=== PATIENT | female | born 1960 | race Caucasian/White ===

== ENCOUNTER 2020-04-22 11:35 | Emergency (ER) | payer MEDICARE, SELFPAY ==
--- NOTE | ~2020-04-22 | XR_ITS ---
EXAMINATION: XR hip LT 2V w AP pelvis DATE: 04/22/2020 13:26 INDICATION: Left hip pain. TECHNIQUE: An anteroposterior view of the pelvis and 2 views of left hip were obtained. COMPARISON: CT abdomen and pelvis 03/20/2019, 07/27/2017 FINDINGS: Bone alignment is normal. No fracture. Left ilium demonstrates chronic trabecular and corti jeannie thickening, consistent with Paget disease. There is mild osteoarthritis of the hips. There is mil d lumbar spondylosis. IMPRESSION: 1. Mild osteoarthritis of the hips. Reviewed, dictated and finalized at location A.
[2020-04-22 11:43] VITALS: BP 164/70; PULSE 72; RESP 14; TEMP 35.9; O2SAT 99
--- NOTE | 2020-04-22 13:43 | ED.EXTPRO ---
HPI - Extremity Problem General Chief complaint: Extremity Problem,Nontraumatic Stated complaint: groin pain-left Time Seen by Provider: 04/22/20 11:48 Source: patient Mode of arrival: ambulatory Limitations: no limitations History of Present Illness HPI Narrative: Patient presents with chief complaint of left hip pain that has been present intermittently since 2011. 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 Patient states that she was told that she will have to have hip replacement in 2017 with a did not occur. Patient states that she has intermittent sharp pains in the left hip that worsens when she stands and attempts to ambulate. She reports the discomfort is to the groin region. Patient states she saw her primary care provider but they cannot see her today and told her to come to the ER for imaging and they can refer her to the appropriate place. Patient states that she takes Tylenol for the discomfort but it does not alleviate her symptoms. Patient denies any recent falls or trauma. Related Data Home Medications Medication Instructions Recorded Confirmed aspirin 325 mg PO DAILY 05/12/19 05/19/19 atorvastatin 10 mg PO DAILY 05/12/19 05/19/19 escitalopram oxalate 20 mg PO DAILY 05/12/19 05/19/19 metoprolol succinate 25 mg PO BID 05/12/19 05/19/19 Allergies Allergy/AdvReac Type Severity Reaction Status Date / Time Sulfa (Sulfonamide Allergy Unknown Verified 08/31/19 12:42 Antibiotics) Review of Systems Review of Systems: Narrative: CONSTITUTIONAL: Denies fever, chills, or sweats. EYES: Denies visual changes, redness, or discharge. ENT: Denies rhinorrhea, congestion, sore throat, or otalgia. CARDIOVASCULAR: Denies chest pain, palpitations, or edema. RESPIRATORY: Denies cough or dyspnea. GASTROINTESTINAL: Denies abdominal pain, nausea, vomiting, or diarrhea. GENITOURINARY: Denies dysuria or hematuria. SKIN: Denies rash or itching. MUSCULOSKELETAL: Reports left groin pain denies back pain, myalgia, or joint pain NEUROLOGIC: Denies headache, numbness, dizziness, or weakness. PSYCHIATRIC: Denies anxiety or depression. [facility] Past Medical History Medical History (Updated 04/22/20 @ 13:48 by Diara J. Carr, PA-C) Anxiety Arthritis CAD (coronary artery disease) Cancer Depression Seizure Surgical History Surgical History (System 08/31/19 @ 12:42 by Celina Urena) History of coronary artery stent placement Family History Family History (System 08/31/19 @ 12:42 by Celina Urena) Mother Cerebrovascular accident Father Family history of heart disease in male family member before age 55 Other Asthma Depression Diabetes mellitus Family history of alcoholism Family history of arthritis Family history of thyroid disease Hypertension Social History Social History (System 08/31/19 @ 12:42 by Celina Urena) Smoking status: Never smoker Alcohol intake: never Gender identity (if verbalized by the patient): Male Exam Narrative: Exam Narrative: GENERAL: Well-appearing, well-nourished. HEAD: Normocephalic, atraumatic. EYES: PERRLA and EOMI. ENT: Nares clear, no rhinorrhea or epistaxis. Mucous membranes moist. NECK: Supple. No adenopathy or masses. No vertebral tenderness or loss of ROM. CHEST: Clear to auscultation. No respiratory distress. No wheezes rales or rhonchi HEART: Regular rate and rhythm. Normal peripheral pulses. EXTREMITIES: Patient ambulates with a limp reporting sharp pain to the left groin. Extremities appear normal without any signs of trauma or injury. They look equal and appropriate bilaterally. Patient limps with ambulation and weightbearing. No edema. SKIN: Warm, dry, no rash. NEURO: No focal deficits. Alert and oriented x3. PSYCH: Normal mood and affect. Course Vital Signs Vital signs: Vital Signs Temperature 96.6 F L 04/22/20 11:43 Pulse
[2020-04-22] MEDS: KETOROLAC (*BKC) 60 MG/2 ML VIAL 30 MG IM (13:52)
[2020-04-22 14:47] VITALS: BP 122/78; PULSE 16; RESP 18; O2SAT 99
== END 2020-04-22 14:49 | disposition home or self-care (01) ==
PROVIDERS: Emergency Provider Emergency Medicine; PCP Family Medicine
DX: M25.552 Pain in left hip (principal); F41.9 Anxiety disorder, unspecified; M19.90 Unspecified osteoarthritis, unspecified site; I25.10 Atherosclerotic heart disease of native coronary artery without angina pectoris; F32.9 Major depressive disorder, single episode, unspecified; Z95.5 Presence of coronary angioplasty implant and graft; Z79.82 Long term (current) use of aspirin
CPT/HCPCS: 73502; 96372; 99284; J1885

== ENCOUNTER 2020-05-22 06:37 | Outpatient (CLI) | payer MEDICARE, SELFPAY ==
--- NOTE | ~2020-05-22 | MR_ITS ---
EXAMINATION: MR pelvis wo/w con DATE: 05/22/2020 07:52 INDICATION: Pelvic and perineal pain. TECHNIQUE: Magnetic resonance imaging (MRI) of the pelvis was performed without and with 20 mL MultiH ance intravenous contrast. Sequences included axial, coronal, and sagittal T2-weighted FS FSE, T1-britney ghted FSE, and postcontrast T1-weighted FS FSE. COMPARISON: Pelvis and left hip radiographs 04/22/2020, CT abdomen and pelvis 04/19/2019 FINDINGS: Bone alignment is normal. There is heterogeneous signal intensity of left ilium with trabecular thick ening, consistent with Paget disease. There is an insufficiency fracture of left sacral ala. There is a subcapital fracture of left femoral neck. There is mild osteoarthritis of the hips. There is mild tendinopathy of the hamstring origins. The gluteal tendons and iliopsoas tendons are normal bilateral ly. There is mild edema in left gluteus afshin muscle, consistent with strain. IMPRESSION: 1. Nondisplaced subcapital fracture of left femoral neck. 2. Insufficiency fracture of left sacral ala. 3. Mild osteoarthritis of the hips. Reviewed, dictated and finalized at location A. 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
== END 2020-05-22 06:38 | disposition home or self-care (01) ==
PROVIDERS: PCP Family Medicine; Visit Provider Orthopaedic Surgery
DX: R10.2 Pelvic and perineal pain (principal); Z85.79 Personal history of other malignant neoplasms of lymphoid, hematopoietic and related tissues; S72.012A Unspecified intracapsular fracture of left femur, initial encounter for closed fracture; S32.19XA Other fracture of sacrum, initial encounter for closed fracture; M16.0 Bilateral primary osteoarthritis of hip
CPT/HCPCS: 72197; A9577

== ENCOUNTER 2020-11-04 15:34 | Outpatient (CLI) | payer MEDICARE, SELFPAY ==
--- NOTE | ~2020-11-04 | CT_ITS ---
EXAMINATION: CT pelvis wo con DATE: 11/04/2020 15:51 INDICATION: Left hip pain. TECHNIQUE: Computed tomography (CT) of the pelvis was performed without intravenous contrast. Automat ed exposure control and iterative reconstruction technique were employed. The dose-length product was 632.32 mGy-cm. COMPARISON: Left hip radiographs 09/04/2020, MRI 05/22/2020, abdomen radiographs 08/28/2018 FINDINGS: There are no pathologically enlarged lymph nodes. There is no free intraperitoneal fluid. T here is a diffuse mixed lytic and sclerotic pattern in left ilium. There is sclerosis in left sacral ala, consistent with healing/healed fracture. There is a subcapital fracture of left femoral neck. Th e distal fracture fragment demonstrates 20 degrees varus angulation, medial impaction, and 4 mm later al displacement. There is mild osteoarthritis of hips. There is mild lumbar spondylosis. IMPRESSION: 1. Subcapital fracture of left femoral neck. 2. Mild osteoarthritis of the hips. 3. Healing/healed left sacral insufficiency fracture. 4. Diffuse mixed lytic and sclerotic pattern in left ilium, stable from 08/28/2018, consistent with torey ated lymphoma. Reviewed, dictated and finalized at location B. IMPRESSION: 1. Subcapital fracture of left femoral neck. 2. Mild osteoarthritis of the hips. 3. Healing/healed left sacral insufficiency fracture. 4. Diffuse mixed lytic and sclerotic pattern in left ilium, stable from 9, consistent with treated lymphoma.
== END 2020-11-04 15:35 | disposition home or self-care (01) ==
PROVIDERS: PCP Family Medicine; Visit Provider Orthopaedic Surgery
DX: M25.552 Pain in left hip (principal); S72.012A Unspecified intracapsular fracture of left femur, initial encounter for closed fracture; S32.19XD Other fracture of sacrum, subsequent encounter for fracture with routine healing; M16.0 Bilateral primary osteoarthritis of hip
CPT/HCPCS: 72192

== ENCOUNTER 2020-11-09 09:45 | Outpatient (CLI) | payer MEDICARE, SELFPAY ==
--- NOTE | ~2020-11-09 | MR_ITS ---
EXAMINATION: MR pelvis wo/w con DATE: 11/09/2020 11:30 INDICATION: Non-Hodgkin's lymphoma. Left groin pain and hip pain. TECHNIQUE: Magnetic resonance imaging (MRI) of the pelvis was performed without and with 15 mL MultiH ance intravenous contrast. Sequences included axial, coronal, and sagittal T1-weighted FSE and T2-britney ghted FS FSE, axial T1-weighted FS FSE, and postcontrast axial and coronal T1-weighted FS FSE. COMPARISON: Pelvis MRI 05/22/2020, CT pelvis 11/04/2020, 08/28/18 FINDINGS: Again seen is a subcapital fracture of left femoral neck. The distal fracture fragment demonstrates 2 0 degrees varus angulation, 5 mm lateral displacement, and medial impaction. There is bone marrow teresa ma-like signal intensity in the sacral ala, consistent with healing fracture. There is chronic deform ity of left ilium with heterogeneous signal intensity. There is mild osteoarthritis of the hips. Ther e is a small left hip joint effusion. There is subcutaneous fat stranding anterolateral to left ilium , consistent with inflammation. The iliopsoas tendons are normal. The gluteus minimus and gluteus med ius tendons are normal. There is mild bilateral trochanteric bursitis. IMPRESSION: 1. Unchanged subcapital fracture of left femoral neck. Small left hip joint effusion. 2. Mild osteoarthrosis of the hips. 3. Healing left sacral insufficiency fracture. 4. Heterogeneous signal intensity in left ilium correlating with CT findings that are stable from 08/28, consistent with treated lymphoma. Reviewed, dictated and finalized at location A. IMPRESSION: 1. Unchanged subcapital fracture of left femoral neck. Small left hip joint eff usion. 2. Mild osteoarthrosis of the hips. 3. Healing left sacral insufficiency fracture. 4. Heterogeneous signal intensity in left ilium correlating with CT findings th at are stable from 08/28/18, consistent with treated lymphoma.
[2020-11-09 10:51] LABS: Estimated Glomerular Filt Rate > 60
== END 2020-11-09 09:46 | disposition home or self-care (01) ==
PROVIDERS: PCP Family Medicine; Visit Provider Orthopaedic Surgery
DX: M25.552 Pain in left hip (principal); S72.012A Unspecified intracapsular fracture of left femur, initial encounter for closed fracture; M25.452 Effusion, left hip; M16.0 Bilateral primary osteoarthritis of hip; M84.48XD Pathological fracture, other site, subsequent encounter for fracture with routine healing
CPT/HCPCS: 72197; A9577

== ENCOUNTER 2020-12-05 06:35 | Outpatient (CLI) | payer MEDICARE, SELFPAY ==
--- NOTE | ~2020-12-05 | NM_ITS ---
EXAMINATION: NM damion stress w perfusion DATE: 12/05/2020 15:00 INDICATION: Atherosclerotic coronary artery disease. TECHNIQUE: Rest images were obtained following intravenous administration of 10.5 mCi Tc99m tetrofosm in (Myoview). The patient was infused intravenously with Lexiscan (Regadenoson). Then, 31.5 mCi Tc99m tetrofosmin (Myoview) was administered intravenously, and stress images were obtained. Data was ramonita nstructed into short axis and horizontal and vertical long axis SPECT images. Gated SPECT images were also obtained. COMPARISON: None. FINDINGS: There is no definite reversible or fixed perfusion abnormality to suggest ischemia or infar ction. There is normal left ventricular chamber size, wall motion and ejection fraction. Left ventr icular ejection fraction measures 68%. IMPRESSION: 1. Normal myocardial perfusion at rest and during stress. 2. Left ventricular ejection fraction measuring 68%. Reviewed, dictated and finalized at location A.
--- NOTE | 2020-12-05 06:59 | ECHO_ITS ---
Patient Info Name: Teresa Rodriguez Age: 60 years : 1960 Gender: Female Ht: 62 in Wt: 198 lbs BSA: 2.03 m2 HR: 56 bpm BP: 123 / 86 mmHg Technical Quality: Fair Exam Date: 12/05/2020 7:06 AM Exam Location: [facility] Patient Status: Outpatient Admit Date: 12/05/2020 Staff Ordering Physician: Primitivo Skelton DO Lcsw: Bessie Avalos RDCS Attending Provider: Primitivo Skelton DO Referring Physician: Costa SPANN; Exam Type: CA echo doppler color flow Study Info Indications D15.1 - Benign neoplasm of heart Complete two-dimensional, color flow and Doppler transthoracic echocardiogram is performed. Summary 1. Complete two-dimensional, color flow and Doppler transthoracic echocardiogram is performed. 2. Left ventricular chamber dimension is normal. 3. Left ventricular systolic function is normal, estimated at 60-65%. 4. The left ventricular diastolic function is abnormal. 5. E/e' 12 is mildly elevated. 6. Global longitudinal strain is normal at -19.8%. 7. Circumscribed mass attached to superior lateral wall of right atrium measuring 0.9 cm x 0.9 cm2 suggestive of atrial myxoma. It is nonobstructive. 8. No pulmonary hypertension, estimated pulmonary arterial systolic pressure is 24 mmHg. Left Ventricle E/e' 12 is mildly elevated. Global longitudinal strain is normal at -19.8%. Left ventricular chamber dimension is normal. Left ventricular systolic function is normal, estimated at 60-65%. The left ventricular diastolic function is abnormal. Right Ventricle Right ventricular chamber dimension is normal. Right ventricular systolic function is normal. Left Atria Left atrial chamber dimension is normal. Right Atria Circumscribed mass attached to superior lateral wall of right atrium measuring 0.9 cm x 0.9 cm2 suggestive of atrial myxoma. It is nonobstructive. Right atrial chamber dimension is normal. Aortic Valve The aortic valve is trileaflet. There is no aortic valve stenosis. There is no aortic valve regurgitation. Pulmonic Valve There is no pulmonic regurgitation. Mitral Valve There is no mitral valve stenosis. There is no mitral valve regurgitation. Tricuspid Valve There is no tricuspid valve regurgitation. No pulmonary hypertension, estimated pulmonary arterial systolic pressure is 24 mmHg. Pericardium/Pleural There is no pericardial effusion. Inferior Vena Cava Normal inferior vena cava with >50% collapse upon inspiration consistent with normal right atrial pressure, 5 mmHg. Aorta The aortic root size at the sinus of Valsalva is normal. Left Ventricular Outflow Tract Name Value Normal LVOT 2D LVOT Diameter 2.0 cm LVOT Doppler LVOT Peak Gradient 5 mmHg LVOT Mean Gradient 3 mmHg LVOT VTI 26 cm LVOT VTI/AV VTI Ratio 0.9 LVOT Stroke Volume 79 ml LVOT CO 4.4 l/min LVOT CI 2.2 l/min/m2 Pulmonic Valve
--- NOTE | 2020-12-05 06:59 | EST_ITS ---
Patient Info Name: Teresa Rodriguez Age: 60 years : 1960 Gender: Female Ht: 62 in Wt: 198 lbs BSA: 2.03 m2 Exam Date: 12/05/2020 8:43 AM Exam Location: [facility] Stress Patient Status: Outpatient Admit Date: 12/05/2020 Staff Ordering Physician: Primitivo Skelton DO Attending Provider: Primitivo Skelton DO Exercise Technologist: Bessie Avalos RDCS Exercise Physician: Primitivo Skelton DO Exam Type: CA stress damion w NM Study Info Indications I25.10 - Atherosclerotic heart disease of [place] coronary artery without angina pectoris A regadenoson stress test was performed. Summary 1. 1. Negative lexiscan stress test for ischemic ST changes by ECG criteria. 2. 2. Stable hemodynamics throughout the test. 3. 3. Nuclear scan to follow and will be reported separately. Please correlate with it. 4. 4. Patient informed of the above results. Protocol: Lexiscan Stress ECG Details Stage: REST Duration (min): 1 min : 19 sec HR (bpm): 63 SBP (mmHg): 126 DBP (mmHg): 65 Stage: REST Duration (min): 9 min : 49 sec HR (bpm): 68 SBP (mmHg): 126 DBP (mmHg): 65 Stage: STAGE 1 Duration (min): 0 min : 59 sec HR (bpm): 81 SBP (mmHg): 151 DBP (mmHg): 105 Stage: RECOVERY Duration (min): 1 min : 0 sec HR (bpm): 95 SBP (mmHg): 119 DBP (mmHg): 90 Stage: RECOVERY Duration (min): 2 min : 0 sec HR (bpm): 96 SBP (mmHg): 119 DBP (mmHg): 90 Stage: RECOVERY Duration (min): 3 min : 0 sec HR (bpm): 99 SBP (mmHg): 133 DBP (mmHg): 85 Stage: RECOVERY Duration (min): 3 min : 7 sec HR (bpm): 98 SBP (mmHg): 133 DBP (mmHg): 85 Rest HR: 68 bpm Peak HR: 99 bpm Rest Sys BP: 126 mmHg Peak Sys BP: 151 mmHg Max Pred HR: 160 bpm % Max Pred HR: 62 % Target HR: 136 bpm Max RPP: 14,949 bpm*mmHg Termination Reason: Completed protocol Cardiac Symptoms: Shortness of breath Total Time: 1 min : 0 sec Rest Corrales BP: 65 mmHg Peak [place]rales BP: 105 mmHg Total Dose: 0.4 mg Resting ECG Sinus rhythm. Stress ECG No ST changes. Arrhythmias None. Report Signatures
== END 2020-12-05 06:36 | disposition home or self-care (01) ==
PROVIDERS: PCP Family Medicine; Visit Provider Internal Medicine Cardiovascular Disease
DX: D15.1 Benign neoplasm of heart (principal); I25.10 Atherosclerotic heart disease of native coronary artery without angina pectoris
CPT/HCPCS: 78452; 93017; 93306; A9502; J2785

== ENCOUNTER 2021-05-29 14:20 | Outpatient (CLI) | payer MEDICARE, SELFPAY ==
--- NOTE | ~2021-05-29 | XR_ITS ---
XR abdomen/kub 1V 05/29/2021 14:54 Indication: Left-sided flank pain Procedure: KUB Comparison: Comparison to multiple prior studies sequentially, with oldest reviewed study dated 05/28. Findings: There are bilateral renal stones. There are cholecystectomy clips. There are pelvic vascula r calcifications. There is Paget's disease of the left ilium. There is a left hip arthroplasty. Bowel gas pattern nonobstructive. Impression: 1: Bilateral nephrolithiasis. Reviewed, dictated and finalized at location B. 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
== END 2021-05-29 14:21 | disposition home or self-care (01) ==
PROVIDERS: PCP Family Medicine; Visit Provider Nurse Practitioner Adult Health
DX: R10.9 Unspecified abdominal pain (principal); N20.0 Calculus of kidney
CPT/HCPCS: 74018

== ENCOUNTER 2021-05-31 13:16 | Emergency (ER) | payer MEDICARE, SELFPAY ==
[2021-05-31] VITALS (16 sets, daily range): BP systolic 102–167; BP diastolic 55–93; PULSE 76–91; RESP 12–26; TEMP 36.6; O2SAT 100
[2021-05-31 15:52] LABS: Basophils Percent Auto 0.3 % (0.2-1.2); Eosinophils Percent Auto 0.3 % (0-4.4); Hematocrit 40.2 % (37.0-47.0); Hemoglobin 13.4 g/dL (12.0-15.0); Immature Granulocyte Absolute 0.06 K/mm3 (0.00-0.031); Immature Granulocyte Percent A 0.6 % (0-0.5); Lymphocytes Absolute Auto 0.84 K/mm3 (0.9-3.2); Mean Corpuscular HGB Conc 33.3 g/dl (32-36); Mean Corpuscular Hemoglobin 31.2 pg (26-34); Mean Corpuscular Volume 93.5 fl (80-100); Mean Platelet Volume 10.6 fl (7.4-10.4); Monocytes Absolute Auto 0.7 K/mm3 (0.1-0.6); Monocytes Percent Auto 6.5 % (2.6-8.5); Neutrophils Absolute Auto 8.9 K/mm3 (1.3-6.7); Neutrophils Percent Auto 84.3 % (45.5-73.1); Platelet Count Result 192 k/mm3 (150-375); Red Cell Distribution Width 13.8 % (11.5-14.5); White Blood Count 10.5 K/mm3 (4.5-10.0)
[2021-05-31 16:04] LABS: Alanine Aminotransferase 13 U/L (4-35); Albumin Level 4.5 g/dL (3.5-5.1); Alkaline Phosphatase 92 U/L (38-126); Anion Gap 12 mmol/L (8-16); Aspartate Amino Transferase 21 U/L (14-36); Bilirubin,Total 0.6 mg/dL (0.2-1.3); Blood Urea Nitrogen 15 mg/dL (7-17); Calcium 9.5 mg/dL (8.4-10.2); Carbon Dioxide 25 mmol/L (22-30); Chloride 97 mmol/L (98-107); Estimated CRCL calculation 60 ml/min; Estimated Glomerular Filt Rate > 60; Glucose 111 mg/dL (65-110); Potassium 3.2 mmol/L (3.4-5.0); Sodium 134 mmol/L (137-145)
[2021-05-31 16:13] LABS: Add Urine Microscopic? YES; Appearance Urine Cloudy (Clear); Bacteria Urine Trace /hpf; Bilirubin Urine Negative (Negative); Blood Urine 2+ (Negative); Color Urine Yellow (Yellow); Glucose Urine UA Negative (Negative); Ketones Urine 1+ mg/dL (Negative); Leukocyte Esterase Ur 3+ LEU/UL (Negative); Mucus Urine Rare /lpf; Nitrate Urine Negative (Negative); Protein Urine 2+ mg/dL (Negative); Specific Grav Ur 1.014 (1.001-1.035); Squamous Epithelial Cell Urine Few /hpf (Few); Urobilinogen Urine Negative mg/dL (<2.0); WBC Urine 51-75 /hpf
[2021-05-31] MEDS: LACTATED RINGERS 1,000 ML 150 ML IV CONT (16:14)
--- NOTE | 2021-05-31 17:06 | ED.FEMALEGU ---
HPI - Female Genitourinary General Chief complaint: Urogenital-Female Stated complaint: flank pain Time Seen by Provider: 05/31/21 15:37 Source: patient Mode of arrival: ambulatory Limitations: no limitations History of Present Illness HPI Narrative: 61-year-old female Complains of a 3 or 4-day history of left-sided flank pain She was seen in the urology office 2 days ago and diagnosed with a UTI and started Macrodantin that afternoon She sees because she had a previous history of lithotripsy for kidney stones and sounds like she had pyelonephritis related to that She says that the day after starting that antibiotic she started having loose stools she thought were kind of mucousy and nausea and a poor appetite and a WING No blood in the stool No fever Related Data Home Medications Medication Instructions Recorded Confirmed acetaminophen 650 mg 650 mg PO Q12H 11/22/20 05/29/21 tablet,extended release amlodipine 05/31/21 atorvastatin 05/31/21 citalopram mg 05/31/21 metoprolol tartrate 05/31/21 terbinafine HCl mg 05/31/21 Allergies Allergy/AdvReac Type Severity Reaction Status Date / Time Sulfa (Sulfonamide Allergy Unknown Unknown Verified 05/31/21 17:23 Antibiotics) Review of Systems Review of Systems: All systems reviewed & are unremarkable except as noted in HPI and below Constitutional: Constitutional: Reports no additional constitutional complaints, Denies chills, Reports fatigue, Denies fever(s) and Denies headache(s) Eyes: Eyes: Reports no additional eye complaints and Denies change in vision ENT: Denies headache(s) and Denies sore throat Cardiovascular: Cardiovascular: Denies chest pain and Denies dyspnea Respiratory: Respiratory: Denies cough and Denies dyspnea Gastrointestinal: Gastrointestinal: Denies abdominal pain, Reports diarrhea, Reports nausea and Denies vomiting Genitourinary: Genitourinary: Denies urinary frequency, Reports nocturia and Reports dysuria Musculoskeletal: Musculoskeletal: Denies deformity, Denies arthralgias, Denies joint swelling and Denies numbness Integumentary/Breasts: Skin/Breast: Denies rash and Denies wounds Neurologic: Reports headache(s), Denies focal weakness and Denies numbness Psychiatric: Psychiatric: Reports no additional psychiatric complaints Endocrine: Endocrine: Reports no additional endocrine complaints Hematologic/Lymphatic: Hematologic/Lymphatic: Reports no additional hematologic/lymphatic complaints Allergic/Immunologic: Allergic/Immunologic: Reports no additional allergic/immunologic complaints [facility] Past Medical History Medical History Anxiety Arthritis BMI 35.0-35.9,adult CAD (coronary artery disease) Cancer Depression Heart disease History of non-Hodgkin's lymphoma Hypertension Seizure Stress fracture of neck of left femur Surgical History Surgical History History of coronary artery stent placement Family History Family History Mother Cerebrovascular accident Father Family history of heart disease in male family member before age 55 Other Asthma Depression Diabetes mellitus Family history of alcoholism Family history of arthritis Family history of thyroid disease Hypertension Social History Social History Smoking status: Never smoker Alcohol intake: never Gender identity (if verbalized by the patient): Male Exam Const: General: cooperative, no acute distress and alert Orientation/consciousness: patient oriented x3 (alert) HENMT: Head: normal to inspection, normocephalic and atraumatic Ears: external ears normal General nose exam: no epistaxis Eyes: Conjunctivae: conjunctivae normal EOM: EOMs intact bilaterally Neck: Neck: normal visual inspection, supple and no J
[2021-05-31 17:41] LABS: Lactic Acid Reflex 1.3 mmol/L (0.7-2.1)
[2021-05-31] MEDS: POTASSIUM CHLORIDE 20 MEQ PACKET (FOR LIQUID) 40 MEQ PO (17:58)
== END 2021-05-31 20:11 | disposition home or self-care (01) ==
PROVIDERS: Emergency Provider Emergency Medicine; PCP Family Medicine
DX: N39.0 Urinary tract infection, site not specified (principal); I25.10 Atherosclerotic heart disease of native coronary artery without angina pectoris; I11.9 Hypertensive heart disease without heart failure; M19.90 Unspecified osteoarthritis, unspecified site; F32.A Depression, unspecified; F41.9 Anxiety disorder, unspecified; Z87.442 Personal history of urinary calculi; Z85.72 Personal history of non-Hodgkin lymphomas
CPT/HCPCS: 36415; 80053; 81001; 83605; 85025; 87086; 87088; 96361; 96365; 96366; 99284; A9270; J1956; J7120

== ENCOUNTER 2021-06-20 12:39 | Outpatient (CLI) | payer MEDICARE, SELFPAY ==
--- NOTE | ~2021-06-20 | CT_ITS ---
EXAMINATION: CT abdomen pelvis wo con DATE: 06/20/2021 13:04 INDICATION: Bilateral kidney stones. TECHNIQUE: Computed tomography (CT) of the abdomen and pelvis was performed without intravenous contr ast. Automated exposure control and iterative reconstruction technique were employed. The dose-length product was 440.46 mGy-cm. COMPARISON: CT abdomen and pelvis 03/20/2019, pelvis CT 11/04/20 FINDINGS: The visualized portions of the lung bases demonstrate mild atelectasis. No pleural effusion . The heart size is normal. There are coronary artery calcifications. No pericardial effusion. The li nena and spleen are normal. There are changes of cholecystectomy. The pancreas and adrenal glands are normal. There is cortical thinning of the kidneys. There are arterial calcifications at the glenys of t he kidneys. There is a 2 mm stone in right kidney upper pole. There is a 7 mm stone in right kidney l ower pole. There are approximately 6 stones in left kidney lower pole measuring up to 9 mm. There is mild left hydronephrosis and hydroureter. There are 5 mm and 3 mm stones in distal left ureter. There are no dilated loops of bowel. The appendix is normal. There are no pathologically enlarged lymph no alexa. There is no free intraperitoneal fluid. There is a left hip arthroplasty. Left ilium demonstrate s a mixed lytic and sclerotic pattern. There is moderate lumbar spondylosis. IMPRESSION: 1. 5 mm and 3 mm stones in distal left ureter with mild left hydronephrosis and hydroureter. 2. Bilateral nonobstructing kidney stones. 3. Stable mixed lytic and sclerotic pattern in left ilium, consistent with treated lymphoma. Reviewed, dictated and finalized at location A. 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 5 mm and 3 mm stones in distal left ureter with mild left hydronephrosis and hydroureter. 2. Bilateral nonobstructing kidney stones. 3. Stable mixed lytic and sclerotic pattern in left ilium, consistent with heather hernan lymphoma.
== END 2021-06-20 12:40 | disposition home or self-care (01) ==
LOC: ANHIMG 12:41
PROVIDERS: PCP Family Medicine; Visit Provider Nurse Practitioner Adult Health
DX: N20.2 Calculus of kidney with calculus of ureter (principal)
CPT/HCPCS: 74176

== ENCOUNTER 2021-06-25 00:43 | Day surgery (SDC) | payer MEDICARE, SELFPAY ==
[2021-06-24 13:00] VITALS: BMI 35.5
--- NOTE | 2021-06-24 13:18 | PC.NURSE ---
Report to the Outpatient Waiting Room, entrance under the green pavilion located off [facility], at time ___1115____ on date __06/25/21___. OR Time: __1345 . - You and your visitor will be asked a series of questions to screen for COVID 19 for your protection. - A mask is required within the hospital. - NO visitors is allowed at this time. Patient visitors will be guided where to wait when not with patient. Preoperative COVID Testing Requirements: No COVID Test needed if: (proof is required; if not received patient will have Rapid Test prior to entry) - Patient has received COVID Vaccine at least 14 days prior to procedure date or - Patient has positive COVID test result within last 90 days of surgery date. COVID Test needed if above criteria is not met If not COVID vaccinated a COVID test must be conducted within 72 hours of surgery and patient is asked to isolate self from time of testing until procedure. You will go to the [facility] for your COVID testing. The [facility] site is located at the corner of [address] [facility]. You will only be called if COVID results are positive and your surgeon may reschedule your elective surgery date. Patients may have clear liquids (water, carbonated beverages, clear teas, apple juice) until 3 hours prior to surgery with a maximum of 20 ounces. (0945 AM) - No food from midnight until time of surgery - Infants may have breast milk until 4 hours before surgery, infant formula 6 hours prior to surgery. - Children will be allowed to drink immediately following surgery. If applicable, please bring a bottle or sippy cup to assist with drinking. Juice, water, soda, and popsicles are readily available. For infants on formula, please bring formula the day of surgery. Pacifiers are allowed. Take the following medications with a SIP of water the morning of surgery: __METOPROLOL___ Medications to discontinue per physician __ASPIRIN PER DR. FERNANDEZ, Please no make-up, nail armenian, hairspray, perfume, deodorant, or body powder the day of surgery. No jewelry (including any body piercings) or valuables the day of surgery, leave them at home. Please take a shower or bath the night before, or the morning of, surgery with an antibacterial soap. Wear comfortable, loose fitting clothing. Children are encouraged to wear pajamas. - Jewelry must be removed prior to entering the operating room. Rings and piercings that are not removed may be cut off. - The hospital will not accept responsibility for valuables. - Please leave all valuables, including medications, at home the day of surgery. If you are going home after surgery, a licensed milk driver must drive you home. - NO public transportation without another adult. - We recommend that an adult stay with you for 24 hours following discharge. - We also recommend that you do not drive, make important decision, drink alcoholic beverages, or take any drugs that were not prescribed by your health care provider for at least 24 hours after your discharge time. For Pediatric surgeries, we recommend two adults accompany the child home (only one inside the building at this time). Follow any additional instructions given to you from your surgeon. Telephone instructions given to PT and asked if any additional questions and then verbalized understanding. Patient advised to call surgeon office or pre surgery nurse liaison [phone] if any additional questions.
[2021-06-25] VITALS (7 sets, daily range): BP systolic 118–152; BP diastolic 70–89; PULSE 59–69; RESP 14–18; TEMP 36.2–36.8; O2SAT 100
--- NOTE | ~2021-06-25 | XR_ITS ---
EXAMINATION: XR fluoroscopy no charge DATE: 06/25/2021 14:42 INDICATION: Left ureteroscopy and stone extraction TECHNIQUE: 3 fluoroscopic images of the abdomen and pelvis were obtained during procedure performed hortencia Keene. Radiologist was not present for the imaging or procedure. The amount of fluoroscopy maksim e used during this procedure was 0.3 minutes. COMPARISON: CT dated 06/16/2021 FINDINGS: Plaster Helper images demonstrate stones projecting over the lower poles of both kidneys. There also atheroscl erotic calcification along the bilateral renal arteries and bilateral iliac arteries in the pelvis. N o definitive stones seen along the course of ureters. Cholecystectomy clips in right upper quadrant. Bipolar type left hip hemiarthroplasty. IMPRESSION: 1. Bilateral renal stones. No definitive stones seen along the course of the ureters. Correlate with procedure note. Reviewed, dictated and finalized at location A. ARCHITECT IMPRESSION: 1. Bilateral renal stones. No definitive stones seen along the course of the ur eters. Correlate with procedure note.
--- NOTE | 2021-06-25 10:48 | WPDANESEPPF ---
Anes - Initial Pre Proc Eval Procedure: Operation Date: 06/25/21 13:45 Proposed Procedures p Cystoscopy, Left Ureteroscopy with Left Stone Extraction, Left Stent Placement, Left Retrograde Pyelogram - Anderson Keene MD s Holmium Laser Procedure - Anderson Keene MD <Octaviano Mckay MD - Last Filed: 06/29/21 15:36> Date/Time: 06/25/21 10:48 <Octaviano Mckay MD - Last Filed: 06/29/21 15:36> Surgeon: Anderson Keene MD <Octaviano Mckay MD - Last Filed: 06/29/21 15:36> Pre Op Diagnosis: Lt Ureteral Stone <Octaviano Mckay MD - Last Filed: 06/29/21 15:36> Patient Data Age: 61 Gender: F Height: 1.57 m Weight: 88.18 kg <Octaviano Mckay MD - Last Filed: 06/29/21 15:36> Allergies Allergy/AdvReac Type Severity Reaction Status Date / Time Sulfa (Sulfonamide Allergy Unknown Anaphylaxis Verified 06/25/21 12:53 Antibiotics) <Octaviano Mckay MD - Last Filed: 06/29/21 15:36> Home Medications Medication Instructions Recorded Confirmed Type acetaminophen 650 mg 650 mg PO Q12H 11/22/20 06/24/21 History tablet,extended release atorvastatin 10 mg HS 05/31/21 06/24/21 History citalopram 20 mg HS 05/31/21 06/24/21 History metoprolol tartrate 25 mg BID 05/31/21 06/25/21 History terbinafine HCl 250 mg QAM 05/31/21 06/24/21 History aspirin 81 mg PO QAM 06/24/21 06/25/21 History calcium carbonate-vitamin D2 2 tablet PO QAM 06/24/21 06/24/21 History cephalexin 500 mg PO Q8H #9 cap 06/25/21 Rx hydrocodone-acetaminophen 1 - 2 tablet PO Q6H PRN #20 tablet 06/25/21 Rx <Octaviano Mckay MD - Last Filed: 06/29/21 15:36> Other studies: Musical Instrument Supervisor:: Cath (Dr. Christnie: patent mid LAD stent, LCx 40-50% OM1; RCA 40-50% mid stenosis. LV angiogram shows EF normalized >70%.) - 01/25/2018 PCI ([facility]: PCI of LAD with BMS; LAD 8% stenosis; LCx 30% prox; RCA 40% mid stenosis.) - 05/24/2012 Echo/MUGA:: 12/05/20 Echo: EF 60-65%, diastolic dysfunction (E/e' 12), circumferential mass 0.9 cmx 0.9cm s/o myxoma in right atrium, nonobstructive. 12/13/18 Echo: EF 55-60%, anteroseptal hypokinesis, mod LAE, RA mass superior aspect measuring 1.0 cm x 0.75 cm. FÉLIX (EF 60-65%, a circumferential mass attached to superior lateral wall of right atrium 0.3 cm2 or 0.6 x0.9 cm s/o atrial myxoma. It is nonobstructive.) - 10/18/2018 Echo (EF 55-60%, a small circumferential mass 0.8 x 0.7 cm attached to superior right atrial wall.) - 10/13/2018 Echo (EF 35-40%, grade I diastolic dysfunction, mild LVH, severe hypokinesis of anteroseptum and anterior lopez, hypokinesis of lateral lopez, trace AI/TR.) - 01/22/2018 Electrophysiology:: EKG (Sinus rhythm at 50 bpm.) - 02/15/2018 EKG (Sinus rhythm, consider anterolat/inf ischemia.) - 01/22/2018 EKG (Sinus rhythm, RSR' in V1 or v2, consider rvh or right vcd, peaked T waves suggests hyperkalemia or ischemia.) - 09/27/2015 Stress Tests:: 12/05/20 Lexiscan myoview: Normal. <Octaviano Mckay MD - Last Filed: 06/29/21 15:36> Patient hx anesthesia problems: none <Octaviano Mckay MD - Last Filed: 06/29/21 15:36> Family hx anesthesia problems: none <Octaviano Mckay MD - Last Filed: 06/29/21 15:36> Results Review: All pre-operative results and documents have been reviewed as part of the pre-operative evaluation. <Octaviano Mckay MD - Last Filed: 06/29/21 15:36> [facility] Past Medical History Medical History: Medical History (Updated 06/25/21 @ 14:45 by Anderson Keene MD) Anxiety Arthritis Atrial myxoma BMI 35.0-35.9,adult CAD (coronary artery disease) Cancer Depression Dyslipidemia Heart disease History of non-Hodgkin's lymphoma Hypertension Obesity Seizure Stress fracture of neck of left femur <Octaviano Mckay MD - Last Filed: 06/29/21 15:36> Surgical History Surgical History: Surgical History History of coronary artery stent placement <Octaviano Mckay MD - Las
--- NOTE | 2021-06-25 12:24 | WPDHPUPDATE1 ---
History and Physical Update Update Date/Time: 06/25/21 12:24 History and Physical has been reviewed, including an updated exam of the patient. There are NO changes in the patient's condition. Risks, benefits, and alternatives have been discussed and questions answered. Patient agrees to proceed with procedure.
[2021-06-25] MEDS: LACTATED RINGERS 1,000 ML 30 ML IV CONT ×2 (13:00→14:46)
[2021-06-25] MEDS: ceFAZolin 2 GM/D5W 50 ML 2 GM/50 ML BAG IVPB (14:12)
[2021-06-25] MEDS: LIDOCAINE HCL 2% GEL UROJET 10 ML PKG MUCOUS MEM (14:38)
[2021-06-25] MEDS: KETOROLAC 15 MG/ML VIAL (*BKC) IV PUSH (14:40)
--- NOTE | 2021-06-25 14:41 | P.OP_ITS ---
Procedure Note - Detailed Date of Procedure 06/25/21 Pre-op Diagnosis Lt Ureteral Stone Post-op Diagnosis same Procedure Performed Cystoscopy, left ureteroscopy with stone extraction Surgeon Anderson Keene MD Anesthesia general Description of Procedure The patient was brought to the operative suite where she is prepped and draped in a routine sterile fashion while in the dorsal lithotomy position after the uneventful induction of a general LMA anesthetic. A 19F rigid cystoscope was placed in the bladder. The patient had no evidence of urethral stricture or bladder neck contracture. The bladder mucosa was endoscopically normal without hyperemia or neoplasm. There was a single, orthotopic ureteral orifice bilaterally. A 0.035 glidewire was advanced into the left renal pelvis under fluoroscopy. The distal ureter was dilated with an 8F/10F ureteral dilator. Ureteroscopy was undertaken with a short, tapered, semi-rigid ureteroscope and 3 small stone (2mm-4mm) were extracted with ease using a 1.9F Escape disposable stone basket. Due to the ease of this manipulation I opted not to place a ure teral stent. The patient's bladder was emptied and was taken to the recovery room having tolerated this procedure well. Estimated Blood Loss 0 Drains No Packing No Pathology yes Complications No immediate complications Condition stable
== END 2021-06-25 15:59 | disposition home or self-care (01) ==
PROVIDERS: PCP Family Medicine; Visit Provider Urology
PROC: (CPT 52352; principal; 2021-06-25 13:45)
DX: N20.1 Calculus of ureter (principal); I11.9 Hypertensive heart disease without heart failure; E78.5 Hyperlipidemia, unspecified; F41.8 Other specified anxiety disorders; I25.10 Atherosclerotic heart disease of native coronary artery without angina pectoris; E66.9 Obesity, unspecified; Z68.35 Body mass index [BMI] 35.0-35.9, adult; Z87.891 Personal history of nicotine dependence; F12.90 Cannabis use, unspecified, uncomplicated
CPT/HCPCS: 52352; 82365; 87426; 88300; A9270; C1769; C9803; J0690; J1100; J1885; J2405; J2704; J3010; J7120

== ENCOUNTER 2021-06-25 11:10 | Outpatient (CLI) | payer MEDICARE, SELFPAY ==
[2021-06-25 11:38] LABS: EDCOVIDSCREEN Negative (Negative)
== END 2021-06-25 11:11 | disposition home or self-care (01) ==
PROVIDERS: PCP Family Medicine; Visit Provider Urology
DX: Z01.812 Encounter for preprocedural laboratory examination (principal); Z20.822 Contact with and (suspected) exposure to COVID-19
CPT/HCPCS: 87426; C9803

== ENCOUNTER 2021-10-10 19:13 | Emergency (ER) | payer MEDICARE, SELFPAY ==
--- NOTE | 2021-10-10 19:19 | ED.URI ---
HPI - URI/Sore Throat General Chief Complaint: Upper Respiratory Infection Stated Complaint: SORE THROAT/CONGESTION Time Seen by Provider: 10/10/21 19:20 Source: patient Mode of arrival: ambulatory Limitations: no limitations History of Present Illness HPI Narrative: 61-year-old female presents with complaint of cough, chest congestion, sore throat, headaches for over a week. Coughing up green sputum. Denies fever chills. Has been taking Tylenol for headache but no other medications. States chest congestion is getting worse and she feels like she is losing her voice from coughing. Denies shortness of breath or chest pain. Reports a 40-year history of smoking. Reports she had normal chest x-ray November 2020. All systems reviewed and negative except as noted above. Related Data Home Medications Medication Instructions Recorded Confirmed acetaminophen 650 mg 650 mg PO Q12H 11/22/20 06/24/21 tablet,extended release atorvastatin 10 mg HS 05/31/21 06/24/21 citalopram 20 mg HS 05/31/21 06/24/21 metoprolol tartrate 25 mg BID 05/31/21 06/25/21 terbinafine HCl 250 mg QAM 05/31/21 06/24/21 aspirin 81 mg PO QAM 06/24/21 06/25/21 calcium carbonate-vitamin D2 2 tablet PO QAM 06/24/21 06/24/21 Allergies Allergy/AdvReac Type Severity Reaction Status Date / Time Sulfa (Sulfonamide Allergy Unknown Anaphylaxis Verified 06/25/21 12:53 Antibiotics) Review of Systems Review of Systems: CONSTITUTIONAL: Denies fever, chills, or sweats. EYES: Denies visual changes, redness, or discharge. ENT: Denies rhinorrhea, congestion, sore throat, or otalgia. CARDIOVASCULAR: Denies chest pain, palpitations, or edema. RESPIRATORY: Reports cough, chest congestion. Denies dyspnea. GASTROINTESTINAL: Denies abdominal pain, nausea, vomiting, or diarrhea. GENITOURINARY: Denies dysuria or hematuria. SKIN: Denies rash or itching. MUSCULOSKELETAL: Denies back pain, joint pain, or myalgia. NEUROLOGIC: Denies headache, numbness, or weakness. PSYCHIATRIC: Denies anxiety or depression. All other systems reviewed are negative, except as documented in HPI. [facility] Past Medical History Medical History (Updated 10/10/21 @ 19:30 by Ana Laguerre NP) Anxiety Arthritis Atrial myxoma BMI 35.0-35.9,adult CAD (coronary artery disease) Cancer Depression Dyslipidemia Heart disease History of non-Hodgkin's lymphoma Hypertension Obesity Seizure Stress fracture of neck of left femur Surgical History Surgical History History of coronary artery stent placement Family History Family History Mother Cerebrovascular accident Father Family history of heart disease in male family member before age 55 Other Asthma Depression Diabetes mellitus Family history of alcoholism Family history of arthritis Family history of thyroid disease Hypertension Social History Social History (Updated 06/24/21 @ 12:54 by Lindsay Arrieta RN) Smoking status: Former smoker Tobacco type: cigarettes Second hand tobacco smoke exposure: No Additional smoking assessment comments: STATES SMOKING <PK/DAY/40YRS-QUIT 2015 Alcohol intake: never Substance use: current Substance use type: marijuana Other substance usage details: STATES COUPLE HITS DAILY Additional living arrangements comments: LIVES AND TAKES CARE OF HER MOM - [place] Gender identity (if verbalized by the patient): Male Spiritual care concerns: No Comments At time of signature, agree with nursing past medical, surgical, social and family history. There is no relevant family history pertinent to the presenting complaint. Exam Narrative: GENERAL: This is a well-nourished, well-developed patient, in no apparent distress. HEAD: normocephalic, atraumatic. EYES: PERRL. Sclera clear/white. Vision is grossly intact. EARS: External ears normal, auditory canals clear and without d
[2021-10-10 19:30] VITALS: BP 138/79; PULSE 79; RESP 16; O2SAT 100
== END 2021-10-10 19:31 | disposition home or self-care (01) ==
PROVIDERS: Emergency Provider Nurse Practitioner Family; PCP Family Medicine
DX: J06.9 Acute upper respiratory infection, unspecified (principal); Z87.891 Personal history of nicotine dependence; F12.90 Cannabis use, unspecified, uncomplicated; M19.90 Unspecified osteoarthritis, unspecified site; I25.10 Atherosclerotic heart disease of native coronary artery without angina pectoris; E78.5 Hyperlipidemia, unspecified; I10 Essential (primary) hypertension; E66.9 Obesity, unspecified; Z68.36 Body mass index [BMI] 36.0-36.9, adult; Z95.5 Presence of coronary angioplasty implant and graft; F41.9 Anxiety disorder, unspecified; Z85.72 Personal history of non-Hodgkin lymphomas; Z86.018 Personal history of other benign neoplasm; Z79.82 Long term (current) use of aspirin
CPT/HCPCS: 99213; G0463

== ENCOUNTER 2022-02-28 10:00 | Emergency (ER) | payer MEDICARE, SELFPAY ==
[2022-02-28 10:43] VITALS: BP 170/94; PULSE 52; RESP 16; TEMP 36.4; O2SAT 100
--- NOTE | 2022-02-28 11:09 | ED.GENADULT ---
HPI - General Adult General Chief complaint: Urogenital-Female Stated complaint: Painful urination Source: patient Mode of arrival: ambulatory Limitations: no limitations History of Present Illness HPI narrative: Patient presents for evaluation of urinary symptoms. She indicates 9 days ago she was experiencing significant dysuria. She saw her primary provider received a prescription for Macrobid, which she recently completed. She states that her urinary symptoms are improved but not resolved. She currently reports urinary frequency, urgency, dysuria. She denies any fever, chills, nausea, vomiting, pelvic pain, low back pain, hematuria, hesitancy. She has a history of kidney stones but this does not feel similar. No additional complaints or concerns. Related Data Home Medications Medication Instructions Recorded Confirmed atorvastatin 10 mg tablet 10 mg HS 05/31/21 11/05/21 aspirin 81 mg tablet,delayed 81 mg PO QAM 06/24/21 11/05/21 release nitrofurantoin 02/28/22 monohydrate/macrocrystals 100 mg capsule Allergies Allergy/AdvReac Type Severity Reaction Status Date / Time Sulfa (Sulfonamide Allergy Unknown Anaphylaxis Verified 11/05/21 08:47 Antibiotics) Review of Systems Review of Systems: CONSTITUTIONAL: Denies fever, chills, or sweats. EYES: Denies visual changes, redness, or discharge. ENT: Denies rhinorrhea, congestion, sore throat, or otalgia. CARDIOVASCULAR: Denies chest pain, palpitations, or edema. RESPIRATORY: Denies cough or dyspnea. GASTROINTESTINAL: Denies abdominal pain, nausea, vomiting, or diarrhea. GENITOURINARY: Reports dysuria, urgency and frequency. Denies hematuria and hesitancy. SKIN: Denies rash or itching. MUSCULOSKELETAL: Denies back pain, joint pain, or myalgia. NEUROLOGIC: Denies headache, numbness, dizziness, or weakness. PSYCHIATRIC: Denies anxiety or depression. [facility] Past Medical History Medical History Anxiety Arthritis Atrial myxoma BMI 35.0-35.9,adult CAD (coronary artery disease) Cancer Depression Dyslipidemia Heart disease History of non-Hodgkin's lymphoma Hypertension Obesity Seizure Stress fracture of neck of left femur Surgical History Surgical History History of coronary artery stent placement Family History Family History Mother Cerebrovascular accident Father Family history of heart disease in male family member before age 55 Other Asthma Depression Diabetes mellitus Family history of alcoholism Family history of arthritis Family history of thyroid disease Hypertension Social History Social History Smoking status: Never smoker Tobacco type: cigarettes Second hand tobacco smoke exposure: No Additional smoking assessment comments: STATES SMOKING <PK/DAY/40YRS-QUIT 2014 Alcohol intake: never Substance use: current Substance use type: marijuana Other substance usage details: STATES COUPLE HITS DAILY Additional living arrangements comments: LIVES AND TAKES CARE OF HER MOM - [place] Gender identity (if verbalized by the patient): Male Spiritual care concerns: No Exam Narrative: GENERAL: Well-appearing, well-nourished, and in no acute distress. HEAD: Normocephalic, atraumatic. EYES: PERRLA and EOMI. ENT: Nares clear, no rhinorrhea or epistaxis. Mucous membranes moist. Oropharynx without tonsillar hypertrophy exudate or other lesions. Bilateral TMs pearly tello nonbulging NECK: Supple. No adenopathy or masses. No carotid bruits or JVD CHEST: Clear to auscultation. No respiratory distress. No wheezes rales or rhonchi HEART: Regular rate and rhythm. No murmur heard. Normal peripheral pulses. ABDOMEN: Soft, nontender, nondistended, normal active bowel sounds. EXTREM
== END 2022-02-28 11:00 | disposition home or self-care (01) ==
PROVIDERS: Emergency Provider Nurse Practitioner; PCP Family Medicine
DX: N39.0 Urinary tract infection, site not specified (principal); Z87.891 Personal history of nicotine dependence; M19.90 Unspecified osteoarthritis, unspecified site; I25.10 Atherosclerotic heart disease of native coronary artery without angina pectoris; E78.5 Hyperlipidemia, unspecified; I10 Essential (primary) hypertension; E66.9 Obesity, unspecified; Z68.45 Body mass index [BMI] 70 or greater, adult; Z95.5 Presence of coronary angioplasty implant and graft; Z79.82 Long term (current) use of aspirin; Z85.72 Personal history of non-Hodgkin lymphomas
CPT/HCPCS: 81003; 87077; 87086; 87186; 99213; G0463

== ENCOUNTER 2022-05-02 06:58 | Outpatient (CLI) | payer MEDICARE, SELFPAY ==
[2022-05-02 07:33] LABS: Alanine Aminotransferase 14 U/L (6-35); Albumin Level 4.3 g/dL (3.5-5.1); Alkaline Phosphatase 71 U/L (38-126); Anion Gap 14 mmol/L (8-16); Aspartate Amino Transferase 20 U/L (14-36); Bilirubin,Total 0.6 mg/dL (0.2-1.3); Blood Urea Nitrogen 19 mg/dL (7-17); Calcium 8.9 mg/dL (8.4-10.2); Carbon Dioxide 25 mmol/L (22-30); Chloride 104 mmol/L (98-107); Cholesterol 145 mg/dL (0-200); Estimated Glomerular Filt Rate > 60; Glucose 87 mg/dL (65-110); HDL Direct 55 mg/dL; Sodium 143 mmol/L (137-145); Triglycerides 73 mg/dL (<150)
[2022-05-02 07:44] LABS: LDL Cholesterol Direct 54 mg/dL
== END 2022-05-02 06:59 | disposition home or self-care (01) ==
PROVIDERS: PCP Family Medicine; Visit Provider Internal Medicine Cardiovascular Disease
DX: E78.5 Hyperlipidemia, unspecified (principal)
CPT/HCPCS: 36415; 80053; 80061

== ENCOUNTER 2022-06-22 08:53 | Emergency (ER) | payer MEDICARE, SELFPAY ==
[2022-06-22] VITALS (12 sets, daily range): BP systolic 124–143; BP diastolic 66–113; PULSE 81–93; RESP 15–24; TEMP 37; O2SAT 96–100
--- NOTE | ~2022-06-22 | CT_ITS ---
EXAMINATION: CTA chest PE protocol DATE: 06/22/2022 10:19 INDICATION: Left chest pain. Upper respiratory infection. TECHNIQUE: Computed tomography (CT) pulmonary angiogram of the chest was performed with 100 mL Omnipa que-350 intravenous contrast. Additional 3D reconstructions utilizing coronal maximum intensity proje ction (MIP) were performed. Automated exposure control and iterative reconstruction technique were em ployed. The dose-length product was 264.86 mGy-cm. COMPARISON: None FINDINGS: Good contrast opacification of the pulmonary arteries. There is mild streak artifact from dense contr ast in the superior vena cava and right atrium. Mild respiratory motion at the lung bases which does not significantly limit evaluation. No pulmonary embolism. There is 6.8 x 3.0 x 4.5 cm region of cons olidation at the lateral basilar segment of the left lower lobe through which course contrast opacifi ed pulmonary arteries without evident architectural distortion which suggests consolidation in the se tting of pneumonia rather than pulmonary infarct or malignancy. There is small left pleural effusion. Right lung is clear. No pulmonary edema, pneumothorax or right-sided pleural effusion. Heart size is normal. Atherosclerotic coronary artery calcifications. Very small pericardial effusion. Thoracic ao rta is normal in caliber with no dissection. No pathologically enlarged thoracic lymphadenopathy. Cho lecystectomy clips the gallbladder fossa. Mild thoracic spondylosis. IMPRESSION: 1. No pulmonary embolism. 2. 6.8 x 3.0 x 4.5 cm region of consolidation at the lateral basilar segment of the left lower lobe m ost suspicious for pneumonia. Recommend radiographic follow-up to resolution. 3. Very small left pleural effusion and very small pericardial effusion. Reviewed, dictated and finalized at location A. IT ADMINISTRATION OFFICER IMPRESSION: 1. No pulmonary embolism. 2. 6.8 x 3.0 x 4.5 cm region of consolidation at the lateral basilar segment of the left lower lobe most suspicious for pneumonia. Recommend radiographic foll ow-up to resolution. 3. Very small left pleural effusion and very small pericardial effusion.
--- NOTE | ~2022-06-22 | XR_ITS ---
EXAMINATION: XR chest 2V DATE: 06/22/2022 11:18 INDICATION: Recent upper respiratory tract infection presenting with cough and chest pain TECHNIQUE: PA and lateral views of the chest were obtained. COMPARISON: Chest radiograph dated 12/11/[address] dated 06/22/2022 FINDINGS: Portable airspace opacity lateral left lower lobe with appearance on prior CT favoring pneumonia. Rig ht lung is clear. No pulmonary edema, pleural effusion or pneumothorax. The cardiomediastinal silhoue tte is normal. Cholecystectomy clips in right upper quadrant. Excreted contrast in the bilateral chrissie l collecting systems related to prior contrast enhanced CT. IMPRESSION: 1. Left lower lobe pneumonia. Recommend radiographic follow-up to resolution. Reviewed, dictated and finalized at location A. GRAPHIC ANALYST
--- NOTE | 2022-06-22 09:15 | ECG_ITS ---
Measurements Intervals [place] Rate: 85 P: 54 CO: 144 QRS: 48 QRSD: 84 T: 60 QT: 349 QTc: 416 Interpretive Statements SINUS RHYTHM BASELINE ARTIFACT NONSPECIFIC ST ABNORMALITY BORDERLINE ECG COMPARED TO ECG 12/12/2018 04:56:46 HEART RATE HAS DECREASED Electronically Signed On 06-22-2022 16:56:47 STRETCH BOX TENDER by Palomo Bates M.D.
--- NOTE | 2022-06-22 09:37 | ED.CHESTPAIN ---
HPI - Chest Pain General Chief Complaint: Upper Respiratory Infection Stated Complaint: left chest pain, back pain with inspiration Time Seen by Provider: 06/22/22 08:58 History of Present Illness HPI narrative: Pt presents with left lateral chest pain with deep breath only. Pt denies SOB. Pt denies CP except with deep breath. Pt has nad these symptoms for two days. Pt denies recent viral infection or long trips, recent surgeries or FH. Pt had bone cancer in past. Pt has no history of DVT or PE and denies leg pain. Related Data Home Medications Medication Instructions Recorded Confirmed atorvastatin 10 mg tablet 10 mg HS 05/31/21 11/05/21 aspirin 81 mg tablet,delayed 81 mg PO QAM 06/24/21 11/05/21 release Allergies Allergy/AdvReac Type Severity Reaction Status Date / Time Sulfa (Sulfonamide Allergy Unknown Anaphylaxis Verified 06/22/22 09:07 Antibiotics) Review of Systems Review of Systems: All systems reviewed & are unremarkable except as noted in HPI and below PMFSH Past Medical History Medical History Anxiety Arthritis Atrial myxoma BMI 35.0-35.9,adult CAD (coronary artery disease) Cancer Depression Dyslipidemia Heart disease History of non-Hodgkin's lymphoma Hypertension Obesity Seizure Stress fracture of neck of left femur Surgical History Surgical History History of coronary artery stent placement Family History Family History Mother Cerebrovascular accident Father Family history of heart disease in male family member before age 55 Other Asthma Depression Diabetes mellitus Family history of alcoholism Family history of arthritis Family history of thyroid disease Hypertension Social History Social History (Updated 05/14/22 @ 13:50 by Sneha Siddiqui) Smoking packs per day: 0.5 Smoking cigarettes per day: 10.0 Years smoked: 40 Smoking pack-years: 20.00 Smoking status: Former smoker Tobacco type: cigarettes Second hand tobacco smoke exposure: No Additional smoking assessment comments: STATES SMOKING <PK/DAY/40YRS-QUIT 2014 Alcohol intake: never Substance use: current Substance use type: marijuana Other substance usage details: STATES COUPLE HITS DAILY Lack of Transportation: No Lack of Food: Never True Current Housing: I Have Housing Concerned About Future Housing: No Difficulty Paying Gas/Electric Bills: No Difficulty Paying for Meds: No Currently Unemployed: No Education: High School Diploma/GED Difficulty w/ Childcare or Family Care: No Additional living arrangements comments: LIVES AND TAKES CARE OF HER MOM - [place] Gender identity (if verbalized by the patient): Male Spiritual care concerns: No Exam Const: General: healthy appearing Nutritional Appearance: well nourished Orientation/consciousness: patient oriented x3 Limitations: no limitations Eyes: Conjunctivae: conjunctivae normal EOM: EOMs intact bilaterally Neck: Neck: normal visual inspection Chest: Chest palpation & inspection: normal inspection of the chest and tenderness Other: left lateral chest mild tender to palpation Resp: Effort & Inspection: normal respiratory effort Auscultation: clear to auscultation bilaterally Cardio: Rate: regular rate Rhythm: regular rhythm GI: GI Palp: Yes Soft to palpation and No Tenderness to palpation present (GI) Auscultation: normal bowel sounds Skin: General skin exam: normal color Rashes: no rashes Neuro: General: patient oriented x3, moves all extremities, no meningeal signs and no focal motor deficits Speech: normal speech Extrem: General: normal to inspection and no clubbing, cyanosis or edema Other: no calf tenderness Psych: Mental Status: mental status grossly normal Affect: normal affect Attitude: cooperative Course Vital
[2022-06-22] MEDS: KETOROLAC 15 MG/ML VIAL (*BKC) IV PUSH (09:41)
[2022-06-22 09:50] LABS: Basophils Percent Auto 0.3 % (0.2-1.2); Eosinophils Percent Auto 0.2 % (0-4.4); Hematocrit 39.3 % (37.0-47.0); Immature Granulocyte Absolute 0.09 K/mm3 (0.00-0.031); Immature Granulocyte Percent A 0.7 % (0-0.5); Lymphocytes Absolute Auto 0.98 K/mm3 (0.9-3.2); Lymphocytes Percent Auto 7.4 % (18.3-44.2); Mean Corpuscular HGB Conc 33.1 g/dl (32-36); Mean Corpuscular Hemoglobin 31.3 pg (26-34); Mean Corpuscular Volume 94.5 fl (80-100); Mean Platelet Volume 11.5 fl (7.4-10.4); Monocytes Absolute Auto 0.7 K/mm3 (0.1-0.6); Monocytes Percent Auto 5.3 % (2.6-8.5); Neutrophils Absolute Auto 11.3 K/mm3 (1.3-6.7); Neutrophils Percent Auto 86.1 % (45.5-73.1); Platelet Count Result 196 k/mm3 (150-375); Red Blood Count 4.16 M/mm3 (4.2-5.4); Red Cell Distribution Width 14.1 % (11.5-14.5); White Blood Count 13.2 K/mm3 (4.5-10.0)
[2022-06-22 09:54] LABS: Alanine Aminotransferase 18 U/L (6-35); Albumin Level 4.5 g/dL (3.5-5.1); Alkaline Phosphatase 78 U/L (38-126); Anion Gap 7 mmol/L (8-16); Aspartate Amino Transferase 23 U/L (14-36); Bilirubin,Total 1.2 mg/dL (0.2-1.3); Blood Urea Nitrogen 14 mg/dL (7-17); Carbon Dioxide 27 mmol/L (22-30); Chloride 103 mmol/L (98-107); Estimated CRCL calculation 70 ml/min; Estimated Glomerular Filt Rate > 60; Glucose 111 mg/dL (65-110); Potassium 3.5 mmol/L (3.4-5.0); Sodium 137 mmol/L (137-145)
[2022-06-22 09:55] LABS: INR 1.1; Prothrombin Time 14.2 Seconds (11.1-14.7)
[2022-06-22 09:56] LABS: Partial Thromboplastin Time 35.1 SECONDS (22.3-36.8)
[2022-06-22 10:06] LABS: NT Pro B Type Natriuretic Pept 457 pg/mL (5-100); Troponin I < 0.012 ng/mL (0.000-0.034)
[2022-06-22 10:17] LABS: D Dimer 1.08 ug/mL (<0.48)
[2022-06-22 10:53] LABS: Influenza A QL RT-PCR Negative (Negative); Influenza B QL RT-PCR Negative (Negative); SARS-CoV-2 RNA PCR Negative
[2022-06-22] MEDS: cefTRIAXone 2 GM in SODIUM CHLORIDE 0.9% IV 100 ML 200 ML IVPB (11:52)
== END 2022-06-22 13:25 | disposition home or self-care (01) ==
PROVIDERS: Emergency Provider Emergency Medicine; PCP Family Medicine
DX: J18.9 Pneumonia, unspecified organism (principal); Z20.822 Contact with and (suspected) exposure to COVID-19; I25.10 Atherosclerotic heart disease of native coronary artery without angina pectoris; E78.5 Hyperlipidemia, unspecified; I11.9 Hypertensive heart disease without heart failure; D15.1 Benign neoplasm of heart; E66.9 Obesity, unspecified; Z68.31 Body mass index [BMI] 31.0-31.9, adult; Z85.72 Personal history of non-Hodgkin lymphomas; Z85.830 Personal history of malignant neoplasm of bone; Z87.891 Personal history of nicotine dependence; Z79.82 Long term (current) use of aspirin; R94.31 Abnormal electrocardiogram [ECG] [EKG]
CPT/HCPCS: 36415; 71046; 71275; 80053; 83880; 84484; 85025; 85380; 85610; 85730; 87636; 93005; 96365; 96367; 96375; 99284; J0696; J1885; J1956; Q9967

== ENCOUNTER 2022-07-09 13:18 | Emergency (ER) | payer MEDICARE, SELFPAY ==
[2022-07-09] VITALS (16 sets, daily range): BP systolic 131–164; BP diastolic 72–99; PULSE 73–92; RESP 12–24; TEMP 36.5; O2SAT 97–100
--- NOTE | ~2022-07-09 | CT_ITS ---
EXAMINATION: CTA chest PE protocol DATE: 07/09/2022 15:12 INDICATION: Recent pneumonia presenting with left-sided chest pain TECHNIQUE: Computed tomography (CT) pulmonary angiogram of the chest was performed with 100 mL Omnipa que-350 intravenous contrast. Additional 3D reconstructions utilizing coronal maximum intensity proje ction (MIP) were performed. Automated exposure control and iterative reconstruction technique were em ployed. The dose-length product was 350.94 mGy-cm. COMPARISON: None FINDINGS: Excellent contrast opacification of the pulmonary arteries. There is mild streak artifact from dense contrast in the superior vena cava and right atrium. No significant motion artifact yielding diagnost ic quality study demonstrating no pulmonary embolism. Decrease in size of a previously 4.6 x 7.2 x 3. 4 cm region of consolidation at the lateral basilar left lower lobe currently measuring 2.8 x 3.2 x 2 .8 cm consistent with resolving pneumonia. There is associated linear discoid atelectasis with some v olume loss and architectural distortion. No new lung disease, pulmonary edema or pleural effusion. He art size is normal. Atherosclerotic coronary artery calcification. No pericardial effusion. Thoracic aorta is normal in caliber with no dissection. Cholecystectomy clips at the gallbladder fossa. Mild t horacic spondylosis. IMPRESSION: 1. No pulmonary embolism. 2. Significant decrease in size of a region of consolidation at the lateral basilar segment of the le ft lower lobe consistent with resolving pneumonia with some associated atelectasis/scarring. Reviewed, dictated and finalized at location A. KEEPER IMPRESSION: 1. No pulmonary embolism. 2. Significant decrease in size of a region of consolidation at the lateral bas ilar segment of the left lower lobe consistent with resolving pneumonia with so me associated atelectasis/scarring.
--- NOTE | 2022-07-09 13:25 | ECG_ITS ---
Measurements Intervals [place] Rate: 85 P: 61 NH: 146 QRS: 45 QRSD: 85 T: 50 QT: 381 QTc: 454 Interpretive Statements SINUS RHYTHM BASELINE WANDER- AVF NORMAL ECG COMPARED TO ECG 06/22/2022 09:30:31 NO SIGNIFICANT CHANGES Electronically Signed On 07-09-2022 13:35:28 PLASTICS NURSE by Primitivo Skelton D.O.
--- NOTE | 2022-07-09 13:58 | ED.GENADULT ---
HPI - General Adult General Chief complaint: Chest Pain Stated complaint: left chest pain Time Seen by Provider: 07/09/22 13:24 History of Present Illness HPI narrative: 62 female presenting the emergency department for evaluation of left-sided chest pain with radiation to her left shoulder back and neck since Wednesday. Patient states the pain has been constant and has since worsened since yesterday. Patient denies any associated shortness of breath. Patient states that she has also had recent pneumonia. Patient does have a past medical history of anxiety, coronary disease, obesity and pneumonia Related Data Home Medications Medication Instructions Recorded Confirmed atorvastatin 10 mg tablet 10 mg HS 05/31/21 11/05/21 aspirin 81 mg tablet,delayed 81 mg PO QAM 06/24/21 11/05/21 release Allergies Allergy/AdvReac Type Severity Reaction Status Date / Time Sulfa (Sulfonamide Allergy Unknown Anaphylaxis Verified 06/22/22 09:07 Antibiotics) Review of Systems Review of Systems: CONSTITUTIONAL: Denies fever, chills, or sweats. EYES: Denies visual changes, redness, or discharge. ENT: Denies rhinorrhea, congestion, sore throat, or otalgia. CARDIOVASCULAR: See HPI RESPIRATORY: Denies cough or dyspnea. GASTROINTESTINAL: Denies abdominal pain, nausea, vomiting, or diarrhea. GENITOURINARY: Denies dysuria or hematuria. SKIN: Denies rash or itching. MUSCULOSKELETAL: See HPI NEUROLOGIC: Denies headache, numbness, or weakness. PSYCHIATRIC: Denies anxiety or depression. [facility] Past Medical History Medical History Anxiety Arthritis Atrial myxoma BMI 35.0-35.9,adult CAD (coronary artery disease) Cancer Depression Dyslipidemia Heart disease History of non-Hodgkin's lymphoma Hypertension Obesity Seizure Stress fracture of neck of left femur Surgical History Surgical History History of coronary artery stent placement Family History Family History Mother Cerebrovascular accident Father Family history of heart disease in male family member before age 55 Other Asthma Depression Diabetes mellitus Family history of alcoholism Family history of arthritis Family history of thyroid disease Hypertension Social History Social History (Updated 05/14/22 @ 13:50 by Sneha M. Artur) Smoking packs per day: 0.5 Smoking cigarettes per day: 10.0 Years smoked: 40 Smoking pack-years: 20.00 Smoking status: Former smoker Tobacco type: cigarettes Second hand tobacco smoke exposure: No Additional smoking assessment comments: STATES SMOKING <PK/DAY/40YRS-QUIT 2014 Alcohol intake: never Substance use: current Substance use type: marijuana Other substance usage details: STATES COUPLE HITS DAILY Lack of Transportation: No Lack of Food: Never True Current Housing: I Have Housing Concerned About Future Housing: No Difficulty Paying Gas/Electric Bills: No Difficulty Paying for Meds: No Currently Unemployed: No Education: High School Diploma/GED Difficulty w/ Childcare or Family Care: No Living arrangements: with family Additional living arrangements comments: LIVES AND TAKES CARE OF HER MOM - YOLETTE Gender identity (if verbalized by the patient): Male Spiritual care concerns: No Exam Narrative: APPEARANCE: Well appearing, no pain, no distress, well-nourished. HEAD: normocephalic, atraumatic. EYES: PERRLA/EOMI, conjunctivae clear. NOSE: Normal no drainage NECK: Supple. No adenopathy, no masses. RESPIRATORY: Airway patent, respirations nonlabored. Clear to auscultation bilaterally, no rales, rhonchi, wheezing. CARDIOVASCULAR: Regular rate and rhythm without murmurs rubs or gallops. Reproducible left-sided chest wall tenderness to palpation ABDOMINAL: Soft, nontender, nondistended, normal bowel sounds MUSCULOSKELETAL: T
[2022-07-09 14:58] LABS: Basophils Absolute Auto 0.1 K/mm3 (0.0-0.1); Basophils Percent Auto 0.7 % (0.2-1.2); Eosinophils Absolute Auto 0.1 K/mm3 (0-0.3); Eosinophils Percent Auto 1.9 % (0-4.4); Hematocrit 36.2 % (37.0-47.0); Hemoglobin 11.6 g/dL (12.0-15.0); Immature Granulocyte Absolute 0.01 K/mm3 (0.00-0.031); Immature Granulocyte Percent A 0.1 % (0-0.5); Lymphocytes Absolute Auto 1.87 K/mm3 (0.9-3.2); Lymphocytes Percent Auto 27.5 % (18.3-44.2); Mean Corpuscular Hemoglobin 30.4 pg (26-34); Mean Corpuscular Volume 94.8 fl (80-100); Mean Platelet Volume 10.1 fl (7.4-10.4); Monocytes Absolute Auto 0.4 K/mm3 (0.1-0.6); Monocytes Percent Auto 5.6 % (2.6-8.5); Neutrophils Absolute Auto 4.4 K/mm3 (1.3-6.7); Neutrophils Percent Auto 64.2 % (45.5-73.1); Platelet Count Result 277 k/mm3 (150-375); Red Blood Count 3.82 M/mm3 (4.2-5.4); Red Cell Distribution Width 14.3 % (11.5-14.5); White Blood Count 6.8 K/mm3 (4.5-10.0)
[2022-07-09 15:08] LABS: INR 1.1; Prothrombin Time 13.6 Seconds (11.1-14.7)
[2022-07-09 15:09] LABS: Partial Thromboplastin Time 31.5 SECONDS (22.3-36.8)
[2022-07-09 15:09] LABS: Estimated CRCL calculation 55 ml/min; Estimated Glomerular Filt Rate > 60
[2022-07-09 15:11] LABS: Alanine Aminotransferase 14 U/L (6-35); Albumin Level 4.4 g/dL (3.5-5.1); Alkaline Phosphatase 82 U/L (38-126); Anion Gap 7 mmol/L (8-16); Aspartate Amino Transferase 24 U/L (14-36); Bilirubin,Total 0.8 mg/dL (0.2-1.3); Blood Urea Nitrogen 14 mg/dL (7-17); Calcium 9.2 mg/dL (8.4-10.2); Carbon Dioxide 28 mmol/L (22-30); Chloride 102 mmol/L (98-107); Estimated CRCL calculation 61 ml/min; Estimated Glomerular Filt Rate > 60; Glucose 82 mg/dL (65-110); Potassium 3.5 mmol/L (3.4-5.0); Sodium 137 mmol/L (137-145)
[2022-07-09 15:21] LABS: Troponin I < 0.012 ng/mL (0.000-0.034)
[2022-07-09 15:48] LABS: Appearance Urine Clear (Clear); Bilirubin Urine Negative (Negative); Blood Urine Trace-intact (Negative); Color Urine Yellow (Yellow); Glucose Urine UA Negative (Negative); Ketones Urine Negative (Negative); Leukocyte Esterase Ur Negative LEU/UL (Negative); Nitrate Urine Negative (Negative); Protein Urine Negative (Negative); Urobilinogen Urine 0.2 mg/dL (<2.0)
[2022-07-09 15:58] LABS: Add Urine Microscopic? YES; Mucus Urine Rare /lpf; RBC Urine 0-2 /hpf (0-2); Squamous Epithelial Cell Urine Few /hpf (Few); WBC Urine 0-3 /hpf
[2022-07-09 18:36] LABS: Troponin I < 0.012 ng/mL (0.000-0.034)
[2022-07-09] MEDS: DOXYCYCLINE HYCLATE 100 MG TABLET PO (19:10)
[2022-07-09] MEDS: KETOROLAC 15 MG/ML VIAL (*BKC) IV PUSH (19:11)
== END 2022-07-09 19:26 | disposition home or self-care (01) ==
PROVIDERS: Emergency Provider Emergency Medicine; PCP Family Medicine
DX: J18.9 Pneumonia, unspecified organism (principal); R09.1 Pleurisy; S46.912A Strain of unspecified muscle, fascia and tendon at shoulder and upper arm level, left arm, initial encounter; R07.89 Other chest pain; I25.10 Atherosclerotic heart disease of native coronary artery without angina pectoris; E78.5 Hyperlipidemia, unspecified; I11.9 Hypertensive heart disease without heart failure; D15.1 Benign neoplasm of heart; M19.90 Unspecified osteoarthritis, unspecified site; E66.9 Obesity, unspecified; Z68.31 Body mass index [BMI] 31.0-31.9, adult; Z95.5 Presence of coronary angioplasty implant and graft; Z85.72 Personal history of non-Hodgkin lymphomas; Z87.891 Personal history of nicotine dependence; Z79.82 Long term (current) use of aspirin; X58.XXXA Exposure to other specified factors, initial encounter
CPT/HCPCS: 36415; 71275; 80053; 81001; 84484; 85025; 85610; 85730; 93005; 96374; 99284; A9270; J1885; Q9967

== ENCOUNTER 2022-07-13 13:13 | Outpatient (CLI) | payer MEDICARE, SELFPAY ==
--- NOTE | ~2022-07-13 | XR_ITS ---
XR chest 2V DATE: 07/13/2022 13:52 INDICATION: Nonproductive cough, left pleurisy TECHNIQUE: PA and lateral views COMPARISON: 07/09/2022 CTA chest 06/22/2022 2 view chest FINDINGS: There is residual but diminished consolidation in the lateral left lung base since 06/22/20 22. The lungs otherwise are clear. Moderately hyperinflated. No pleural effusion or pulmonary vascular congestion or pneumothorax. Normal heart size. Mild aortic arch calcification. No hilar or mediastinal enlargement. Osteopenia. Status post cholecystectomy. IMPRESSION: Residual but diminished consolidation in the lateral left lung base since 06/22/2022 Reviewed, dictated and finalized at location B. AND VAULT INSTALLER
== END 2022-07-13 13:14 | disposition home or self-care (01) ==
PROVIDERS: PCP Family Medicine; Visit Provider Nurse Practitioner Adult Health
DX: J18.1 Lobar pneumonia, unspecified organism (principal)
CPT/HCPCS: 71046

== ENCOUNTER 2022-08-02 11:46 | Emergency (ER) | payer MEDICARE, SELFPAY ==
--- NOTE | ~2022-08-02 | XR_ITS ---
EXAMINATION: XR chest 2V DATE: 08/02/2022 12:53 INDICATION: Shortness of breath TECHNIQUE: PA and lateral views of the chest are obtained. COMPARISON: 07/13/2022 FINDINGS: There is persistent but decreased opacification of the left lower lobe. No pleural effusion or pneumothorax. The cardiomediastinal silhouette is normal. There is moderate thoracic spondylosis. Surgical clips in the right upper quadrant are likely from prior cholecystectomy. IMPRESSION: 1. Continued improvement in left lower lobe pneumonia. Reviewed, dictated and finalized at location A. GN ENGINEERING MANAGER
[2022-08-02 11:49] VITALS: BP 184/92; PULSE 87; RESP 18; TEMP 36.5; O2SAT 100
[2022-08-02 12:01] VITALS: PULSE 80
[2022-08-02 12:03] VITALS: BP 150/87; PULSE 80; RESP 18; O2SAT 100
--- NOTE | 2022-08-02 12:08 | ED.SOB ---
HPI - SOB/Dyspnea General Chief Complaint: Shortness of Breath/Dyspnea Stated Complaint: RIGHT SIDED CHEST PAIN, PNEUMONIA? Time Seen by Provider: 08/02/22 12:08 Source: patient and RN notes reviewed Mode of arrival: ambulatory Limitations: no limitations History of Present Illness HPI Narrative: Patient is 62 years old white female drove herself to the hospital complaining of right upper back sharp pain woke up with it yesterday morning. Worse with certain position, certain movement, abduction right upper extremity, or laying down on the right side of her body. Better remaining still in certain position. She denies any chest pain, radiation of pain, fever, chills, nausea, vomiting. Patient lives alone. History of hypertension hyperlipidemia coronary stent on aspirin, non-Hodgkin lymphoma status postchemotherapy 2015 and radiation therapy 2016. Related Data Home Medications Medication Instructions Recorded Confirmed atorvastatin 10 mg tablet 10 mg HS 05/31/21 11/05/21 aspirin 81 mg tablet,delayed 81 mg PO QAM 06/24/21 11/05/21 release Allergies Allergy/AdvReac Type Severity Reaction Status Date / Time Sulfa (Sulfonamide Allergy Unknown Anaphylaxis Verified 08/02/22 12:03 Antibiotics) Review of Systems Review of Systems: All systems reviewed & are unremarkable except as noted in HPI and below PMFSH Past Medical History Medical History Anxiety Arthritis Atrial myxoma BMI 35.0-35.9,adult CAD (coronary artery disease) Cancer Depression Dyslipidemia Heart disease History of non-Hodgkin's lymphoma Hypertension Obesity Seizure Stress fracture of neck of left femur Surgical History Surgical History History of coronary artery stent placement Family History Family History Mother Cerebrovascular accident Father Family history of heart disease in male family member before age 55 Other Asthma Depression Diabetes mellitus Family history of alcoholism Family history of arthritis Family history of thyroid disease Hypertension Social History Social History Smoking packs per day: 0.5 Smoking cigarettes per day: 10.0 Years smoked: 40 Smoking pack-years: 20.00 Smoking status: Former smoker Tobacco type: cigarettes Second hand tobacco smoke exposure: No Additional smoking assessment comments: STATES SMOKING <PK/DAY/40YRS-QUIT 2014 Alcohol intake: never Substance use: current Substance use type: marijuana Other substance usage details: STATES COUPLE HITS DAILY Lack of Transportation: No Lack of Food: Never True Current Housing: I Have Housing Concerned About Future Housing: No Difficulty Paying Gas/Electric Bills: No Difficulty Paying for Meds: No Currently Unemployed: No Education: High School Diploma/GED Difficulty w/ Childcare or Family Care: No Living arrangements: with family Additional living arrangements comments: LIVES AND TAKES CARE OF HER MOM - YOLETTE Gender identity (if verbalized by the patient): Male Spiritual care concerns: No Exam Narrative: General appearance: Well-developed, well-nourished Skin: Normal color, no rash Head: Normocephalic, nontraumatic Eyes: Clear conjunctiva ENT: Oropharynx normal, ears normal, nose normal Neck: Supple, nontender Chest and respiratory: Airway patent, no respiratory distress, no accessory muscle use Heart: Regular rate/rhythm Abdomen: Soft, nontender, no organomegaly, quiet bowel sounds Vascular: Normal peripheral pulses, normal capillary refill. Musculoskeletal: Mild diffuse tenderness right upper back and right mid axillary area, no bruises, no swelling, no rash pain is worse with right upper extremity movement or taking deep breath. Neurologic: Alert and oriented ?3, FIREWORKS DISPLAY SPECIALIST is normal a
--- NOTE | 2022-08-02 12:10 | ECG_ITS ---
Measurements Intervals [place] Rate: 76 P: 66 MO: 148 QRS: 42 QRSD: 85 T: 54 QT: 387 QTc: 436 Interpretive Statements SINUS RHYTHM NORMAL ELECTROCARDIOGRAM COMPARED TO ECG 07/09/2022 13:27:36 NO SIGNIFICANT CHANGES Electronically Signed On 08-03-2022 11:50:50 LABORER WHARF by Benjamin Romero M.D.
[2022-08-02 12:59] LABS: Basophils Absolute Auto 0.1 K/mm3 (0.0-0.1); Eosinophils Absolute Auto 0.1 K/mm3 (0-0.3); Eosinophils Percent Auto 1.8 % (0-4.4); Hematocrit 37.9 % (37.0-47.0); Hemoglobin 12.6 g/dL (12.0-15.0); Immature Granulocyte Absolute 0.02 K/mm3 (0.00-0.031); Immature Granulocyte Percent A 0.3 % (0-0.5); Lymphocytes Absolute Auto 1.51 K/mm3 (0.9-3.2); Lymphocytes Percent Auto 20.8 % (18.3-44.2); Mean Corpuscular HGB Conc 33.2 g/dl (32-36); Mean Corpuscular Hemoglobin 30.5 pg (26-34); Mean Corpuscular Volume 91.8 fl (80-100); Monocytes Absolute Auto 0.4 K/mm3 (0.1-0.6); Monocytes Percent Auto 5.6 % (2.6-8.5); Neutrophils Absolute Auto 5.1 K/mm3 (1.3-6.7); Neutrophils Percent Auto 70.5 % (45.5-73.1); Platelet Count Result 237 k/mm3 (150-375); Red Blood Count 4.13 M/mm3 (4.2-5.4); Red Cell Distribution Width 13.9 % (11.5-14.5); White Blood Count 7.3 K/mm3 (4.5-10.0)
[2022-08-02 13:08] LABS: Chloride 102 mmol/L (98-107)
[2022-08-02 13:09] LABS: Prothrombin Time 13.2 Seconds (11.1-14.7)
[2022-08-02 13:11] LABS: Alanine Aminotransferase 15 U/L (6-35); Albumin Level 4.5 g/dL (3.5-5.1); Alkaline Phosphatase 93 U/L (38-126); Anion Gap 5 mmol/L (8-16); Aspartate Amino Transferase 22 U/L (14-36); Bilirubin,Total 0.8 mg/dL (0.2-1.3); Blood Urea Nitrogen 10 mg/dL (7-17); Calcium 9.2 mg/dL (8.4-10.2); Carbon Dioxide 29 mmol/L (22-30); Estimated Glomerular Filt Rate > 60; Glucose 84 mg/dL (65-110); Potassium 3.5 mmol/L (3.4-5.0); Sodium 136 mmol/L (137-145)
[2022-08-02 13:12] LABS: D Dimer 0.59 ug/mL (<0.48)
[2022-08-02 13:20] LABS: NT Pro B Type Natriuretic Pept 218 pg/mL (19.9-100); Troponin I < 0.012 ng/mL (0.000-0.034)
[2022-08-02] MEDS: KETOROLAC 30 MG/ML VIAL (*BKC) IV PUSH (13:38)
[2022-08-02] MEDS: ACETAMINOPHEN 325 MG TABLET 650 MG PO (13:39)
[2022-08-02 13:49] VITALS: BP 160/90; PULSE 83; RESP 18; O2SAT 99
== END 2022-08-02 13:51 | disposition home or self-care (01) ==
PROVIDERS: Emergency Provider Emergency Medicine; PCP Family Medicine
DX: M54.6 Pain in thoracic spine (principal); I25.10 Atherosclerotic heart disease of native coronary artery without angina pectoris; I10 Essential (primary) hypertension; E78.5 Hyperlipidemia, unspecified; D15.1 Benign neoplasm of heart; M19.90 Unspecified osteoarthritis, unspecified site; E66.9 Obesity, unspecified; Z85.72 Personal history of non-Hodgkin lymphomas; Z95.5 Presence of coronary angioplasty implant and graft; Z87.891 Personal history of nicotine dependence; Z92.3 Personal history of irradiation; Z79.82 Long term (current) use of aspirin
CPT/HCPCS: 36415; 71046; 80053; 83605; 83880; 84484; 85025; 85380; 85610; 87040; 93005; 96374; 99284; A9270; J1885

== ENCOUNTER 2023-01-16 07:11 | Outpatient (CLI) | payer MEDICARE, SELFPAY ==
[2023-01-16 07:59] LABS: Alanine Aminotransferase 17 U/L (6-35); Alkaline Phosphatase 65 U/L (38-126); Anion Gap 7 mmol/L (8-16); Aspartate Amino Transferase 36 U/L (14-36); Bilirubin,Total 0.7 mg/dL (0.2-1.3); Blood Urea Nitrogen 15 mg/dL (7-17); Calcium 9.1 mg/dL (8.4-10.2); Carbon Dioxide 30 mmol/L (22-30); Chloride 104 mmol/L (98-107); Cholesterol 137 mg/dL (0-200); Estimated Glomerular Filt Rate > 60; Glucose 87 mg/dL (65-110); HDL Direct 59 mg/dL; Sodium 141 mmol/L (137-145); Triglycerides 63 mg/dL (<150)
[2023-01-16 08:03] LABS: Basophils Absolute Auto 0.1 K/mm3 (0.0-0.1); Basophils Percent Auto 1.3 % (0.2-1.2); Eosinophils Absolute Auto 0.2 K/mm3 (0-0.3); Eosinophils Percent Auto 3.8 % (0-4.4); Hemoglobin 11.9 g/dL (12.0-15.0); Immature Granulocyte Absolute 0.01 K/mm3 (0.00-0.031); Immature Granulocyte Percent A 0.3 % (0-0.5); Lymphocytes Absolute Auto 1.17 K/mm3 (0.9-3.2); Lymphocytes Percent Auto 29.4 % (18.3-44.2); Mean Corpuscular HGB Conc 32.2 g/dl (32-36); Mean Corpuscular Hemoglobin 31.3 pg (26-34); Mean Corpuscular Volume 97.4 fl (80-100); Monocytes Absolute Auto 0.3 K/mm3 (0.1-0.6); Neutrophils Absolute Auto 2.3 K/mm3 (1.3-6.7); Neutrophils Percent Auto 58.2 % (45.5-73.1); Platelet Count Result 183 k/mm3 (150-375); Red Cell Distribution Width 13.7 % (11.5-14.5)
[2023-01-16 08:10] LABS: LDL Cholesterol Direct 48 mg/dL
[2023-01-16 09:34] LABS: Creatinine Urine 86.8 mg/dL; MALB Creatinine Ratio 33.4 mg/g (0-30)
== END 2023-01-16 07:12 | disposition home or self-care (01) ==
PROVIDERS: PCP Family Medicine; Visit Provider Nurse Practitioner Adult Health
DX: F41.1 Generalized anxiety disorder (principal); I10 Essential (primary) hypertension; E66.9 Obesity, unspecified; R53.1 Weakness; R53.83 Other fatigue; E78.5 Hyperlipidemia, unspecified
CPT/HCPCS: 36415; 80053; 80061; 82043; 84439; 84443; 84480; 85025

== ENCOUNTER 2023-02-11 14:23 | Outpatient (CLI) | payer MEDICARE, SELFPAY ==
--- NOTE | ~2023-02-11 | US_ITS ---
EXAMINATION: US soft tissue abdomen DATE: 02/11/2023 15:17 INDICATION: Left lower quadrant abdominal mass. TECHNIQUE: Multiple grayscale and Doppler ultrasound images of the abdomen were obtained. COMPARISON: CT abdomen and pelvis 06/20/2021, chest CT 07/09/2022 FINDINGS: There is no abnormal mass in the patient's area of concern in left lower quadrant abdominal body wall. IMPRESSION: 1. No abnormal mass in the patient's area of concern in left lower quadrant abdominal body wall. Reviewed, dictated and finalized at location A. IMPRESSION: 1. No abnormal mass in the patient's area of concern in left lower quadrant abd ominal body wall.
== END 2023-02-11 14:24 | disposition home or self-care (01) ==
PROVIDERS: PCP Family Medicine; Visit Provider Nurse Practitioner Adult Health
DX: R10.814 Left lower quadrant abdominal tenderness (principal); R19.04 Left lower quadrant abdominal swelling, mass and lump
CPT/HCPCS: 76705

== ENCOUNTER 2023-03-15 14:17 | Emergency (ER) | payer MEDICARE, SELFPAY ==
--- NOTE | ~2023-03-15 | XR_ITS ---
EXAMINATION: XR foot RT min 3V DATE: 03/15/2023 14:57 INDICATION: Lateral sided right foot pain and swelling TECHNIQUE: Dorsoplantar, two oblique and lateral views of the right foot were obtained. COMPARISON: None. FINDINGS: Bone alignment is normal. No fracture. Old polyarticular osteoarthritis at the first metatarsophalang eal and multiple tarsometatarsal and interphalangeal joints. Small plantar calcaneal spur. No cortica l erosions, periosteal reaction or other suspicious lytic or blastic bone lesions. Soft tissue swelli ng lateral to the head of the fifth metatarsal. IMPRESSION: 1. Mild polyarticular osteoarthritis in the mid and forefoot. No acute osseous abnormality or suspici ous lytic or blastic bone lesions. Reviewed, dictated and finalized at location A. IMPRESSION: 1. Mild polyarticular osteoarthritis in the mid and forefoot. No acute osseous abnormality or suspicious lytic or blastic bone lesions.
--- NOTE | 2023-03-15 14:32 | ED.LOWEXIN ---
HPI - Extremity Injury (Lower) General Chief Complaint: Extremity Injury, Lower Stated Complaint: right foot pain Time Seen by Provider: 03/15/23 15:00 Source: patient Mode of arrival: ambulatory Limitations: no limitations History of Present Illness HPI Narrative: Adriana is a 63-year-old female patient presenting to the clinic today with complaints of right lateral foot pain x3 days. She reports she noticed that she developed right lateral foot pain and swelling on Wednesday. In no known injury to her foot. History of bone cancer. Denies any history of gout or osteoarthritis in her foot. History of stress fracture Related Data Home Medications Medication Instructions Recorded Confirmed atorvastatin 10 mg tablet 10 mg HS 05/31/21 11/12/22 aspirin 81 mg tablet,delayed 81 mg PO QAM 06/24/21 11/12/22 release alprazolam 0.25 mg tablet 0.25 mg PO DAILY 11/12/22 11/12/22 Allergies Allergy/AdvReac Type Severity Reaction Status Date / Time Sulfa (Sulfonamide Allergy Unknown Anaphylaxis Verified 03/15/23 14:48 Antibiotics) Review of Systems Review of Systems: Pertinent positives per HPI. Patient denies any fever, chills, rash, headache, visual changes, dizziness, cough, runny nose, sore throat, shortness of breath, chest pain, palpitations, nausea, vomiting, diarrhea, constipation, abdominal pain, or any urinary issues. [facility] Past Medical History Medical History Anxiety Arthritis Atrial myxoma BMI 35.0-35.9,adult CAD (coronary artery disease) Cancer Depression Dyslipidemia Heart disease History of non-Hodgkin's lymphoma Hypertension Obesity Seizure Stress fracture of neck of left femur Surgical History Surgical History History of coronary artery stent placement Family History Family History Mother Cerebrovascular accident Father Family history of heart disease in male family member before age 55 Other Asthma Depression Diabetes mellitus Family history of alcoholism Family history of arthritis Family history of thyroid disease Hypertension Social History Social History Smoking packs per day: 0.5 Smoking cigarettes per day: 10.0 Years smoked: 40 Smoking pack-years: 20.00 Smoking status: Former smoker Tobacco type: cigarettes Second hand tobacco smoke exposure: No Additional smoking assessment comments: STATES SMOKING <PK/DAY/40YRS-QUIT 2014 Alcohol intake: never Substance use: current Substance use type: marijuana Other substance usage details: STATES COUPLE HITS DAILY Lack of Transportation: No Lack of Food: Never True Current Housing: I Have Housing Concerned About Future Housing: No Difficulty Paying Gas/Electric Bills: No Difficulty Paying for Meds: No Currently Unemployed: No Education: High School Diploma/GED Difficulty w/ Childcare or Family Care: No Living arrangements: with family Additional living arrangements comments: LIVES AND TAKES CARE OF HER MOM - YOLETTE Gender identity (if verbalized by the patient): Male Spiritual care concerns: No Comments At the time of my signature, I reviewed and agree with the nursing past medical, surgical, social, and family history. There is no relevant family history pertinent to the patient complaint. Exam Narrative: General: Well-developed, well nourished, in no apparent distress Head: Normocephalic, atraumatic. Cardio: Regular rate and rhythm, s1 and s2 normal, no murmur appreciated. Resp: Clear to auscultation bilaterally, no rhonchi, rales, wheezing or rubs. Musculoskeletal: No deformity, tender to palpation over the right lateral dorsal foot, pain radiates into ankle and to the pinky toe when she is walking, grossly normal range of motion,
[2023-03-15 14:37] VITALS: BP 144/86; PULSE 82; RESP 16; TEMP 37.2; O2SAT 100
== END 2023-03-15 15:31 | disposition home or self-care (01) ==
PROVIDERS: Emergency Provider Nurse Practitioner Family; PCP Family Medicine
DX: M19.071 Primary osteoarthritis, right ankle and foot (principal); Z87.891 Personal history of nicotine dependence; M19.90 Unspecified osteoarthritis, unspecified site; I25.10 Atherosclerotic heart disease of native coronary artery without angina pectoris; E78.5 Hyperlipidemia, unspecified; I10 Essential (primary) hypertension; F41.9 Anxiety disorder, unspecified; Z79.82 Long term (current) use of aspirin; Z85.72 Personal history of non-Hodgkin lymphomas; Z95.5 Presence of coronary angioplasty implant and graft; E66.9 Obesity, unspecified; Z68.26 Body mass index [BMI] 26.0-26.9, adult
CPT/HCPCS: 73630; 99213; G0463

== ENCOUNTER 2023-06-17 13:01 | Emergency (ER) | payer MEDICARE, SELFPAY ==
--- NOTE | 2023-06-17 13:11 | ED.URI ---
HPI - URI/Sore Throat General Chief Complaint: Upper Respiratory Infection Stated Complaint: ears hurt,congestion,cough Time Seen by Provider: 06/17/23 13:18 Source: patient, RN notes reviewed and old records reviewed Mode of arrival: ambulatory Limitations: no limitations History of Present Illness HPI Narrative: 63-year-old female presents to the [facility] with 4 day history of cough, sinus congestion, headache, bilateral ear pain. Has taken a dose of Tylenol sinus and states that her sinuses just started draining and stop taking it. Patient denies any fevers. Patient states that she was concern for pneumonia but is declining a chest x-ray at this time Patient reports having her flu vaccine this year, RSV vaccine and pneumonia vaccine Related Data Home Medications Medication Instructions Recorded Confirmed atorvastatin 10 mg tablet 10 mg HS 05/31/21 06/17/23 aspirin 81 mg tablet,delayed 81 mg PO QAM 06/24/21 06/17/23 release alprazolam 0.25 mg tablet 0.25 mg PO DAILY 11/12/22 06/17/23 Allergies Allergy/AdvReac Type Severity Reaction Status Date / Time Sulfa (Sulfonamide Allergy Unknown Anaphylaxis Verified 06/17/23 13:30 Antibiotics) Review of Systems Review of Systems: All systems reviewed & are unremarkable except as noted in HPI and below Constitutional: Constitutional: Reports no additional constitutional complaints Eyes: Eyes: Reports no additional eye complaints ENT: Reports as per HPI Cardiovascular: Cardiovascular: Reports no additional cardiovascular complaints, Denies chest pain and Denies dyspnea Respiratory: Respiratory: Reports as per HPI, Denies chest congestion, Reports cough and Denies dyspnea Gastrointestinal: Gastrointestinal: Reports no additional gastrointestinal complaints, Denies abdominal pain, Denies nausea and Denies vomiting Musculoskeletal: Musculoskeletal: Reports no additional musculoskeletal complaints Integumentary/Breasts: Skin/Breast: Reports system reviewed and no additional complaints, except as docu Neurologic: Reports system reviewed and no additional complaints, except as documented Psychiatric: Psychiatric: Reports no additional psychiatric complaints Allergic/Immunologic: Allergic/Immunologic: Reports no additional allergic/immunologic complaints PMFSH Past Medical History Medical History Anxiety Arthritis Atrial myxoma BMI 35.0-35.9,adult CAD (coronary artery disease) Cancer Depression Dyslipidemia Heart disease History of non-Hodgkin's lymphoma Hypertension Obesity Seizure Stress fracture of neck of left femur Surgical History Surgical History History of coronary artery stent placement Family History Family History Mother Cerebrovascular accident Father Family history of heart disease in male family member before age 55 Other Asthma Depression Diabetes mellitus Family history of alcoholism Family history of arthritis Family history of thyroid disease Hypertension Social History Social History Smoking packs per day: 0.5 Smoking cigarettes per day: 10.0 Years smoked: 40 Smoking pack-years: 20.00 Smoking status: Former smoker Tobacco type: cigarettes Second hand tobacco smoke exposure: No Additional smoking assessment comments: STATES SMOKING <PK/DAY/40YRS-QUIT 2014 Alcohol intake: never Substance use: current Substance use type: marijuana Other substance usage details: STATES COUPLE HITS DAILY Lack of Transportation: No Lack of Food: Never True Current Housing: I Have Housing Concerned About Future Housing: No Difficulty Paying Gas/Electric Bills: No Difficulty Paying for Meds: No Currently Unemployed: No Education: High School Diploma/GED Difficulty w/ Childcare
[2023-06-17 13:14] VITALS: BP 135/88; PULSE 73; RESP 18; TEMP 36.7; O2SAT 99
== END 2023-06-17 13:38 | disposition home or self-care (01) ==
PROVIDERS: Emergency Provider Nurse Practitioner; PCP Family Medicine
DX: J06.9 Acute upper respiratory infection, unspecified (principal); R09.82 Postnasal drip; E78.5 Hyperlipidemia, unspecified; I10 Essential (primary) hypertension; I25.10 Atherosclerotic heart disease of native coronary artery without angina pectoris; Z79.82 Long term (current) use of aspirin; Z79.899 Other long term (current) drug therapy; Z87.891 Personal history of nicotine dependence
CPT/HCPCS: 99213; G0463

== ENCOUNTER 2023-07-14 07:14 | Outpatient (CLI) | payer MEDICARE, SELFPAY ==
[2023-07-14 08:10] LABS: Eosinophils Absolute Auto 0.3 K/mm3 (0-0.3); Eosinophils Percent Auto 6.7 % (0-4.4); Hemoglobin 12.9 g/dL (12.0-15.0); Immature Granulocyte Absolute 0.01 K/mm3 (0.00-0.031); Immature Granulocyte Percent A 0.3 % (0-0.5); Lymphocytes Absolute Auto 1.42 K/mm3 (0.9-3.2); Lymphocytes Percent Auto 36.6 % (18.3-44.2); Mean Corpuscular HGB Conc 31.5 g/dl (32-36); Mean Corpuscular Hemoglobin 31.3 pg (26-34); Mean Corpuscular Volume 99.5 fl (80-100); Mean Platelet Volume 10.9 fl (7.4-10.4); Monocytes Absolute Auto 0.2 K/mm3 (0.1-0.6); Monocytes Percent Auto 6.2 % (2.6-8.5); Neutrophils Absolute Auto 1.9 K/mm3 (1.3-6.7); Neutrophils Percent Auto 49.2 % (45.5-73.1); Platelet Count Result 189 k/mm3 (150-375); Red Blood Count 4.12 M/mm3 (4.2-5.4); Red Cell Distribution Width 13.7 % (11.5-14.5); White Blood Count 3.9 K/mm3 (4.5-10.0)
[2023-07-14 08:26] LABS: Alanine Aminotransferase 14 U/L (6-35); Alkaline Phosphatase 58 U/L (38-126); Anion Gap 6 mmol/L (8-16); Aspartate Amino Transferase 28 U/L (14-36); Bilirubin,Total 0.7 mg/dL (0.2-1.3); Blood Urea Nitrogen 15 mg/dL (7-17); Calcium 9.3 mg/dL (8.4-10.2); Carbon Dioxide 28 mmol/L (22-30); Chloride 107 mmol/L (98-107); Cholesterol 143 mg/dL (0-200); Estimated Glomerular Filt Rate > 60; Glucose 84 mg/dL (65-110); HDL Direct 64 mg/dL; Potassium 4.5 mmol/L (3.4-5.0); Sodium 141 mmol/L (137-145); Triglycerides 69 mg/dL (<150)
[2023-07-14 08:36] LABS: LDL Cholesterol Direct 56 mg/dL
[2023-07-14 08:56] LABS: Total Triiodothyronine (T3) 1.03 NG/ML (0.97-1.69)
[2023-07-14 09:29] LABS: Free T4 Free Thyroxine 0.99 ng/mL (0.78-2.19)
[2023-07-14 09:31] LABS: Folic Acid 11.4 ng/mL (2.76->20)
[2023-07-16 21:56] LABS: Alpha-Tocopherol 7.6 mg/L (5.7-19.9); Beta-Gamma Tocopherol 1.6 mg/L (<=4.3)
[2023-07-17 13:25] LABS: Vitamin B6 4.6 ng/mL (2.1-21.7)
[2023-07-18 12:49] LABS: Vitamin B1 13 nmol/L (8-30)
== END 2023-07-14 07:15 | disposition home or self-care (01) ==
PROVIDERS: PCP Family Medicine; Visit Provider Nurse Practitioner Adult Health
DX: E78.5 Hyperlipidemia, unspecified (principal); I10 Essential (primary) hypertension; F33.1 Major depressive disorder, recurrent, moderate; F41.1 Generalized anxiety disorder; R53.1 Weakness; E66.9 Obesity, unspecified; Z68.35 Body mass index [BMI] 35.0-35.9, adult
CPT/HCPCS: 36415; 80053; 80061; 82607; 82746; 84207; 84252; 84425; 84439; 84443; 84446; 84480; 85025

== ENCOUNTER 2023-08-20 11:30 | Outpatient (CLI) | payer MEDICARE, SELFPAY ==
--- NOTE | ~2023-08-20 | XR_ITS ---
AP and lateral views of the right hip Clinical history: Pain Findings: No acute fracture or dislocation is seen. Osseous alignment is anatomic. The right hip join t is preserved. Soft tissues are unremarkable. Impression: No significant abnormality is seen. Reviewed, dictated and finalized at location M. IDENT [place] Impression: No significant abnormality is seen.
== END 2023-08-20 11:31 | disposition home or self-care (01) ==
PROVIDERS: PCP Family Medicine
DX: M25.551 Pain in right hip (principal)
CPT/HCPCS: 73502

== ENCOUNTER 2023-08-23 13:41 | Outpatient (CLI) | payer MEDICARE, SELFPAY ==
--- NOTE | ~2023-08-23 | MM_ITS ---
EXAMINATION: MM screening [facility] BI w freida HISTORY: Screening TECHNIQUE: Craniocaudal and mediolateral oblique 3-D tomosynthesis images were obtained and synthetic 2-D images were generated. CAD analysis was submitted and interpreted. COMPARISON: No prior studies for comparison. BREAST PARENCHYMAL COMPOSITION: Not dense: There are scattered areas of fibroglandular density. FINDINGS: There is no mammographic evidence for malignancy in the right breast. There is a focal irre gular asymmetry in the lower outer quadrant of the left breast posteriorly. IMPRESSION: 1. Focal left breast asymmetry, lower outer quadrant posteriorly. 2. Additional mammographic views and possible breast ultrasound are recommended. BI-RADS Category 0: Incomplete: Needs additional imaging evaluation. Reviewed, dictated and finalized at location A. ER APPRENTICE IMPRESSION: 1. Focal left breast asymmetry, lower outer quadrant posteriorly. 2. Additional mammographic views and possible breast ultrasound are recommended . BI-RADS Category 0: Incomplete: Needs additional imaging evaluation.
== END 2023-08-23 13:42 | disposition home or self-care (01) ==
LOC: ANHIMG 13:45
PROVIDERS: PCP Family Medicine; Visit Provider Family Medicine
DX: Z12.31 Encounter for screening mammogram for malignant neoplasm of breast (principal); R92.8 Other abnormal and inconclusive findings on diagnostic imaging of breast
CPT/HCPCS: 77063; 77067

== ENCOUNTER 2023-09-10 13:01 | Outpatient (CLI) | payer MEDICARE, SELFPAY ==
--- NOTE | ~2023-09-10 | MMUS_ITS ---
EXAMINATION: MM diagnostic brandy LT w freida, US breast LT limited HISTORY: Focal asymmetry reported in the lower outer quadrant of the left breast posteriorly on 2023 screening mammogram TECHNIQUE: Additional 3-D tomosynthesis images of the left breast were performed and synthetic 2-D im ages were generated. CAD analysis was submitted and interpreted. High resolution upper outer and lowe r-outer quadrants left breast ultrasound was performed. COMPARISON: August 23, 2023 bilateral screening mammogram FINDINGS: MAMMOGRAPHIC FINDINGS: A spiculated mass is present in the mid to lower outer posterior left breast, measuring up to approxi mately 9 mm. This very suspicious for breast malignancy. Approximately 4 mm circumscribed low-density opacity is noted at mid depth in the left breast at 6:00 position. This has benign appearance. ULTRASOUND: 3:00 3 cm from nipple: There is a poorly circumscribed irregular hypoechoic mass measuring as much as 5.4 x 7.7 x 9.3 mm, with prominent vascularity and prominent posterior shadowing, highly suggestive of malignancy. 4.5 x 3.4 x 5.1 mm simple cyst is noted at 4:00 near nipple. IMPRESSION: 1. Approximately 9 mm spiculated shadowing vascular mass in the posterior left breast at 3:00, highly suggestive of malignancy. 2. Ultrasound-guided biopsy is recommended BI-RADS category 5, highly suggestive of malignancy. Dr. Mathews telephoned the report and ultrasound-guided biopsy recommendation on 09/10/2023 at 1510 hours to general office mailbox at [phone]. Reviewed, dictated and finalized at location A. IMPRESSION: 1. Approximately 9 mm spiculated shadowing vascular mass in the posterior left breast at 3:00, highly suggestive of malignancy. 2. Ultrasound-guided biopsy is recommended BI-RADS category 5, highly suggestive of malignancy. Dr. Mathews telephoned the report and ultrasound-guided biopsy recommendation on at 1510 hours to general office mailbox at [phone]. IMPRESSION: 1. Approximately 9 mm spiculated shadowing vascular mass in the posterior left breast at 3:00, highly suggestive of malignancy. 2. Ultrasound-guided biopsy is recommended BI-RADS category 5, highly suggestive of malignancy. Dr. Mathews telephoned the report and ultrasound-guided biopsy recommendation on at 1510 hours to general office mailbox at [phone].
== END 2023-09-10 13:02 | disposition home or self-care (01) ==
LOC: ANHIMG 13:03
PROVIDERS: PCP Family Medicine; Visit Provider Registered Nurse
DX: R92.8 Other abnormal and inconclusive findings on diagnostic imaging of breast (principal)
CPT/HCPCS: 76642; 77061; 77065; G0279

== ENCOUNTER 2023-10-11 08:28 | Outpatient (CLI) | payer MEDICARE, SELFPAY ==
--- NOTE | ~2023-10-11 | MMUS_ITS ---
MM post biopsy invasive LT, US breast biopsy LT w image 10/11/2023 09:53 (accession [id number]), 10/11/2023 09:45 (accession [id number]) Indication: EXAMINATION: US GUIDED NEEDLE BIOPSY WITH VACUUM ASSISTANCE DATE: 10/11/2023 10:01 CDT INDICATION: Left breast mass seen on prior examination. Ultrasound-guided core biopsy is requested t o evaluate for malignancy. TECHNIQUE AND FINDINGS: The risks and potential benefits of the procedure were discussed with the patient, and written inform ed consent was obtained. After sterile preparation of the left breast, 1% lidocaine was utilized for local anesthesia. 1% lidocaine with epinephrine was used for deep anesthesia. A 10G vacuum-assisted biopsy gun needle was advanced through to the outer edge of the region of interest from a lateral approach utilizing sonographic guidance. A total of 4 tissue core samples were obtained through the lesion. An Inrad tissue marker clip was t hen placed at the biopsy site. Hemostasis was achieved. The patient tolerated procedure well and there was no evidence of immediate complication. The patien t was given verbal instructions partly is from the department. Left breast mammograms to document ti ssue marker clip placement. The tissue samples were submitted to surgical pathology for histologic an alysis. IMPRESSION: 1. Successful ultrasound-guided vacuum-assisted biopsy of left breast mass with tissue marker placem ent. Please refer to pathology report for histologic analysis. Reviewed, dictated and finalized at location A. IMPRESSION: 1. Successful ultrasound-guided vacuum-assisted biopsy of left breast mass wit h tissue marker placement. Please refer to pathology report for histologic anal ysis.
== END 2023-10-11 08:29 | disposition home or self-care (01) ==
PROVIDERS: PCP Family Medicine; Visit Provider Registered Nurse
DX: N63.20 Unspecified lump in the left breast, unspecified quadrant (principal); R92.8 Other abnormal and inconclusive findings on diagnostic imaging of breast
CPT/HCPCS: 19083; 88305; 88342; 88360

== ENCOUNTER 2023-10-25 10:30 | Outpatient (CLI) | payer MEDICARE, SELFPAY ==
--- NOTE | ~2023-10-25 | MR_ITS ---
MR breast BI wo/w con 10/26/2023 11:07 CDT INDICATION: Malignant neoplasm of the left breast TECHNIQUE: MRI of the breasts perform using standard protocol pre-and post IV contrast with the follo wing sequences: Axial T2 STIR, axial T1, axial vibrant T1 with fat suppression precontrast and multip hasic postcontrast. 13 cc MultiHance administered intravenously. COMPARISON: Mammogram and ultrasound dated 09/10/2023 FINDINGS: There are no abnormalities on the precontrast sequences. There is minimal background parenc hymal enhancement. No enhancing lesions following contrast administration. No areas of enhancement meeting threshold criteria on CAD analysis. No evidence of signal abnormalities in the axillary or i nternal mammary node distributions. LEFT BREAST: No signal abnormalities on precontrast sequences. There is minimal background parenchym al enhancement. In the lower inner quadrant of the left breast at approximately 6:00, posteriorly the re is an 11 x 10 x 6 mm irregular shaped mass with rapid plateau enhancement, corresponding to known malignancy. There is a small 3 mm satellite focus of enhancement posterior to the mass in the lower i nner quadrant at 7:00 posteriorly, 9.4 cm from the nipple with rapid persistent enhancement. No evide nce of signal abnormalities in the axillary or internal mammary node distributions.] IMPRESSION: 1: Right breast: Negative. No evidence of malignancy. BI-RADS category 1. Recommend annual mammo graphy follow-up. 2: Left breast: Abnormally enhancing 11 mm mass of the left breast at 6:00 posteriorly corresponding to known malignancy. There is a nearby satellite focus of enhancement, nonspecific. Metastatic disea se not excluded. BI-RADS category 6- Known biopsy proven malignancy: Appropriate action should be sherley en. Reviewed, dictated and finalized at location B. IMPRESSION: 1: Right breast: Negative. No evidence of malignancy. BI-RADS category 1. Recommend annual mammography follow-up. 2: Left breast: Abnormally enhancing 11 mm mass of the left breast at 6:00 pos teriorly corresponding to known malignancy. There is a nearby satellite focus o f enhancement, nonspecific. Metastatic disease not excluded. BI-RADS category 6 - Known biopsy proven malignancy: Appropriate action should be taken.
== END 2023-10-25 10:31 | disposition home or self-care (01) ==
PROVIDERS: PCP Family Medicine; Visit Provider Surgery
DX: C50.312 Malignant neoplasm of lower-inner quadrant of left female breast (principal)
CPT/HCPCS: 77049; A9577; C8908

== ENCOUNTER 2023-11-23 12:14 | Outpatient (CLI) | payer MEDICARE, SELFPAY ==
[2023-11-23 12:45] LABS: Hematocrit 42.2 % (37.0-47.0); Hemoglobin 13.7 g/dL (12.0-15.0)
--- NOTE | 2023-11-23 12:45 | ECG_ITS ---
SEE SCANNED COPY FOR CONFIRMED REPORT MTDD
== END 2023-11-23 12:15 | disposition home or self-care (01) ==
PROVIDERS: PCP Family Medicine; Referring Provider Surgery; Visit Provider Anesthesiology
DX: Z01.818 Encounter for other preprocedural examination (principal); I10 Essential (primary) hypertension; C50.912 Malignant neoplasm of unspecified site of left female breast
CPT/HCPCS: 36415; 85014; 85018; 86850; 86900; 86901; 93005

== ENCOUNTER 2023-11-30 00:29 | Day surgery (SDC) | payer MEDICARE, SELFPAY ==
[2023-11-19 15:32] VITALS: BMI 27.7
--- NOTE | 2023-11-19 15:44 | PC.NURSE ---
Addendum entered by Wang Mann RN 11/19/23 16:06: Patient says was told to stop Aspirin 7 or 10 days before surgery. Original Note: Report to the Outpatient Waiting Room, entrance under the green pavilion located off [facility], at time _0700_ on date _[id number]_. Planned Procedure Time: _0900_. Appointment with Nuclear medicine at 0815. Time changes happen often and if your time is changed the preop area will call you the afternoon before. - You and your visitor will be asked to self-screen and do not enter if you have any COVID symptoms. - A mask is optional within the hospital at this time. Patients may have clear liquids (water, carbonated beverages, clear teas, apple juice) until 3 hours prior to surgery with a maximum of 20 ounces. - No food from midnight until time of surgery Take the following medications with a SIP of water the morning of surgery: ___Carvedilol DO NOT STOP ANY OF YOUR OTHER PRESCRIPTION MEDICATIONS PRIOR TO SURGERY ?EXCEPT THE FOLLOWING Medications to discontinue per physician ____Magnesium Date to take last kqpk___[id number] Please no make-up, nail icelandic, hairspray, perfume, deodorant, or body powder the day of surgery. No jewelry (including any body piercings) or valuables the day of surgery, leave them at home. Please take a shower or bath the night before, or the morning of, surgery with an antibacterial soap. Wear comfortable, loose fitting clothing. - Jewelry must be removed prior to entering the operating room. Rings and piercings that are not removed may be cut off. - The hospital will not accept responsibility for valuables. - Please leave all valuables, including medications, at home the day of surgery. If you are going home after surgery, a licensed stock driver must drive you home. - NO public transportation without another adult if you receive anesthesia. - We recommend that an adult stay with you for 24 hours following discharge. - We also recommend that you do not drive, make important decision, drink alcoholic beverages, or take any drugs that were not prescribed by your health care provider for at least 24 hours after your discharge time. Follow any additional instructions given to you from your surgeon. If you or anyone in your household have experienced Covid symptoms in the past week, please notify your surgeon or the nurse liaison at the phone number below for possible testing. Telephone instructions given to _Adriana__and asked if any additional questions and then verbalized understanding. Patient advised to call surgeon office or pre surgery nurse liaison [phone] if any additional questions.
[2023-11-30] VITALS (11 sets, daily range): BP systolic 128–172; BP diastolic 68–90; PULSE 65–98; RESP 14–20; TEMP 36.1–36.5; O2SAT 93–100
--- NOTE | ~2023-11-30 | NM_ITS ---
EXAMINATION: NM sentinel node inject only DATE: 11/30/2023 08:49 INDICATION: Left breast cancer TECHNIQUE: 1.026 mCi Tc-99m filtered sulfur colloid was injected in 4 aliquots in the anterior breast near the areola. No images were obtained. IMPRESSION: 1. Left breast sentinel lymph node radiopharmaceutical injection. Reviewed, dictated and finalized at location A.
[2023-11-30] MEDS: ACETAMINOPHEN 500 MG TABLET 1000 MG PO (08:00)
[2023-11-30] MEDS: LACTATED RINGERS 1,000 ML 30 ML IV CONT ×2 (08:00→13:23)
--- NOTE | 2023-11-30 08:08 | WPDHPUPDATE1 ---
History and Physical Update Update Date/Time: 11/30/23 08:08 History and Physical has been reviewed, including an updated exam of the patient. There are NO changes in the patient's condition. Risks, benefits, and alternatives have been discussed and questions answered. Patient agrees to proceed with procedure.
[2023-11-30] MEDS: LIDOCAINE/PRILOCAINE CREAM 2.5-2.5% TUBE 1 EACH TOPICAL (08:15)
--- NOTE | 2023-11-30 08:38 | WPDANESEPPF ---
Anes - Initial Pre Proc Eval Procedure: Operation Date: 11/30/23 09:00 Proposed Procedures p Left Total Mastectomy with Adjacent Tissue Transfer, Right Total Prophylactic Mastectomy with Adjacent Tissue Transfer, Left Hamilton Lymph Node Biopsy with Lymphoseek and Methylene Blue Injection - Elzbieta Holm MD Date/Time: 11/30/23 08:38 Surgeon: Elzbieta Holm MD Pre Op Diagnosis: left breast CA Patient Data Age: 63 Gender: F Height: 1.57 m Weight: 68.7 kg Allergies Allergy/AdvReac Type Severity Reaction Status Date / Time Sulfa (Sulfonamide Allergy Severe Anaphylaxis Verified 11/23/23 13:35 Antibiotics) Home Medications Medication Instructions Recorded Confirmed Type atorvastatin 10 mg tablet 10 mg PO HS 05/31/21 11/19/23 History aspirin 81 mg tablet,delayed 81 mg PO QAM 06/24/21 11/19/23 History release alprazolam 0.25 mg tablet 0.25 mg PO DAILY 11/12/22 11/19/23 History diphenhydramine HCl 25 mg capsule 25 mg PO TID PRN Itching 11/19/23 11/19/23 History (Benadryl) magnesium oxide 500 mg PO DAILY 11/19/23 11/19/23 History carvedilol 6.25 mg tablet See Rx Instructions .Route 11/25/23 Rx .COMPLEX #60 tabs Patient hx anesthesia problems: none Family hx anesthesia problems: none Results Review: All pre-operative results and documents have been reviewed as part of the pre-operative evaluation. [facility] Past Medical History Medical History Anxiety Arthritis Atrial myxoma BMI 35.0-35.9,adult CAD (coronary artery disease) Cancer Depression Dyslipidemia Heart disease History of non-Hodgkin's lymphoma Hypertension Obesity Seizure Stress fracture of neck of left femur Surgical History Surgical History History of coronary artery stent placement Family History Family History Mother Cerebrovascular accident Father Family history of heart disease in male family member before age 55 Other Asthma Depression Diabetes mellitus Family history of alcoholism Family history of arthritis Family history of thyroid disease Hypertension Social History Social History Smoking packs per day: 0.5 Smoking cigarettes per day: 10.0 Years smoked: 43 Smoking pack-years: 21.50 Smoking status: Former smoker Tobacco type: cigarettes Second hand tobacco smoke exposure: No Smoking end date: 11/18/14 Additional smoking assessment comments: STATES SMOKING <PK/DAY/40YRS-QUIT 2015 Alcohol intake: never Substance use: current Substance use type: marijuana Other substance usage details: Medical marijuana a couple hits a day for anxiety and pain. Do You Feel Safe in your Home?: Yes Lack of Transportation: No Lack of Food: Never True Current Housing: I Have Housing Concerned About Future Housing: No Difficulty Paying Gas/Electric Bills: No Difficulty Paying for Meds: No Currently Unemployed: No Education: High School Diploma/GED Difficulty w/ Childcare or Family Care: No Living arrangements: with family Additional living arrangements comments: LIVES AND TAKES CARE OF HER MOM - YOLETTE Gender identity (if verbalized by the patient): Male Spiritual care concerns: No Anes - Eval Final PreProcedure Day of Procedure 11/30/23 08:38 Patient weight: overweight Heart: regular rate and rhythm Lungs: clear to auscultation Airway: Mallampati scale class II Neurological: alert and oriented Last oral intake: >/= 8 hours ASA classification: III Emergent: no Anesthetic plan: proceed Anesthesia type and monitoring: general ETT and standard monitoring Results Review: All pre-operative results and documents have been reviewed as part of the pre-operative evaluation. Informed Consent: The patient's anesthetic plan and its att
[2023-11-30] MEDS: ceFAZolin 2 GM/D5W 50 ML 2 GM/50 ML BAG IVPB (09:42)
[2023-11-30] MEDS: BUPIVACAINE/EPINEPHRINE 0.5% 50 ML VIAL 20 ML INFILTRATE (10:47)
--- NOTE | 2023-11-30 11:17 | SUR.OPER ---
RIGHT BREAST START TIME PER DR MAGALLON 11:17.
--- NOTE | 2023-11-30 13:09 | SUR.OPER ---
BLOOD LOSS 40ML
--- NOTE | 2023-11-30 13:10 | W.PM.PROC2 ---
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 Left total mastectomy 2. Left sentinel lymph node biopsy with lymphoseek 3. Left adjacent tissue transfer 16cm x 7cm 4. Right prophylactic total mastectomy 5. Right adjacent tissue transfer 16cm x 7cm Surgeon Elzbieta Holm MD [employer] Bronwyn Roy PA-C Anesthesia General Description of Procedure Patient was identified in the preoperative holding area brought to the operating room suite.? She was placed supine operating table sequential compression devices were applied. General anesthesia was induced without difficulty.? Bilateral chest and right axillary areas were prepped draped in sterile fashion.? Decision was made to start with the left side. The sentimag probe was used to find the area of highest radio activity in the left axilla, and an incision was made overlying this area that was incorporated into the mastectomy incision.? Dissection was carried down through the subcutaneous tissue and the clavipectoral fascia was incised.? I was able to identify a node that was hot.? This was gently grasped and excised using the LigaSure device.? The gamma probe was used to obtain account which was approximately 127.? This was sent to pathology as a permanent specimen.? The gamma probe was again used to scan the axilla trying to identify another node that was at least 10% of the original sentinel lymph node count. No other node was found and the axilla was irrigated and hemostasis was assured.? The clavipectoral fascia was approximated with a running 3-0 Vicryl.? An elliptical incision encompassing the nipple areolar complex was made and dissection was carried down through the subcutaneous tissue and continued through the thin areolar tissue plane between the subcutaneous tissue with the breast tissue superiorly to the inferior border of the clavicle.? We then continued our dissection medially to the lateral aspect of the sternum, inferiorly to the inframammary fold and laterally to latissimus.? Once this was performed the breast tissue along with the pectoralis fascia was dissected off the pectoralis muscle posteriorly.? The mastectomy specimen was then marked short stitch superior long stitch lateral stitch lateral for orientation.? The specimen was then sent to pathology as a fresh specimen.? Hemostasis was assured. An elliptical incision was again made around the right nipple areola area, and dissection was carried down to the subcutaneous tissue until the thin areolar tissue plane was encountered.? This was then dissected superiorly to the inferior aspect of the clavicle, medially to the lateral aspect of the sternum, laterally to the latissimus dorsi, and inferiorly to the inframammary fold.? The breast along with the pectoralis fascia was then dissected off the pectoralis muscle and the specimen was oriented with a short stitch superiorly and long stitch laterally, and sent to pathology as the fresh specimen.? Hemostasis was assured.? Two 10Fr flat drains were placed above the pectoralis muscle and secured to the skin with silk suture. ?Given the redundant skin flap inferiorly, decision was made to use the inferior skin flaps to create a soto inferior mound and give a better contour to the chest.? The defect for the right side was 16cm x 7cm and the left side was 16cm x 7cm.? The inferior skin flap was de-epithelialized bilaterally and carefully tacked to the pectoralis muscle with interrupted 2-0 Vicryl.? The superior mastectomy flap was then secured to the inferior flap using 3-0 Vicryl interrupted for the deep dermal layer followed by a 4-0 Monocryl in a subcuticular running fashion.? Dermabond was applied followed by sterile compression dressing. All needles counts were correct as reported by the operating room staff. Patient tolerated the procedure well with no immediate complications. Yañez
--- NOTE | 2023-11-30 13:35 | SUR.OPER ---
PATIENTS OWN BRA SENT BACK WITH PATIENT ID LABEL ON/IN PACU.
[2023-11-30] MEDS: fentaNYL CITRATE INJ (*CRX) 100 MCG/2 ML VIAL 25 MCG IV PUSH ×8 (13:36→14:45)
[2023-11-30] MEDS: ACETAMINOPHEN 325 MG TABLET 650 MG PO ×2 (15:46→21:05)
[2023-11-30] MEDS: LACTATED RINGERS 1,000 ML 100 ML IV CONT (15:47)
[2023-11-30] MEDS: carvediloL 6.25 MG TABLET PO (17:27)
[2023-11-30] MEDS: DOCUSATE SODIUM 100 MG CAPSULE PO (17:27)
--- NOTE | 2023-11-30 18:32 | OBPPTRN ---
1503 Patient transferred to post room #284 via bed. Support person present. Oriented to unit, room, information board, admission packet and security measures. Patient verbalizes understanding.
[2023-11-30] MEDS: ALPRAZolam (*CRX) 0.25 MG TABLET PO (21:05)
[2023-12-01] MEDS: ACETAMINOPHEN 325 MG TABLET 650 MG PO ×2 (02:59→08:42)
[2023-12-01 03:02] VITALS: BP 119/60; PULSE 88; RESP 18; TEMP 36.4; O2SAT 97
[2023-12-01 07:55] VITALS: BP 115/80; PULSE 83; RESP 18; TEMP 36.6; O2SAT 98
[2023-12-01 08:44] VITALS: PULSE 70
[2023-12-01] MEDS: carvediloL 6.25 MG TABLET PO (08:44)
[2023-12-01] MEDS: ATORVASTATIN 10 MG TABLET PO (08:45)
[2023-12-01] MEDS: DOCUSATE SODIUM 100 MG CAPSULE PO (08:45)
[2023-12-01] MEDS: MAGNESIUM OXIDE 400 MG TABLET PO (08:45)
--- NOTE | 2023-12-01 18:43 | PC.NURSE ---
1030 Instructed on how to empty CATHI Drains. She V/U'd.
== END 2023-12-01 11:00 | disposition home or self-care (01) ==
LOC: ANHSURGERY 13:41 → ANHOB2 15:03
PROVIDERS: PCP Family Medicine; Visit Provider Surgery
PROC: (CPT 38525; principal; 2023-11-30 09:00)
DX: C50.912 Malignant neoplasm of unspecified site of left female breast (principal); Z17.0 Estrogen receptor positive status [ER+]; I25.10 Atherosclerotic heart disease of native coronary artery without angina pectoris; E78.5 Hyperlipidemia, unspecified; F41.9 Anxiety disorder, unspecified; F32.A Depression, unspecified; I11.9 Hypertensive heart disease without heart failure; Z87.891 Personal history of nicotine dependence; F12.90 Cannabis use, unspecified, uncomplicated; Z79.82 Long term (current) use of aspirin; Z95.5 Presence of coronary angioplasty implant and graft; Z85.72 Personal history of non-Hodgkin lymphomas
CPT/HCPCS: 38525; 19303; 14301; 14302 ×6; 36415; 38792; 85014; 85018; 86850; 86900; 86901; 88305; 88307; 88342; 93005; 99199; A9270; A9520; J0360; J0690; J1100; J1170; J1200; J2250; J2371; J2405; J2704; J3010; J7120; Q9968

== ENCOUNTER 2024-01-31 17:21 | Emergency (ER) | payer MEDICARE, SELFPAY ==
--- NOTE | ~2024-01-31 | XR_ITS ---
EXAM: XR wrist LT min 3V DATE: 01/31/2024 18:07 HISTORY: tripped and fell today, hyperextended left wrist, pain . COMPARISON: None available. FINDINGS: Decreased mineralization. No fracture or dislocation. No lytic or blastic lesion. Mild sca ttered degenerative change. No erosion or periosteal change. Soft tissues within normal limits. IMPRESSION: No acute osseous finding the left wrist. Reviewed, dictated and finalized at location K.
[2024-01-31 17:46] VITALS: BP 148/76; PULSE 78; RESP 16; TEMP 36.7; O2SAT 100
--- NOTE | 2024-01-31 18:28 | ED.UPPEXIN ---
HPI - Extremity Injury (Upper) General Chief Complaint: Extremity Injury, Upper Stated Complaint: left wrist injury Time Seen by Provider: 01/31/24 17:57 Source: patient and RN notes reviewed Mode of arrival: ambulatory Limitations: no limitations History of Present Illness HPI narrative: Patient presents today complaining of a left wrist injury. Just prior to arrival, patient fell onto outstretched hand in a parking lot injuring her wrist. Denies numbness or tingling. Currently rates her pain 5/10, which increases with movement. She has tried no [id number] treatment prior to arrival. Related Data Home Medications Medication Instructions Recorded Confirmed atorvastatin 10 mg tablet 10 mg PO HS 05/31/21 01/31/24 aspirin 81 mg tablet,delayed 81 mg PO QAM 06/24/21 01/31/24 release alprazolam 0.25 mg tablet 0.25 mg PO DAILY 11/12/22 01/31/24 diphenhydramine HCl 25 mg capsule 25 mg PO TID PRN Itching 11/19/23 01/31/24 (Benadryl) magnesium oxide 500 mg PO DAILY 11/19/23 01/31/24 carvedilol 6.25 mg tablet 6.25 mg PO BID 11/30/23 01/31/24 anastrozole 1 mg tablet 1 mg PO DAILY 12/29/23 01/31/24 Allergies Allergy/AdvReac Type Severity Reaction Status Date / Time Sulfa (Sulfonamide Allergy Severe Anaphylaxis Verified 12/14/23 09:28 Antibiotics) Review of Systems Review of Systems: CONSTITUTIONAL: Denies body aches, fever, chills, or sweats. EYES: Denies visual changes, redness, or discharge. ENT: Denies rhinorrhea, congestion, sore throat, or otalgia. CARDIOVASCULAR: Denies chest pain, palpitations, or edema. RESPIRATORY: Denies cough or dyspnea. GASTROINTESTINAL: Denies abdominal pain, nausea, vomiting, or diarrhea. GENITOURINARY: Denies dysuria or hematuria. SKIN: Denies rash, itching, or wounds. MUSCULOSKELETAL: Denies back pain, myalgia.+ left wrist injury NEUROLOGIC: Denies headache, numbness, tingling, or weakness. PSYCH: Denies depression or anxiety. [facility] Past Medical History Medical History Anxiety Arthritis Atrial myxoma BMI 35.0-35.9,adult CAD (coronary artery disease) Cancer Depression Dyslipidemia Heart disease History of non-Hodgkin's lymphoma Hypertension Obesity Seizure Stress fracture of neck of left femur Surgical History Surgical History History of coronary artery stent placement Family History Family History Mother Cerebrovascular accident Father Family history of heart disease in male family member before age 55 Other Asthma Depression Diabetes mellitus Family history of alcoholism Family history of arthritis Family history of thyroid disease Hypertension Social History Social History Smoking packs per day: 0.5 Smoking cigarettes per day: 10.0 Years smoked: 43 Smoking pack-years: 21.50 Smoking status: Former smoker Tobacco type: cigarettes Second hand tobacco smoke exposure: No Smoking end date: 11/18/14 Additional smoking assessment comments: STATES SMOKING <PK/DAY/40YRS-QUIT 2014 Alcohol intake: never Substance use: current Substance use type: marijuana Other substance usage details: Medical marijuana a couple hits a day for anxiety and pain. Do You Feel Safe in your Home?: Yes Lack of Transportation: No Lack of Food: Never True Current Housing: I Have Housing Concerned About Future Housing: No Difficulty Paying Gas/Electric Bills: No Difficulty Paying for Meds: No Currently Unemployed: No Education: High School Diploma/GED Difficulty w/ Childcare or Family Care: No Living arrangements: with family Additional living arrangements comments: LIVES AND TAKES CARE OF HER MOM - YOLETTE Gender identity (if verbalized by the patient): Male Spiritual care concern
== END 2024-01-31 18:49 | disposition home or self-care (01) ==
PROVIDERS: Emergency Provider Nurse Practitioner; PCP Family Medicine
DX: S63.502A Unspecified sprain of left wrist, initial encounter (principal); W19.XXXA Unspecified fall, initial encounter; M19.90 Unspecified osteoarthritis, unspecified site; E78.5 Hyperlipidemia, unspecified; I10 Essential (primary) hypertension; I25.10 Atherosclerotic heart disease of native coronary artery without angina pectoris; Z95.5 Presence of coronary angioplasty implant and graft; Z85.72 Personal history of non-Hodgkin lymphomas; F41.9 Anxiety disorder, unspecified; E66.9 Obesity, unspecified; Z68.27 Body mass index [BMI] 27.0-27.9, adult; Z79.82 Long term (current) use of aspirin
CPT/HCPCS: 73110; 99213; G0463

== ENCOUNTER 2024-02-05 07:34 | Outpatient (CLI) | payer MEDICARE, SELFPAY ==
[2024-02-05 08:29] LABS: Basophils Absolute Auto 0.1 K/mm3 (0.0-0.1); Basophils Percent Auto 1.3 % (0.2-1.2); Eosinophils Absolute Auto 0.2 K/mm3 (0-0.3); Eosinophils Percent Auto 4.5 % (0-4.4); Hemoglobin 13.6 g/dL (12.0-15.0); Immature Granulocyte Absolute 0.02 K/mm3 (0.00-0.031); Immature Granulocyte Percent A 0.4 % (0-0.5); Lymphocytes Absolute Auto 1.66 K/mm3 (0.9-3.2); Lymphocytes Percent Auto 35.3 % (18.3-44.2); Mean Corpuscular HGB Conc 32.4 g/dl (32-36); Mean Corpuscular Hemoglobin 31.6 pg (26-34); Mean Corpuscular Volume 97.7 fl (80-100); Mean Platelet Volume 11.5 fl (7.4-10.4); Monocytes Absolute Auto 0.3 K/mm3 (0.1-0.6); Neutrophils Absolute Auto 2.5 K/mm3 (1.3-6.7); Neutrophils Percent Auto 52.5 % (45.5-73.1); Platelet Count Result 167 k/mm3 (150-375); Red Cell Distribution Width 13.1 % (11.5-14.5); White Blood Count 4.7 K/mm3 (4.5-10.0)
[2024-02-05 08:32] LABS: Alanine Aminotransferase 12 U/L (6-35); Albumin Level 4.4 g/dL (3.5-5.1); Alkaline Phosphatase 66 U/L (38-126); Anion Gap 11 mmol/L (4-12); Aspartate Amino Transferase 21 U/L (14-36); Bilirubin,Total 0.6 mg/dL (0.2-1.3); Blood Urea Nitrogen 23 mg/dL (7-17); Calcium 9.6 mg/dL (8.4-10.2); Carbon Dioxide 27 mmol/L (22-30); Chloride 102 mmol/L (98-107); Cholesterol 146 mg/dL (0-200); Estimated Glomerular Filt Rate > 60; Glucose 83 mg/dL (65-110); HDL Direct 82 mg/dL; Potassium 4.1 mmol/L (3.4-5.0); Sodium 140 mmol/L (137-145); Triglycerides 61 mg/dL (<150)
[2024-02-05 08:42] LABS: LDL Cholesterol Direct 48 mg/dL
== END 2024-02-05 07:35 | disposition home or self-care (01) ==
LOC: ANHLAB 07:38
PROVIDERS: PCP Family Medicine; Visit Provider Registered Nurse
DX: E66.9 Obesity, unspecified (principal); E78.5 Hyperlipidemia, unspecified; I10 Essential (primary) hypertension
CPT/HCPCS: 36415; 80053; 80061; 85025

== ENCOUNTER 2024-03-20 10:26 | Outpatient (CLI) | payer MEDICARE, MEDICAID, SELFPAY ==
[2024-03-20 10:57] LABS: Basophils Absolute Auto 0.1 K/mm3 (0.0-0.1); Basophils Percent Auto 0.8 % (0.2-1.2); Eosinophils Absolute Auto 0.2 K/mm3 (0-0.3); Eosinophils Percent Auto 2.4 % (0-4.4); Hemoglobin 13.7 g/dL (12.0-15.0); Immature Granulocyte Absolute 0.02 K/mm3 (0.00-0.031); Immature Granulocyte Percent A 0.3 % (0-0.5); Lymphocytes Absolute Auto 1.38 K/mm3 (0.9-3.2); Lymphocytes Percent Auto 22.3 % (18.3-44.2); Mean Corpuscular HGB Conc 33.4 g/dl (32-36); Mean Corpuscular Hemoglobin 31.4 pg (26-34); Mean Corpuscular Volume 93.8 fl (80-100); Mean Platelet Volume 10.5 fl (7.4-10.4); Monocytes Absolute Auto 0.4 K/mm3 (0.1-0.6); Monocytes Percent Auto 5.8 % (2.6-8.5); Neutrophils Absolute Auto 4.2 K/mm3 (1.3-6.7); Neutrophils Percent Auto 68.4 % (45.5-73.1); Platelet Count Result 217 k/mm3 (150-375); Red Blood Count 4.37 M/mm3 (4.2-5.4); Red Cell Distribution Width 12.8 % (11.5-14.5); White Blood Count 6.2 K/mm3 (4.5-10.0)
[2024-03-20 13:41] LABS: Alanine Aminotransferase 14 U/L (6-35); Albumin Level 4.6 g/dL (3.5-5.1); Alkaline Phosphatase 74 U/L (38-126); Anion Gap 9 mmol/L (4-12); Aspartate Amino Transferase 22 U/L (14-36); Bilirubin,Total 0.7 mg/dL (0.2-1.3); Blood Urea Nitrogen 21 mg/dL (7-17); Calcium 9.9 mg/dL (8.4-10.2); Carbon Dioxide 28 mmol/L (22-30); Chloride 99 mmol/L (98-107); Estimated Glomerular Filt Rate > 60; Glucose 89 mg/dL (65-110); Potassium 4.7 mmol/L (3.4-5.0); Sodium 136 mmol/L (137-145)
[2024-03-22 03:24] LABS: CA 15-3 24 U/mL (<32)
== END 2024-03-20 10:27 | disposition home or self-care (01) ==
LOC: ANHLAB 10:32
PROVIDERS: PCP Family Medicine; Visit Provider Internal Medicine Hematology & Oncology
DX: C50.412 Malignant neoplasm of upper-outer quadrant of left female breast (principal); Z17.0 Estrogen receptor positive status [ER+]
CPT/HCPCS: 36415; 80053; 85025; 86300

== ENCOUNTER 2024-06-03 07:29 | Outpatient (CLI) | payer MEDICARE, SELFPAY ==
[2024-06-03 09:26] LABS: Basophils Percent Auto 1.1 % (0.2-1.2); Eosinophils Absolute Auto 0.1 K/mm3 (0-0.3); Eosinophils Percent Auto 3.3 % (0-4.4); Hematocrit 39.7 % (37.0-47.0); Hemoglobin 12.8 g/dL (12.0-15.0); Immature Granulocyte Absolute 0.01 K/mm3 (0.00-0.031); Immature Granulocyte Percent A 0.4 % (0-0.5); Lymphocytes Absolute Auto 1.16 K/mm3 (0.9-3.2); Lymphocytes Percent Auto 43.1 % (18.3-44.2); Mean Corpuscular HGB Conc 32.2 g/dl (32-36); Mean Corpuscular Hemoglobin 31.1 pg (26-34); Mean Corpuscular Volume 96.4 fl (80-100); Mean Platelet Volume 11.2 fl (7.4-10.4); Monocytes Absolute Auto 0.3 K/mm3 (0.1-0.6); Monocytes Percent Auto 9.7 % (2.6-8.5); Neutrophils Absolute Auto 1.1 K/mm3 (1.3-6.7); Neutrophils Percent Auto 42.4 % (45.5-73.1); Platelet Count Result 178 k/mm3 (150-375); Red Blood Count 4.12 M/mm3 (4.2-5.4); Red Cell Distribution Width 13.6 % (11.5-14.5); White Blood Count 2.7 K/mm3 (4.5-10.0)
[2024-06-03 09:38] LABS: Alanine Aminotransferase 14 U/L (6-35); Albumin Level 4.1 g/dL (3.5-5.1); Alkaline Phosphatase 60 U/L (38-126); Anion Gap 2 mmol/L (4-12); Aspartate Amino Transferase 29 U/L (14-36); Bilirubin,Total 0.6 mg/dL (0.2-1.3); Blood Urea Nitrogen 16 mg/dL (7-17); Calcium 8.8 mg/dL (8.4-10.2); Carbon Dioxide 30 mmol/L (22-30); Chloride 109 mmol/L (98-107); Cholesterol 117 mg/dL (0-200); Estimated Glomerular Filt Rate > 60; Glucose 81 mg/dL (65-110); HDL Direct 58 mg/dL; Potassium 3.8 mmol/L (3.4-5.0); Sodium 141 mmol/L (137-145); Triglycerides 72 mg/dL (<150)
[2024-06-03 09:51] LABS: LDL Cholesterol Direct 31 mg/dL
== END 2024-06-03 07:30 | disposition home or self-care (01) ==
PROVIDERS: PCP Family Medicine
DX: E66.9 Obesity, unspecified (principal); E78.5 Hyperlipidemia, unspecified; I10 Essential (primary) hypertension
CPT/HCPCS: 36415; 80053; 80061; 85025

== ENCOUNTER 2024-06-13 01:16 | Day surgery (SDC) | payer MEDICARE, SELFPAY ==
[2024-06-01 13:55] VITALS: BMI 29.0
[2024-06-13 07:44] VITALS: BP 154/73; PULSE 71; RESP 16; TEMP 36.3; O2SAT 100
--- NOTE | 2024-06-13 07:44 | WPDANESEPPF ---
Anes - Initial Pre Proc Eval Procedure: Operation Date: 06/13/24 09:00 Proposed Procedures p Screening Colonoscopy - Wagner Spain MD Date/Time: 06/13/24 07:44 Surgeon: aWgner Spain MD Pre Op Diagnosis: Neoplasm screening Patient Data Age: 64 Gender: F Height: 1.57 m Weight: 72 kg Allergies Allergy/AdvReac Type Severity Reaction Status Date / Time Sulfa (Sulfonamide Allergy Severe Anaphylaxis Verified 06/13/24 07:42 Antibiotics) Home Medications ?Medication ?Instructions ?Recorded ?Confirmed ?Type atorvastatin 10 mg tablet 10 mg PO HS 05/31/21 06/13/24 History aspirin 81 mg tablet,delayed 81 mg PO QAM 06/24/21 06/13/24 History release alprazolam 0.25 mg tablet 0.25 mg PO DAILY 11/12/22 06/13/24 History diphenhydramine HCl 25 mg capsule 25 mg PO TID PRN Itching 11/19/23 06/08/24 History (Benadryl) magnesium oxide 500 mg PO DAILY 11/19/23 06/13/24 History anastrozole 1 mg tablet 1 mg PO DAILY 12/29/23 06/13/24 History carvedilol 6.25 mg tablet 6.25 mg PO BID 06/01/24 06/13/24 History Patient hx anesthesia problems: none Family hx anesthesia problems: none Results Review: All pre-operative results and documents have been reviewed as part of the pre-operative evaluation. [facility] Past Medical History Medical History Atrial myxoma Obesity Dyslipidemia Stress fracture of neck of left femur History of non-Hodgkin's lymphoma Hypertension Heart disease BMI 35.0-35.9,adult Seizure Cancer Depression Anxiety Arthritis CAD (coronary artery disease) Surgical History Surgical History History of coronary artery stent placement Family History Family History Mother Cerebrovascular accident Father Family history of heart disease in male family member before age 55 Other Asthma Depression Diabetes mellitus Family history of alcoholism Family history of arthritis Family history of thyroid disease Hypertension Social History Social History Smoking packs per day: 0.5 Smoking cigarettes per day: 10.0 Years smoked: 43 Smoking pack-years: 21.50 Smoking status: Former smoker Tobacco type: cigarettes Second hand tobacco smoke exposure: No Smoking end date: 11/18/14 Additional smoking assessment comments: STATES SMOKING <PK/DAY/40YRS-QUIT 2014 Alcohol intake: never Substance use: current Substance use type: marijuana Other substance usage details: Medical marijuana a couple hits a day for anxiety and pain. Do You Feel Safe in your Home?: Yes Lack of Transportation: No Lack of Food: Never True Current Housing: I Have Housing Concerned About Future Housing: No Difficulty Paying Gas/Electric Bills: No Difficulty Paying for Meds: No Currently Unemployed: No Education: High School Diploma/GED Difficulty w/ Childcare or Family Care: No Living arrangements: with family Additional living arrangements comments: LIVES AND TAKES CARE OF HER MOM - YOLETTE Gender identity (if verbalized by the patient): Male Spiritual care concerns: No Anes - Eval Final PreProcedure Day of Procedure 06/13/24 07:44 Patient weight: overweight Heart: regular rate and rhythm Lungs: clear to auscultation Airway: Mallampati scale class II Neurological: alert and oriented Last oral intake: >/= 8 hours ASA classification: III Emergent: no Anesthetic plan: proceed Anesthesia type and monitoring: general GIVS and standard monitoring Results Review: All pre-operative results and documents have been reviewed as part of the pre-operative evaluation. Informed Consent: The patient's anesthetic plan and its attendant risks and benefits were discussed with the patient/family/POA. Questions were solicited and answers provided to the satisfaction of the patient/family/POA.
[2024-06-13] MEDS: LACTATED RINGERS 1,000 ML 150 ML IV CONT (07:52)
--- NOTE | 2024-06-13 08:27 | PM.HPGS ---
History of Present Illness History of Present Illness Consent: Risks, benefits, and alternatives have been discussed and questions answered. Patient agrees to proceed with procedure. Chief complaint: Neoplasm screening Narrative: Teresa Rodriguez is a 64 year old female here for screening colonoscopy, last one 2011 Review of Systems Review of Systems: All systems reviewed & are unremarkable except as noted in HPI and below PMFSH Past Medical History Medical History (Updated 06/13/24 @ 08:29 by Wagner Spain MD) Colon cancer screening Atrial myxoma Obesity Dyslipidemia Stress fracture of neck of left femur History of non-Hodgkin's lymphoma Hypertension Heart disease BMI 35.0-35.9,adult Seizure Cancer Depression Anxiety Arthritis CAD (coronary artery disease) Surgical History Surgical History History of coronary artery stent placement Family History Family History Mother Cerebrovascular accident Father Family history of heart disease in male family member before age 55 Other Asthma Depression Diabetes mellitus Family history of alcoholism Family history of arthritis Family history of thyroid disease Hypertension Social History Social History Smoking packs per day: 0.5 Smoking cigarettes per day: 10.0 Years smoked: 43 Smoking pack-years: 21.50 Smoking status: Former smoker Tobacco type: cigarettes Second hand tobacco smoke exposure: No Smoking end date: 11/18/14 Additional smoking assessment comments: STATES SMOKING <PK/DAY/40YRS-QUIT 2014 Alcohol intake: never Substance use: current Substance use type: marijuana Other substance usage details: Medical marijuana a couple hits a day for anxiety and pain. Do You Feel Safe in your Home?: Yes Lack of Transportation: No Lack of Food: Never True Current Housing: I Have Housing Concerned About Future Housing: No Difficulty Paying Gas/Electric Bills: No Difficulty Paying for Meds: No Currently Unemployed: No Education: High School Diploma/GED Difficulty w/ Childcare or Family Care: No Living arrangements: with family Additional living arrangements comments: LIVES AND TAKES CARE OF HER MOM - YOLETTE Gender identity (if verbalized by the patient): Male Spiritual care concerns: No Meds Home Medications and Allergies Home Medications ?Medication ?Instructions ?Recorded ?Confirmed ?Type atorvastatin 10 mg tablet 10 mg PO HS 05/31/21 06/13/24 History aspirin 81 mg tablet,delayed 81 mg PO QAM 06/24/21 06/13/24 History release alprazolam 0.25 mg tablet 0.25 mg PO DAILY 11/12/22 06/13/24 History diphenhydramine HCl 25 mg capsule 25 mg PO TID PRN Itching 11/19/23 06/08/24 History (Benadryl) magnesium oxide 500 mg PO DAILY 11/19/23 06/13/24 History anastrozole 1 mg tablet 1 mg PO DAILY 12/29/23 06/13/24 History carvedilol 6.25 mg tablet 6.25 mg PO BID 06/01/24 06/13/24 History Allergies Allergy/AdvReac Type Severity Reaction Status Date / Time Sulfa (Sulfonamide Allergy Severe Anaphylaxis Verified 06/13/24 07:42 Antibiotics) Vital Signs Vital Signs - 24 hr 06/13/24 07:44 Temperature 97.3 F L Pulse Rate 71 Respiratory Rate 16 Blood Pressure 154/73 H Pulse Oximetry 100 Oxygen Delivery Room Air Exam Const: General: comfortable and no acute distress HENMT: Face/Nose/Sinus: Normal nares present Eyes: General: appearance normal, both eyes and all related structures Neck: Neck: no JVD Resp: Auscultation: clear to auscultation bilaterally Cardio: Rate: regular rate Rhythm: regular rhythm GI: Inspection: non-distended GI Palp: Yes Soft to palpation Skin: General skin exam: normal color Neuro: General: gait normal Speech: normal speech Extrem: General: normal to inspection Psych: Mental Status: mental status grossly normal Assessment and Plan Assessment and plan (1) Colon cancer screening: Code(s): Z12.11 - Encounter for screening for malignant neoplasm of colon Status: Acute Assessment and Plan: colonoscopy
[2024-06-13 08:40] VITALS: BP 118/60; PULSE 65; RESP 16; O2SAT 100
[2024-06-13 08:50] VITALS: BP 116/60; PULSE 71; RESP 20; O2SAT 100
[2024-06-13 09:00] VITALS: BP 134/66; PULSE 70; RESP 17; O2SAT 100
== END 2024-06-13 09:14 | disposition home or self-care (01) ==
PROVIDERS: PCP Family Medicine; Referring Provider Registered Nurse; Visit Provider Internal Medicine Gastroenterology
PROC: 0DJD8ZZ Inspection of Lower Intestinal Tract, Via Natural or Artificial Opening Endoscopic (ICD-10-PCS; CPT 45378; principal; 2024-06-13 09:00)
DX: Z12.11 Encounter for screening for malignant neoplasm of colon (principal); K64.8 Other hemorrhoids; E78.5 Hyperlipidemia, unspecified; I11.9 Hypertensive heart disease without heart failure; I25.10 Atherosclerotic heart disease of native coronary artery without angina pectoris; D15.1 Benign neoplasm of heart; F32.A Depression, unspecified; F41.9 Anxiety disorder, unspecified; F12.90 Cannabis use, unspecified, uncomplicated; Z79.82 Long term (current) use of aspirin; Z98.890 Other specified postprocedural states; Z95.5 Presence of coronary angioplasty implant and graft; Z87.891 Personal history of nicotine dependence; Z85.72 Personal history of non-Hodgkin lymphomas; Z82.49 Family history of ischemic heart disease and other diseases of the circulatory system
CPT/HCPCS: G0105; J2704; J7120

== ENCOUNTER 2024-07-17 14:12 | Outpatient (CLI) | payer MEDICARE, SELFPAY ==
[2024-07-17 14:22] LABS: Basophils Absolute Auto 0.1 K/mm3 (0.0-0.1); Eosinophils Absolute Auto 0.2 K/mm3 (0-0.3); Eosinophils Percent Auto 3.5 % (0-4.4); Hematocrit 37.5 % (37.0-47.0); Hemoglobin 12.2 g/dL (12.0-15.0); Immature Granulocyte Absolute 0.01 K/mm3 (0.00-0.031); Immature Granulocyte Percent A 0.2 % (0-0.5); Lymphocytes Percent Auto 31.1 % (18.3-44.2); Mean Corpuscular HGB Conc 32.5 g/dl (32-36); Mean Corpuscular Hemoglobin 31.4 pg (26-34); Mean Corpuscular Volume 96.6 fl (80-100); Mean Platelet Volume 10.7 fl (7.4-10.4); Monocytes Absolute Auto 0.3 K/mm3 (0.1-0.6); Monocytes Percent Auto 5.5 % (2.6-8.5); Neutrophils Absolute Auto 3.4 K/mm3 (1.3-6.7); Neutrophils Percent Auto 58.7 % (45.5-73.1); Platelet Count Result 212 k/mm3 (150-375); Red Blood Count 3.88 M/mm3 (4.2-5.4); Red Cell Distribution Width 13.5 % (11.5-14.5); White Blood Count 5.8 K/mm3 (4.5-10.0)
[2024-07-17 16:50] LABS: Alanine Aminotransferase 12 U/L (6-35); Albumin Level 4.3 g/dL (3.5-5.1); Alkaline Phosphatase 73 U/L (38-126); Anion Gap 11 mmol/L (4-12); Aspartate Amino Transferase 21 U/L (14-36); Bilirubin,Total 0.7 mg/dL (0.2-1.3); Blood Urea Nitrogen 19 mg/dL (7-17); Calcium 9.5 mg/dL (8.4-10.2); Carbon Dioxide 26 mmol/L (22-30); Chloride 102 mmol/L (98-107); Estimated Glomerular Filt Rate 40; Glucose 138 mg/dL (65-110); Potassium 3.9 mmol/L (3.4-5.0); Sodium 139 mmol/L (137-145)
[2024-07-18 09:04] LABS: CA 15-3 19 U/mL (<32)
== END 2024-07-17 14:13 | disposition home or self-care (01) ==
LOC: ANHLAB 14:13
PROVIDERS: PCP Family Medicine; Visit Provider Internal Medicine Hematology & Oncology
DX: C50.412 Malignant neoplasm of upper-outer quadrant of left female breast (principal); Z17.0 Estrogen receptor positive status [ER+]
CPT/HCPCS: 36415; 80053; 85025; 86300

== ENCOUNTER 2024-11-27 09:03 | Emergency (ER) | payer MEDICARE, SELFPAY ==
--- NOTE | 2024-11-27 09:04 | ED_ITS ---
HPI - URI/Sore Throat General Chief Complaint: Upper Respiratory Infection Stated Complaint: Diarrhea/Sore Throat Time Seen by Provider: 11/27/24 09:04 Source: patient Mode of arrival: ambulatory Limitations: no limitations History of Present Illness HPI Narrative: Adriana is a 64-year-old female patient presenting to the clinic today with complaints of sore throat, nasal congestion, headache, and diarrhea. Symptoms started on . Has had 2 diarrhea stools this morning and has had approximately 4 diarrhea stools on Wednesday and Wednesday. Feels as though she may be dehydrated it is reporting some cramping in her legs at times. Had some nausea last night but that resolved. No vomiting. Denies any in fevers but has had some chills and sweats. MD elicited complaint: sore throat and nasal congestion Related Data Home Medications ?Medication ?Instructions ?Recorded ?Confirmed ?Last Taken ?Type atorvastatin 10 mg tablet 10 mg PO HS 05/31/21 06/13/24 06/12/24 History aspirin 81 mg tablet,delayed 81 mg PO QAM 06/24/21 06/13/24 06/12/24 History release alprazolam 0.25 mg tablet 0.25 mg PO DAILY 11/12/22 06/13/24 06/12/24 History magnesium oxide 500 mg PO DAILY 11/19/23 06/13/24 06/12/24 History anastrozole 1 mg tablet 1 mg PO DAILY 12/29/23 06/13/24 06/12/24 History Allergies Allergy/AdvReac Type Severity Reaction Status Date / Time Sulfa (Sulfonamide Allergy Severe Anaphylaxis Verified 11/27/24 09:20 Antibiotics) Review of Systems Review of Systems: Pertinent positives per HPI. Patient denies any fever, chills, rash, headache, visual changes, dizziness, cough, shortness of breath, chest pain, palpitations, nausea, vomiting, diarrhea, constipation, abdominal pain, or any urinary issues. [facility] Past Medical History Medical History Colon cancer screening Atrial myxoma Obesity Dyslipidemia Stress fracture of neck of left femur History of non-Hodgkin's lymphoma Hypertension Heart disease BMI 35.0-35.9,adult Seizure Cancer Depression Anxiety Arthritis CAD (coronary artery disease) Surgical History Surgical History History of coronary artery stent placement Family History Family History Mother Cerebrovascular accident Father Family history of heart disease in male family member before age 55 Other Asthma Depression Diabetes mellitus Family history of alcoholism Family history of arthritis Family history of thyroid disease Hypertension Social History Social History Smoking packs per day: 0.5 Smoking cigarettes per day: 10.0 Years smoked: 43 Smoking pack-years: 21.50 Smoking status: Former smoker Tobacco type: cigarettes Second hand tobacco smoke exposure: No Smoking end date: 11/18/14 Additional smoking assessment comments: STATES SMOKING <PK/DAY/40YRS-QUIT 2014 Alcohol intake: never Substance use: current Substance use type: marijuana Other substance usage details: Medical marijuana a couple hits a day for anxiety and pain. Do You Feel Safe in your Home?: Yes Lack of Transportation: No Lack of Food: Never True Current Housing: I Have Housing Concerned About Future Housing: No Difficulty Paying Gas/Electric Bills: No Difficulty Paying for Meds: No Currently Unemployed: No Education: High School Diploma/GED Difficulty w/ Childcare or Family Care: No Living arrangements: with family Additional living arrangements comments: LIVES AND TAKES CARE OF HER MOM - YOLETTE Gender identity (if verbalized by the patient): Male Spiritual care concerns: No Comments At the time of my signature, I reviewed and agree with the nursing past medical, surgical, social, and family history. There is no relevant family history pertinent to the patient complaint. Exam Narrative: General: Well-developed, well nourished, in no apparent distress Head: Normocephalic, atraumatic Eyes: Pupils equally round and reactive to light bilaterally, EOM intact, sclera and conjunctive clear, no discharge, lids normal Ears: TMs intact and clear, ear canals clear, no drainage, grossly hearing normal. Nose: Nares patent, clear nasal discharge, no inflammation, no sinus tenderness. Mouth: Oral pharynx red without lesions or masses, good dentition, MMM. P ostnasal drip Neck: Supple, trachea midline, no enlargement of anterior or posterior cervical nodes, no thyroid masses or goiter palpable. Cardio: Regular rate and rhythm, s1 and s2 normal, no murmur appreciated. Resp: Clear to auscultation bilaterally, no rhonchi, rales, wheezing or rubs Abdomen: Soft, pliable, bowel sounds present in all quadrants, non-tender to palpation, no organomegly, no CVAT tenderness. Course Course Emergency Course: Portions of this record may have been created with voice recognition software. Level of Care: Express Care Visit Vital Signs Vital signs: Vital Signs Temperature 36.6 C 11/27/24 09:18 Pulse Rate 77 11/27/24 09:18 Respiratory Rate 16 11/27/24 09:18 Blood Pressure 140/76 11/27/24 09:18 Pulse Oximetry 100 11/27/24 09:18 Oxygen Delivery Room Air 11/27/24 09:18 Temperature 36.6 C 11/27/24 09:18 Pulse Rate 77 11/27/24 09:18 Respiratory Rate 16 11/27/24 09:18 Blood Pressure 140/76 11/27/24 09:18 Pulse Oximetry 100 11/27/24 09:18 Oxygen Delivery Room Air 11/27/24 09:18 Vital signs reviewed MDM - URI/Sore Throat MDM Narrative Medical decision making narrative: At the time of visit patient is resting comfortably on the exam table. Patient appears to be nontoxic. Labs: COVID, influenza, and strep test were performed. All testing was negative. We will send strep for culture. Plan: I suspect patient has URI, gastroenteritis, viral syndrome. Will send prescription for Zofran to the pharmacy. Supportive measures were discussed with the patient and they voiced understanding discharge instructions and agrees to treatment plan. Return precautions reviewed Differential Diagnosis Differential diagnosis: Likely upper respiratory infection, otitis media, sinusitis, viral infection, bronchitis, influenza, pharyngitis and other (COVID) Lab Data Labs: Lab Results 11/27/24 11/27/24 Range/Units 09:18 09:18 POC Influenza A Ag Negative (Negative) POC Influenza B Ag Negative (Negative) POC SARS CoV-2 Ag Negative (Negative) POC Grp A Strep Screen Negative Negative (Negative) Discharge Plan Discharge Clinical Impression: PND (post-nasal drip), Gastroenteritis, Acute viral syndrome URI (upper respiratory infection) Qualifiers: URI type: unspecified URI Qualified Code(s): J06.9 - Acute upper respiratory infection, unspecified Patient Disposition: Home Condition: Stable Instructions: Antibiotic Form, Gastroenteritis (ED), Viral Syndrome (ED), Cold Symptoms (ED), Postnasal Drip (DC) Additional Instructions: COVID, influenza, and strep test were all negative in the clinic today. We will send strep for culture. If strep comes back positive we will contact him place you on antibiotics at that time. No sign of bacterial infection in the clinic today. Vital signs are stable in the clinic today. May take Imodium as needed for diarrhea as long as there is no blood in your stool Take prescription medications only as prescribed-ondansetron for nausea Increase fluids and stay well hydrated Tylenol/motrin for pain/fever Flonase and OTC antihistamines as directed Vicks vapor rub to open sinuses Sinus rinses for congestion Cepacol spray, cough drops, throat lozenges, warm tea with honey/lemon, gargle salt water to soothe throat BRAT diet for diarrhea Clear liquids x 24 hours then advance as tolerated for nausea/vomiting Go to the ED if you develop a worsening in your condition- high fever not controlled by Tylenol or Motrin, dehydration, weakness, lethargy, shortness of breath, or chest pain. Follow up with your PCP in 3-5 days if symptoms persist. Patient Language: Icelandic Prescriptions: New ondansetron 4 mg tablet,disintegrating 4 mg PO Q6H PRN (Reason: nausea and vomiting) 3 Days Qty: 12 0RF No Action alprazolam 0.25 mg tablet 0.25 mg PO DAILY Rx Instructions: Takes at hs. anastrozole 1 mg tablet 1 mg PO DAILY aspirin 81 mg Tablet,Delayed Release (Dr/Ec) 81 mg PO QAM magnesium oxide 500 mg magnesium Tablet 500 mg PO DAILY atorvastatin 10 mg tablet 10 mg PO HS Rx Instructions: Takes in am. carvedilol 6.25 mg tablet See Rx Instructions .ROUTE .COMPLEX Qty: 60 5RF Dose Instruction: TAKE 1 TABLET BY MOUTH EVERY 12 HOURS WITH FOOD Rx Instructions: TAKE 1 TABLET BY MOUTH EVERY 12 HOURS WITH FOOD Follow-up/Referrals: Adarsh Rachel MD [Primary Care Provider] - Time of Disposition: 09:31 Quality NIHSS Nursing Documentation ED NIHSS nursing documentation: reviewed/agree
[2024-11-27 09:18] VITALS: BP 140/76; PULSE 77; RESP 16; TEMP 36.6; O2SAT 100
[2024-11-27 09:24] LABS: EDSTREPNEGPOS1 Negative (Negative)
[2024-11-27 09:36] LABS: EDCOVIDSCREEN Negative (Negative); EDINFLUASCREEN Negative (Negative); EDINFLUBSCREEN Negative (Negative); EDSTREPNEGPOS1 Negative (Negative)
== END 2024-11-27 09:34 | disposition home or self-care (01) ==
PROVIDERS: Emergency Provider Nurse Practitioner Family; PCP Family Medicine
DX: R09.82 Postnasal drip (principal); K52.9 Noninfective gastroenteritis and colitis, unspecified; B34.9 Viral infection, unspecified; J06.9 Acute upper respiratory infection, unspecified; Z20.822 Contact with and (suspected) exposure to COVID-19; Z87.891 Personal history of nicotine dependence; F12.90 Cannabis use, unspecified, uncomplicated; I10 Essential (primary) hypertension; E78.5 Hyperlipidemia, unspecified; I25.10 Atherosclerotic heart disease of native coronary artery without angina pectoris; M19.90 Unspecified osteoarthritis, unspecified site; F41.9 Anxiety disorder, unspecified; Z79.82 Long term (current) use of aspirin; E66.9 Obesity, unspecified; Z68.25 Body mass index [BMI] 25.0-25.9, adult; Z85.72 Personal history of non-Hodgkin lymphomas
CPT/HCPCS: 87081; 87426; 87804; 87880; 99213; G0463

== ENCOUNTER 2025-01-16 12:20 | Outpatient (CLI) | payer MEDICARE, SELFPAY ==
--- NOTE | ~2025-01-16 | DEXA_ITS ---
Bone Density Report Name: NINFA CANTU Age: 64 Sex: Female Ethnicity: White Date of : 1960 Indication: postmenopausal; screening for osteoporosis; prior fracture; cancer; seizure disorder; hysterectomy; Referring Provider: Spencer Lynch Study: Bone densitometry was performed. Exam Date: January 16, 2025 Accession number: [id number] Bone Density: Region BMD T-score Z-score Classification AP Spine(L1-L4) 0.977 -0.6 1.1 Normal Femoral Neck (Right) 0.676 -1.6 -0.1 Osteopenia Total Hip (Right) 0.842 -0.8 0.4 Normal World Health Organization criteria for BMD impression classify patients as: Normal (T-score at or above -1.0), Osteopenia (T-score between -1.0 and -2.5), or Osteoporosis (T-score at or below -2.5). 10-year Fracture Risk: FRAX not reported because: Prior hip or vertebral fracture Clinical Information Provided by Patient: Have had a previous hip or vertebral fracture Has had a low trauma fracture Has used the following medications: Vitamin D, Calcium Has the following medical conditions: Any Seizure Disorders, Cancer, Hysterectomy Patient maximum height was 62 Menopause Age: 52 Drinks caffeinated beverages Onset of menses at age 12 Number of children 2 Impression: The patient has low bone mass, based on the Right Femoral Neck T-score. The patient has risk factors, including: previous fracture. Discussion: INCREASED RISK OF FRACTURE DUE TO HISTORY OF FRACTURE. The patient's previous fracture puts the patient at high risk of a future fracture. In untreated patients, the risk of osteoporotic fracture increases approximately two-fold for each 1.0 SD decrease in T-score. Low bone density is not the only risk factor for fracture; also consider factors such as patient's age, frailty or poor health, risk of falling, risk of injury, previous osteoporotic fracture, family history of osteoporosis, cigarette smoking, low body weight, etc. Not everyone with a low trauma fracture has osteoporosis; osteomalacia and other metabolic bone disorders should also be considered. Patients who have osteoporosis should be evaluated for specific diseases and conditions (secondary causes) that may cause or contribute to bone loss and fracture risk. National Osteoporosis Foundation (NOF) recommends pharmacologic intervention for patients with a prior hip or vertebral fracture regardless of BMD T-score. The patient should follow a healthful lifestyle (good nutrition with adequate calcium and vitamin D, and appropriate weight-bearing exercise). Follow-Up: Consider a repeat BMD and Vertebral Fracture Assessment (VFA) exam in 2 years or sooner if medically necessary, to reassess this patient's status. Reported by: ARJUN on 01/16/2025 12:38:00 PM. Reviewed, dictated and finalized at location A.
== END 2025-01-16 12:21 | disposition home or self-care (01) ==
LOC: MICIMG 12:21
PROVIDERS: PCP Family Medicine; Visit Provider Internal Medicine Hematology & Oncology
DX: M85.851 Other specified disorders of bone density and structure, right thigh (principal)
CPT/HCPCS: 77080

== ENCOUNTER 2025-01-16 12:49 | Outpatient (CLI) | payer MEDICARE, SELFPAY ==
--- OUTSIDE RECORDS SUMMARY | 2025-01-16 12:52 | XMS_ITS | Referral Summary ---
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 Gender Identity Not on file Sexual Orientation Not on file Last Filed Vital Signs Vital Sign Reading Time Taken Comments Blood Pressure 152/80 11/17/2023 11:07 AM CDT Pulse 70 11/17/2023 11:07 AM CDT Temperature - - Respiratory Rate - - Oxygen Saturation 100% 11/17/2023 11:07 AM CDT Inhaled Oxygen Concentration - - Weight 73.9 kg (163 lb 0.1 oz) 03/08/2014 12:41 PM CDT Height 160 cm (5' 3) 02/09/2014 2:48 PM CDT Body Mass Index 28.88 02/09/2014 2:48 PM CDT Plan of Treatment Not on file Insurance [place]IC[place] [address] [address] [place] [address] MEDICARE HMO [employer] MEDICARE HMO Care Teams Compliance Project Manager Relationship Specialty Start Date End Date Adarsh Rachel MD [address] [place] [address] PCP - General Family Medicine 11/09/23
--- OUTSIDE RECORDS SUMMARY | 2025-01-16 12:52 | XMS_ITS | Encounter Summary ---
Author Organization [facility] Address [address] [place] [address] Care Team Providers Care Lock Plater Name Role Phone Nomi Maldonado MD Primary Care Provider [phone] Adarsh Rachel MD Primary Care Provider [phone] Nomi Maldonado MD Primary Care Provider [phone] Adarsh Rachel MD Primary Care Provider Nomi Maldonado MD Primary Care Provider [phone] Adarsh Rachel MD Primary Care Provider Nomi Maldonado MD Primary Care Provider [phone] Adarsh Rachel MD Primary Care Provider [phone] Encounter Details Date Type Department Care Team (Late st Contact Info) Description 01/29/2016 Lab Requisition [facility] - Lab Cytogenetics [address] [place] [address] Charles Ruiz MD [address] [place] [id number] Multiple myeloma not having achieved remission Social History Tobacco Use Types Packs/Day Years Used Date Smoking Tobacco: Never Assessed Comments Unknown Sex and Gender Information Value Date Recorded Sex Assigned at Not on file Legal Sex Female 12:41 PM CDT Gender Identity Not on file Sexual Orientation Not on file documented as of this encounter Plan of Treatment Upcoming Encounters Date Type Department Care Team (Late st Contact Info) Description 06/06/2025 9:00 AM 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 Office Visit [facility] - Orthopedic Surgery [address] [place] [id number] Se Zaldivar MD [address] [place] [address] documented as of this encounter Procedures Procedure Name Priority Date/Time Associated Diagnosis Comments CYTOGENETICS CANCER PANEL Routine 01/29/2016 12:00 PM CDT Multiple myeloma not having achieved remission documented in this encounter Results * CYTOGENETICS CANCER PANEL (01/29/2016 12:00 PM CDT) Indication for Study Large Cell Lymphoma LYMPHOMA FISH panel requested by physician 6 8:08 AM T [facility] Results Cytogenetics Analysis and count of 11 cells (7 cells karyotyped, GTL-banding) from 24-hour unstimulated bone marrow cultures showed the following chromosome pattern: 46,XX[11] Analysis of 200 interphase cells hybridized to dual breakapart BCL6, MYC and dual labeled dual fusion CMYC/IGH and BCL2/IGH specific fluorescent labeled probes* directed onto 3q27,8q24, 8q24/14q32 and 18q21/14q32 showed the following results: nuc kavya (BCL6x2)[200],(C-MYC x2)[200],(C-MYC,IGH) x2[200],(IGH,BCL2)x2 [200] Normal 6 8:08 AM CDT [facility] Interpretation 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 This study is suboptimal because the number of dividing cells is less than 20. This was caused by a low count of WBC. FISH of DH lymphoma panel was negative. 6 8:08 AM T [facility] at 0808 CDT Disclaimer *This test was developed, and its performance characteristics determined by [facility] as required by CLIA '88 Regulations. It has not been cleared or approved for specific uses by the U.S. Food and Drug Administration. The FDA has determined that such clearance or approval is not necessary. This test is used for clinical purposes. It should not be reported as investigational or for research. --------- Notes for FISH probes: 1- At the pretreatment level, the cutoff values for trisomy is 1%, dual breakapart is 3 to 5%, double fusion is 1%, and monosomy/deletion is 5 to 8% for no FFPE specimen and 20% for FFPE specimen. Efficiency of the probe intensity was acceptable overall. 2- At the post-treatment level, any identified percentage found below the pretreatment cutoff values could not be interpreted unequivocally and needs to be correlated with clinicopathological and clinical findings. At the post treatment level, a low percentage could either represent an actual minimal residual disease or an actual nature of normal cell division. 3- Cutoff values are combined for all different probes forming a range of percentages which covers low/high ends of each probe that fluctuate due to environmental conditions. Percentages that are close to the cutoff values have to be interpreted in correlation with clinicopathological and clinical findings. 4- An additional validation is performed by correlating pathology with cytogenetic findings. 6 8:08 AM CDT [facility] Client Information [facility] - [id number] [facility] Lab Numbers: [id number] 6 8:08 AM CDT [facility] Other BONE MARROW SPECIMEN / Unknown 01/29/2016 12:00 PM CDT 01/29/2016 12:52 PM CDT Charles Ruiz MD LAB - PATHOLOGY/CYTOLOGY ORDERA BLES Final Result [facility] [address] [place] [address] documented in this encounter Visit Diagnoses Diagnosis Multiple myeloma not having achieved remission (HCC) Multiple myeloma, without mention of having achieved remission documented in this encounter Additional Health Concerns Infection Onset Date Last Indicated Resolved Time COVID-19 Under Investigation 12/08/2020 12/08/2020 12/08/2020 8:45 PM CDT documented as of this encounter Care Teams Lock Plater Relationship Specialty Start Date End Date Nomi Maldonado MD [address] [place] [address] PCP - General 09/16/15 11/20/20 Adarsh Rachel MD [address] [facility] [address] [place] [address] PCP - General Family Medicine 11/21/20 11/21/20 Nomi Maldonado MD [address] [facility] [address] [place] [address] PCP - General 11/22/20 12/12/20 Adarsh Rachel MD [address] [facility] [address] [place] [address] PCP - General 12/13/20 12/26/20 Nomi Maldonado MD [address] [facility] [address] [place] [address] PCP - General 12/27/20 01/28/21 Adarhs Rachel MD [address] [facility] [address] [place] [address] PCP - General Family Medicine 01/29/21 07/20/22 Nomi Maldonado MD [address] [place] [address] PCP - General 07/21/22 12/12/24 Adarsh Rachel MD [address] [place] [address] PCP - General Family Medicine 12/13/24 documented as of this encounter
--- OUTSIDE RECORDS SUMMARY | 2025-01-16 12:52 | XMS_ITS | Clinical Summary ---
Author Organization [facility] Address [address] [place] [address] Care Team Providers Care Senior Microstrategy Developer Name Role Phone Adarsh Rachel MD Primary Care Provider Source Comments [facility],non-owned Affiliates and Associated Physician Practices is amultiple site organization consisting of ambulatory clinics and hospital sitesin [place], [place], [place] and [place]. This disclosure is being madepursuant to the Care Everywhere program and may not contain all information available regarding this patient. Last updated 18.[facility] Allergies Active Allergy Reactions Criticality Noted Date Comments Sulfa Drugs Swelling High 01/10/2015 Sulfadiazine Anaphylaxis High 03/10/2012 Medications * Be aware that medications may not be up to date on this document. Alwaysverify current medications with the patient. atorvastatin (LIPITOR) 10 MG tablet Take 10 mg by mouth at bedtime Active acetaminophen CR (TYLENOL 8 HOUR) 650 MG tablet every 8 hours Active Carvedilol (COREG PO) Active anastrozole (Arimidex) 1 MG tablet Take 1 (one) tablet by mouth once daily Active aspirin (Aspirin) 81 MG chew tablet Take 1 (one) tablet by mouth once daily (chew and swallow) Active ALPRAZolam (Xanax) 0.5 MG tablet Take 1 (one) tablet by mouth at bedtime Active Active Problems Problem Noted Date Diagnosed Date Left leg swelling 12/14/2020 History of left hip hemiarthroplasty 12/14/2020 Pathologic fracture of femor al neck, left, initial encounter 12/06/2020 Nephrolithiasis 10/18/2017 Zoster without complications 03/11/2016 Diffuse large B-cell lymphoma 02/19/2016 Atherosclerotic heart diseas e of [place] coronary artery without angina pectoris 01/27/2016 Low back pain with left-sided sciatica 6 Spinal stenosis of lumbar re gion with neurogenic claudication 01/27/2016 Thyrotoxicosis without thyroid storm 01/27/2016 Disorder of bone 01/27/2016 Calyceal diverticulum Encounters Date Type Department Care Team Description 12/13/2024 9:00 AM CDT Office Visit [facility] - Orthopedic Surgery [address] [place] [address] Se Zaldivar MD Pathologic fracture of femoral neck, left, with routine healing, subsequent encounter (Primary Dx) 12/13/2024 8:05 AM CDT - 12/13/2024 11:59 PM CDT Hospital Encounter [facility] [address] [place] [address] Se Zaldivar MD Discharge Disposition: Home or Self Care 12/13/2024 Travel 11/29/2024 Travel from Last 3 Months Immunizations Immunization Administration Dates Next Due INFLUENZA VACCINE, QUADR. (F LUZONE; FLULAVAL; FLUARIX; AFLURIA QUADRIVALENT; 6MO+), 0.5 ML (IIV4) 03/15/2019,10/19/2017 Family History Medical History Relation Name Comments None Known Brother Status: Alive Diabetes Father Status: d Heart Disease Father None Known Maternal Grandfather Status: None Known Maternal Grandmother Status: CVA Mother Status: Alive None Known Paternal Grandfather Status: None Known Paternal Grandmother Status: CAD (Coronary Artery Disease) Sister Status: Alive Hypertension Son Status: Alive Relation Name Status Comments Brother Father Maternal Grandfather Maternal Grandmother Mother Paternal Grandfather Paternal Grandmother Sister Son Social History Tobacco Use Types Packs/Day Years Used Date Smoking Tobacco: Former Cigarettes Q uit: 04/11/2015 Smokeless Tobacco: Never Tobacco Cessation:Counseling Given: Not Answered Alcohol Use Standard Drinks/Week Comments No 0 (1 standard drink = 0.6 oz pur e alcohol) PHQ-2 Answer Date Recorded Patient Health Questionnaire-2 Score 0 12/07/2024 Comments No Sex and Gender Information Value Date Recorded Sex Assigned at Not on file Legal Sex Female 12:41 PM CDT Gender Identity Not on file Sexual Orientation Not on file Last Filed Vital Signs Vital Sign Reading Time Taken Comments Blood Pressure 159/94 12/13/2024 8:44 AM CDT Pulse 73 12/13/2024 8:44 AM CDT Temperature 37.2 C (98.9 F) 06/02/2023 2:07 PM OVEN TENDER Respiratory Rate 18 12/13/2024 8:44 AM CDT Oxygen Saturation 99% 06/02/2023 2:07 PM OVEN TENDER Inhaled Oxygen Concentration 100% 10/19/2017 1 2:55 PM CDT Weight 64 kg (141 lb) 06/02/2023 2:07 PM OVEN TENDER Height 157.5 cm (5' 2) 06/02/2023 2:07 PM OVEN TENDER Body Mass Index 25.79 06/02/2023 2:07 PM OVEN TENDER Plan of Treatment Upcoming Encounters Date Type Department Care Team (Late st Contact Info) Description 06/06/2025 9:00 AM OVEN TENDER Office Visit [facility] - [facility] Surgery [address] [place] [id number] Se Zaldivar MD [address] [place] [address] Health Maintenance Due Date Last Done Comments COLOGUARD (AGES 45-75) - COL ON CA SCREENING 1960 COLON MONITORING 1960 COLONOSCOPY - COLON CA SCREENING 1960 CT COLONOGRAPHY - COLON CA SCREENING 1960 Colorectal Cancer Screening 1960 FIT - COLON CA SCREENING 1960 FLEX SIG - COLON CA SCREENING 1960 MAMMOGRAM 1960 DTAP/TDAP/TD VACCINES (1 - Tdap) 1979 PAP SMEAR 1981 PNEUMOCOCCAL VACCINE 50+ (1 of 1 - PCV) 2010 ZOSTER VACCINE (1 of 2) 2010 COVID-19 VACCINE ( - 2023-2 5 season) 2024 MEDICARE AWV CALENDAR YEAR 2024 INFLUENZA VACCINE (#1) 2025 , 10/19/2017 Respiratory Syncytial Virus (RSV) Vaccine Pt: or over 60 yrs (1 - 1-dose 75+ series) 2035 HEPATITIS C SCREENING Completed 01/22/2016 HIV SCREENING Completed 01/22/2016 DEPRESSION SCREENING Completed 12/13/2024, 06/02/2023 HEPATITIS B VACCINE Aged Out No longe r eligible based on patient's age to complete this topic HIB VACCINE Aged Out No longer eligi ble based on patient's age to complete this topic HPV VACCINE Aged Out No longer eligi ble based on patient's age to complete this topic MENINGOCOCCAL (Group B) VACCINE SHARED DECISION-MAKING Aged Out No longer eligible based on patient's age to complete this topic MENINGOCOCCAL GROUPS A/C/Y/W VACCINE Aged Out No longer eligible b ased on patient's age to complete this topic Medical Devices Implanted Type Area Group Fitness Department Head Device Identifier Shelf Expiration Date Model / Serial / Lot Stent Uret 6fr 24cm Pgtl Crv Tpr Tip Implanted:Qty: 1 on 10/18/2017 by Romelia Manzano DO at [facility] Left: Ureter [facility] [employer] 07/05/2020 [id number] / / [id number] Percuflex Ureteral Stent Implanted:Qty: 1 on 10/19/2017 by Romelia Manzano DO at [facility] [id number] / / Head Fem +0mm Ofst Ctpr 28mm Hip Cocr Implanted:Qty: 1 on 12/10/2020 by Se Zaldivar MD at [facility] Left: Hip [employer] 08/23/2025 [id number] / / [id number] Description:apart of total Cmnt Bone Smpx Ptbr Fd Radopq Preblend Implanted:Qty: 2 on 12/10/2020 by Se Zaldivar MD at [facility] Left: Hip [employer] [id number] DISCONTINUED / / [id number] [employer] Ronald Plus 127 Degree Cemented Hip Stem Implanted:Qty: 1 on 12/10/2020 by Se Zaldivar MD at [facility] Left: Hip [employer] 09/04/2025 [id number] / / [id number] Head Biplr 44mm 28mm Uhr Unv Hip Cocr Implanted:Qty: 1 on 12/10/2020 by Se Zaldivar MD at [facility] Left: Hip [employer] 05/14/2025 [id number] / / [id number] Description:apart of total Rstrc Bone Cmnt 24mm Med Unv Hip Strl Implanted:Qty: 1 on 12/10/2020 by Se Zaldivar MD at [facility] Left: Hip [employer] 07/26/2025 [id number] / / [id number] Procedures Procedure Name Priority Date/Time Associated Diagnosis Comments XR HIP LEFT 2VW OR MORE Routine 12/13/2024 8:14 AM CDT Pathologic fracture of femoral neck, left, with routine healing, subsequent encounter XR PELVIS AP W INLET OUTLET Routine 12/13/2024 8:14 AM CDT Pathologic fracture of femoral neck, left, with routine healing, subsequent encounter HEPATITIS C RNA QUANTITATIVE STAT 01/22/2016 12:01 PM CDT HIV-1 HIV-2 ANTIGEN/ANTIBODY Routine 01/22/2016 12:01 PM CDT from Last 3 Months or Most Recently Relevant to Health Maintenance Results * XR Pelvis AP W Inlet Outlet (12/13/2024 8:14 AM CDT) Anatomical Region Laterality Modality Pelvis Digital Radiogra phy 12/13/2024 8:28 AM CDT Impressions 12/13/2024 9:05 AM CDT IMPRESSION: Unchanged appearance of a lytic/sclerotic lesion in the left iliac wing corresponding to lymphoma based on previous biopsy. Report dictated by Raúl Oreilly MD (radiology scheduler). I, Gustabo Lizarraga MD have personally reviewed and interpreted this examination/study. > Interpreting Provider: Gustabo Lizarraga MD on 12/13/2024 9:05 AM Narrative 12/13/2024 9:05 AM CDT PROCEDURE: XR PELVIS AP W INLET OUTLET, DATE/TIME OF EXAM: 12/13/2024 8:15 AM, LOCATION [facility] INDICATION: M84.452D: Pathologic fracture of femoral neck, left, with routine healing, subsequent encounter ADDITIONAL CLINICAL INFORMATION: Ordering Provider Reason For Exam: evaluate hardware placement and disease status COMPARISON: Pelvic radiographs dated 06/02/2023 FINDINGS: There is no pelvic fracture. There is no pubic symphysis or sacroiliac joint diastasis. The right hip joint space is normal. Unchanged mixed lytic and sclerotic appearance of the left iliac wing corresponding to lymphoma based on previous biopsy. Redemonstrated postsurgical changes of left hip hemiarthroplasty with incompletely visualized femoral stem. The visualized prosthesis is intact. Vascular calcifications are again noted. Procedure Note Gustabo Lizarraga MD - 12/13/2024 PROCEDURE: XR PELVIS AP W INLET OUTLET, DATE/TIME OF EXAM: 58:15 AM, LOCATION [facility] INDICATION: M84.452D: Pathologic fracture of femoral neck, left, with routinehealing, subsequent encounter ADDITIONAL CLINICAL INFORMATION: Ordering Provider Reason For Exam: evaluate hardware placement anddisease status COMPARISON: Pelvic radiographs dated 06/02/2023 FINDINGS: There is no pelvic fracture. There is no pubic symphysis or sacroiliac joint diastasis. The right hip joint space is normal. Unchanged mixedlytic and sclerotic appearance of the left iliac wing corresponding tolymphoma based on previous biopsy. Redemonstrated postsurgical changes of lefthip hemiarthroplasty with incompletely visualized femoral stem. Thevisualized prosthesis is intact. Vascular calcifications are again noted. IMPRESSION: Unchanged appearance of a lytic/sclerotic lesion in the left iliac wing corresponding to lymphoma based on previous biopsy. Report dictated by Raúl Oreilly MD (radiology scheduler). I, Gustabo Lizarraga MD have personally reviewed and interpreted this examination/study. > Interpreting Provider: Gustabo Lizarraga MD on 12/13/2024 9:05 AM Se Zaldivar MD DIAGNOSTIC IMAGING ORDERABL ES Final Result * XR Hip Left 2Vw or More (12/13/2024 8:14 AM CDT) Anatomical Region Laterality Modality Pelvis, Lower Extremity Digital Radiography 12/13/2024 8:34 AM CDT Impressions 12/13/2024 9:09 AM CDT IMPRESSION: 1.Status post left hip hemiarthroplasty. Mildly increased lucency at the medial aspect of the prosthetic femoral stem, which may indicate loosening. 2.Lytic and sclerotic changes in the left iliac wing, unchanged, corresponding to previous biopsy result of lymphoma. Report dictated by Raúl Oreilly MD (radiology scheduler). I, Gustabo Lizarraga MD have personally reviewed and interpreted this examination/study. > Interpreting Provider: Gustabo Lizarraga MD on 12/13/2024 9:09 AM Narrative 12/13/2024 9:09 AM CDT PROCEDURE: XR HIP LEFT 2VW OR MORE, DATE/TIME OF EXAM: 12/13/2024 8:15 AM, LOCATION [facility] INDICATION: M84.452D: Pathologic fracture of femoral neck, left, with routine healing, subsequent encounter ADDITIONAL CLINICAL INFORMATION: Ordering Provider Reason For Exam: evaluate hardware placement and disease status COMPARISON: Left femur radiographs dated 06/02/2023 FINDINGS: Redemonstrated postsurgical changes of left hip hemiarthroplasty with a cemented femoral stem. The prosthesis is intact. There is lucency measuring up to 3 mm adjacent to the distal, medial aspect of the prosthetic stem (Gruen zone 5), previously 2.2 mm, which may indicate loosening. There is no acute fracture or dislocation. There are lytic and sclerotic are changes in the left iliac wing, unchanged. There are vascular calcifications about the imaged proximal thigh. Procedure Note Gustabo Lizarraga MD - 12/13/2024 PROCEDURE: XR HIP LEFT 2VW OR MORE, DATE/TIME OF EXAM: 12/13/2024 8:15AM, LOCATION [facility] INDICATION: M84.452D: Pathologic fracture of femoral neck, left, with routinehealing, subsequent encounter ADDITIONAL CLINICAL INFORMATION: Ordering Provider Reason For Exam: evaluate hardware placement anddisease status COMPARISON: Left femur radiographs dated 06/02/2023 FINDINGS: Redemonstrated postsurgical changes of left hip hemiarthroplasty with a cemented femoral stem. The prosthesis is intact. There is lucencymeasuring up to 3 mm adjacent to the distal, medial aspect of the prosthetic stem (Gruen zone 5), previously 2.2 mm, which may indicate loosening. Thereis no acute fracture or dislocation. There are lytic and sclerotic arechanges in the left iliac wing, unchanged. There are vascular calcificationsabout the imaged proximal thigh. IMPRESSION: 1.Status post left hip hemiarthroplasty. Mildly increased lucency at the medial aspect of the prosthetic femoral stem, which may indicateloosening. 2.Lytic and sclerotic changes in the left iliac wing, unchanged, corresponding to previous biopsy result of lymphoma. Report dictated by Raúl Oreilly MD (radiology scheduler). I, Gustabo Lizarraga MD have personally reviewed and interpreted this examination/study. > Interpreting Provider: Gustabo Lizarraga MD on 12/13/2024 9:09 AM Se Zaldivar MD DIAGNOSTIC IMAGING ORDERABL ES Final Result * HIV-1 HIV-2 ANTIGEN/ANTIBODY (01/22/2016 12:01 PM CDT) HIV Antigen/Antibod y 1 & 2 Non-reacti ve Non-react myrna [facility] Comment: Neither HIV-1 p24 Antigen nor HIV-1/HIV-2 Antibodies are detected. Blood specimen (specimen) BLOOD SPECIMEN / Unknown 01/22/2016 12:01 PM CDT 01/22/2016 12:23 PM CDT us Charles Ruiz MD LAB - HEMATOLOGY ORDERABLES Fin al Result [facility] [address] [place] [address] * HEPATITIS C RNA QUANTITATIVE PCR (01/22/2016 12:01 PM CDT) Hepatitis C Virus RNA PCR Accession No: [id number] Specimen: Serum Reference: [id number] Test: Hepatitis C RT-PCR (Quantitative) RESULT Not Detected Reference Range Not Detected INTERPRETATION The quantitative Hepatitis C viral RNA RT-PCR determination was performed on a serum sample and is reported in IU/ml. Hepatitis C viral RNA was not detected. COMMENT The Hepatitis C viral (HCV) RNA analysis utilized a serum sample, real-time reverse handbag framer PCR, and is reported as Not Detected, Detected (<12 IU/ml), Quantity (IU/ml) or >100,000,000 IU/ml. The limit of quantiation of the assay is 12 IU/ml (100% of samples with this HCV RNA level were detected). The linear range is from 12 IU/ml to 100,000,000 IU/ml. Values less than 12 IU/ml are reported as Detected (<12 IU/ml). Values greater than 100,000,000 IU/ml are reported as >100,000,000 IU/ml. The detection/quantit ation of HCV RNA in serum is based on the isolation of HCV RNA with reverse handbag framer of genomic HCV RNA followed by real-time PCR in the presence of an unrelated RNA internal control. The internal control ensures that RNA is isolated, and that no general significant inhibitors of the RT-PCR process are present. This analysis was performed using an [place] FDA approved test methodology (Twelve RealTime HCV). Test performed at [facility], [address] [place] [address] This case has been personally reviewed and interpreted by the attending (teaching) pathologist. Final Diagnosis performed by Oneal Tolbert PHD. Electronically signed 01/24/2016 [facility] ([facility]) Blood specimen (specimen) BLOOD SPECIMEN / Unknown 01/22/2016 12:01 PM CDT 01/22/2016 12:23 PM CDT us Charles Ruiz MD LAB - CHEMISTRY ORDERABLES Christel arnett Result [facility] ([facility]) from Last 3 Months or Most Recently Relevant to Health Maintenance Insurance [employer] MEDICARE ADV HMO & PPO * Guarantor: NINFA RODRIGUEZ Account Type Relation to Patient Date of Phone Billing Address Personal/Family [id number] * Guarantor: NINFA RODRIGUEZ Account Type Relation to Patient Date of Phone Billing Address Personal/Family [id number] * Guarantor: NINFA RODRIGUEZ Account Type Relation to Patient Date of Phone Billing Address Personal/Family [id number] Advance Directives * Full Code (Latest Code Status on File) Date Activated Date Inactivated Comments 12/14/2020 10:42 PM 12/16/2020 11:11 AM * Full Code Date Activated Date Inactivated Comments 12/10/2020 1:52 PM 12/11/2020 6:10 PM * Full Code Date Activated Date Inactivated Comments 10/18/2017 3:57 PM 10/20/2017 11:10 AM * Full Code Date Activated Date Inactivated Comments 10/18/2017 6:02 AM 10/18/2017 12:59 PM Care Teams Senior Microstrategy Developer Relationship Specialty Start Date End Date Adarsh Rachel MD [address] [address] PCP - General Family Medicine 12/13/24
--- OUTSIDE RECORDS SUMMARY | 2025-01-16 12:52 | XMS_ITS | Continuity of Care Document ---
Author Organization [facility] Address [address] [place] [address] Phone Care Team Providers Care Skelp Processor Name Role Phone Nomi Maldonado MD Unavailable Unavailable Allergies, Adverse Reactions, Alerts Substance Reaction Status Criticality Sulfa (Sulfonamide Antibiotics) Active No Information Medications Medication Instructions Dosage Effective Dates (start - stop) Status Comments Lipitor 10 mg tablet take 1 tablet by or al route every day 10 MG - Active metoprolol tartrate 25 mg tablet take 1 tablet by oral route 2 times every day 25 MG - Active Celexa 20 mg tablet take 1 tablet by ora l route every day 20 MG - Active Procedures Procedure Date PREV [...] Diagnoses Date Provider Providers Copied on Encounter [facility], [address], [place], [place], [id number], tel:[phone] [facility] No Information 8 Joel Mosher. [address], [place], [place], [address] , [place]. tel:[phone] PREV VISIT, EST, AGE 40-64 [facility], [address], [place], [place], [address], [place] tel:[phone] [facility] Phsical (chief complaint) Encounter for general adult medical exam w abnormal findingsHyperl ipidemiaAcute pyelonephritis Essential (primary) hypertension 8 Joel Mosher. [address], [place], [place], [address] , [place]. tel:[phone] Referring Provider: Nomi Maldonado [address], [place], [place], [address]. tel:[phone] OFFICE/OUTPA TIENT VISIT, EST [facility], [address] [place] [address], [place] tel:[phone] [facility] Hematuria1 (chief complaint)chorn ic pain1 (chief complaint)HLP (chief complaint) HematuriaHyper lipidemiaLymph jorge 7 Joel Mosher. [address], [place], [place], [address] , [place]. tel:[phone] Referring Provider: Nomi Maldonado [address], [place], [place], [address]. tel:[phone] OFFICE/OUTPA TIENT VISIT, EST [facility], [address], [place], [place], [address], [place] tel:[phone] [facility] low D (chief complaint)leuko penia (chief complaint)UTI1 (chief complaint)HLP (chief complaint) LeukopeniaHema turiaHyperlipi demiaLymphoma [address], [place], [place], [address] , [place]. [phone] Referring Provider: Donna [address], [place], [place], [address]. tel:[phone] PREV VISIT, EST, AGE 40-64 [facility], [address], [place], [place], [address], [place] tel:[phone] [facility] Physical (chief complaint) Encounter for general adult medical exam w abnormal findingsHyperl ipidemiaHematu riaGeneralized anxiety disorder [address], [place], [place], [address] , [place]. [phone] OFFICE/OUTPA TIENT VISIT, EST [facility], [address], [place], [place], [address], [place] tel:[phone] [facility] HTN (chief complaint)lymph oma1 (chief complaint)GERD1 (chief complaint)HLP (chief complaint)osteo penia1 (chief complaint) Essential (primary) hypertensionUr inary tract infectionLymph omaHyperlipide peg [address], [place], [place], [address] , [place]. [phone] Referring Provider: Donna [address], [place], [place], [address]. tel:[phone] OFFICE/OUTPA TIENT VISIT, EST [facility], [address], [place], [place], [address], [place] tel:[phone] [facility] UTI (chief complaint)anxie ty1 (chief complaint)HTN (chief complaint)chron ic pain (chief complaint) Urinary tract infectionGener alized anxiety disorderChroni c pain syndromeEssent ial (primary) hypertension 6 Joel Jean [address], [place], [place], [address] , [place]. [phone] Referring Provider: Donna [address], [place], [place], [address]. tel:[phone] OFFICE/OUTPA TIENT VISIT, [facility], [address], [place], [place], [address], [place] tel:[phone] [facility] GERD1 (chief complaint)chron ic pian (chief complaint)anxie ty1 (chief complaint)lymph oma1 (chief complaint) LymphomaGERD w/o esophagitisChr onic pain syndromeGenera lized anxiety disorder Feb-0 6 Joel Mosher. [address], [place], [place], [address] , [place]. [phone] Referring Provider: [address], [place], [place], [address]. tel:[phone] OFFICE/OUTPA TIENT VISIT, [facility], [address], [place], [place], [address], [place] tel:[phone] [facility] chronic pain (chief complaint)lymph jorge (chief complaint)gERD1 (chief complaint)anxie ty1 (chief complaint) Chronic pain syndromeLympho maGeneralized anxiety disorderGERD w/o esophagitis Jan- 6 Joel Jean [address], [place], [place], [address] , [place]. [phone] Referring Provider: Donna [address], [place], [place], [address]. tel:[phone] OFFICE/OUTPA TIENT VISIT, [facility], [address], [place], [place], [address], [place] tel:[phone] [facility] HTN (chief complaint)back pain1 (chief complaint)renal stone (chief complaint)autoi mmune thyroid (chief complaint) Chronic pain syndromeEssent ial (primary) hypertensionDi sorder of thyroid, unspecifiedRen al stone 6 Joel Mosher. [address], [place], [place], [address] , [place]. tel:[phone] Referring Provider: Donna [address], [place], [place], [address]. tel:[phone] OFFICE/OUTPA TIENT VISIT, [facility], [address], [place], [address], [place] tel:[phone] [facility] chronic pain1 (chief complaint)thyro id1 (chief complaint)osteo penia1 (chief complaint)HTN (chief complaint) Essential (primary) hypertensionAu toimmune thyroiditisChr onic pain syndromeDisord er of bone, unspecified 6 Joel Mosher. [address], [place], [place], [address] , [place]. [phone] Referring Provider: Donna [address], [place], [place], [address]. tel:[phone] OFFICE/OUTPA TIENT VISIT, [facility], [address], [place], [place], [address], [place] tel:[phone] [facility] chronic pain (chief complaint)grave disease1 (chief complaint)HLP (chief complaint) Chronic pain syndromeEssent ial (primary) hypertensionMi xed hyperlipidemia Autoimmune thyroiditis 6 Joel Mosher. [address], [place], [place], [address] , [place]. tel:[phone] Referring Provider: Donna [address], [place], [place], [address]. tel:[phone] OFFICE/OUTPA TIENT VISIT, [facility], [address], [place], [place], [address], [place] tel:[phone] [facility] hyperthyroidism (chief complaint) Disorder of thyroid, unspecified 6 Joel Mosher. [address], [place], [place], [address] , [place]. tel:[phone] Referring Provider: Donna [address], [place], [place], [address]. tel:[phone] OFFICE/OUTPA TIENT VISIT, [facility], [address] [place], [address], [place] tel:[phone] [facility] chronic pain (chief complaint)chest pain1 (chief complaint)bone density (chief complaint)hyper thyroidism (chief complaint) Disorder of thyroid, unspecifiedLum bagoChest painEncounter for screening for osteoporosis 6 Joel Mosher. [address], [place], [address] , [place]. [phone] Referring Provider: Donna Muro [facility] [address], [place], [place], [address]. tel:[phone] OFFICE/OUTPA TIENT VISIT, [facility], [address] [place], [address], [place] tel:[phone] [facility] chest pain1 (chief complaint)chest pain (chief complaint)chest pain1 (chief complaint) Chest painEssential (primary) hypertensionCo ronary artery disease of lime coronary artery w/ angina pectoris 6 Joel Mosher. [address], [place], [place], [address] , [place]. [phone] Referring Provider: Donna Muro [facility] [address], [place], [place], [address]. tel:[phone] OFFICE/OUTPA TIENT VISIT, [facility], [address] [place], [address], [place] tel:[phone] [facility] HLP (chief complaint)HTN (chief complaint)gluco se (chief complaint)gluco se (chief complaint) LumbagoMixed hyperlipidemia Essential (primary) hypertensionHy perglycemia 6 Joel Mosher. [address], [place], [address] , [place]. [phone] Referring Provider: Donna [address], [place], [place], [address]. tel:[phone] OFFICE/OUTPA TIENT VISIT, EST [facility], [address], [place], [place], [address], [place] tel:[phone] [facility] HTN1 (chief complaint)HLP (chief complaint)back pain1 (chief complaint) Essential (primary) hypertensionMi xed hyperlipidemia Lumbago with sciatica, left side 6 Joel Mosher. [address], [place], [place], [address] , [place]. tel:[phone] Referring Provider: Donna Muro [facility] [address], [place], [place], [address]. tel:[phone] PREV VISIT, NEW, AGE 40-64 [facility], [address], [place], [place], [address], [place] tel:[phone] [facility] PHysical (chief complaint) Encntr for general adult medical exam w/o abnormal findings 6 Joel Mosher. [address], [place], [place], [address] , [place]. tel:[phone] Referring Provider: Donna Muro [facility] [address], [place], [place], [address]. tel:[phone] Family History Family Member Type Diagnosis Age At Onset Brother Problem (finding) Alive and well Father Problem (finding) Unknown Mother Problem (finding) Alive and well Father Problem (finding) Brother Problem (finding) back pain Payers Payer name Insurance type Covered democrat ID Authoriza tion(s) No Information Social History Type Description Quantity Date Captured Comments Sex Female Smoking Status No Information Chief Complaint And Reason For Visit No Information Plan Of Treatment Date Type Action Status Referral Ordered: CT THORAX W/O DYE ordered Referral Ordered: Raghavendra Sanchez (related to Autoimmune thyroiditis) ordered Referral Referred To: Raghavendra Sanchez [address]
[facility] [address] [place], [phone] Ordered: Referrals: Raghavendra Sanchez. Evaluate and treat [...] and back pain [facility]. Pt is done with [...] any suicidal thought. Pt feels slightly depressed. back pain1 Pt has chronic l ow [...] pt denies any chest pain or headache HTN Pt is only takin g metorprolol without lisinopri. Her BP is better. Pt denies any chest apin chronic pain1 Pt has chronic n maru [...] pain or headache. Pt is on metorpolol. grave disease1 Pt has ? grave d isease. Pt denies any chest pain, headache, palpitation. Pt takes metorprolol and lisinopril and her BP is stable. HLP Pt takse lipitor . Pt denies any myalgia chronic pain Pt has chronic n maru and low back pain. Pt just seen neurosurgery at [facility] and she will have C spine MRI and she has follow up soon. Pt takes norco for pain Pt denies any worsening pain hyperthyroidism Pt has low TSH b ut [...] bladder cotnrol. Pt just seen neurosurgery at [facility] and she will have MRI of [...] of glucose Pt denies any polyuria, polydipsia back pain1 Pt has chronic l ow back pain with left sciatica and left leg numnbess. Pt has radiculopathy. Pt states that norco only helps slightlyk. Pt has pain daily HLP Pt has HLP. Pt t akes lipiotor Pt denies any myalgia. Pt is on low fat and low carb diet HTN1 Pt has HTN. Pt t akes lisinopril. Pt denies any chest pain or headache PHysical Pt needs annual physical. P has [...]
--- OUTSIDE RECORDS SUMMARY | 2025-01-16 12:52 | XMS_ITS | Encounter Summary ---
Author Organization [facility] Address [address] [place] [address] Care Team Providers Care Nozzle Worker Name Role Phone Nomi Maldonado MD Primary Care Provider Adarsh Rachel MD Primary Care Provider [phone] Nomi Maldonado MD Primary Care Provider [phone] Adarsh Rachel MD Primary Care Provider Nomi Maldonado MD Primary Care Provider [phone] Adarsh Rachel MD Primary Care Provider Nomi Maldonado MD Primary Care Provider [phone] Adarsh Rachel MD Primary Care Provider [phone] Encounter Details Date Type Department Care Team (Late st Contact Info) Description 02/13/2016 Lab Requisition [facility] - Lab Cytogenetics [address] [place] [address] Charles Ruiz MD [address] [place] [id number] Diffuse large b-cell lymphoma Social History Tobacco Use Types Packs/Day Years [...] st Contact Info) Description 06/06/2025 9:00 AM DATA MANAGEMENT Office Visit [facility] - Orthopedic Surgery [address] [place] [id number] Se Zaldivar MD [address] [place] [address] documented as of this encounter Procedures Procedure Name Priority Date/Time Associated Diagnosis Comments CYTOGENETICS CANCER PANEL Routine 02/13/2016 1:15 PM CDT Diffuse large b-cell lymphoma documented in this encounter Results * CYTOGENETICS CANCER PANEL (02/13/2016 1:15 PM CDT) Indication for Study DLBCL LYMPHOMA FISH panel requested by physician 6 12:53 PM CDT [facility] Results Cytogenetics Failure of lymph node harvest. 6 12:53 PM CDT [facility] Interpretation No chromosome analysis was performed due to lymph node harvest failure. This is, very likely, due to a non-proliferative specimen. FISH of lymphoma panel could not be performed because of lack of cells. 6 12:53 PM CDT [facility] at 1253 CDT Historical Cytogenomic Report [id number] on 01/29/16: Results Analysis and count of 11 cells (7 cells karyotyped, GTL-banding) from 24-hour unstimulated bone marrow cultures showed the following chromosome pattern: 46,XX[11] Analysis of 200 interphase cells hybridized to dual breakapart BCL6, MYC and dual labeled dual fusion CMYC/IGH and BCL2/IGH specific fluorescent labeled probes* directed onto 3q27,8q24, 8q24/14q32 and 18q21/14q32 showed the following results: nuc kavya (BCL6x2)[200],(C-MYC x2)[200],(C-MYC,IGH) x2[200],(IGH,BCL2)x2 [200] Normal . Interpretation 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 This study is suboptimal because the number of dividing cells is less than 20. This was caused by a low count of WBC. FISH of DH lymphoma panel was negative. at 0808 . Disclaimer *This test was developed, and its performance characteristics determined by [facility] Cytogenetics [facility] as required by [...] performed by correlating pathology with cytogenetic findings. . 6 12:53 PM CDT [facility] Client Information [facility] - [id number] [facility] Lab Numbers: [id number] CHROTIS 6 12:53 PM CDT [facility] Other TUMOR TISSUE SPECIMEN / Unknown 02/13/2016 1:15 PM CDT 02/13/2016 4:49 PM CDT us Charles Ruiz MD LAB - PATHOLOGY/CYTOLOGY ORDERA BLES Final Result [facility] [address] [place] [address] documented in this encounter Visit Diagnoses Diagnosis Diffuse large B-cell lymphoma (HCC) Other malignant lymphomas, unspecified site, extranodal and solid organ sites documented in this encounter Additional Health Concerns Infection Onset Date Last Indicated Resolved Time COVID-19 Under Investigation 12/08/2020 12/08/2020 12/08/2020 8:45 PM CDT documented as of this encounter Care Teams Nozzle Worker Relationship Specialty Start Date End Date Nomi Maldonado MD [address] [place] [address] PCP - General 09/16/15 11/20/20 Adarsh Rachel MD [address] [facility] [address] [place] [address] PCP - General Family Medicine 11/21/20 11/21/20 Nomi Maldonado MD [address] [facility] [address] [place] [address] PCP - General 11/22/20 12/12/20 Adarsh Rachel MD [address] [place] [address] PCP - General 12/13/20 12/26/20 Nomi Maldonado MD [address] [place] [address] PCP - General 12/27/20 01/28/21 Adarsh Rachel MD [address] [place] [address] PCP - General Family Medicine 01/29/21 07/20/22 Nomi Maldonado MD [address] [place] [id number] PCP - General 07/21/22 12/12/24 Adarsh Rachel MD [address] [place] [address] PCP - General Family Medicine 12/13/24 documented as of this encounter
--- OUTSIDE RECORDS SUMMARY | 2025-01-16 12:52 | XMS_ITS | Clinical Summary ---
Author Organization [facility] [address] Address [address] [place] [address] Care Team Providers Care Capacity Management Specialist Name Role Phone Adarsh Rachel MD Primary Care Provider Allergies No known active allergies Medications No known medications Active Problems Problem Noted Date Diagnosed Date Pain in thoracic spine 01/19/2014 Surgical History Surgery Date Site/Laterality Comments PORT PLACEMENT CHEST >5 YEARS 08/14/2016 N/A Social History Tobacco Use Types Packs/Day Years Used Date Smoking Tobacco: Never Assessed Comments Unknown Sex and Gender Information Value Date Recorded Sex Assigned at Not on file Legal Sex Female 4:02 AM SHANK SORTER Gender Identity Not on file Sexual Orientation Not on file Obstetrics History Last Filed Vital Signs Vital Sign Reading [...] 02/09/2014 2:48 PM CDT Plan of Treatment Health Maintenance Due Date Last Done Comments Breast Cancer Screening-Mammogram 1960 Cervical Cancer Screening 1960 Colon Cancer Screening-Colonoscopy 1960 Depression Screening 1960 Hepatitis C Screening 1960 DTaP/Tdap/Td Vaccine (1 - Tdap) 1971 Hepatitis B Screening 1978 Regular Well Visit/Exam 18-64 1978 Pneumococcal vaccine <65 (1 of 2 - PCV) 1979 Zoster Vaccine (1 of 2) 1979 Influenza Vaccine (Season Ended) 2025 03/15/20 19, 10/19/2017 Insurance MEDICARE [facility] [place] [address] MEDICARE HMO [address] MEDICARE HMO Care Teams Capacity Management Specialist Relationship Specialty Start Date End Date Adarsh Rachel MD [address] [facility] [address] [place] [address] PCP - General Family Medicine 11/09/23
--- OUTSIDE RECORDS SUMMARY | 2025-01-16 12:52 | XMS_ITS ---
Author Organization [facility] Address [address] [place] [address] Care Team Providers Care Director Of Materials Name Role Phone Adarsh Rachel MD Primary Care Provider Active Problems Problem Noted Date Diagnosed Date Left leg swelling 12/14/2020 History of left hip hemiarthroplasty 12/14/2020 Pathologic fracture of femor al neck, left, initial encounter 12/06/2020 Nephrolithiasis 10/18/2017 Zoster without complications 03/11/2016 Diffuse large B-cell lymphoma 02/19/2016 Atherosclerotic heart diseas e of [place] coronary artery without angina pectoris 01/27/2016 Low back pain with left-sided sciatica 6 Spinal stenosis of lumbar re gion with neurogenic claudication 01/27/2016 Thyrotoxicosis without thyroid storm 01/27/2016 Disorder of bone 01/27/2016 Calyceal diverticulum Current Treatment and Therapy Plans No current plan information found. Past Treatment and Therapy Plans No past plan information found. Lifetime Dose Tracking * Chemical Lifetime Dose Automatic Entry Manual Entr y Doxorubicin 300 mg/m2 (552 mg) 0 mg/m2 (0 mg) 300 mg/ m2 (552 mg) Dose Length Product 155 mGy-cm 155 mGy-cm 0 mGy-cm
[2025-01-16 13:18] LABS: Hematocrit 35.2 % (37.0-47.0); Hemoglobin 11.6 g/dL (12.0-15.0); Immature Granulocyte Percent A 0.2 % (0-0.5); Lymphocytes Absolute Auto 1.25 K/mm3 (0.9-3.2); Mean Corpuscular HGB Conc 33.0 g/dl (32-36); Mean Corpuscular Hemoglobin 31.9 pg (26-34); Mean Corpuscular Volume 96.7 fl (80-100); Nucleated Red Blood Cells Absolute Auto 0.000 K/mm3 (0.0-0.012); Nucleated Red Blood Cells Perc 0.0 % (0.0-0.2); Platelet Count Result 171 k/mm3 (150-375); Red Blood Count 3.64 M/mm3 (4.2-5.4); White Blood Count 5.1 K/mm3 (4.5-10.0)
[2025-01-16 16:53] LABS: Alanine Aminotransferase 13 U/L (6-35); Albumin Level 4.2 g/dL (3.5-5.1); Alkaline Phosphatase 68 U/L (38-126); Anion Gap 8 mmol/L (4-12); Aspartate Amino Transferase 38 U/L (14-36); Bilirubin,Total 0.4 mg/dL (0.2-1.3); Blood Urea Nitrogen 19 mg/dL (7-17); Calcium 9.5 mg/dL (8.4-10.2); Carbon Dioxide 26 mmol/L (22-30); Chloride 105 mmol/L (98-107); Estimated Glomerular Filt Rate 41; Glucose 85 mg/dL (65-110); Potassium 4.7 mmol/L (3.4-5.0); Sodium 139 mmol/L (137-145); Total Protein 7.1 g/dL (6.3-8.2)
== END 2025-01-16 12:50 | disposition home or self-care (01) ==
LOC: ANHLAB 12:50
PROVIDERS: PCP Family Medicine; Visit Provider Internal Medicine Hematology & Oncology
DX: C50.412 Malignant neoplasm of upper-outer quadrant of left female breast (principal); Z17.0 Estrogen receptor positive status [ER+]
CPT/HCPCS: 36415; 80053; 85025; 86300

== ENCOUNTER 2025-02-18 08:06 | Emergency (ER) | payer MEDICARE, SELFPAY ==
[2025-02-18 08:15] VITALS: BP 154/74; PULSE 64; RESP 18; TEMP 36.4; O2SAT 100
--- NOTE | 2025-02-18 08:33 | ED_ITS ---
HPI - General Adult General Chief complaint: Urogenital-Female Stated complaint: lower back pain Time Seen by Provider: 02/18/25 08:22 Source: patient and RN notes reviewed Mode of arrival: ambulatory Limitations: no limitations History of Present Illness HPI narrative: Patient presents today complaining of left-sided low back/flank pain and nausea. She reports back pain for the past week that radiates laterally. Nausea has been fairly constant for the past 2 weeks after starting tamoxifen 3 weeks ago. Patient called her oncologist regarding the nausea and was told to stop the tamoxifen for 1 week then restart it. Has not tried anything for the nausea but tried some tylenol this morning for the pain, which helped slightly. Patient is on maintenance Tamoxifen after left sided breast CA and cancer of the left femoral head. Patient reports history of kidney stones in the past with need for lithotripsy and stents. Her chart also shows a history of chronic low back pain. She denies any urinary symptoms to include frequency, hematuria, dysuria. Her back pain was worse this morning for which she rated 8/10, but has decreased prior to arrival after moving around and now rates it 2/10. Denies numbness or tingling in the extremities, loss of bowel or bladder control. Related Data Home Medications ?Medication ?Instructions ?Recorded ?Confirmed ?Last Taken ?Type atorvastatin 10 mg tablet 10 mg PO HS 05/31/21 5 06/12/24 History aspirin 81 mg tablet,delayed 81 mg PO QAM 06/24/2107/2206/12/24 History release alprazolam 0.25 mg tablet 0.25 mg PO DAILY 11/12/2206/12/24 History magnesium oxide 500 mg PO DAILY 11/19/2307/2206/12/24 History anastrozole 1 mg tablet 1 mg PO DAILY 12/29/2312/2606/12/24 History tamoxifen 10 mg tablet 10 mg PO DAILY 02/18/2501/27 Unknown History Allergies Allergy/AdvReac Type Severity Reaction Status Date / Time Sulfa (Sulfonamide Allergy Severe Anaphylaxis Verified 02/18/25 08:25 Antibiotics) [facility] Past Medical History Medical History Colon cancer screening Atrial myxoma Obesity Dyslipidemia Stress fracture of neck of left femur History of non-Hodgkin's lymphoma Hypertension Heart disease BMI 35.0-35.9,adult Seizure Cancer Depression Anxiety Arthritis CAD (coronary artery disease) Surgical History Surgical History History of coronary artery stent placement Family History Family History Mother Cerebrovascular accident Father Family history of heart disease in male family member before age 55 Other Asthma Depression Diabetes mellitus Family history of alcoholism Family history of arthritis Family history of thyroid disease Hypertension Social History Social History Smoking packs per day: 0.5 Smoking cigarettes per day: 10.0 Years smoked: 43 Smoking pack-years: 21.50 Smoking status: Former smoker Tobacco type: cigarettes Second hand tobacco smoke exposure: No Smoking end date: 11/18/14 Additional smoking assessment comments: STATES SMOKING <PK/DAY/40YRS-QUIT 2014 Alcohol intake: never Substance use: current Substance use type: marijuana Other substance usage details: Medical marijuana a couple hits a day for anxiety and pain. Do You Feel Safe in your Home?: Yes Lack of Transportation: No Lack of Food: Never True Current Housing: I Have Housing Concerned About Future Housing: No Difficulty Paying Gas/Electric Bills: No Difficulty Paying for Meds: No Currently Unemployed: No Education: High School Diploma/GED Difficulty w/ Childcare or Family Care: No Living arrangements: with family Additional living arrangements comments: LIVES AND TAKES CARE OF HER MOM - YOLETTE Gender identity (if verbalized by the patient): Male Spiritual care concerns: No Comments At time of signature, I have reviewed and agree with nursing past medical, surgical, social and family history unless otherwise noted. Please see nursing chart for further information. There is no relevant family history pertinent to the presenting complaint Exam Narrative: GENERAL: Well-appearing, well-nourished, and in no acute distress. HEAD: Normocephalic, atraumatic. EYES: EOMI. No redness or drainage. Conjunctivae normal. ENT: Mucous membranes pink and moist. NECK: Normal AROM. CHEST: No respiratory distress. Clear to auscultation. HEART: Regular rate and rhythm. No murmur appreciated. Normal peripheral pulses. ABDOMEN: Soft, nontender, nondistended, normal active bowel sounds.-CVAT MUSCULOSKELETAL: No bony tenderness of the spine. Left low back paraspinal muscle tenderness. Distal sensation intact. Saddle sensation intact. 5/5 strength in BLE. EXTREMITIES: Normal range of motion. No edema. SKIN: Warm, dry, no rash. Capillary refill normal. Normal skin turgor. NEURO: No focal deficits. Alert and oriented x3. Gait steady. PSYCH: Normal affect. No signs of depression or anxiety. Course Course Level of Care: Express Care Visit Vital Signs Vital signs: Vital Signs Temperature 97.5 F L 02/18/25 08:15 Pulse Rate 64 02/18/25 08:15 Respiratory Rate 18 02/18/25 08:15 Blood Pressure 154/74 H 02/18/25 08:15 Pulse Oximetry 100 02/18/25 08:15 Oxygen Delivery Room Air 02/18/25 08:15 Temperature 97.5 F L 02/18/25 08:15 Pulse Rate 64 02/18/25 08:15 Respiratory Rate 18 02/18/25 08:15 Blood Pressure 154/74 H 02/18/25 08:15 Pulse Oximetry 100 02/18/25 08:15 Oxygen Delivery Room Air 02/18/25 08:15 Reviewed Medical Decision Making MDM Narrative Medical decision making narrative: 64-year-old female patient with history of breast cancer and cancer of the proximal femur presents today with a 2 week history of persistent nausea and one-week history of left flank/low back pain radiating to the left lateral abdo men. Her cancer maintenance medication was changed to tamoxifen approximately 3 weeks ago and believes this may have started her nausea. She was told to stop it to see if this would help and it has not. Tylenol this AM has slightly helped her back pain. Denies urinary symptoms or fever. Upon exam, patient has some tenderness of the left lower lumbar musculature, but no spinal tenderness. No C VAT. Neurovascularly intact. Urinalysis shows trace blood and 1+ leukocytes. Culture pending. Dose of 4 mg ODT Zofran given for nausea. Due to patient's history of kidney stones requiring intervention, I offered her ER transfer for further evaluation today. Patient declines and would like to call her doctor tomorrow to get an outpatient CT ordered. Will prescribe cephalexin for UTI, zofran for nausea, and Flomax for possible stone. Patient agrees with plan. VSS. Strict ED precautions given, anticipatory guidance given. Differential Diagnosis Differential Diagnosis: UTI, kidney stone, low back strain Vital Signs Vital Signs: Vital Signs Temperature 97.5 F L 02/18/25 08:15 Pulse Rate 64 02/18/25 08:15 Respiratory Rate 18 02/18/25 08:15 Blood Pressure 154/74 H 02/18/25 08:15 Pulse Oximetry 100 02/18/25 08:15 Oxygen Delivery Room Air 02/18/25 08:15 Temperature 97.5 F L 02/18/25 08:15 Pulse Rate 64 02/18/25 08:15 Respiratory Rate 18 02/18/25 08:15 Blood Pressure 154/74 H 02/18/25 08:15 Pulse Oximetry 100 02/18/25 08:15 Oxygen Delivery Room Air 02/18/25 08:15 Lab Data Lab results reviewed: Yes I reviewed the patient's lab results. Labs: Lab Results 02/18/25 Range/Units 08:34 POC Urine Color Yellow POC Urine Clarity Clear POC Urine pH 7.0 POC Ur Specif Ethel 1.020 POC Urine Protein Negative (Negative) POC Ur Glucose (UA) Negative (Negative) POC Urine Ketones Negative (Negative) POC Urine Blood Trace (Negative) POC Urine Nitrite Negative (Negative) POC Urine Bilirubin Negative (Negative) POC Urine Urobilinogen 0.2 POC U Leukocyte Esteras Trace (Negative) Critical Care Time Critical Care Time Critical Care Time: No Discharge Plan Discharge Clinical Impression: Urinary tract infection Qualifiers: Urinary tract infection type: acute cystitis Hematuria presence: with hematuria Qualified Code(s): N30.01 - Acute cystitis with hematuria Patient Disposition: Home Condition: Stable Instructions: Antibiotic Form, Urinary Tract Infection in Older Adults (ED) Additional Instructions: Your urine shows infection today. Take Keflex as prescribed until gone. Your urine will be sent of for a culture to identify what type of bacteria is causing your infection. If the culture shows that your medication will not get rid of your infection, you will be notified and a new antibiotic will be called in for you. If your symptoms worsen to include fever, sweats, chills, vomiting, worsening abdominal or back pain, please go to the ER for further evaluation. Take the Flomax and Zofran as prescribed. Please call your doctor tomorrow and get scheduled for follow-up/CT. Your blood pressure was elevated above 120/80 today at Urgent Care. This puts you above the threshold for follow up. Please schedule a followup visit with your personal physician as soon as possible, for further evaluation and treatment. Even blood pressure exceeding 120/80 may indicate pre-hypertension. Patient Language: Latvian Prescriptions: New cephalexin 500 mg capsule 500 mg PO BID 7 Days Qty: 14 0RF ondansetron 4 mg tablet,disintegrating 4 mg PO TID PRN (Reason: nausea and vomiting) Qty: 15 0RF tamsulosin [Flomax] 0.4 mg capsule 0.4 mg PO DAILY 7 Days Qty: 7 0RF No Action tamoxifen 10 mg tablet 10 mg PO DAILY alprazolam 0.25 mg tablet 0.25 mg PO DAILY Rx Instructions: Takes at hs. anastrozole 1 mg tablet 1 mg PO DAILY aspirin 81 mg Tablet,Delayed Release (Dr/Ec) 81 mg PO QAM magnesium oxide 500 mg magnesium Tablet 500 mg PO DAILY atorvastatin 10 mg tablet 10 mg PO HS Rx Instructions: Takes in am. carvedilol 6.25 mg tablet See Rx Instructions .ROUTE .COMPLEX Qty: 60 5RF Dose Instruction: TAKE 1 TABLET BY MOUTH EVERY 12 HOURS WITH FOOD Rx Instructions: TAKE 1 TABLET BY MOUTH EVERY 12 HOURS WITH FOOD Follow-up/Referrals: Adarsh Rachel MD [Primary Care Provider, Family Practice] Time of Disposition: 08:57
[2025-02-18 08:38] LABS: EDUAAPPEAR Clear; EDUABILI Negative (Negative); EDUABLOOD Trace (Negative); EDUACOLOR1 Yellow; EDUAGLUCOSE Negative (Negative); EDUAKETONE Negative (Negative); EDUALEUKO Trace (Negative); EDUANITRATE Negative (Negative); EDUAPH 7.0; EDUAPROTEIN Negative (Negative); EDUASPGRAVITY 1.020; EDUAUROBILI 0.2
[2025-02-18] MEDS: ONDANSETRON HCL ODT 4 MG TABLET PO (08:39)
== END 2025-02-18 09:01 | disposition home or self-care (01) ==
PROVIDERS: Emergency Provider Nurse Practitioner; PCP Family Medicine
DX: N30.01 Acute cystitis with hematuria (principal); I25.10 Atherosclerotic heart disease of native coronary artery without angina pectoris; M19.90 Unspecified osteoarthritis, unspecified site; I10 Essential (primary) hypertension; E66.9 Obesity, unspecified; Z68.25 Body mass index [BMI] 25.0-25.9, adult; F41.9 Anxiety disorder, unspecified; F12.90 Cannabis use, unspecified, uncomplicated; Z87.891 Personal history of nicotine dependence; Z85.72 Personal history of non-Hodgkin lymphomas; Z95.5 Presence of coronary angioplasty implant and graft; Z79.82 Long term (current) use of aspirin; Z85.3 Personal history of malignant neoplasm of breast; Z85.830 Personal history of malignant neoplasm of bone
CPT/HCPCS: 81003; 87086; 99213; A9270; G0463

== ENCOUNTER 2025-02-21 14:33 | Outpatient (CLI) | payer MEDICARE, SELFPAY ==
--- OUTSIDE RECORDS SUMMARY | 2017-08-05 07:29 | XMS_ITS | Continuity of Care Document ---
Author Organization [facility] Address [address] [place] [address] Phone Care Team Providers Care Flight Dynamicist Name Role Phone Nomi Maldonado MD Unavailable Unavailable Allergies, Adverse Reactions, Alerts Substance Reaction Status Criticality Sulfa (Sulfonamide Antibiotics) Active No Information Medications Medication Instructions Dosage Effective Dates (start - stop) Status Comments Celexa 20 mg tablet take 1 tablet by ora l route every day 20 MG - Active metoprolol tartrate 25 mg tablet take 1 tablet by oral route 2 times every day 25 MG - Active Lipitor 10 mg tablet take 1 tablet by or al route every day 10 MG - Active Procedures Procedure Date PREV VISIT, EST, AGE 40-64 OFFICE/OUTPATIENT VISIT, EST OFFICE/OUTPATIENT VISIT, EST OFFICE/OUTPATIENT VISIT, EST PREV VISIT, EST, AGE 40-64 OFFICE/OUTPATIENT VISIT, EST OFFICE/OUTPATIENT VISIT, EST OFFICE/OUTPATIENT VISIT, EST OFFICE/OUTPATIENT VISIT, EST OFFICE/OUTPATIENT VISIT, EST OFFICE/OUTPATIENT VISIT, EST OFFICE/OUTPATIENT VISIT, EST OFFICE/OUTPATIENT VISIT, EST OFFICE/OUTPATIENT VISIT, EST OFFICE/OUTPATIENT VISIT, EST OFFICE/OUTPATIENT VISIT, EST OFFICE/OUTPATIENT VISIT, EST OFFICE/OUTPATIENT VISIT, EST PREV VISIT, NEW, AGE 40-64 Advance Directives Directive Yes / No Effective Date File Name No Information Encounters Encounter Description Practice Location Reason(s) For Visit Diagnoses Date Provider Providers Copied on Encounter [facility], [address], [place], [place], [id number], tel:[phone] [facility] No Information 8 Joel Mosher. [address], [place], [place], [address] , [place]. tel:[phone] PREV VISIT, EST, AGE 40-64 [facility], [address], [place], [place], [address], [place] tel:[phone] [facility] Phsical (chief complaint) Encounter for general adult medical exam w abnormal findingsHyperl ipidemiaAcute pyelonephritis Essential (primary) hypertension 8 Joel Mosher. [address], [place], [place], [address] , [place]. tel:[phone] Referring Provider: Nomi Maldonado [address], [place], [place], [address]. tel:[phone] OFFICE/OUTPA TIENT VISIT, EST [facility], [address] [place] [address], [place] tel:[phone] [facility] Hematuria1 (chief complaint)chorn ic pain1 (chief complaint)HLP (chief complaint) HematuriaHyper lipidemiaLymph jorge 7 Joel Mosher. [address], [place], [place], [address] , [place]. tel:[phone] Referring Provider: Nomi Maldonado [address], [place], [place], [address]. tel:[phone] OFFICE/OUTPA TIENT VISIT, EST [facility], [address], [place], [place], [address], [place] tel:[phone] [facility] low D (chief complaint)leuko penia (chief complaint)UTI1 (chief complaint)HLP (chief complaint) LeukopeniaHema turiaHyperlipi demiaLymphoma [address], [place], [place], [address] , [place]. [phone] Referring Provider: Donna Muro [address], [place], [place], [address]. tel:[phone] PREV VISIT, EST, AGE 40-64 [facility], [address], [place], [place], [address], [place] tel:[phone] [facility] Physical (chief complaint) Encounter for general adult medical exam w abnormal findingsHyperl ipidemiaHematu riaGeneralized anxiety disorder [address], [place], [place], [address] , [place]. [phone] OFFICE/OUTPA TIENT VISIT, EST [facility], [address], [place], [place], [address], [place] tel:[phone] [facility] HTN (chief complaint)lymph oma1 (chief complaint)GERD1 (chief complaint)HLP (chief complaint)osteo penia1 (chief complaint) Essential (primary) hypertensionUr inary tract infectionLymph omaHyperlipide peg [address], [place], [place], [address] , [place]. [phone] Referring Provider: Donna [address], [place], [place], [address]. tel:[phone] OFFICE/OUTPA TIENT VISIT, EST [facility], [address], [place], [place], [address], [place] tel:[phone] [facility] UTI (chief complaint)anxie ty1 (chief complaint)HTN (chief complaint)chron ic pain (chief complaint) Urinary tract infectionGener alized anxiety disorderChroni c pain syndromeEssent ial (primary) hypertension 6 Joel Jean [address], [place], [place], [address] , [place]. [phone] Referring Provider: Donna Muro [address], [place], [place], [address]. tel:[phone] OFFICE/OUTPA TIENT VISIT, [facility], [address], [place], [place], [address], [place] tel:[phone] [facility] GERD1 (chief complaint)chron ic pian (chief complaint)anxie ty1 (chief complaint)lymph oma1 (chief complaint) LymphomaGERD w/o esophagitisChr onic pain syndromeGenera lized anxiety disorder Feb-0 6 Joel Mosher. [address], [place], [place], [address] , [place]. [phone] Referring Provider: Donna [address], [place], [place], [address]. tel:[phone] OFFICE/OUTPA TIENT VISIT, [facility], [address], [place], [place], [address], [place] tel:[phone] [facility] chronic pain (chief complaint)lymph jorge (chief complaint)gERD1 (chief complaint)anxie ty1 (chief complaint) Chronic pain syndromeLympho maGeneralized anxiety disorderGERD w/o esophagitis Jan- 6 Joel Jean [address], [place], [place], [address] , [place]. [phone] Referring Provider: Donna Muro [address], [place], [place], [address]. tel:[phone] OFFICE/OUTPA TIENT VISIT, [facility], [address], [place], [place], [address], [place] tel:[phone] [facility] HTN (chief complaint)back pain1 (chief complaint)renal stone (chief complaint)autoi mmune thyroid (chief complaint) Chronic pain syndromeEssent ial (primary) hypertensionDi sorder of thyroid, unspecifiedRen al stone 6 Joel Mosher. [address], [place], [place], [address] , [place]. tel:[phone] Referring Provider: Donna Muro [address], [place], [place], [address]. tel:[phone] OFFICE/OUTPA TIENT VISIT, [facility], [address], [place], [place], [address], [place] tel:[phone] [facility] chronic pain1 (chief complaint)thyro id1 (chief complaint)osteo penia1 (chief complaint)HTN (chief complaint) Essential (primary) hypertensionAu toimmune thyroiditisChr onic pain syndromeDisord er of bone, unspecified 6 Joel Mosher. [address], [place], [place], [address] , [place]. [phone] Referring Provider: Donna Muro [address], [place], [place], [address]. tel:[phone] OFFICE/OUTPA TIENT VISIT, [facility], [address], [place], [place], [address], [place] tel:[phone] [facility] chronic pain (chief complaint)grave disease1 (chief complaint)HLP (chief complaint) Chronic pain syndromeEssent ial (primary) hypertensionMi xed hyperlipidemia Autoimmune thyroiditis 6 Joel Mosher. [address], [place], [place], [address] , [place]. tel:[phone] Referring Provider: Donna Muro [address], [place], [place], [address]. tel:[phone] OFFICE/OUTPA TIENT VISIT, [facility], [address], [place], [place], [address], [place] tel:[phone] [facility] hyperthyroidism (chief complaint) Disorder of thyroid, unspecified 6 Joel Mosher. [address], [place], [place], [address] , [place]. tel:[phone] Referring Provider: Donna Muro [address], [place], [place], [address]. tel:[phone] OFFICE/OUTPA TIENT VISIT, [facility], [address] [place] [address], [place] tel:[phone] [facility] chronic pain (chief complaint)chest pain1 (chief complaint)bone density (chief complaint)hyper thyroidism (chief complaint) Disorder of thyroid, unspecifiedLum bagoChest painEncounter for screening for osteoporosis 6 Joel Mosher. [address], [place], [place], [address] , [place]. [phone] Referring Provider: Donna Muro [facility] [address], [place], [place], [address]. tel:[phone] OFFICE/OUTPA TIENT VISIT, [facility], [address] [place], [address], [place] tel:[phone] [facility] chest pain1 (chief complaint)chest pain (chief complaint)chest pain1 (chief complaint) Chest painEssential (primary) hypertensionCo ronary artery disease of [place] coronary artery w/ angina pectoris 6 Joel Mosher. [address], [place], [place], [address] , [place]. [phone] Referring Provider: Donna Muro [facility] [address], [place], [place], [address]. tel:[phone] OFFICE/OUTPA TIENT VISIT, [facility], [address] [place], [address], [place] tel:[phone] [facility] HLP (chief complaint)HTN (chief complaint)gluco se (chief complaint)gluco se (chief complaint) LumbagoMixed hyperlipidemia Essential (primary) hypertensionHy perglycemia 6 Joel Mosher. [address], [place], [address] , [place]. [phone] Referring Provider: Donna Muro [address], [place], [place], [address]. tel:[phone] OFFICE/OUTPA TIENT VISIT, EST [facility], [address], [place], [place], [address], [place] tel:[phone] [facility] HTN1 (chief complaint)HLP (chief complaint)back pain1 (chief complaint) Essential (primary) hypertensionMi xed hyperlipidemia Lumbago with sciatica, left side 6 Joel Mosher. [address], [place], [place], [address] , [place]. tel:[phone] Referring Provider: Donna Muro [facility] [address], [place], [place], [address]. tel:[phone] PREV VISIT, NEW, AGE 40-64 [facility], [address], [place], [place], [address], [place] tel:[phone] [facility] Medicine PHysical (chief complaint) Encntr for general adult medical exam w/o abnormal findings 6 Joel Mosher. [address], [place], [place], [address] , [place]. tel:[phone] Referring Provider: Donna Muro [facility] [address], [place], [place], [address]. tel:[phone] Family History Family Member Type Diagnosis Age At Onset Brother Problem (finding) Alive and well Father Problem (finding) Unknown Mother Problem (finding) Alive and well Father Problem (finding) Brother Problem (finding) back pain Payers Payer name Insurance type Covered alliance party ID Authoriza tion(s) No Information Social History Type Description Quantity Date Captured Comments Sex Female Smoking Status No Information Chief Complaint And Reason For Visit No Information Plan Of Treatment Date Type Action Status Referral Ordered: CT THORAX W/O DYE ordered Referral Ordered: Raghavendra Sanchez (related to Autoimmune thyroiditis) ordered Referral Referred To: Raghavendra Sanchez [id number]
[facility] [address] [place], [id number] Ordered: Referrals: Raghavendra Sanchez. Evaluate and treat ordered Referral Ordered: US THYROID ordered Referral Ordered: THYROID MET UPTAKE ordered Referral Ordered: DXA BONE DENSITY, AXIAL ordered Referral Ordered: Cardiology (related to Chest pain) ordered Referral Ordered: Referrals: Cardiology. Evaluate and treat ordered Referral Ordered: Neurosurgery (related to Lumbago with sciatica, left side) ordered Referral Ordered: Neurosurgery (related to Encntr for general adult medical exam w/o abnormal findings) ordered Referral Ordered: Referrals: Neurosurgery. Evaluate and treat ordered Referral Ordered: MAMMOGRAM, SCREENING ordered History Of Present Illness Encounter Date Complaint History Of Prese nt Illness Phsical Pt needs annual physical. Pt recenlty went to ER for acute left pyelonephritis. Pt is on cipro now, which is a good option to cover the bacteria. Pt denies any fever, chill. Pt denies any nausea, vomiting, diarrhea Pt has good appetite. Pt feels very fatigue still. Pt denies any fever, chill. Pt denies any other complaints Hematuria1 Pt has recurrent hematuria and UTi. Pt just had another UTI and she was treated macrobid initially but she has klebsiella and is resistanct to macrobid and she just started augmentin 3 days ago. Pt denies any flank pain. pt denies any urinary frequency and urgency Pt has not done urine cytology yet chornic pain1 Pt has chronic p elvic and hip and back pain [facility]. Pt is done with chemo and radiation and she is seeing oncology HLP Pt has HLP Pt ta kes lipitor. pt denies any myalgia low D Pt has low D. Pt denies any fx leukopenia pt has mild leuk openia. Pt is seeing hematology/oncology. Pt told me she just had CBC drawn last week by hematology adn was told ok. Pt denies any infection Pt has lymphoma UTI1 Pt has UTI and s he was treated with macrobid. Pt denies any symptoms. HLP Pt takes liptor. Her lipid profile is normal. Pt denies any myalgia Physical Pt needs annual physical. Pt has HLP and she takes lipitor. Pt denie any myalgia. Pt has chronic anxiety and depression and she takes celexa and doing ok. Pt denies any suicidla or homicidal thought. Pt also takes metoprolol for HTN. Pt also has lymphoma and she will go to radiation therapy soon Pt has chornic bone pain. Pt takes norco PRnf or pain Pt denies any other complaints. Pt has chornic renal stone and she continues to have hematuria Pt denies any urinary symptoms. osteopenia1 Pt has osteopnei a. Pt is taking calcium and vitami D now. Pt is also taking some bone med but she does not remember the name HLP Pt has HLP. Pt t akes lipitor. Pt denies any myalgia GERD1 Pt deneis any GE RD symptoms and she is not taking zantac anymore. lymphoma1 Pt has large B c ell nonhodgkin lymphoma Pt is getting chemo and also is seeing oncology Pt also sees endo for thyroid disorder and is being monitored .Pt has some bone pain but getting better HTN Pt takes metopro lol and her BP is stable. Pt denies any chest pain or headache chronic pain Pt has chronic b ack pain Pt takes norco for pain. Pt denies any worsening pain Pt denies any loss of bowel or bladder control. Pt has6/10 pain HTN Pt has HTN Pt ta kes metoprolol. Pt denies any chest pain or headache anxiety1 Pt has anxiety a nd depression. Pt takes celexa and xanax. Pt feels less emotional. Pt denies any suicidal or homicdial thought UTI Additional infor mation: Pt c/o urinary burning, frequency, urgency for 3 days. Pt denies any fever, chill, flank pain. GERD1 Pt has been havi ng GERD symptoms and nausea. Pt is getting chemo Pt is on zofran from oncolgoist Pt is on zantac and is helping. Pt denies any abd pain chronic pian Pt has chronic n maru and back pain .Pt denies any loss of annamaria or bladder control. Pt takes norco for pain and doing ok Pt denies any worsening pain anxiety1 Pt has chronic a nxiety and depression. Pt is going through cancer treatment and is getting chemo. Pt has crying spells. Pt feels anxious. pt uanbel to tolerate effexor Pt denies any suicidal or homicidal thought lymphoma1 Pt has nonhogkin lymphoma. Pt is getting chemo now. Pt has bone pain. Pt will have PET scan soon chronic pain Pt has chronic n maru and back pain pt denies any worsening pain Pt denie any loss of bowel or bladder control lymphoma Additional infor vidal: Pt just had new diagnosis of B cell lymphoma and left hip pain Pt c/o left hip pain. Pt is seeing oncology and will have chemo soon. gERD1 Pt has been tino patel GERD symptoms recently. Pt was told to take prilosec by oncology. Pt has been taking piilosec but very expensive anxiety1 Pt has been tino patel severe anxiety since her diagnosis of lymphoma Pt has crying spells and has severe nerve problem. Pt denies any suicidal thought. Pt feels slightly depressed. HTN Pt is only takin g metorprolol without lisinopri. Her BP is better. Pt denies any chest apin back pain1 Pt has chronic l ow back pain. Pt has sciatica and numnbess. Pt is seeing neurosurgery. Pt denies any wrosening pain. Pt also has bulging disc around neck and she was offerred surgery but she does not want to do it. pt notices mild radiculopathy renal stone Pt is seeing uro logy now and she has renal stone both kidney and she will undergo lithotripsy soon. Pt denies any pain. Pt also spot on left hip and she had MRI done and will have bone biopsy soon. autoimmune thyroid Pt has autoim mune thyroidicitis. Pt still has not made appointment with endo yet. pt denies any chest pain or headache chronic pain1 Pt has chronic n maru and back apin. Pt is seeing neurosurgery. Pt will have MRi of C spine. Pt denies any worsening pain. Pt denies any sciatia. Pt denies any numnbess. HTN Pt takes metopro lol 25 mg BID. Pt states that she only takes lisinorpil PRN. Pt states that her BP is around 120/70 at home whitout lisinoril. osteopenia1 Pt has osteopeni a. Pt denies any history of sponeaneous fracture thyroid1 Pt has grave dis ease. Pt denies any chest pain or headache. Pt is on metorpolol. chronic pain Pt has chronic n maru and low back pain. Pt just seen neurosurgery at [facility] and she will have C spine MRI and she has follow up soon. Pt takes norco for pain Pt denies any worsening pain HLP Pt takse lipitor . Pt denies any myalgia grave disease1 Pt has ? grave d isease. Pt denies any chest pain, headache, palpitation. Pt takes metorprolol and lisinopril and her BP is stable. hyperthyroidism Pt has low TSH b ut normal T4 and normal TPO. Pt denies any chest pain, headache, palpitation, etc Pt deneis any feeling hot and jittery hyperthyroidism Pt had lab done last week which showed hyperthyroidism. Pt denies any palpitation, headache bone density Pt never had bon e density test. Pt denies any history of spontaneous fx chest pain1 Pt has not had a nymore chest pain. Pt seen cardiology recently and had negative cardiac stress test. Pt will continue to see Dr. Skelton from now on. Pt take regular ASA daily chronic pain Pt has chronic l ow back pain. Pt c/o sciatica and numnbess both legs. Pt takes norco for pain. Pt denies any worsening pain. Pt denies any loss of bowel or bladder cotnrol. Pt just seen neurosurgery at [facility] and she will have MRI of C spine soon. Pt takes norco for pain chest pain1 Pt states that s he had one episode of acute left side chest pain last night and radiating down to left arm. Pt states that she took some nitro and her chest pain resolved last night. Pt denie any acute chest pain chest pain chest pain1 Pt recently was admited to hospital for gastroentertieis. Pt was found to have elevated tropolin while on hopsital. Pt did not have any chest pain while in hospital. pt was found to have HTN. Pt was on lisinoirl and she was instructed to increase to 20 mg daily and was started on metoprolol. Her GI symptoms resolved HLP Pt has HLP. Pt t akes lipitor. Pt denies any myalgia. Her lipid profile is normal HTN Pt takes lisinop ril and her BP is stable. Pt meena any chest pain glucose Pt has chronic l ow back pain with left sciatica and left leg numnbess. Pt has DDD on MRI. Pt denies any loss of bowel or bladder control. Pt denies any worsenign pain. Pt has appointment with neurosrugery next week glucose Pt has mild elev ation of glucose Pt denies any polyuria, polydipsia HTN1 Pt has HTN. Pt t akes lisinopril. Pt denies any chest pain or headache HLP Pt has HLP. Pt t akes lipiotor Pt denies any myalgia. Pt is on low fat and low carb diet back pain1 Pt has chronic l ow back pain with left sciatica and left leg numnbess. Pt has radiculopathy. Pt states that norco only helps slightlyk. Pt has pain daily PHysical Pt needs annual physical. P has HTN and she takes lisinopril. Pt has HLP and she takes lipitor. Pt denies any myalgia. Pt has chronic low back and neck pain. Pt c/o left sciatica and also left leg numbness. Pt has some stenosis around L5/S1 with disc disease Pt seen neurosurgery int he past who referred her to neurology who referred her to pain managment. Pt stats that lives in pain daily and she takes 8 extra strength tylenol per day for her pain. Pt lawrence any loss of bowel or bladder control. Pt denies any loss of bowel or bladder control. Instructions Date Instruction Additional Infor vidal Prescribed Activity and Exercise Education Related to Dietary Surveillance and Counseling Prescribed Diet Educ ation/Lifestyle Education Regarding Diet Related to Dietary Surveillance and Counseling Increase physical activity Relat ed to Encounter for general adult medical exam w abnormal findings Prescribed Activity and Exercise Education Related to Dietary Surveillance and Counseling Prescribed Diet Educ ation/Lifestyle Education Regarding Diet Related to Dietary Surveillance and Counseling Prescribed Diet Educ ation/Lifestyle Education Regarding Diet Related to Dietary Surveillance and Counseling Prescribed Activity and Exercise Education Related to Dietary Surveillance and Counseling Prescribed Diet Educ ation/Lifestyle Education Regarding Diet Related to Dietary Surveillance and Counseling Prescribed Activity and Exercise Education Related to Dietary Surveillance and Counseling Prescribed Diet Educ ation/Lifestyle Education Regarding Diet Related to Dietary Surveillance and Counseling Prescribed Activity and Exercise Education Related to Dietary Surveillance and Counseling Prescribed Diet Educ ation/Lifestyle Education Regarding Diet Related to Dietary Surveillance and Counseling Prescribed Activity and Exercise Education Related to Dietary Surveillance and Counseling Prescribed Activity and Exercise Education Related to Dietary Surveillance and Counseling Prescribed Diet Educ ation/Lifestyle Education Regarding Diet Related to Dietary Surveillance and Counseling Prescribed Diet Educ ation/Lifestyle Education Regarding Diet Related to Dietary Surveillance and Counseling Prescribed Activity and Exercise Education Related to Dietary Surveillance and Counseling Prescribed Activity and Exercise Education Related to Dietary Surveillance and Counseling Prescribed Diet Educ ation/Lifestyle Education Regarding Diet Related to Dietary Surveillance and Counseling Prescribed Activity and Exercise Education Related to Dietary Surveillance and Counseling Prescribed Diet Educ ation/Lifestyle Education Regarding Diet Related to Dietary Surveillance and Counseling Prescribed Activity and Exercise Education Related to Dietary Surveillance and Counseling Prescribed Diet Educ ation/Lifestyle Education Regarding Diet Related to Dietary Surveillance and Counseling Prescribed Diet Educ ation/Lifestyle Education Regarding Diet Related to Dietary Surveillance and Counseling Prescribed Activity and Exercise Education Related to Dietary Surveillance and Counseling Prescribed Diet Educ ation/Lifestyle Education Regarding Diet Related to Dietary Surveillance and Counseling Pato-19-2016 Prescribed Activity and Exercise Education Related to Dietary Surveillance and Counseling Assessments Type Assessment Date No Information
--- NOTE | ~2025-02-21 | XR_ITS ---
EXAMINATION: XR abdomen/kub 1V DATE: 02/21/2025 14:59 INDICATION: Calculus of kidney TECHNIQUE: A supine view of the abdomen on 2 radiographs was obtained. COMPARISON: CT pelvis 11/04/2020 FINDINGS: Grossly stable mixed lytic and sclerotic region scattered throughout the left ilium dating back to 2020. Left hip arthroplasty. Bones appear osteopenic. Vascular calcifications are noted. Cholecystectomy clips are present. Bilateral renal stones, largest measures 2.0 cm in the left kidney. Large amount of stool. No dilated bowel loops. There is a 4.1 cm masslike density projecting over the left lower lung. A chest CT is recommended. IMPRESSION: 1. Bilateral renal stones, the largest measures 2.0 cm in the left kidney. 2. Nonobstructive bowel gas pattern with a large amount of stool. 3. There is a 4.1 cm masslike density projecting over the left lower lung. A chest CT is recommended. 4. Grossly stable mixed lytic and sclerotic region scattered throughout the left ilium. The findings are stable dating back to 2020. Correlate clinically. Reviewed, dictated and finalized at location Q. IMPRESSION: 1. Bilateral renal stones, the largest measures 2.0 cm in the left kidney. 2. Nonobstructive bowel gas pattern with a large amount of stool. 3. There is a 4.1 cm masslike density projecting over the left lower lung. A ch est CT is recommended. 4. Grossly stable mixed lytic and sclerotic region scattered throughout the lef t ilium. The findings are stable dating back to 2020. Correlate clinically.
--- OUTSIDE RECORDS SUMMARY | 2025-02-21 14:40 | XMS_ITS | Encounter Summary ---
Author Organization [facility] Address [address] [place] [address] Care Team Providers Care Banking Pin Adjuster Name Role Phone Nomi Maldonado MD Primary Care Provider [phone] Adarsh Rachel MD Primary Care Provider [phone] Nomi Maldonado MD Primary Care Provider [phone] Adarsh Rachel MD Primary Care Provider Nomi Maldonado MD Primary Care Provider [phone] Adarsh Rachel MD Primary Care Provider Nomi Maldonado MD Primary Care Provider [phone] Adarsh Rachel MD Primary Care Provider [phone] Encounter Details Date Type Department Care Team (Late st Contact Info) Description 01/29/[address] [facility] - Lab Cytogenetics [address] [place] [address] Charles Ruiz MD [address] [place] [address] Multiple myeloma not having achieved remission [...] st Contact Info) Description 06/06/2025 9:00 AM WAREHOUSE TEAM MEMBER Office Visit [facility] - Orthopedic Surgery [address] [place] [id number] Se Zaldivar MD [address] [place] [address] documented as of this encounter Procedures Procedure Name Priority Date/Time Associated Diagnosis Comments CYTOGENETICS CANCER PANEL Routine 01/29/2016 12:00 PM CDT Multiple myeloma not having achieved remission documented in this encounter Results * CYTOGENETICS CANCER PANEL (01/29/2016 12:00 PM CDT) Indication for Study Large Cell Lymphoma LYMPHOMA FISH panel requested by physician 6 8:08 AM T [facility] MOLECULAR CYTOGENOMIC LAB Results Cytogenetics Analysis and [...] x2[200],(IGH,BCL2)x2 [200] Normal 6 8:08 AM CDT [facility] MOLECULAR CYTOGENOMIC LAB Interpretation 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 This study is suboptimal because the number of dividing cells is less than 20. This was caused by a low count of WBC. FISH of DH lymphoma panel was negative. 6 8:08 AM T [facility] MOLECULAR CYTOGENOMIC LAB at 0808 CDT Disclaimer *This test was developed, and its performance characteristics determined by [facility] Molecular Cytogenetics Laboratory as required by CLIA [...] with cytogenetic findings. 6 8:08 AM CDT [facility] MOLECULAR CYTOGENOMIC LAB Client Information [facility] - [id number] [facility] Lab Numbers: [id number] 6 8:08 AM CDT [facility] MOLECULAR CYTOGENOMIC LAB Other BONE MARROW SPECIMEN / Unknown 01/29/2016 12:00 PM CDT 01/29/2016 12:52 PM CDT Charles Ruiz MD LAB - PATHOLOGY/CYTOLOGY ORDERA BLES Final Result [facility] MOLECULAR CYTOGENOMIC LAB [address] [place] [address] documented in this encounter Visit Diagnoses Diagnosis Multiple myeloma not having achieved remission (HCC) Multiple myeloma, without mention of having achieved remission documented in this encounter Additional Health Concerns Infection Onset Date Last Indicated Resolved Time COVID-19 Under Investigation 12/08/2020 12/08/2020 12/08/2020 8:45 PM CDT documented as of this encounter Care Teams Banking Pin Adjuster Relationship Specialty Start Date End Date Nomi Maldonado MD [address] [place] [address] PCP - General 09/16/15 11/20/20 Adarsh Rachel MD [address] [facility] [address] [place] [address] PCP - General Family Medicine 11/21/20 11/21/20 Nomi Maldonado MD [address] [facility] [address] [place] [address] PCP - General 11/22/20 12/12/20 Adarsh Rachel MD [address] [facility] [address] [place] [address] PCP - General 12/13/20 12/26/20 Nomi Maldonado MD [address] [facility] [address] [place] [address] PCP - General 12/27/20 01/28/21 Adarsh Rachel MD [address] [facility] [address] [place] [address] PCP - General Family Medicine 01/29/21 07/20/22 Nomi Maldonado MD [address] [place] [address] PCP - General 07/21/22 12/12/24 Adarsh Rachel MD [address] [place] [address] PCP - General Family Medicine 12/13/24 documented as of this encounter
--- OUTSIDE RECORDS SUMMARY | 2025-02-21 14:40 | XMS_ITS | Clinical Summary ---
Author Organization [facility] Address [address] [place] [address] Care Team Providers Care Wet Sander Name Role Phone Adarsh Rachel MD Primary Care Provider [phone] Source Comments [facility],non-owned Affiliates and Associated Physician Practices is amultiple site organization consisting of ambulatory clinics and hospital sitesin [place], [place], [place] and [place]. This disclosure is being madepursuant to the Care Everywhere program and may not contain all information available regarding this patient. Last updated 18.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 storm 01/27/2016 Disorder of bone 01/27/2016 Calyceal diverticulum Encounters Date Type Department Care Team Description 12/13/2024 9:00 AM CDT Office Visit [facility] - Orthopedic Surgery [address] [place] [address] Se Zaldivar MD Pathologic fracture of femoral neck, left, with routine healing, subsequent encounter (Primary Dx) 12/13/2024 8:05 AM CDT - 12/13/2024 11:59 PM CDT Hospital Encounter [facility] DIAGNOSTIC RAD OP [address] [place] [address] Se Zaldivar MD Discharge Disposition: Home or [...] 37.2 C (98.9 F) 06/02/2023 2:07 PM LICENSED LOAN OFFICER Respiratory Rate 18 12/13/2024 8:44 AM CDT Oxygen Saturation 99% 06/02/2023 2:07 PM LICENSED LOAN OFFICER Inhaled Oxygen Concentration 100% 10/19/2017 1 2:55 PM CDT Weight 64 kg (141 lb) 06/02/2023 2:07 PM LICENSED LOAN OFFICER Height 157.5 cm (5' 2) 06/02/2023 2:07 PM LICENSED LOAN OFFICER Body Mass Index 25.79 06/02/2023 2:07 PM LICENSED LOAN OFFICER Plan of Treatment Upcoming Encounters Date Type Department Care Team (Late st Contact Info) Description 06/06/2025 9:00 AM LICENSED LOAN OFFICER Office Visit [facility] - Orthopedic Surgery [address] [place] [phone] Se Zaldivar MD [address] [place] [address] Health Maintenance Due Date Last Done Comments COLOGUARD (AGES 45-75) - COL ON CA SCREENING 1960 COLON MONITORING 1960 COLONOSCOPY - COLON CA SCREENING 1960 CT COLONOGRAPHY - COLON CA SCREENING 1960 Colorectal Cancer Screening 1960 FIT - COLON CA SCREENING 1960 FLEX SIG - COLON CA SCREENING 1960 MAMMOGRAM 1960 DTAP/TDAP/TD VACCINES (1 - Tdap) 1979 PNEUMOCOCCAL VACCINE 50+ (1 of 1 - PCV) 2010 ZOSTER VACCINE (1 of 2) 2010 COVID-19 VACCINE (1 - 2023-2 5 season) 2024 MEDICARE AWV [...] this topic Medical Devices Implanted Type Area Turkey Roll Maker Device Identifier Shelf Expiration Date Model / Serial / Lot Stent Uret 6fr 24cm Pgtl Crv Tpr Tip Implanted:Qty: 1 on 10/18/2017 by Romelia Manzano DO at [facility] Left: Ureter [employer] 07/05/2020 [id number] / / [id number] Percuflex Ureteral Stent Implanted:Qty: 1 on 10/19/2017 by Romelia Manzano DO at [facility] [id number] / / Head Fem +0mm Ofst Ctpr 28mm Hip Cocr Implanted:Qty: 1 on 12/10/2020 by Se Zaldivar MD at [facility] Left: Hip [employer] 08/23/2025 [id number] / / [id number] Description:apart of total Cmnt Bone Smpx Ptbr Fd Radopq Preblend Implanted:Qty: 2 on 12/10/2020 by Se Zaldivar MD at [facility] Left: Hip [employer] [id number] DISCONTINUED / / [id number] Fito Omnifit Ronald Plus 127 Degree Cemented Hip Stem Implanted:Qty: 1 on 12/10/2020 by Se Zaldivar MD at [facility] Left: Hip [employer] 09/04/2025 [id number] / / [id number] Head Biplr 44mm 28mm Uhr Unv Hip Cocr Implanted:Qty: 1 on 12/10/2020 by Se Zaldivar MD at [facility] Left: Hip [employer] 05/14/2025 [id number] / / [id number] Description:apart of total Rstrc Bone Cmnt 24mm Med Unv Hip Strl Implanted:Qty: 1 on 12/10/2020 by Se Zaldivar MD at [facility] Left: Hip [employer] 07/26/2025 [id number] / / [id number] Procedures Procedure Name Priority Date/Time Associated Diagnosis [...] biopsy. Report dictated by Raúl Oreilly MD (care program resident). I, Gustabo Lizarraga MD have personally reviewed and interpreted this examination/study. > Interpreting Provider: Gustabo Lizarraga MD on 12/13/2024 9:05 AM Narrative 12/13/2024 9:05 AM CDT PROCEDURE: XR PELVIS AP W INLET OUTLET, DATE/TIME OF EXAM: 12/13/2024 8:15 AM, LOCATION [facility] INDICATION: M84.452D: Pathologic fracture of femoral neck, [...] OUTLET, DATE/TIME OF EXAM: 58:15 AM, LOCATION [facility] INDICATION: M84.452D: Pathologic fracture of femoral neck, [...] biopsy. Report dictated by Raúl Oreilly MD (care program resident). I, Gustabo Lizarraga MD have personally reviewed [...] lymphoma. Report dictated by Raúl Oreilly MD (care program resident). I, Gustabo Lizarraga MD have personally reviewed and interpreted this examination/study. > Interpreting Provider: Gustabo Lizarraga MD on 12/13/2024 9:09 AM Narrative 12/13/2024 9:09 AM CDT PROCEDURE: XR HIP LEFT 2VW OR MORE, DATE/TIME OF EXAM: 12/13/2024 8:15 AM, LOCATION [facility] INDICATION: M84.452D: Pathologic fracture of femoral neck, [...] MORE, DATE/TIME OF EXAM: 12/13/2024 8:15AM, LOCATION [facility] INDICATION: M84.452D: Pathologic fracture of femoral neck, [...] lymphoma. Report dictated by Raúl Oreilly MD (care program resident). I, Gustabo Lizarraga MD have personally reviewed and interpreted this examination/study. > Interpreting Provider: Gustabo Lizarraga MD on 12/13/2024 9:09 AM us Se Zaldivar MD DIAGNOSTIC IMAGING ORDERABL ES Final Result * HIV-1 HIV-2 ANTIGEN/ANTIBODY (01/22/2016 12:01 PM CDT) Pathologist [facility] HIV Antigen/Antibod y 1 & 2 Non-reacti ve Non-react myrna [facility] Comment: Neither HIV-1 p24 Antigen nor HIV-1/HIV-2 Antibodies are detected. Blood specimen (specimen) BLOOD SPECIMEN / Unknown 01/22/2016 12:01 PM CDT 01/22/2016 12:23 PM CDT us Charles Ruiz MD LAB - HEMATOLOGY ORDERABLES Fin al Result [facility] [address] [phone] * HEPATITIS C RNA QUANTITATIVE PCR (01/22/2016 12:01 PM CDT) Pathologist [facility] Hepatitis C Virus RNA PCR Accession No: [id number] Specimen: Serum Reference: [id number] Test: Hepatitis C RT-PCR (Quantitative) RESULT Not Detected Reference Range Not Detected INTERPRETATION The quantitative Hepatitis C viral RNA RT-PCR determination was performed on a serum sample and is reported in IU/ml. Hepatitis C viral RNA was not detected. COMMENT The Hepatitis C viral (HCV) RNA analysis utilized a serum sample, real-time reverse youth minister PCR, and is reported as Not Detected, [...] the isolation of HCV RNA with reverse youth minister of genomic HCV RNA followed by real-time PCR in the presence of an unrelated RNA internal control. The internal control ensures that RNA is isolated, and that no general significant inhibitors of the RT-PCR process are present. This analysis was performed using an [place] FDA approved test methodology (Bucky Box RealTime HCV). Test performed at [facility], [address] [place] [address] This case has been personally reviewed and interpreted by the attending (teaching) pathologist. Final Diagnosis performed by Oneal Tolbert PHD. Electronically signed 01/24/2016 [facility] PATHOLOGY LAB (ROM) Blood specimen (specimen) BLOOD SPECIMEN / Unknown 01/22/2016 12:01 PM CDT 01/22/2016 12:23 PM CDT us Charles Ruiz MD LAB - CHEMISTRY ORDERABLES Christel arnett Result [facility] PATHOLOGY LAB (ROM) from Last 3 Months or Most Recently Relevant to Health Maintenance Insurance [employer] MEDICARE ADV HMO & PPO * Guarantor: NINFA RODRIGUEZ Account Type Relation to Patient Date of Phone Billing Address Personal/Family [address] * Guarantor: NINFA RODRIGUEZ Account Type Relation to Patient Date of Phone Billing Address Personal/Family [address] * Guarantor: NINFA RODRIGUEZ Account Type Relation to Patient Date of Phone Billing Address Personal/Family [address] Advance Directives * Full Code (Latest [...] 6:02 AM 10/18/2017 12:59 PM Care Teams Wet Sander Relationship Specialty Start Date End Date Adarsh Rachel MD [address] [place] [address] PCP - General Family Medicine 12/13/24
--- OUTSIDE RECORDS SUMMARY | 2025-02-21 14:40 | XMS_ITS | Encounter Summary ---
Author Organization [facility] Address [address] [place] [address] Care Team Providers Care Entry Level Civil Engineer Name Role Phone Nomi Maldonado MD Primary Care Provider Adarsh Rachel MD Primary Care Provider [phone] Nomi Maldonado MD Primary Care Provider [phone] Adarsh Rachel MD Primary Care Provider [phone] Nomi Maldonado MD Primary Care Provider [phone] Adarsh Rachel MD Primary Care Provider Nomi Maldonado MD Primary Care Provider [phone] Adarsh Rachel MD Primary Care Provider [phone] Encounter Details Date Type Department Care Team (Late st Contact Info) Description 02/13/2016 Lab Requisition [facility] - Lab Cytogenetics [address] [place] [address] Charles Ruiz MD [address] [place] [address] [id number] Diffuse large b-cell lymphoma Social History Tobacco [...] st Contact Info) Description 06/06/2025 9:00 AM PLANNER Office Visit [facility] - Orthopedic Surgery [address] [place] [id number] Se Zaldivar MD [address] [place] [address] documented as of this encounter Procedures Procedure Name Priority Date/Time Associated Diagnosis Comments CYTOGENETICS CANCER PANEL Routine 02/13/2016 1:15 PM CDT Diffuse large b-cell lymphoma documented in this encounter Results * CYTOGENETICS CANCER PANEL (02/13/2016 1:15 PM CDT) Indication for Study DLBCL LYMPHOMA FISH panel requested by physician 6 12:53 PM CDT [facility] CYTOGENOMIC [facility] Results Cytogenetics Failure of lymph node harvest. 6 12:53 PM CDT [facility] CYTOGENOMIC [facility] Interpretation No chromosome analysis was performed due to lymph node harvest failure. This is, very likely, due to a non-proliferative specimen. FISH of lymphoma panel could not be performed because of lack of cells. 6 12:53 PM CDT [facility] CYTOGENOMIC LAB at 1253 CDT Historical Cytogenomic Report [id number] on 01/29/16: Results Analysis and count of [...] developed, and its performance characteristics determined by [facility] Molecular Cytogenetics Laboratory [...] cytogenetic findings. . 6 12:53 PM CDT [facility] CYTOGENOMIC LAB Client Information [facility] - [id number] [facility] Lab Numbers: [id number] CHROTIS 6 12:53 PM CDT [facility] CYTOGENOMIC LAB Other TUMOR TISSUE SPECIMEN / Unknown 02/13/2016 1:15 PM CDT 02/13/2016 4:49 PM CDT us Charles Ruiz MD LAB - PATHOLOGY/CYTOLOGY ORDERA BLES Final Result [facility] CYTOGENOMIC LAB [address] [place] [address] documented in this encounter Visit Diagnoses Diagnosis Diffuse large B-cell lymphoma (HCC) Other malignant lymphomas, unspecified site, extranodal and solid organ sites documented in this encounter Additional Health Concerns Infection Onset Date Last Indicated Resolved Time COVID-19 Under Investigation 12/08/2020 12/08/2020 12/08/2020 8:45 PM CDT documented as of this encounter Care Teams Entry Level Civil Engineer Relationship Specialty Start Date End Date Nomi Maldonado MD [address] [place] [id number] PCP - General 09/16/15 11/20/20 Adarsh Rachel MD [address] [facility] [address] [place] [address] PCP - General Family Medicine 11/21/20 11/21/20 Nomi Maldonado MD [address] [facility] [address] [place] [address] PCP - General 11/22/20 12/12/20 Adarsh Rachel MD [address] [place] [address] PCP - General 12/13/20 12/26/20 Nomi Maldonado MD [address] [place] [address] PCP - General 12/27/20 01/28/21 Adarsh Rachel MD [address] [place] [address] PCP - General Family Medicine 01/29/21 07/20/22 Nomi Maldonado MD [address] [place] [phone] PCP - General 07/21/22 12/12/24 Adarsh Rachel MD [address] [place] [id number] PCP - General Family Medicine 12/13/24 documented as of this encounter
--- OUTSIDE RECORDS SUMMARY | 2025-02-21 14:40 | XMS_ITS | Clinical Summary ---
Author Organization [facility] Faiza reyes Randi Address [address] [place] [address] Care Team Providers Care Front Desk Admin Name Role Phone Adarsh Rachel MD Primary Care Provider Allergies Active Allergy Reactions Criticality Noted Date Comments Sulfa (Sulfonamide Antibiotics) Swelling 02/26 Medications aspirin (ANURADHA) 325 mg tablet Take 325 mg by mouth daily. Active atorvastatin (LIPITOR) 10 mg tablet Take 10 mg by mouth daily. Active ALPRAZolam (XANAX) 0.5 mg tablet 4 Active carvediloL (COREG) 6.25 mg tablet TAKE 1 TABLET BY MOUTH EVERY 12 HOURS WITH FOOD 4 Active amoxicillin-cla vulanate (AUGMENTIN) 500-125 mg tablet Take 1 Tablet by mouth 2 times daily. Active tamoxifen (NOLVADEX) 20 mg tablet Take 1 Tablet (20 mg) by mouth daily. 90 Tablet 3 5 Active anastrozole (ARIMIDEX) 1 mg tablet Take 1 tablet by mouth once daily 90 Tablet 3 5 01/24/20 25 Discontinue d(Alternate therapy prescribed) Active Problems No known active problems Encounters Date Type Department Care Team Description 02/14/2025 Telephone [facility] Oncology and Hematology - [place] [address] [place] [phone] Azul Lares, open hearth melter Problem (Patient called regarding Tamoxifen causing her nausea and vomiting as well as body aches. Dr. Lynch notified and orders received for patient to hold for one week and then resume, if now improvement please call back. Information relayed to patient who verbalized understanding.) 01/30/2025 External Device Data STL ABSTRACTION Provider, Abstract 01/23/2025 2:45 PM CDT Office Visit [facility] Oncology and Hematology - [place] [address] [place] [phone] Spencer Lynch MD Malignant neoplasm of upper-outer quadrant of left breast in female, estrogen receptor positive (CMS/HCC) (Primary Dx) 01/23/2025 Orders Only [facility] Oncology and Hematology - [place] [address] [place] [phone] Spencer Lynch MD 01/23/2025 Abstract [facility] Oncology and Hematology - [place] [address] [place] [phone] Spencer Lynch MD 01/18/2025 Orders Only [facility] Oncology and Hematology - [place] [address] [place] [phone] Spencer Lynch MD 01/17/2025 Orders Only [facility] Oncology and Hematology - [place] [address] [place] [phone] Spencer Lynch MD 01/10/2025 External Device Data STL ABSTRACTION Provider, Abstract 01/09/2025 External Device Data STL ABSTRACTION Provider, Abstract 12/19/2024 External Device Data STL ABSTRACTION Provider, Abstract 12/19/2024 External Device Data STL ABSTRACTION Provider, Abstract 11/22/2024 Refill [facility] Oncology and Hematology - [place] [address] [place] [phone] Spencer Lynch MD 11/21/2024 External Device Data STL ABSTRACTION Provider, Abstract from Last 3 Months Family History Medical History Relation Name Comments Diabetes Brother 2 Heart Disease Brother 2 Diabetes Child 1 No Known Problems Child 2 Diabetes Father Heart Disease Father Diabetes Mother No Known Problems Sister 1 Diabetes Sister 2 Heart Disease Sister 2 Relation Name Status Comments Brother 1 Alive Brother 2 Alive Child 1 Alive Child 2 Alive Father Mother Alive Sister 1 Alive Sister 2 Alive Social History Tobacco Use Types Packs/Day Years Used Date Smoking Tobacco: Never Smokeless Tobacco: Never Tobacco Cessation:Counseling Given: Not Answered Alcohol Use Standard Drinks/Week Comments Never 0 (1 standard drink = 0.6 oz pur e alcohol) Comments Unknown Sex and Gender Information Value Date Recorded Sex Assigned at Not on file Legal Sex Female 10:07 PM CDT Gender Identity Not on file Sexual Orientation Not on file Last Filed Vital Signs Vital Sign Reading Time Taken Comments Blood Pressure 124/74 01/23/2025 2:53 PM CDT Pulse 93 01/23/2025 2:53 PM CDT Temperature 36.8 C (98.3 F) 01/23/2025 2:53 PM CDT Respiratory Rate 16 01/23/2025 2:53 PM CDT Oxygen Saturation 98% 01/23/2025 2:5 3 PM CDT Inhaled Oxygen Concentration - - Weight 64.7 kg (142 lb 9.6 oz) 01/23/2025 2:53 PM CDT Pt verbally stated that this is the correct weight Height 157.5 cm (5' 2) 10/21/2023 1:41 PM CDT Body Mass Index 26.08 10/21/2023 1:41 PM CDT Plan of Treatment Upcoming Encounters Date Type Department Care Team (Late st Contact Info) Description 04/30/2025 2:30 PM INFORMATICS ANALYST Office Visit [facility] Oncology and Hematology [facility] [address] [facility] [address] [place] [address] Spencer Lynch MD [address] [facility] [address] [place] [address] Health Maintenance Due Date Last Done Comments Pre-Diabetes and Diabetes Screening 1960 DTAP/TDAP/TD VACCINES (1 - Tdap) 1979 ZOSTER VACCINE (1 of 2) 1979 BREAST CANCER SCREENING 2000 COLORECTAL SCREENING 2005 Colorectal Cancer Screening 2005 FIT-DNA Q 3 years 2005 FIT/FOBT Q 1 year 2005 Flex Sig/CT Colonography Q 5 years 2005 INFLUENZA VACCINE (#1) 2025 03/15/2019, 2017 RSV VACCINE (60+ or ) (1 - 1-dose 75+ series) 2035 Procedures Procedure Name Priority Date/Time Associated Diagnosis Comments CBC WITH DIFFERENTIAL Routine 01/16/2025 4:42 PM CDT HM DEXA SCAN Routine 01/16/2025 3:48 PM CDT CANCER ANTIGEN 15-3 Routine 01/16/2025 1 2:42 PM CDT COMPREHENSIVE METABOLIC PANEL Routine 01/16/2025 11:40 AM CDT from Last 3 Months Results * CBC WITH DIFFERENTIAL (01/16/2025 4:42 PM CDT) Blood us Spencer Lycnh MD HEMATOLOGY ORDERABLES Final Res ult * HM DEXA SCAN (01/16/2025 3:48 PM CDT) us Spencer Lynch MD HEALTH MAINTENANCE Final Result * CANCER ANTIGEN 15-3 (01/16/2025 12:42 PM CDT) Blood us Spencer Lynch MD CHEMISTRY ORDERABLES Final Resu lt * COMPREHENSIVE METABOLIC PANEL (01/16/2025 11:40 AM CDT) Blood us Spencer Lynch MD CHEMISTRY ORDERABLES Final Resu lt from Last 3 Months Insurance Care Teams Front Desk Admin Relationship Specialty Start Date End Date Adarsh Rachel MD [address] [place] [address] PCP - General Family Practice 03/13/19
--- OUTSIDE RECORDS SUMMARY | 2025-02-21 14:40 | XMS_ITS ---
Author Organization [facility] Address [address] [facility] [place] [address] Care Team Providers Care Auditor In Charge Name Role Phone Adarsh Rachel MD Primary Care Provider [phone] Active Problems Problem Noted Date Diagnosed Date Left leg swelling 12/14/2020 History of left hip hemiarthroplasty 12/14/2020 Pathologic fracture of femor al neck, left, initial encounter 12/06/2020 Nephrolithiasis 10/18/2017 Zoster without complications 03/11/2016 Diffuse large B-cell lymphoma 02/19/2016 Atherosclerotic heart diseas e of [place] coronary artery without angina pectoris 01/27/2016 Low [...]
--- OUTSIDE RECORDS SUMMARY | 2025-02-21 14:40 | XMS_ITS | Clinical Summary ---
Author Organization [facility] [address] Address [address] [place] [address] Care Team Providers Care Nut Grader Name Role Phone Adarsh Rachel MD Primary [...] on file Legal Sex Female 4:02 AM CERTIFIED ATHLETIC TRAINER Gender Identity Not on file Sexual Orientation [...] Vaccine (1 of 2) 1979 Influenza Vaccine (#1) 2025 03/15/2019, 2017 Insurance MEDICARE [facility] [place] [address] [address] [place] [address] MEDICARE HMO Care Teams Nut Grader Relationship Specialty Start Date End Date Adarsh Rachel MD [address] [place] [address] PCP - General Family Medicine 11/09/23
== END 2025-02-21 14:34 | disposition home or self-care (01) ==
PROVIDERS: PCP Family Medicine; Visit Provider Nurse Practitioner Family
DX: N20.0 Calculus of kidney (principal)
CPT/HCPCS: 74018

== ENCOUNTER 2025-04-14 06:47 | Outpatient (CLI) | payer MEDICARE, SELFPAY ==
--- OUTSIDE RECORDS SUMMARY | 2025-04-14 07:00 | XMS_ITS | Clinical Summary ---
Author Organization [facility] Faiza reyes Katt Address [address] [facility] [place] [address] Care Team Providers Care Monotype Machinist Name Role Phone Adarsh Rachel MD Primary Care Provider [phone] Allergies Active Allergy Reactions Criticality Noted Date Comments Sulfa (Sulfonamide Antibiotics) Swelling 02/26 Medications aspirin (ANURADHA) 325 mg tablet Take 325 mg by mouth daily. Active atorvastatin (LIPITOR) 10 mg tablet Take 10 mg by mouth daily. Active ALPRAZolam (XANAX) 0.5 mg tablet 10/11/2023 Active carvediloL (COREG) 6.25 mg tablet TAKE 1 TABLET BY MOUTH EVERY 12 HOURS WITH FOOD 09/29/2023 Active amoxicillin-clav ulanate (AUGMENTIN) 500-125 mg tablet Take 1 Tablet by mouth 2 times daily. Active tamoxifen (NOLVADEX) 20 mg tablet Take 1 Tablet (20 mg) by mouth daily. 90 Tablet 3 01/23/2025 Active Active Problems No known active problems Encounters Date Type Department Care Team Description 2025 External Device Data STL ABSTRACTION Provider, Abstract 02/14/[address] [facility] Oncology and Hematology - [place] [address] [place] [address] Azul Lares, elevator constructor helper Problem (Patient called regarding Tamoxifen causing her nausea and vomiting as well as body aches. Dr. Lynch notified and orders received for patient to hold for one week and then resume, if now improvement please call back. Information relayed to patient who verbalized understanding.) 01/30/2025 External Device Data STL ABSTRACTION Provider, Abstract 01/23/2025 2:45 PM CDT Office Visit [facility] Oncology and Hematology - [place] [address] [place] [address] Spencer Lynch MD Malignant neoplasm of upper-outer quadrant of left breast in female, estrogen receptor positive (CMS/HCC) (Primary Dx) 01/23/[address] [facility] Oncology and Hematology - [place] [address] [place] [phone] Spencer Lynch MD 01/23/[address] [facility] Oncology and Hematology - [place] [address] [place] [phone] Spencer Lynch MD 01/18/[address] [facility] Oncology and Hematology - [place] [address] [place] [phone] Spencer Lynch MD 01/17/[address] [facility] Oncology and Hematology - [place] [address] [place] [phone] Spencer Lynch MD from Last 3 Months Family History Medical [...] st Contact Info) Description 04/30/2025 2:30 PM PORTABLE TRACK CREW CHIEF Office Visit [facility] Oncology and Hematology - [place] [address] [facility] [address] [place] [address] Spencer Lynch MD [address] [facility] [address] [place] [address] Health Maintenance Due Date Last Done Comments Pre-Diabetes and Diabetes Screening 1960 DTAP/TDAP/TD VACCINES (1 - Tdap) 1979 PNEUMOCOCCAL VACCINE 50+ YEA RS (1 of 2 - PCV) 1979 ZOSTER VACCINE (1 of 2) 1979 BREAST CANCER SCREENING 2000 COLORECTAL SCREENING 2005 Colorectal Cancer Screening 2005 FIT-DNA Q 3 years 2005 FIT/FOBT Q 1 year 2005 Flex Sig/CT Colonography Q 5 years 2005 [place] Prev entative Visit/Annual Wellness Visit 06/28/2024 INFLUENZA VACCINE (#1) 2025 03/15/2019, 2017 OSTEOPOROSIS SCREENING 01/16/2030 01/16/2025 RSV VACCINE (60+ or ) (1 - [...] (01/16/2025 4:42 PM CDT) Blood us Spencer Lynch MD HEMATOLOGY ORDERABLES Final Res ult * HM DEXA SCAN (01/16/2025 3:48 PM CDT) us Spencer Lynch MD HEALTH MAINTENANCE Final Result * CANCER ANTIGEN 15-3 (01/16/2025 12:42 PM CDT) Blood us Spencer Lynch MD CHEMISTRY ORDERABLES Final Resu lt * COMPREHENSIVE METABOLIC PANEL (01/16/2025 11:40 AM CDT) Blood us Spencer Lynch MD CHEMISTRY ORDERABLES Final Resu lt from Last [address] [place] [address] [facility] Address: [address] [address] Care Teams Monotype Machinist Relationship Specialty Start Date End Date Adarsh Rachel MD [address] [place] [address] PCP - General Family Practice 03/13/19
--- OUTSIDE RECORDS SUMMARY | 2025-04-14 07:00 | XMS_ITS ---
Author Organization [facility] Address [address] [place] [address] Care Team Providers Care Postal Service Clerk Name Role Phone Adarsh Rachel MD Primary Care Provider [phone] Active Problems Problem Noted Date Diagnosed Date Left leg swelling 12/14/2020 History of left hip hemiarthroplasty 12/14/2020 Pathologic fracture of femor al neck, left, initial encounter 12/06/2020 Nephrolithiasis 10/18/2017 Zoster without complications 03/11/2016 Diffuse large B-cell lymphoma 02/19/2016 Atherosclerotic heart diseas e of [place] coronary artery without angina pectoris 01/27/2016 Low [...]
--- OUTSIDE RECORDS SUMMARY | 2025-04-14 07:00 | XMS_ITS | Clinical Summary ---
Author Organization [facility] Address [address] [place] [address] Care Team Providers Care Striker Out Name Role Phone Adarsh Rachel MD Primary Care Provider Encounters Date Type Department Care Team Description 03/21/2025 1:43 PM CDT - 03/21/2025 11:59 PM CDT Hospital Encounter [facility] [address] [address] Shree Small NP Discharge Disposition: Home or Self Care (Routine Discharge) 03/21/2025 Travel from Last 3 Months Social History Tobacco Use Types Packs/Day Years Used Date Smoking Tobacco: Never Assessed Comments Unknown Sex and Gender Information Value Date Recorded Sex Assigned at Female 03/21/2025 1:39 PM CDT Legal Sex Female 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 Gender Identity Not on file Sexual Orientation Not on file Plan of Treatment Health Maintenance Due Date Last Done Comments Colorectal Cancer Screening Colonoscopy (10 Years) 1960 DTaP, Tdap and Td Vaccines ( 1 - Tdap) 1979 Mammogram Screening 2000 Pneumococcal Vaccine: 50+ Years (1 of 1 - PCV) 2010 Zoster Vaccines (2 of 3) 05/10/2019 03/15/2019 COVID-19 Vaccine ( - 2023-2 5 season) 2025 Dexa Scan (General) 2025 Influenza Adult (#1) 2025 03/15/2019, 10/19/2017 RSV Immunization or 60+ Years (1 - 1-dose 75+ series) 2035 Hepatitis C Completed 01/22/2016 Hepatitis A Vaccines Aged Out No long er eligible based on patient's age to complete this topic Meningococcal B Vaccine Aged Out No l onger eligible based on patient's age to complete this topic Meningococcal Vaccine Aged Out No vaishali saray eligible based on patient's age to complete this topic RSV Immunizations Under 20 Months Aged Out No longer eligible b ased on patient's age to complete this topic Procedures Procedure Name Priority Date/Time Associated Diagnosis Comments CT CHEST+ABD+PEL WO CON Routine 03/21/2025 2:06 PM CDT Lung mass from Last 3 Months Results * CT CHEST+ABD+PEL WO CON (03/21/2025 2:06 PM CDT) Anatomical Region Laterality Modality Chest, Abdomen, Pelvis Computed Tomography 03/29/2025 2:35 PM CDT Impressions 03/29/2025 3:14 PM CDT IMPRESSION: 1. Consolidation in the posterior lateral left lower lobe over approximately 10.6 x 5.5 x 6.5 cm region. The appearance is most suggestive of infectious/inflammatory etiology although certainly coexisting malignancy is not excluded. Recommend follow-up CT chest in 3 months to assess for complete resolution. Otherwise, 3 mm and smaller subpleural nodules in both lungs but no highly suspicious pulmonary nodules. 2. Coarse sclerotic and lucent appearance of the left iliac bone which is also been described on multiple prior reports. By report, this area has undergone biopsy and pathology was consistent with lymphoma. Correlate with history. 3. Nonobstructing calcifications in bilateral lower kidneys. No hydronephrosis or hydroureter. Moderately distended urinary bladder. 4. Cholecystectomy. Hysterectomy. 5. Mildly dilated ascending thoracic aorta 3.7 cm diameter. No focal aortic aneurysm. Diffuse atherosclerotic disease. Ordered By: SHREE SMALL Interpreted By: Jose Miguel Benítez, 03/29/2025 2:35 PM Narrative 03/29/2025 3:[address] PM [address]T [address] [address] IMAGING STUDIES: CT CHEST+ABD+PEL WO CON DATE: 03/21/2025 1:55 PM HISTORY: Lung mass 65-year-old female. Lung mass. COMPARISON: None this institution. Report from CTA TAVR 07/01/2021 at [facility]. Report from pelvis and left hip radiographs 12/13/2024. Report from CT chest, abdomen, and pelvis with contrast 11/30/2017. DISCUSSION: CT chest, abdomen, and pelvis without intravenous contrast. No enteric contrast. Axial, coronal, and sagittal reconstructions. Automated exposure control with radiation dose reduction technique used. CARDIOVASCULAR: Heart size is within normal limits. No pericardial effusion. Coronary artery atherosclerotic calcification. Ascending thoracic aorta is dilated at 3.7 x 3.7 cm. Proximal descending thoracic aorta is 2.7 cm diameter. No focal aortic aneurysm. Atherosclerotic calcification of the aorta, aortic branch arteries in the chest and abdomen, iliac arteries, and femoral arteries. Normal-size main pulmonary arteries. LYMPHATIC: No pathologic adenopathy given limitations of noncontrast study. THYROID: No acute abnormality. PULMONARY and PLEURA: Peripheral consolidation in the posterior lateral left lower lobe (approximately 10.6 x 5.5 x 6.5 cm region toward the costophrenic angle. The appearance is most suggestive of infectious/inflammatory etiology although certainly coexisting malignancy cannot be excluded. No focal right lung infiltrate or consolidation. No pleural effusion or pneumothorax. Numerous bilateral subpleural nodules of 3 mm and smaller. No appreciable highly suspicious nodule/mass. On report from 11/30/2017, 2 mm nodule in the right upper lobe and a 2 mm nodule in the left lower lobe were stable compared to December 2015. UPPER ABDOMEN: Cholecystectomy. Mild pancreatic atrophy. No apparent acute abnormality of the unopacified liver, common bile duct, spleen, and adrenal glands. GENITOURINARY: Bilateral renal vascular calcifications. Additional bilateral nonvascular renal calcifications. In the lower pole right kidney is a 8 mm calcification and adjacent 4 mm calcification. In the lower pole left kidney are 11 mm, 8 mm, 5.5 mm, 4 mm, and additional smaller calcifications. No hydronephrosis or hydroureter. No ureter or urinary bladder calcifications. Moderate distention of the urinary bladder with no bladder wall thickening. Hysterectomy. GASTROINTESTINAL: No acute abnormality of the esophagus, stomach, and duodenum. No small bowel obstruction or focal inflammation. No acute appendicitis. Minimal dense material within the appendix. Mild dense fluid within the cecum. Mild colonic stool with no colonic obstruction. Diverticulosis primarily of the sigmoid colon with no acute diverticulitis. No free fluid in the abdomen. No appreciable free fluid in the pelvis although the pelvis is partially obscured due to streak artifact from the left hip hardware. MUSCULOSKELETAL: Course sclerotic and lucent appearance of the left iliac bone most suggestive of Paget's disease although the 12/13/2024 outside report states that the patient has undergone biopsy and pathology was consistent with lymphoma. Left hip arthroplasty. Degenerative changes of the shoulders, spine, pelvis, and right hip Procedure Note Jose Miguel Benítez MD - 03/29/[address] [address] IMAGING STUDIES: CT CHEST+ABD+PEL WO CONDATE: 03/21/2025 1:55 PM HISTORY: Lung mass 65-year-old female. Lung mass. COMPARISON: None this institution. Report from CTA TAVR 07/01/2021 at [facility]. Report from pelvis and left hip radiographs 12/13/2024. Report fromCT chest, abdomen, and pelvis with contrast 11/30/2017. DISCUSSION: CT chest, abdomen, and pelvis without intravenous contrast. No entericcontrast. Axial, coronal, and sagittal reconstructions. Automated exposurecontrol with radiation dose reduction technique used. CARDIOVASCULAR: Heart size is within normal limits. No pericardialeffusion. Coronary artery atherosclerotic calcification. Ascendingthoracic aorta is dilated at 3.7 x 3.7 cm. Proximal descending thoracicaorta is 2.7 cm diameter. No focal aortic aneurysm. Atheroscleroticcalcification of the aorta, aortic branch arteries in the chest andabdomen, iliac arteries, and femoral arteries. Normal-size main pulmonaryarteries. LYMPHATIC: No pathologic adenopathy given limitations of noncontraststudy. THYROID: No acute abnormality. PULMONARY and PLEURA: Peripheral consolidation in the posterior lateralleft lower lobe (approximately 10.6 x 5.5 x 6.5 cm region toward thecostophrenic angle. The appearance is most suggestive ofinfectious/inflammatory etiology although certainly coexisting malignancycannot be excluded. No focal right lung infiltrate or consolidation. No pleural effusion orpneumothorax. Numerous bilateral subpleural nodules of 3 mm and smaller.No appreciable highly suspicious nodule/mass. On report from 11/30/2017, 2mm nodule in the right upper lobe and a 2 mm nodule in the left lower lobewere stable compared to December 2015. UPPER ABDOMEN: Cholecystectomy. Mild pancreatic atrophy. No apparent acuteabnormality of the unopacified liver, common bile duct, spleen, andadrenal glands. GENITOURINARY: Bilateral renal vascular calcifications. Additionalbilateral nonvascular renal calcifications. In the lower pole right kidneyis a 8 mm calcification and adjacent 4 mm calcification. In the lower poleleft kidney are 11 mm, 8 mm, 5.5 mm, 4 mm, and additional smallercalcifications. No hydronephrosis or hydroureter. No ureter or urinarybladder calcifications. Moderate distention of the urinary bladder with nobladder wall thickening. Hysterectomy. GASTROINTESTINAL: No acute abnormality of the esophagus, stomach, andduodenum. No small bowel obstruction or focal inflammation. No acuteappendicitis. Minimal dense material within the appendix. Mild dense fluidwithin the cecum. Mild colonic stool with no colonic obstruction.Diverticulosis primarily of the sigmoid colon with no acutediverticulitis. No free fluid in the abdomen. No appreciable free fluid inthe pelvis although the pelvis is partially obscured due to streakartifact from the left hip hardware. MUSCULOSKELETAL: Course sclerotic and lucent appearance of the left iliacbone most suggestive of Paget's disease although the 12/13/2024 outsidereport states that the patient has undergone biopsy and pathology wasconsistent with lymphoma. Left hip arthroplasty. Degenerative changes of the shoulders, spine, pelvis, and right hip IMPRESSION: 1. Consolidation in the posterior lateral left lower lobe overapproximately 10.6 x 5.5 x 6.5 cm region. The appearance is mostsuggestive of infectious/inflammatory etiology although certainlycoexisting malignancy is not excluded. Recommend follow-up CT chest in 3months to assess for complete resolution. Otherwise, 3 mm and smallersubpleural nodules in both lungs but no highly suspicious pulmonarynodules. 2. Coarse sclerotic and lucent appearance of the left iliac bone which isalso been described on multiple prior reports. By report, this area hasundergone biopsy and pathology was consistent with lymphoma. Correlatewith history. 3. Nonobstructing calcifications in bilateral lower kidneys. Nohydronephrosis or hydroureter. Moderately distended urinary bladder. 4. Cholecystectomy. Hysterectomy. 5. Mildly dilated ascending thoracic aorta 3.7 cm diameter. No focalaortic aneurysm. Diffuse atherosclerotic disease. Ordered By: SHREE SMALL Interpreted By: Jose Miguel Benítez, 03/29/2025 2:35 PM us Shree Small GM/SVP [employer] CT Final Result from Last 3 Months Insurance [employer] MEDICARE Care Teams Striker Out Relationship Specialty Start Date End Date Adarsh Rachel MD [address] [place] [address] PCP - General FAMILY PRACTICE 03/19/25
--- OUTSIDE RECORDS SUMMARY | 2025-04-14 07:00 | XMS_ITS | Encounter Summary ---
Author Organization [facility] Address [address] [place] [address] Care Team Providers Care Application Security Developer Name Role Phone Nomi Maldonado MD Primary Care Provider [phone] Adarsh Rachel MD Primary Care Provider [phone] Nomi Maldonado MD Primary Care Provider [phone] Adarsh Rachel MD Primary Care Provider [phone] Nomi Maldonado MD Primary Care Provider [phone] Adarsh Rachel MD Primary Care Provider [phone] Nomi Maldonado MD Primary Care Provider [phone] Adarsh Rachel MD Primary Care Provider [phone] Encounter Details Date Type Department Care Team (Late st Contact Info) Description 02/13/2016 Lab Requisition [facility] Rogelio - Lab Cytogenetics [address] [place] [address] [place] [address] [place] [id number] Diffuse large b-cell lymphoma Social History Tobacco [...] Care Team (Late st Contact Info) Description 05/21/2025 11:00 AM CHARGING BOARD OPERATOR Office Visit [facility] - Urology [address] [place] [address] Lisette Le T, NOTEREADER-PRESCHOOL AIDE [address] [facility] DEPT [place] [address] 06/06/2025 9:00 AM CHARGING BOARD OPERATOR Office Visit [facility] - Orthopedic Surgery [address] [place] [phone] Se Zaldivar MD [address] [place] [address] documented as of this encounter Procedures Procedure Name Priority Date/Time Associated Diagnosis Comments CYTOGENETICS CANCER PANEL Routine 02/13/2016 1:15 PM CDT Diffuse large b-cell lymphoma documented in this encounter Results * CYTOGENETICS CANCER PANEL (02/13/2016 1:15 PM CDT) Indication for Study DLBCL LYMPHOMA FISH panel requested by physician 6 12:53 PM CDT [facility] Results Cytogenetics Failure of lymph node harvest. 6 12:53 PM CDT [facility] Interpretation No chromosome analysis was performed due to lymph node harvest failure. This is, very likely, due to a non-proliferative specimen. FISH of lymphoma panel could not be performed because of lack of cells. 6 12:53 PM T [facility] at 1253 CDT Historical Cytogenomic Report [id number] on 01/29/16: Results Analysis and count of [...] developed, and its performance characteristics determined by [facility] Cytogenetics Laboratory as required [...] cytogenetic findings. . 6 12:53 PM CDT [facility] Client Information [facility] - [id number] [facility] Lab Numbers: [id number] CHROTIS 6 12:53 PM CDT [facility] Other TUMOR TISSUE SPECIMEN / Unknown 02/13/2016 1:15 PM CDT 02/13/2016 4:49 PM CDT Charles Ruiz MD LAB - PATHOLOGY/CYTOLOGY ORDERA BLES Final Result Performing Organization Address City/State/[facility] Co de Phone Number [facility] [address] [place] [address] documented in this encounter Visit Diagnoses Diagnosis Diffuse large B-cell lymphoma (HCC) Other malignant lymphomas, unspecified site, extranodal and solid organ sites documented in this encounter Additional Health Concerns Infection Onset Date Last Indicated Resolved Time COVID-19 Under Investigation 12/08/2020 12/08/2020 12/08/2020 8:45 PM CDT documented as of this encounter Care Teams Application Security Developer Relationship Specialty Start Date End Date Nomi Maldonado MD [address] [place] [id number] PCP - General 09/16/15 11/20/20 Adarsh Rachel MD [address] [place] [address] PCP - General Family Medicine 11/21/20 11/21/20 Nomi Maldonado MD [address] [place] [address] PCP - General 11/22/20 12/12/20 Adarsh Rachel MD [address] [place] [address] PCP - General 12/13/20 12/26/20 Nomi Maldonado MD [address] [place] [address] PCP - General 12/27/20 01/28/21 Adarsh Rachel MD [address] [place] [address] PCP - General Family Medicine 01/29/21 07/20/22 Nomi Maldonado MD [address] [place] [address] PCP - General 07/21/22 12/12/24 Adarsh Rachel MD [address] [place] [phone] PCP - General Family Medicine 12/13/24 documented as of this encounter
--- OUTSIDE RECORDS SUMMARY | 2025-04-14 07:00 | XMS_ITS | Clinical Summary ---
Author Organization [facility] Address [address] [place] [address] Care Team Providers Care Production Team Member Name Role Phone Adarsh Rachel MD Primary Care Provider [phone] Source Comments [facility],non-owned Affiliates and Associated Physician Practices is amultiple site organization consisting of ambulatory clinics and hospital sitesin [place], [place], [place] and [place]. This disclosure is being madepursuant to the Care Everywhere program and may not contain all information available regarding this patient. Last updated 18.[facility] Allergies Active Allergy Reactions Criticality Noted Date [...] lymphoma 02/19/2016 Atherosclerotic heart diseas e of [place] coronary artery without angina pectoris 01/27/2016 Low back pain with left-sided sciatica 6 Spinal stenosis of lumbar re gion with neurogenic claudication 01/27/2016 Thyrotoxicosis without thyroid storm 01/27/2016 Disorder of bone 01/27/2016 Calyceal diverticulum Encounters Date Type Department Care Team Description 04/11/2025 Travel from Last 3 Months Immunizations Immunization [...] 37.2 C (98.9 F) 06/02/2023 2:07 PM RADIOCHEMICAL TECHNICIAN Respiratory Rate 18 12/13/2024 8:44 AM CDT Oxygen Saturation 99% 06/02/2023 2:07 PM RADIOCHEMICAL TECHNICIAN Inhaled Oxygen Concentration 100% 10/19/2017 1 2:55 PM CDT Weight 64 kg (141 lb) 06/02/2023 2:07 PM RADIOCHEMICAL TECHNICIAN Height 157.5 cm (5' 2) 06/02/2023 2:07 PM RADIOCHEMICAL TECHNICIAN Body Mass Index 25.79 06/02/2023 2:07 PM RADIOCHEMICAL TECHNICIAN Plan of Treatment Upcoming Encounters Date Type Department Care Team (Late st Contact Info) Description 05/21/2025 11:00 AM RADIOCHEMICAL TECHNICIAN Office Visit [facility] - Urology [address] [facility] [address] [place] [address] Lisette Le, SENIOR SOFTWARE QUALITY ENGINEER-LOCKER ROOM MANAGER [address] [facility] DE[place] [address] 06/06/2025 9:00 AM RADIOCHEMICAL TECHNICIAN [facility] [address] [place] [phone] Se Zaldivar MD [address] [place] [address] Health Maintenance Due Date Last Done Comments BONE DENSITY TESTING 1960 COLOGUARD (AGES 45-75) - COL ON CA SCREENING 1960 COLON MONITORING 1960 COLONOSCOPY - COLON CA SCREENING 1960 CT COLONOGRAPHY - COLON CA SCREENING 1960 Colorectal Cancer Screening 1960 FIT - COLON CA SCREENING 1960 FLEX SIG - COLON CA SCREENING 1960 MAMMOGRAM 1960 COVID-19 VACCINE (#1) 1965 DTAP/TDAP/TD VACCINES (1 - Tdap) 1979 PNEUMOCOCCAL VACCINE 50+ (1 of 2 - PCV) 1979 ZOSTER VACCINE (1 of 2) 2010 Respiratory Syncytial Virus (RSV) Vaccine Pt: or over 60 yrs (1 - Risk 60-74 years 1-dose series) 2020 MEDICARE AWV CALENDAR YEAR 2024 INFLUENZA VACCINE (#1) 2025 , 10/19/2017 HEPATITIS C SCREENING Completed 01/22/2016 HIV SCREENING [...] this topic Medical Devices Implanted Type Area Pedorthist Device Identifier Shelf Expiration Date Model / Serial / Lot Stent Uret 6fr 24cm Pgtl Crv Tpr Tip Implanted:Qty: 1 on 10/18/2017 by Romelia Manzano DO at [facility] Left: Ureter [employer] 07/05/2020 [id number] / / [id number] Percuflex Ureteral Stent Implanted:Qty: 1 on 10/19/2017 by Romelai Manzano DO at [facility] [id number] / / Head Fem +0mm Ofst Ctpr 28mm Hip Cocr Implanted:Qty: 1 on 12/10/2020 by Se Zaldivar MD at [facility] Left: Hip [employer] 08/23/2025 [id number] / / [id number] Description:apart of total Cmnt Bone Smpx Ptbr Fd Radopq Preblend Implanted:Qty: 2 on 12/10/2020 by eS Zaldivar MD at [facility] Left: Hip [employer] [id number] DISCONTINUED / / [id number] [employer]ito Omnifit Ronald Plus 127 Degree Cemented Hip Stem Implanted:Qty: 1 on 12/10/2020 by Se Zaldivar MD at [facility] Left: Hip [employer] 09/04/2025 [id number] / / [id number] Head Biplr 44mm 28mm Uhr Unv Hip Cocr Implanted:Qty: 1 on 12/10/2020 by Se Zaldivar MD at [facility] Left: Hip [employer] 05/14/2025 [id number] / / [id number] Description:apart of total Rstrc Bone Cmnt 24mm Med Unv Hip Strl Implanted:Qty: 1 on 12/10/2020 by Se Zaldivar MD at [facility] Left: Hip [employer] 07/26/2025 [id number] / / [id number] Procedures Procedure Name Priority Date/Time Associated Diagnosis Comments HEPATITIS C RNA QUANTITATIVE STAT 01/22/2016 12:01 PM CDT HIV-1 HIV-2 ANTIGEN/ANTIBODY Routine 01/22/2016 12:01 PM CDT from Last 3 Months or Most Recently Relevant to Health Maintenance Results * HIV-1 HIV-2 ANTIGEN/ANTIBODY (01/22/2016 12:01 PM CDT) Pathologist [facility] HIV Antigen/Antibod y 1 & 2 Non-reacti ve Non-react myrna [facility] Comment: Neither HIV-1 p24 Antigen nor HIV-1/HIV-2 Antibodies are detected. Blood specimen (specimen) BLOOD SPECIMEN / Unknown 01/22/2016 12:01 PM CDT 01/22/2016 12:23 PM CDT us Charles Ruiz MD LAB - HEMATOLOGY ORDERABLES Fin al Result [facility] [address] [phone] * HEPATITIS C RNA QUANTITATIVE PCR (01/22/2016 12:01 PM CDT) Pathologist [facility] Hepatitis C Virus RNA PCR Accession No: [id number] Specimen: Serum Reference: [id number] Test: Hepatitis C RT-PCR (Quantitative) RESULT Not Detected Reference Range Not Detected INTERPRETATION The quantitative Hepatitis C viral RNA RT-PCR determination was performed on a serum sample and is reported in IU/ml. Hepatitis C viral RNA was not detected. COMMENT The Hepatitis C viral (HCV) RNA analysis utilized a serum sample, real-time reverse sports photographer PCR, and is reported as Not Detected, [...] the isolation of HCV RNA with reverse sports photographer of genomic HCV RNA followed by real-time PCR in the presence of an unrelated RNA internal control. The internal control ensures that RNA is isolated, and that no general significant inhibitors of the RT-PCR process are present. This analysis was performed using an [place] FDA approved test methodology (crobo RealTime HCV). Test performed at [facility], [address] [place] [address] This case has been personally reviewed and interpreted by the attending (teaching) pathologist. Final Diagnosis performed by Oneal Tolbert PHD. Electronically signed 01/24/2016 [facility] ([facility]) Blood specimen (specimen) BLOOD SPECIMEN / Unknown 01/22/2016 12:01 PM CDT 01/22/2016 12:23 PM CDT us Charles Ruiz MD LAB - CHEMISTRY ORDERABLES Christel arnett Result [facility] ([facility]) from Last 3 Months or Most Recently Relevant to Health Maintenance Insurance [employer] MEDICARE ADV HMO & PPO * Guarantor: NINFA RODRIGUEZ Account Type Relation to Patient Date of Phone Billing Address Personal/Family [address] * Guarantor: NINFA RODRIGUEZ Account Type Relation to Patient Date of Phone Billing Address Personal/Family [address] * Guarantor: NINFA RODRIGUEZ Account Type Relation to Patient Date of Phone Billing Address Personal/Family [address] Advance Directives * Full Code (Latest [...] 6:02 AM 10/18/2017 12:59 PM Care Teams Production Team Member Relationship Specialty Start Date End Date Adarsh Rachel MD [address] [address] PCP - General Family Medicine 12/13/24
--- OUTSIDE RECORDS SUMMARY | 2025-04-14 07:00 | XMS_ITS | Clinical Summary ---
Author Organization [facility] [address] Address [address] [place] [address] Care Team Providers Care Janitor Custodian Name Role Phone Adarsh Rachel MD Primary [...] on file Legal Sex Female 4:02 AM ADOPTION COORDINATOR Gender Identity Not on file Sexual Orientation [...] Colon Cancer Screening-Colonoscopy 1960 Depression Screening 1960 Fall Risk Assessment 1960 Hepatitis C Screening 1960 Osteoporosis Screening-Bone Density Scan 1960 DTaP/Tdap/Td Vaccine (1 - Tdap) 1971 Hepatitis B Screening 1978 Pneumococcal vaccine 65+ (1 of 2 - PCV) 1979 Zoster Vaccine (1 of 2) 1979 Influenza Vaccine (#1) 2025 03/15/2019, 2017 Well Visit 65+ 2025 Insurance MEDICARE [facility] [place] [address] MEDICARE [address]MO [address] MEDICARE HMO Care Teams Janitor Custodian Relationship Specialty Start Date End Date Adarsh Rachel MD [address] [place] [address] PCP - General Family Medicine 11/09/23
--- OUTSIDE RECORDS SUMMARY | 2025-04-14 07:00 | XMS_ITS | Encounter Summary ---
Author Organization [facility] Address [address] [facility] [place] [address] Care Team Providers Care Driller Machine Name Role Phone Nomi Maldonado MD Primary Care Provider [phone] Adarsh Rachel MD Primary Care Provider [phone] Nomi Maldonado MD Primary Care Provider [phone] Adarsh Rachel MD Primary Care Provider [phone] Nomi Maldonado MD Primary Care Provider [phone] Adarsh Rachel MD Primary Care Provider [phone] Nomi Maldonado MD Primary Care Provider [phone] Adarsh Rachel MD Primary Care Provider [phone] Encounter Details Date Type Department Care Team (Late st Contact Info) Description 01/29/2016 Lab Requisition [facility] - Lab Cytogenetics [address] [place], [place] [id number] [place] [address] [place] [address] Multiple myeloma not having achieved remission [...] st Contact Info) Description 05/21/2025 11:00 AM VIDEO SPECIALIST Office Visit [facility] - Urology [address] [place] [address] Lisette Le T, EVAPORATOR-PARKING MANAGER [address] [facility] DEPT [place] [address] 06/06/2025 9:00 AM VIDEO SPECIALIST Office Visit [facility] - Orthopedic Surgery [address] [place] [address] Se Zaldivar MD [address] [place] [address] documented as of this encounter Procedures Procedure Name Priority Date/Time Associated Diagnosis Comments CYTOGENETICS CANCER PANEL Routine 01/29/2016 12:00 PM CDT Multiple myeloma not having achieved remission documented in this encounter Results * CYTOGENETICS CANCER PANEL (01/29/2016 12:00 PM CDT) Indication for Study Large Cell Lymphoma LYMPHOMA FISH panel requested by physician 6 8:08 AM T [facility] Results Cytogenetics Analysis [...] x2[200],(IGH,BCL2)x2 [200] Normal 6 8:08 AM CDT [facility] Interpretation 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 This study is suboptimal because the number of dividing cells is less than 20. This was caused by a low count of WBC. FISH of DH lymphoma panel was negative. 6 8:08 AM CDT [facility] at 0808 CDT Disclaimer *This test was developed, and its performance characteristics determined by [facility] Cytogenetics Laboratory as required by [...] with cytogenetic findings. 6 8:08 AM CDT [facility] Client Information [facility] - [id number] [facility] Lab Numbers: [id number] 8:08 AM CDT [facility] Other BONE MARROW SPECIMEN / Unknown 01/29/2016 12:00 PM CDT 01/29/2016 12:52 PM CDT us Charles Ruiz MD LAB - PATHOLOGY/CYTOLOGY ORDERA BLES Final Result [facility] [address] [place] [address] documented in this encounter Visit Diagnoses Diagnosis Multiple myeloma not having achieved remission (HCC) Multiple myeloma, without mention of having achieved remission documented in this encounter Additional Health Concerns Infection Onset Date Last Indicated Resolved Time COVID-19 Under Investigation 12/08/2020 12/08/2020 12/08/2020 8:45 PM CDT documented as of this encounter Care Teams Driller Machine Relationship Specialty Start Date End Date Nomi Maldonado MD [address] [place] [address] PCP - General 09/16/15 11/20/20 Adarsh Rachel MD [address] [place] [address] PCP - General Family Medicine 11/21/20 11/21/20 Nomi Maldonado MD [address] [place] [address] PCP - General 11/22/20 12/12/20 Adarsh Rachel MD [address] [place] [address] PCP - General 12/13/20 12/26/20 Nomi Maldonado MD [address] [place] [address] PCP - General 12/27/20 01/28/21 Adarsh Rachel MD [address] [place] [address] PCP - General Family Medicine 01/29/21 07/20/22 Nomi Maldonado MD [address] [place] [address] PCP - General 07/21/22 12/12/24 Adarsh Rachel MD [address] [place] [address] PCP - General Family Medicine 12/13/24 documented as of this encounter
[2025-04-14 07:45] LABS: Hematocrit 38.1 % (37.0-47.0); Hemoglobin 12.2 g/dL (12.0-15.0); Mean Corpuscular HGB Conc 32.0 g/dl (32-36); Mean Corpuscular Hemoglobin 31.1 pg (26-34); Mean Corpuscular Volume 97.2 fl (80-100); Platelet Count Result 170 k/mm3 (150-375); Red Blood Count 3.92 M/mm3 (4.2-5.4); White Blood Count 5.4 K/mm3 (4.5-10.0)
[2025-04-14 08:05] LABS: Alanine Aminotransferase 10 U/L (6-35); Albumin Level 4.1 g/dL (3.5-5.1); Alkaline Phosphatase 50 U/L (38-126); Anion Gap 6 mmol/L (4-12); Aspartate Amino Transferase 23 U/L (14-36); Bilirubin,Total 0.6 mg/dL (0.2-1.3); Blood Urea Nitrogen 17 mg/dL (7-17); Calcium 9.1 mg/dL (8.4-10.2); Carbon Dioxide 28 mmol/L (22-30); Chloride 106 mmol/L (98-107); Cholesterol 139 mg/dL (0-200); Estimated Glomerular Filt Rate 60; Glucose 83 mg/dL (65-110); HDL Direct 84 mg/dL; Potassium 4.6 mmol/L (3.4-5.0); Sodium 140 mmol/L (137-145); Total Protein 6.9 g/dL (6.3-8.2); Triglycerides 51 mg/dL (<150)
[2025-04-14 08:41] LABS: Thyroid Stimulating Hormone 1.380 uIU/mL (0.465-4.680)
[2025-04-14 08:59] LABS: Vitamin B12 307.0 pg/mL (239-931)
[2025-04-14 09:25] LABS: Free T4 Free Thyroxine 1.20 ng/dL (0.78-2.19)
== END 2025-04-14 06:48 | disposition home or self-care (01) ==
LOC: ANHLAB 06:58
PROVIDERS: PCP Family Medicine; Visit Provider Nurse Practitioner Family
DX: E78.5 Hyperlipidemia, unspecified (principal); E66.9 Obesity, unspecified; F41.9 Anxiety disorder, unspecified; E56.8 Deficiency of other vitamins
CPT/HCPCS: 36415; 80053; 80061; 82607; 84439; 84443; 85027

== ENCOUNTER 2025-04-17 13:19 | Outpatient (CLI) | payer MEDICARE, SELFPAY ==
[2025-04-17 13:40] LABS: Hematocrit 36.5 % (37.0-47.0); Hemoglobin 11.8 g/dL (12.0-15.0); Immature Granulocyte Percent A 0.3 % (0-0.5); Lymphocytes Absolute Auto 2.31 K/mm3 (0.9-3.2); Mean Corpuscular HGB Conc 32.3 g/dl (32-36); Mean Corpuscular Hemoglobin 31.7 pg (26-34); Mean Corpuscular Volume 98.1 fl (80-100); Nucleated Red Blood Cells Absolute Auto 0.000 K/mm3 (0.0-0.012); Nucleated Red Blood Cells Perc 0.0 % (0.0-0.2); Platelet Count Result 171 k/mm3 (150-375); Red Blood Count 3.72 M/mm3 (4.2-5.4); White Blood Count 6.5 K/mm3 (4.5-10.0)
--- OUTSIDE RECORDS SUMMARY | 2025-04-17 16:15 | XMS_ITS | Encounter Summary ---
Author Organization [facility] Address [address] [place] [address] Care Team Providers Care Corporate Counsel Name Role Phone Nomi Maldonado MD Primary Care Provider [phone] Adarsh Rachel MD Primary Care Provider [phone] Nomi Maldonado MD Primary Care Provider [phone] Adarsh Rachel MD Primary Care Provider [phone] Nomi Maldonado MD Primary Care Provider [phone] Adarsh Rachel MD Primary Care Provider [phone] Nomi Maldonado MD Primary Care Provider [phone] Adarsh Rachel MD Primary Care Provider [phone] Encounter Details Date Type Department Care Team (Late st Contact Info) Description 02/13/2016 Lab Requisition [facility] - Lab Cytogenetics [address] [place] [address] [place] [address] [place] [id number] Diffuse large b-cell lymphoma Social History Tobacco [...] st Contact Info) Description 05/21/2025 11:00 AM PC MAINTENANCE TECHNICIAN Office Visit [facility] - Urology [address] [place] [address] Lisette Le T, VETERINARIAN POULTRY-PLAYGROUND SUPERVISOR [address] [facility] DEPT [place] [address] 06/06/2025 9:00 AM PC MAINTENANCE TECHNICIAN Office Visit [facility] - Orthopedic Surgery [address] [place] [address] Se Zaldivar MD [address] [place] [address] documented as of this encounter Procedures Procedure Name Priority Date/Time Associated Diagnosis Comments CYTOGENETICS CANCER PANEL Routine 02/13/2016 1:15 PM CDT Diffuse large b-cell lymphoma documented in this encounter Results * CYTOGENETICS CANCER PANEL (02/13/2016 1:15 PM CDT) Indication for Study DLBCL LYMPHOMA FISH panel requested by physician 6 12:53 PM CDT [facility] Results Cytogenetics Failure of lymph node harvest. 6 12:53 PM CDT [facility] Interpretation No chromosome analysis was performed due to lymph node harvest failure. This is, very likely, due to a non-proliferative specimen. FISH of lymphoma panel could not be performed because of lack of cells. 6 12:53 PM T [facility] CYTOGENOMIC LAB at 1253 CDT Historical Cytogenomic Report [id number] on 01/29/16: Results Analysis and count of [...] developed, and its performance characteristics determined by [facility] Molecular Cytogenetics Laboratory as required by CLIA [...] cytogenetic findings. . 6 12:53 PM CDT [facility] CYTOGENOMIC [facility] Client Information [facility] - [id number] [facility] Lab Numbers: [id number] CHROTIS 6 12:53 PM CDT [facility] CYTOGENOMIC LAB Other TUMOR TISSUE SPECIMEN / Unknown 02/13/2016 1:15 PM CDT 02/13/2016 4:49 PM CDT Charles Ruiz MD LAB - PATHOLOGY/CYTOLOGY ORDERA BLES Final Result Performing Organization Address City/State/[facility] Co de Phone Number [facility] [address] [place] [address] documented in this encounter Visit Diagnoses Diagnosis Diffuse large B-cell lymphoma (HCC) Other malignant lymphomas, unspecified site, extranodal and solid organ sites documented in this encounter Additional Health Concerns Infection Onset Date Last Indicated Resolved Time COVID-19 Under Investigation 12/08/2020 12/08/2020 12/08/2020 8:45 PM CDT documented as of this encounter Care Teams Corporate Counsel Relationship Specialty Start Date End Date Nomi Maldonado MD [address] [place] [address] PCP - General 09/16/15 11/20/20 Adarsh Rachel MD [address] [place] [address] PCP - General Family Medicine 11/21/20 11/21/20 Nomi Maldonado MD [address] [place] [address] PCP - General 11/22/20 12/12/20 Adarsh Rachel MD [address] [place] [address] PCP - General 12/13/20 12/26/20 Nomi Maldonado MD [address] [place] [address] PCP - General 12/27/20 01/28/21 Adarsh Rachel MD [address] [place] [address] PCP - General Family Medicine 01/29/21 07/20/22 Nomi Maldonado MD [address] [place] [address] PCP - General 07/21/22 12/12/24 Adarsh Rachel MD [address] [facility] [facility] [place] [address] PCP - General Family Medicine 12/13/24 documented as of this encounter
--- OUTSIDE RECORDS SUMMARY | 2025-04-17 16:15 | XMS_ITS | Clinical Summary ---
Author Organization [facility] [employer] Address [address] [facility] [address] [place] [address] Care Team Providers Care Physician General Practice Name Role Phone Adarsh Rachel MD Primary Care Provider Source Comments [facility] [employer],non-owned Affiliates and Associated Physician Practices is amultiple site organization consisting of ambulatory clinics and hospital sitesin [place], [place], [place] and [place]. This disclosure is being madepursuant to the Care Everywhere program and may not contain all information available regarding this patient. Last updated 18.[facility] [employer] Allergies Active Allergy Reactions Criticality Noted Date [...] lymphoma 02/19/2016 Atherosclerotic heart diseas e of [place] coronary artery without angina pectoris 01/27/2016 Low [...] C (98.9 F) 06/02/2023 2:07 PM LICENSED PRACTICAL VOCATIONAL NURSE Respiratory Rate 18 12/13/2024 8:44 AM CDT Oxygen Saturation 99% 06/02/2023 2:07 PM LICENSED PRACTICAL VOCATIONAL NURSE Inhaled Oxygen Concentration 100% 10/19/2017 1 2:55 PM CDT Weight 64 kg (141 lb) 06/02/2023 2:07 PM LICENSED PRACTICAL VOCATIONAL NURSE Height 157.5 cm (5' 2) 06/02/2023 2:07 PM LICENSED PRACTICAL VOCATIONAL NURSE Body Mass Index 25.79 06/02/2023 2:07 PM LICENSED PRACTICAL VOCATIONAL NURSE Plan of Treatment Upcoming Encounters Date Type Department Care Team (Late st Contact Info) Description 05/21/2025 11:00 AM LICENSED PRACTICAL VOCATIONAL NURSE Office Visit [facility] - Urology [address] [facility] [address] [address] Lisette Le, ECONOMIC ANALYSIS DIRECTOR-ULTRASOUND TECHNOL [address] [facility] DEPT OF UROLOGICAL SURGERY [address] 06/06/2025 9:00 AM LICENSED PRACTICAL VOCATIONAL NURSE [facility] - [facility] Surgery [address] [place] [address] Se Zaldivar MD [address] [place] [address] Health Maintenance Due Date Last Done Comments [...] 2010 ZOSTER VACCINE (1 of 2) 2010 Respiratory [...] this topic Medical Devices Implanted Type Area Mortgage Assistant Device Identifier Shelf Expiration Date Model / Serial / Lot Stent Uret 6fr 24cm Pgtl Crv Tpr Tip Implanted:Qty: 1 on 10/18/2017 by Romelia Manzano DO at [facility] Left: Ureter [employer] 07/05/2020 [id number] / / [id number] Percuflex Ureteral Stent Implanted:Qty: 1 on 10/19/2017 by Romelia Manzano DO at [facility] [id number] / / Head Fem +0mm Ofst Ctpr 28mm Hip Cocr Implanted:Qty: 1 on 12/10/2020 by Se Zaldivar MD at [facility] Left: Hip [employer] 08/23/2025 06-2800 / / [id number] Description:apart of total Cmnt Bone Smpx Ptbr Fd Radopq Preblend Implanted:Qty: 2 on 12/10/2020 by Se Zaldivar MD at [facility] Left: Hip [employer] [id number] DISCONTINUED / / [id number] Fito Omnifit Ronald Plus 127 Degree Cemented Hip Stem Implanted:Qty: 1 on 12/10/2020 by Se Zaldivar MD at [facility] Left: Hip [employer] 09/04/2025 [id number] / / [id number] Head Biplr 44mm 28mm Uhr Unv Hip Cocr Implanted:Qty: 1 on 12/10/2020 by Se Zaldivar MD at [facility] Left: Hip [employer] 05/14/2025 [id number] / / [id number] Description:apart of total Rstrc Bone Cmnt 24mm Med Unv Hip Strl Implanted:Qty: 1 on 12/10/2020 by Se Zaldivar MD at [facility] Left: Hip [employer] 07/26/2025 [id number] / / [id number] Procedures Procedure Name Priority Date/Time Associated Diagnosis Comments HEPATITIS C RNA QUANTITATIVE STAT 01/22/2016 12:01 PM CDT HIV-1 HIV-2 ANTIGEN/ANTIBODY Routine 01/22/2016 12:01 PM CDT from Last 3 Months or Most Recently Relevant to Health Maintenance Results * HIV-1 HIV-2 ANTIGEN/ANTIBODY (01/22/2016 12:01 PM CDT) Pathologist [facility] HIV Antigen/Antibod y 1 & 2 Non-reacti ve Non-react myrna [facility] Comment: Neither HIV-1 p24 Antigen nor HIV-1/HIV-2 Antibodies are detected. Blood specimen (specimen) BLOOD SPECIMEN / Unknown 01/22/2016 12:01 PM CDT 01/22/2016 12:23 PM CDT us Charles Ruiz MD LAB - HEMATOLOGY ORDERABLES Fin al Result [facility] [address] [phone] * HEPATITIS C RNA QUANTITATIVE PCR (01/22/2016 12:01 PM CDT) Pathologist [facility] Hepatitis C Virus RNA PCR Accession No: [id number] Specimen: Serum Reference: [id number] Test: Hepatitis C RT-PCR (Quantitative) RESULT Not Detected Reference Range Not Detected INTERPRETATION The quantitative Hepatitis C viral RNA RT-PCR determination was performed on a serum sample and is reported in IU/ml. Hepatitis C viral RNA was not detected. COMMENT The Hepatitis C viral (HCV) RNA analysis utilized a serum sample, real-time reverse ash kier boiler PCR, and is reported as Not Detected, [...] the isolation of HCV RNA with reverse ash kier boiler of genomic HCV RNA followed by real-time PCR in the presence of an unrelated RNA internal control. The internal control ensures that RNA is isolated, and that no general significant inhibitors of the RT-PCR process are present. This analysis was performed using an [place] FDA approved test methodology (OnRamp Digital RealTime HCV). Test performed at [facility], [address] [place] [address] This case has been personally reviewed and interpreted by the attending (teaching) pathologist. Final Diagnosis performed by Oneal Tolbert PHD. Electronically signed 01/24/2016 [facility] ([facility]) Blood specimen (specimen) BLOOD SPECIMEN / Unknown 01/22/2016 12:01 PM CDT 01/22/2016 12:23 PM CDT us Charles Ruiz MD LAB - CHEMISTRY ORDERABLES Christel arnett Result [facility] (ROM) from Last 3 Months or Most Recently Relevant to Health Maintenance Insurance [employer] MEDICARE ADV HMO & PPO * Guarantor: NINFA RODRIGUEZ Account Type Relation to Patient Date of Phone Billing Address Personal/Family [address] * Guarantor: NINFA RODRIGUEZ Account Type Relation to Patient Date of Phone Billing Address Personal/Family [address] * Guarantor: NINFA RODRIGUEZ Account Type Relation to Patient Date of Phone Billing Address Personal/Family [address] Advance Directives * Full Code (Latest [...] 6:02 AM 10/18/2017 12:59 PM Care Teams Physician General Practice Relationship Specialty Start Date End Date Adarsh Rachel MD [address] [address] PCP - General Family Medicine 12/13/24
--- OUTSIDE RECORDS SUMMARY | 2025-04-17 16:15 | XMS_ITS | Clinical Summary ---
Author Organization [facility] [address] Address [address] [place] [address] Care Team Providers Care Hay Farmer Name Role Phone Adarsh Rachel MD Primary Care Provider [phone] Allergies No known active allergies Medications No [...] on file Legal Sex Female 4:02 AM FOUNDATION ASSISTANT Gender Identity Not on file Sexual Orientation [...] 2017 Well Visit 65+ 2025 Insurance MEDICARE [facility] [place] [address] MED[address] MEDICARE HMO Care Teams Hay Farmer Relationship Specialty Start Date End Date Adarsh Rachel MD [address] [place] [address] PCP - General Family Medicine 11/09/23
--- OUTSIDE RECORDS SUMMARY | 2025-04-17 16:15 | XMS_ITS | Clinical Summary ---
Author Organization [facility] Address [address] [place] [address] Care Team Providers Care Furniture Repair Technician Name Role Phone Adarsh Rachel MD Primary Care Provider [phone] Encounters Date Type Department Care Team Description 03/21/2025 1:43 PM CDT - 03/21/2025 11:59 PM CDT Hospital Encounter [facility] [address] [place] [address] Shree Small NP Discharge Disposition: Home or Self Care (Routine Discharge) 03/21/2025 Travel from Last 3 Months Social History Tobacco Use Types Packs/Day Years Used Date Smoking Tobacco: Never Assessed Comments Unknown Sex and Gender Information Value Date Recorded Sex Assigned at Female 03/21/2025 1:39 PM CDT Legal Sex Female 9:29 PM CARD WRITER HAND Gender Identity Not on file Sexual Orientation Not on file Plan of Treatment Health Maintenance Due Date Last Done Comments Colorectal Cancer Screening Colonoscopy (10 Years) 1960 DTaP, Tdap and Td Vaccines ( 1 - Tdap) 1979 Mammogram Screening 2000 Pneumococcal Vaccine: 50+ Years (1 of 1 - PCV) 2010 Zoster Vaccines (2 of 3) 05/10/2019 03/15/2019 COVID-19 Vaccine ( - 2024-2 6 season) 2025 Dexa Scan (General) 2025 Influenza [...] 2:35 PM Narrative 03/29/2025 3:14 PM CDT [address] [address] IMAGING STUDIES: CT CHEST+ABD+PEL WO CON DATE: 03/21/2025 1:55 PM HISTORY: Lung mass 65-year-old female. Lung mass. COMPARISON: None this institution. Report from CTA TAVR 07/01/2021 at [facility]. Report from pelvis and left hip [...] Note Jose Miguel Benítez MD - 03/29/[address] [address] IMAGING STUDIES: CT CHEST+ABD+PEL WO CONDATE: 03/21/2025 1:55 PM HISTORY: Lung mass 65-year-old female. Lung mass. COMPARISON: None this institution. Report from CTA TAVR 07/01/2021 at [facility]. Report from pelvis and left hip radiographs [...] Benítez, 03/29/2025 2:35 PM us Shree Small PRINT SUPPORT SPECIALIST CT Final Result from Last 3 Months Insurance [employer] MEDICARE Care Teams Furniture Repair Technician Relationship Specialty Start Date End Date Adarsh Rachel MD [address] [place] [address] PCP - General FAMILY PRACTICE 03/19/25
--- OUTSIDE RECORDS SUMMARY | 2025-04-17 16:15 | XMS_ITS | Encounter Summary ---
Author Organization [facility] Address [address] [facility] [place] [address] Care Team Providers Care Information And Data Architect Analyst Name Role Phone Nomi Maldonado MD Primary Care Provider [phone] Adarsh Rachel MD Primary Care Provider [phone] Nomi Maldonado MD Primary Care Provider [phone] Adarsh Rachel MD Primary Care Provider [phone] Nomi Maldonado MD Primary Care Provider [phone] Adarsh Rachel MD Primary Care Provider [phone] Nomi Maldonado MD Primary Care Provider [phone] Adarsh Rachel MD Primary Care Provider + [phone] Encounter Details Date Type Department Care Team (Late st Contact Info) Description 01/29/2016 Lab Requisition [facility]elio - Lab Cytogenetics [address] [place], [place] [id number] [place] [address] [place] [address] Multiple myeloma not having achieved remission [...] st Contact Info) Description 05/21/2025 11:00 AM MACHINE PULLER Office Visit [facility] - Urology [address] [place] [address] Lisette Le T, ELECTRONIC TESTER-REFERENCE AND INSTRUCTION LIBRARIAN [address] [facility] [place]PT [place] [address] 06/06/2025 9:00 AM MACHINE PULLER Office Visit [facility] - Orthopedic Surgery [address] [place] [address] Se Zaldivar MD [address] [place] [address] documented as of this encounter Procedures Procedure Name Priority Date/Time Associated Diagnosis Comments CYTOGENETICS CANCER PANEL Routine 01/29/2016 12:00 PM CDT Multiple myeloma not having achieved remission documented in this encounter Results * CYTOGENETICS CANCER PANEL (01/29/2016 12:00 PM CDT) Indication for Study Large Cell Lymphoma LYMPHOMA FISH panel requested by physician 6 8:08 AM T [facility] CYTOGENOMIC LAB Results Cytogenetics Analysis [...] x2[200],(IGH,BCL2)x2 [200] Normal 6 8:08 AM CDT [facility] CYTOGENOMIC [facility] Interpretation 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 This study is suboptimal because the number of dividing cells is less than 20. This was caused by a low count of WBC. FISH of DH lymphoma panel was negative. 6 8:08 AM CDT [facility] MOLE[facility] CYTOGENOMIC LAB at 0808 CDT Disclaimer *This test was developed, and its performance characteristics determined by [facility] Molecular Cytogenetics Laboratory as required by CLIA [...] with cytogenetic findings. 6 8:08 AM CDT [facility] CYTOGENOMIC [facility] Client Information [facility] - [id number] [facility] Lab Numbers: [id number] 8:08 AM CDT [facility] CYTOGENOMIC LAB Other BONE MARROW SPECIMEN / Unknown 01/29/2016 12:00 PM CDT 01/29/2016 12:52 PM CDT us Charles Ruiz MD LAB - PATHOLOGY/CYTOLOGY ORDERA BLES Final Result [facility] CYTOGENOMIC LAB [address] [place] [address] documented in this encounter Visit Diagnoses Diagnosis Multiple myeloma not having achieved remission (HCC) Multiple myeloma, without mention of having achieved remission documented in this encounter Additional Health Concerns Infection Onset Date Last Indicated Resolved Time COVID-19 Under Investigation 12/08/2020 12/08/2020 12/08/2020 8:45 PM CDT documented as of this encounter Care Teams Information And Data Architect Analyst Relationship Specialty Start Date End Date Nomi Maldonado MD [address] [place] [address] PCP - General 09/16/15 11/20/20 Adarsh Rachel MD [address] [place] [address] PCP - General Family Medicine 11/21/20 11/21/20 Nomi Maldonado MD [address] [place] [address] PCP - General 11/22/20 12/12/20 Adarsh Rachel MD [address] [place] [address] PCP - General 12/13/20 12/26/20 Nomi Maldonado MD [address] [place] [address] PCP - General 12/27/20 01/28/21 Adarsh Rachel MD [address] [place] [address] PCP - General Family Medicine 01/29/21 07/20/22 Nomi Maldonado MD [address] [place] [address] PCP - General 07/21/22 12/12/24 Adarsh Rachel MD [address] [place] [phone] PCP - General Family Medicine 12/13/24 documented as of this encounter
--- OUTSIDE RECORDS SUMMARY | 2025-04-17 16:15 | XMS_ITS ---
Author Organization [facility] Address [address] [facility] [facility] 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
--- OUTSIDE RECORDS SUMMARY | 2025-04-17 16:15 | XMS_ITS | Clinical Summary ---
Author Organization [facility] Faiza reyes Katt Address [address] [place] [address] Care Team Providers Care Real Estate Legal Secretary Name Role Phone Adarsh Rachel MD Primary [...] Data STL ABSTRACTION Provider, Abstract 02/14/2025 Telephone [facility] - [address] [place] [address] Azul Lares, supervisor travel trailer Problem (Patient called regarding Tamoxifen causing her nausea and vomiting as well as body aches. Dr. Lynch notified and orders received for patient to hold for one week and then resume, if now improvement please call back. Information relayed to patient who verbalized understanding.) 01/30/2025 External Device Data STL ABSTRACTION Provider, Abstract 01/23/2025 2:45 PM CDT Office Visit [facility] - [place] [address] [place] [phone] Spencer Lynch MD Malignant neoplasm of upper-outer quadrant of left breast in female, estrogen receptor positive (CMS/HCC) (Primary Dx) 01/23/2025 Orders Only [facility] - [place] [address] [place] [phone] Spencer Lynch MD 01/23/2025 Abstract [facility] - [place] [address] [place] [phone] Spencer Lynch MD 01/18/2025 Orders Only [facility] - [place] [address] [place] [phone] Spencer Lynch MD 01/17/2025 Orders Only [facility] - [place] [address] [place] [address] Spencer Lynch MD from Last 3 Months [...] Care Team (Late st Contact Info) Description 04/19/2025 2:45 PM CDT Office Visit [facility]ology [facility] [address] [place] [phone] Spencer Lynch MD [address] [facility] [address] [place] [phone] 04/30/2025 2:30 PM CUSTOMER OPERATIONS MANAGER Office Visit [facility] [address] [place] [address] [place] [address] [place] [address] [address] [place] [phone] Health Maintenance Due Date Last Done Comments [...] 2005 INFLUENZA VACCINE (#1) 2025 03/15/2019, 2017 OSTEOPOROSIS [...] Resu lt from Last [address] [place] [address] [address] Care Teams Real Estate Legal Secretary Relationship Specialty Start Date End Date Adarsh Rachel MD [address] [place] [address] PCP - General Family Practice 03/13/19
[2025-04-17 16:33] LABS: Alanine Aminotransferase 12 U/L (6-35); Albumin Level 4.2 g/dL (3.5-5.1); Alkaline Phosphatase 51 U/L (38-126); Anion Gap 11 mmol/L (4-12); Aspartate Amino Transferase 35 U/L (14-36); Bilirubin,Total 0.6 mg/dL (0.2-1.3); Blood Urea Nitrogen 22 mg/dL (7-17); Calcium 9.0 mg/dL (8.4-10.2); Carbon Dioxide 23 mmol/L (22-30); Chloride 101 mmol/L (98-107); Estimated Glomerular Filt Rate 47; Glucose 82 mg/dL (65-110); Potassium 4.1 mmol/L (3.4-5.0); Sodium 135 mmol/L (137-145); Total Protein 6.9 g/dL (6.3-8.2)
== END 2025-04-17 13:20 | disposition home or self-care (01) ==
LOC: ANHLAB 13:20
PROVIDERS: PCP Family Medicine; Visit Provider Internal Medicine Hematology & Oncology
DX: C50.412 Malignant neoplasm of upper-outer quadrant of left female breast (principal); Z17.0 Estrogen receptor positive status [ER+]
CPT/HCPCS: 36415; 80053; 85025; 86300

== ENCOUNTER 2025-04-22 08:27 | Emergency (ER) | payer MEDICARE, SELFPAY ==
--- NOTE | ~2025-04-22 | XR_ITS ---
Examination: XR chest 2V Clinical History: SOB Comparison: 08/02/2022 Technique: PA and Lateral Findings: Cardiomediastinal silhouette normal size and configuration. Left lower lobe airspace disease. No acute bony abnormality. IMPRESSION: 1. Left lower lobe airspace disease. 2. Less severe pneumonia was present same location in July 2022. Given chronicity, recommend short interval follow-up x-rays and/or CT chest to exclude underlying lesion. Reviewed, dictated and finalized at location R. IMPRESSION: 1. Left lower lobe airspace disease. 2. Less severe pneumonia was present same location in July 2022. Given chr onicity, recommend short interval follow-up x-rays and/or CT chest to exclude u nderlying lesion.
--- NOTE | ~2025-04-22 | CT_ITS ---
CTA CHEST CLINICAL HISTORY: Right shoulder/back pain, known lung mass on left . COMPARISON: Chest x-ray today CTA chest 07/09/2022 TECHNIQUE: Helical CTA performed from thoracic inlet to upper abdomen IV contrast information not listed in PACS Coronal, sagittal reformats. Multiplanar MIPS CT images acquired with automatic exposure control for dose reduction DLP: 172 mGy-cm FINDINGS: Pulmonary arteries: No PE. Thoracic Aorta: No dissection or aneurysm. Atherosclerotic disease. SVC stenosis possible. Heart/pericardium: Unremarkable. RV/LV ratio: Normal. Lungs/Pleura: Large airspace disease left lower lobe. Tracheobronchial tree: Occluded left basilar bronchi. Nodes: No enlarged nodes. Bones: No acute bony abnormality. Soft tissues: Unremarkable. Visualized upper abdomen: Renal stones. IMPRESSION: 1. No PE. 2. Large left lower lobe pneumonia, consider aspiration. 3. Recommend imaging surveillance to resolution to exclude underlying lesion. Reviewed, dictated and finalized at location R.
--- OUTSIDE RECORDS SUMMARY | 2025-04-22 08:30 | XMS_ITS | Encounter Summary ---
Author Organization [facility] Address [address] [place] [address] Care Team Providers Care Treatment Manager Name Role Phone Nomi Maldonado MD Primary Care Provider [phone] Adarhs Rachel MD Primary Care Provider [phone] Nomi Maldonado MD Primary Care Provider [phone] Adarsh Rachel MD Primary Care Provider [phone] Nomi Maldonado MD Primary Care Provider [phone] Adarsh Rachel MD Primary Care Provider [phone] Nomi Maldonado MD Primary Care Provider [phone] Adarsh Rachel MD Primary Care Provider [phone] Encounter Details Date Type Department Care Team (Late st Contact Info) Description 02/13/2016 Lab Requisition [facility]io - Lab Cytogenetics [address] [place] [address] [place] [address] [place] [phone] Diffuse large b-cell lymphoma Social History Tobacco [...] st Contact Info) Description 05/21/2025 11:00 AM VOIP ENGINEER Office Visit [facility] - Urology [address] [place] [address] Lisette Le T, SECTION BEAMER-SCRAPPER [address] [facility] DEPT [place] [address] 06/06/2025 9:00 AM VOIP ENGINEER Office Visit [facility] - Orthopedic Surgery [address] [place] [address] Se Zaldivar MD [address] [place] [address] documented as of this encounter Procedures Procedure Name Priority Date/Time Associated Diagnosis Comments CYTOGENETICS CANCER PANEL Routine 02/13/2016 1:15 PM CDT Diffuse large b-cell lymphoma documented in this encounter Results * CYTOGENETICS CANCER PANEL (02/13/2016 1:15 PM CDT) Indication for Study DLBCL LYMPHOMA FISH panel requested by physician 6 12:53 PM CDT [facility] MOLE[facility] CYTOGENOMIC LAB Results Cytogenetics Failure of lymph node harvest. 6 12:53 PM CDT [facility]LE[facility] CYTOGENOMIC LAB Interpretation No chromosome analysis was performed due to lymph node harvest failure. This is, very likely, due to a non-proliferative specimen. FISH of lymphoma panel could not be performed because of lack of cells. 6 12:53 PM T [facility] MOLECULAR CYTOGENOMIC LAB at 1253 CDT Historical Cytogenomic Report [id number] on 01/29/16: Results Analysis and count of [...] FISH of DH lymphoma panel was negative. Electronically signed by Shala Dobbs, PhD [facility] on 02/06/2016 at 0808 . Disclaimer *This test was developed, and its performance characteristics determined by [facility] Molecular Cytogenetics Laboratory as required [...] cytogenetic findings. . 6 12:53 PM CDT [facility] MOLECULAR CYTOGENOMIC LAB Client Information [facility] - [id number] [facility] Lab Numbers: [id number] [place] 6 12:53 PM CDT [facility] MOLECULAR CYTOGENOMIC LAB Other TUMOR TISSUE SPECIMEN / Unknown 02/13/2016 1:15 PM CDT 02/13/2016 4:49 PM CDT Charles Ruiz MD LAB - PATHOLOGY/CYTOLOGY ORDERA BLES Final Result Performing Organization Address City/State/[facility] Co de Phone Number [facility] MOLECULAR CYTOGENOMIC LAB [address] [place] [address] documented in this encounter Visit Diagnoses Diagnosis Diffuse large B-cell lymphoma (HCC) Other malignant lymphomas, unspecified site, extranodal and solid organ sites documented in this encounter Additional Health Concerns Infection Onset Date Last Indicated Resolved Time COVID-19 Under Investigation 12/08/2020 12/08/2020 12/08/2020 8:45 PM CDT documented as of this encounter Care Teams Treatment Manager Relationship Specialty Start Date End Date Nomi Maldonado MD [address] [place] [address] PCP - General 09/16/15 11/20/20 Adarsh Rachel MD [address] [place] [address] PCP - General Family Medicine 11/21/20 11/21/20 Nomi Maldonado MD [address] [place] [address] PCP - General 11/22/20 12/12/20 Adarsh Rachel MD [address] [place] [address] PCP - General 12/13/20 12/26/20 Nomi Maldonado MD [address] [place] [address] PCP - General 12/27/20 01/28/21 Adarsh Rachel MD [address] [place] [address] PCP - General Family Medicine 01/29/21 07/20/22 Nomi Maldonado MD [address] [place] [address] PCP - General 07/21/22 12/12/24 Adarsh Rachel MD [address] [place] [address] PCP - General Family Medicine 12/13/24 documented as of this encounter
--- OUTSIDE RECORDS SUMMARY | 2025-04-22 08:30 | XMS_ITS | Encounter Summary ---
Author Organization [facility] Address [address] [facility] [place] [address] Care Team Providers Care High Court Justice Name Role Phone Nomi Maldonado MD Primary Care Provider [phone] Adarsh Rachel MD Primary Care Provider [phone] Nomi Maldonado MD Primary Care Provider [phone] Adarsh Rachel MD Primary Care Provider [phone] Nomi Maldonado MD Primary Care Provider [phone] Adarsh Rachel MD Primary Care Provider [phone] Nomi Maldonado MD Primary Care Provider [phone] Adarsh Rachel MD Primary Care Provider [phone] Encounter Details Date Type Department Care Team (Late st Contact Info) Description 01/29/2016 Lab Requisition [facility] Rogelio - Lab Cytogenetics [address] [place], [place] [phone] [place] [address] [place] [address] Multiple myeloma not having achieved remission [...] st Contact Info) Description 05/21/2025 11:00 AM HOME HEALTH REGISTERED NURSE Office Visit [facility] - Urology [address] [place] [address] Lisette Le T, HOTEL OR MOTEL RECEPTIONIST-REFRACTORY FURNACE DESIGNER [address] [facility] [place] [address] 06/06/2025 9:00 AM HOME HEALTH REGISTERED NURSE Office Visit [facility] - Orthopedic Surgery [address] [place] [address] Se Zaldivar MD [address] [place] [address] documented as of this encounter Procedures Procedure Name Priority Date/Time Associated Diagnosis Comments CYTOGENETICS CANCER PANEL Routine 01/29/2016 12:00 PM CDT Multiple myeloma not having achieved remission documented in this encounter Results * CYTOGENETICS CANCER PANEL (01/29/2016 12:00 PM CDT) Indication for Study Large Cell Lymphoma LYMPHOMA FISH panel requested by physician 6 8:08 AM T [facility]LE[facility] CYTOGENOMIC LAB Results Cytogenetics Analysis [...] x2[200],(IGH,BCL2)x2 [200] Normal 6 8:08 AM CDT [facility] CYTOGENOMIC LAB Interpretation 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 This study is suboptimal because the number of dividing cells is less than 20. This was caused by a low count of WBC. FISH of DH lymphoma panel was negative. 6 8:08 AM CDT [facility] MOLECULAR CYTOGENOMIC LAB at 0808 CDT Disclaimer *This test was developed, and its performance characteristics determined by [facility] Molecular Cytogenetics Laboratory as required by CLIA [...] with cytogenetic findings. 6 8:08 AM CDT [facility]LEC[facility] CYTOGENOMIC LAB Client Information [facility] - [id number] [facility] Lab Numbers: [id number] 8:08 AM CDT [facility]LEC[facility] CYTOGENOMIC LAB Other BONE MARROW SPECIMEN / Unknown 01/29/2016 12:00 PM CDT 01/29/2016 12:52 PM CDT us Charles Ruiz MD LAB - PATHOLOGY/CYTOLOGY ORDERA BLES Final Result [facility] CYTOGENOMIC LAB [address] [place] [address] documented in this encounter Visit Diagnoses Diagnosis Multiple myeloma not having achieved remission (HCC) Multiple myeloma, without mention of having achieved remission documented in this encounter Additional Health Concerns Infection Onset Date Last Indicated Resolved Time COVID-19 Under Investigation 12/08/2020 12/08/2020 12/08/2020 8:45 PM CDT documented as of this encounter Care Teams High Court Justice Relationship Specialty Start Date End Date Nomi Maldonado MD [address] [place] [address] PCP - General 09/16/15 11/20/20 Adarsh Rachel MD [address] [place] [address] PCP - General Family Medicine 11/21/20 11/21/20 Nomi Maldonado MD [address] [place] [address] PCP - General 11/22/20 12/12/20 Adarsh Rachel MD [address] [place] [address] PCP - General 12/13/20 12/26/20 Nomi Maldonado MD [address] [place] [address] PCP - General 12/27/20 01/28/21 Adarsh Rachel MD [address] [place] [address] PCP - General Family Medicine 01/29/21 07/20/22 Nomi Maldonado MD [address] [place] [address] PCP - General 07/21/22 12/12/24 Adarsh Rachel MD [address] [place] [phone] PCP - General Family Medicine 12/13/24 documented as of this encounter
--- OUTSIDE RECORDS SUMMARY | 2025-04-22 08:30 | XMS_ITS | Encounter Summary ---
Author Organization [facility] [employer] [facility] Address [address] [place] [address] Care Team Providers Care Byproducts Maker Name Role Phone Adarsh Rachel MD Primary Care Provider [phone] Encounter Details Date Type Department Care Team (Late Contact Info) Description 04/18/2025 Orders Only [facility] Oncology and Hematology [address] [place] [address] Spencer Lynch MD [facility] [address] [place] [address] Social History Tobacco Use Types Packs/Day Years Used Date Smoking Tobacco: Never Smokeless Tobacco: Never Alcohol Use Standard Drinks/Week Comments Never 0 [...] st Contact Info) Description 04/30/2025 2:30 PM INCISING MACHINE OPERATOR Office Visit [facility] Oncology and Hematology [facility] [address] [place] [address] Spencer Lynch MD [facility] [address] [place] [address] documented as of this encounter Procedures Procedure Name Priority Date/Time Associated Diagnosis Comments CHG CA 15 3 Routine 04/17/2025 12:45 PM CDT COMPREHENSIVE METABOLIC PANEL Routine 04/17/2025 10:33 AM CDT CBC WITH AUTODIFFERENTIAL Routine 2024 10:20 AM CDT documented in this encounter Results * CHG CA 15 3 (04/17/2025 12:45 PM CDT) us Spencer Lynch MD [facility] - LABORATORY Final Result * COMPREHENSIVE METABOLIC PANEL (04/17/2025 10:33 AM CDT) Blood us Spencer Lynch MD CHEMISTRY ORDERABLES Final Resu lt * CBC WITH AUTODIFFERENTIAL (04/17/2025 10:20 AM CDT) Blood us Spencer Lynch MD HEMATOLOGY ORDERABLES Final Res ult documented in this encounter Visit Diagnoses Not on filedocumented in this encounter Care Teams Byproducts Maker Relationship Specialty Start Date End Date Adarsh Rachel MD [address] [place] [address] PCP - General Family Practice 03/13/19 documented as of this encounter
--- OUTSIDE RECORDS SUMMARY | 2025-04-22 08:30 | XMS_ITS | Clinical Summary ---
Author Organization [facility] Address [address] [place] [address] Care Team Providers Care Saddle And Harness Maker Name Role Phone Adarsh Rachel MD Primary Care Provider Source Comments [facility],non-owned Affiliates and Associated Physician Practices is amultiple site organization consisting of ambulatory clinics and hospital sitesin [place], [place], [place] and [place]. This disclosure is being madepursuant to the Care Everywhere program and may not contain all information available regarding this patient. Last updated 18.[facility] Allergies Active Allergy Reactions Criticality Noted Date [...] lymphoma 02/19/2016 Atherosclerotic heart diseas e of [place] coronary artery without angina pectoris 01/27/2016 Low [...] 37.2 C (98.9 F) 06/02/2023 2:07 PM QUILL LAYER Respiratory Rate 18 12/13/2024 8:44 AM CDT Oxygen Saturation 99% 06/02/2023 2:07 PM QUILL LAYER Inhaled Oxygen Concentration 100% 10/19/2017 1 2:55 PM CDT Weight 64 kg (141 lb) 06/02/2023 2:07 PM QUILL LAYER Height 157.5 cm (5' 2) 06/02/2023 2:07 PM QUILL LAYER Body Mass Index 25.79 06/02/2023 2:07 PM QUILL LAYER Plan of Treatment Upcoming Encounters Date Type Department Care Team (Late st Contact Info) Description 05/21/2025 11:00 AM QUILL LAYER Office Visit [facility] - Urology [address] [place] [address] Lisette Le, ROTARY SLICING MACHINE OPERATOR-PEOPLESOFT FINANCIAL DEVELOPER [address] [facility] [place] [address] 06/06/2025 9:00 AM QUILL LAYER [facility] [address] [place] [address] Se Zaldivar MD [address] [place] [address] Health Maintenance Due Date Last Done Comments [...] this topic Medical Devices Implanted Type Area Clinical Rehab Specialist Device Identifier Shelf Expiration Date Model / Serial / Lot Stent Uret 6fr 24cm Pgtl Crv Tpr Tip Implanted:Qty: 1 on 10/18/2017 by Romelia Manzano DO at [facility] Left: Ureter [place] [employer] 07/05/2020 [id number] / / [id number] Percuflex Ureteral Stent Implanted:Qty: 1 on 10/19/2017 by Romelia Manzano DO at [facility] [id number] / / Head Fem +0mm Ofst Ctpr 28mm Hip Cocr Implanted:Qty: 1 on 12/10/2020 by Se Zaldivar MD at [facility] Left: Hip [employer] 08/23/2025 [id number] / / [id number] Description:apart of total Cmnt Bone Smpx Ptbr Fd Radopq Preblend Implanted:Qty: 2 on 12/10/2020 by Se Zaldivar MD at [facility] Left: Hip [employer] [id number] DISCONTINUED / / [id number] Fito Omnifit Ronald Plus 127 Degree Cemented Hip Stem Implanted:Qty: 1 on 12/10/2020 by Se Zaldivar MD at [facility] Left: Hip [employer] 09/04/2025 [id number] / / [id number] Head Biplr 44mm 28mm Uhr Unv Hip Cocr Implanted:Qty: 1 on 12/10/2020 by Se Zadlivar MD at [facility] Left: Hip [employer] 05/14/2025 [id number] / / [id number] Description:apart of total Rstrc Bone Cmnt 24mm Med Unv Hip Strl Implanted:Qty: 1 on 12/10/2020 by Se Zaldivar MD at [facility] Left: Hip [employer] 07/26/2025 [id number] / / [id number] Procedures Procedure Name Priority Date/Time Associated Diagnosis Comments HEPATITIS C RNA QUANTITATIVE STAT 01/22/2016 12:01 PM CDT HIV-1 HIV-2 ANTIGEN/ANTIBODY Routine 01/22/2016 12:01 PM CDT from Last 3 Months or Most Recently Relevant to Health Maintenance Results * HIV-1 HIV-2 ANTIGEN/ANTIBODY (01/22/2016 12:01 PM CDT) Pathologist [facility] HIV Antigen/Antibod y 1 & 2 Non-reacti ve Non-react myrna [facility] Comment: Neither HIV-1 p24 Antigen nor HIV-1/HIV-2 Antibodies are detected. Blood specimen (specimen) BLOOD SPECIMEN / Unknown 01/22/2016 12:01 PM CDT 01/22/2016 12:23 PM CDT us Charles Ruiz MD LAB - HEMATOLOGY ORDERABLES Fin al Result [facility] [address] [phone] * HEPATITIS C RNA QUANTITATIVE PCR (01/22/2016 12:01 PM CDT) Pathologist [facility] Hepatitis C Virus RNA PCR Accession No: [id number] Specimen: Serum Reference: [id number] Test: Hepatitis C RT-PCR (Quantitative) RESULT Not Detected Reference Range Not Detected INTERPRETATION The quantitative Hepatitis C viral RNA RT-PCR determination was performed on a serum sample and is reported in IU/ml. Hepatitis C viral RNA was not detected. COMMENT The Hepatitis C viral (HCV) RNA analysis utilized a serum sample, real-time reverse garden worker PCR, and is reported as Not Detected, [...] the isolation of HCV RNA with reverse garden worker of genomic HCV RNA followed by real-time PCR in the presence of an unrelated RNA internal control. The internal control ensures that RNA is isolated, and that no general significant inhibitors of the RT-PCR process are present. This analysis was performed using an [place] FDA approved test methodology (Simply [address] RealTime HCV). Test performed at [facility], [address] [place] [address] This case has been personally reviewed and interpreted by the attending (teaching) pathologist. Final Diagnosis performed by Oneal Tolbert PHD. Electronically signed 01/24/2016 [facility] ([facility]) Blood specimen (specimen) BLOOD SPECIMEN / Unknown 01/22/2016 12:01 PM CDT 01/22/2016 12:23 PM CDT us Charles Ruiz MD LAB - CHEMISTRY ORDERABLES Christel arnett Result [facility] ([facility]) from Last 3 Months or Most Recently Relevant to Health Maintenance Insurance [employer] MEDICARE ADV HMO & PPO * Guarantor: NINFA RODRIGUEZ Account Type Relation to Patient Date of Phone Billing Address Personal/Family [address] * Guarantor: NINFA RODRIGUEZ Account Type Relation to Patient Date of Phone Billing Address Personal/Family [address] * Guarantor: NINFA RODRIGUEZ Account Type Relation to Patient Date of Phone Billing Address Personal/Family [address] Advance Directives * Full Code (Latest [...] 6:02 AM 10/18/2017 12:59 PM Care Teams Saddle And Harness Maker Relationship Specialty Start Date End Date Adarsh Rachel MD [address] [address] PCP - General Family Medicine 12/13/24
--- OUTSIDE RECORDS SUMMARY | 2025-04-22 08:30 | XMS_ITS | Clinical Summary ---
Author Organization [facility] [address] Address [address] [place] [address] Care Team Providers Care Receiving Barn Custodian Name Role Phone Adarsh Rachel MD [...] on file Legal Sex Female 4:02 AM MITER CUTTER Gender Identity Not on file Sexual Orientation [...] 2017 Well Visit 65+ 2025 Insurance MEDICARE [facility] [place] [address] MEDICARE HMO [address] MEDICARE HMO Care Teams Receiving Barn Custodian Relationship Specialty Start Date End Date Adarsh Rachel MD [address] [place] [address] PCP - General Family Medicine 11/09/23
--- OUTSIDE RECORDS SUMMARY | 2025-04-22 08:30 | XMS_ITS ---
Author Organization [facility] Address [address] [place] [address] Care Team Providers Care Sponge Diver Name Role Phone Adarsh Rachel MD Primary Care Provider Active Problems Problem Noted Date Diagnosed Date Left leg swelling 12/14/2020 History of left hip hemiarthroplasty 12/14/2020 Pathologic fracture of femor al neck, left, initial encounter 12/06/2020 Nephrolithiasis 10/18/2017 Zoster without complications 03/11/2016 Diffuse large B-cell lymphoma 02/19/2016 Atherosclerotic heart diseas e of [place] coronary artery without angina pectoris 01/27/2016 Low [...]
--- OUTSIDE RECORDS SUMMARY | 2025-04-22 08:30 | XMS_ITS | Clinical Summary ---
Author Organization [facility] Faiza reyes Randi Address [address] [place] [address] Care Team Providers Care Health Safety Specialist Name Role Phone Adarsh Rachel MD Primary Care Provider [phone] Allergies Active Allergy Reactions Criticality Noted Date Comments Sulfa (Sulfonamide Antibiotics) Swelling 02/26 Medications aspirin (ANURADHA) 325 mg tablet Take 325 mg by mouth daily. Active atorvastatin (LIPITOR) 10 mg tablet Take 10 mg by mouth daily. Active ALPRAZolam (XANAX) 0.5 mg tablet 10/11/2023 Active carvediloL (COREG) 6.25 mg tablet TAKE 1 TABLET BY MOUTH EVERY 12 HOURS WITH FOOD 09/29/2023 Active tamoxifen (NOLVADEX) 20 mg tablet Take 1 Tablet (20 mg) by mouth daily. 90 Tablet 3 01/23/2025 Active magnesium OXIDE 500 mg Capsule Take 500 mg by mouth daily. Active Active Problems No known active problems Encounters Date Type Department Care Team Description 04/19/2025 2:45 PM CDT Office Visit [facility] Oncology and Hematology - [address] [place] [address] Spencer Lynch MD Mass of lower lobe of left lung (Primary Dx) 04/18/2025 Orders Only [facility] Oncology and Hematology [address] [place] [address] Spencer Lynch MD 04/18/2025 External Device Data STL ABSTRACTION Provider, Abstract 04/17/2025 External Device Data STL ABSTRACTION Provider, Abstract 2025 External Device Data STL ABSTRACTION Provider, Abstract 02/14/2025 Telephone [facility] Oncology and Hematology [facility] [address] [place] [address] Azul Lares RN Medication Problem (Patient called regarding Tamoxifen causing her nausea and vomiting as well as body aches. Dr. Lynch notified and orders received for patient to hold for one week and then resume, if now improvement please call back. Information relayed to patient who verbalized understanding.) 01/30/2025 External Device Data STL ABSTRACTION Provider, Abstract 01/23/2025 2:45 PM CDT Office Visit [facility] Oncology and Hematology [facility] [address] [place] [phone] Spencer Lynch MD Malignant neoplasm of upper-outer quadrant of left breast in female, estrogen receptor positive (CMS/HCC) (Primary Dx) 01/23/2025 Orders Only [facility] Oncology and Hematology [facility] [address] [place] [address] Spencer Lynch MD 01/23/2025 Abstract [facility] Oncology and Hematology [facility] [address] [place] [address] Spencer Lynch MD from Last 3 Months [...] Sign Reading Time Taken Comments Blood Pressure 145/77 04/19/2025 2:32 PM CDT Pulse 79 04/19/2025 2:28 PM CDT Temperature 36.1 C (96.9 F) 04/19/2025 2:28 PM CDT Respiratory Rate 16 04/19/2025 2:28 PM CDT Oxygen Saturation 96% 04/19/2025 2:28 PM CDT Inhaled Oxygen Concentration - - Weight 64.8 kg (142 lb 12.8 oz) 04/19/2025 2:28 PM CDT Height 157.5 cm (5' 2) 10/21/2023 1:41 PM CDT Body Mass Index 26.12 10/21/2023 1:41 PM CDT Plan of Treatment Upcoming Encounters Date Type Department Care Team (Late st Contact Info) Description 04/30/2025 2:30 PM ANESTHESIOLOGY CRNA Office Visit [facility] Oncology and Hematology [facility] [address] [facility] [address] [place] [address] Spencer Lynch MD [address] [place] [address] Health Maintenance Due Date Last [...] WITH AUTODIFFERENTIAL Routine 2024 10:20 AM CDT HM DEXA SCAN Routine 01/16/2025 3:48 PM CDT from Last 3 Months or Most Recently Relevant to Health Maintenance Results * CHG CA 15 3 (04/17/2025 [...] Spencer Lynch MD HEALTH MAINTENANCE Final Result from Last 3 Months or Most Recently Relevant to Health Maintenance Insurance [facility] Care Teams Health Safety Specialist Relationship Specialty Start Date End Date Adarsh Rachel MD [address] [place] [address] PCP - General Family Practice 03/13/19
[2025-04-22 08:36] VITALS: BP 163/77; PULSE 66; PULSE 78; RESP 13; RESP 19; TEMP 36.6; O2SAT 100
--- NOTE | 2025-04-22 08:36 | ECG_ITS ---
Test Date: 2025-04-22 08:55:58 Measurements Intervals Celestine Rate: 67 P: 71 AK: 130 QRS: 59 QRSD: 90 T: 64 QT: 400 QTc: 425 Interpretive Statements SINUS RHYTHM BORDERLINE T WAVE ABNORMALITY- ANTERIOR LEADS BORDERLINE ECG No previous ECG available for comparison Electronically Signed On 04-22-2025 09:05:54 CDT by Primitivo Skelton D.O.
[2025-04-22 08:46] VITALS: BP 153/79; PULSE 73; RESP 17; O2SAT 100
[2025-04-22 08:55] VITALS: PULSE 86
[2025-04-22 09:01] VITALS: O2SAT 98
[2025-04-22 09:01] LABS: Hematocrit 39.1 % (37.0-47.0); Hemoglobin 12.7 g/dL (12.0-15.0); Immature Granulocyte Percent A 0.3 % (0-0.5); Lymphocytes Absolute Auto 1.56 K/mm3 (0.9-3.2); Mean Corpuscular HGB Conc 32.5 g/dl (32-36); Mean Corpuscular Hemoglobin 30.6 pg (26-34); Mean Corpuscular Volume 94.2 fl (80-100); Nucleated Red Blood Cells Absolute Auto 0.000 K/mm3 (0.0-0.012); Nucleated Red Blood Cells Perc 0.0 % (0.0-0.2); Platelet Count Result 192 k/mm3 (150-375); Red Blood Count 4.15 M/mm3 (4.2-5.4); White Blood Count 6.2 K/mm3 (4.5-10.0)
[2025-04-22 09:05] VITALS: BP 156/92; BP 159/79; BP 163/90; PULSE 66; PULSE 68; PULSE 74
--- OUTSIDE RECORDS SUMMARY | 2025-04-22 09:15 | XMS_ITS | Clinical Summary ---
Author Organization [facility] Faiza reyes Randi Address [address] [place] [address] Care Team Providers Care Forest Officer Name Role Phone Adarsh Rachel MD Primary Care Provider [phone] Allergies Active Allergy Reactions Criticality Noted Date [...] Description 04/19/2025 2:45 PM CDT Office Visit [facility] Oncology and Hematology - [place] [address] [place] [address] Spencer Lynch MD Mass of lower lobe of left lung (Primary Dx) 04/18/2025 Orders Only [facility] Oncology and Hematology [address] [place] [address] Spencer Lynch MD 04/18/2025 External Device Data STL ABSTRACTION Provider, Abstract 04/17/2025 External Device Data STL ABSTRACTION Provider, Abstract 2025 External Device Data STL ABSTRACTION Provider, Abstract 02/14/2025 Telephone [facility] Oncology and Hematology [facility] [address] [place] [address] Azul Lares RN Medication Problem (Patient called regarding Tamoxifen causing her nausea and vomiting as well as body aches. Dr. Lynch notified and orders received for patient to hold for one week and then resume, if now improvement please call back. Information relayed to patient who verbalized understanding.) 01/30/2025 External Device Data STL ABSTRACTION Provider, Abstract 01/23/2025 2:45 PM CDT Office Visit [facility] Oncology and Hematology [facility] [address] [place] [address] Spencer Lynch MD Malignant neoplasm of upper-outer quadrant of left breast in female, estrogen receptor positive (CMS/HCC) (Primary Dx) 01/23/2025 Orders Only [facility] Oncology and Hematology [facility] [address] [place] [address] Spencer Lynch MD 01/23/2025 Abstract [facility] Oncology and Hematology [facility] [address] [place] [address] Spencer Lynch MD from Last 3 Months [...] st Contact Info) Description 04/30/2025 2:30 PM NURSE INFECTION CONTROL Office Visit [facility] Oncology and Hematology [facility] [address] [facility] [address] [place] [address] Spencer Lynch MD [address] [facility] [address] [place] [address] Health Maintenance Due Date Last [...] Most Recently Relevant to Health Maintenance Insurance [facility] Address: [address] [address] Care Teams Forest Officer Relationship Specialty Start Date End Date Adarsh Rachel MD [address] [place] [address] PCP - General Family Practice 03/13/19
--- OUTSIDE RECORDS SUMMARY | 2025-04-22 09:15 | XMS_ITS | Encounter Summary ---
Author Organization [facility] Address [address] [facility] [place] [address] Care Team Providers Care Online Merchandising Specialist Name Role Phone Nomi Maldonado MD Primary Care Provider [phone] Adarsh Rachel MD Primary Care Provider [phone] Nomi Maldonado MD Primary Care Provider [phone] Adarsh Rachel MD Primary Care Provider [phone] Nomi Maldonado MD Primary Care Provider [phone] Adarsh Rachel MD Primary Care Provider [phone] Nomi Maldonado MD Primary Care Provider [phone] Adarsh Rachel MD Primary Care Provider [phone] Encounter Details Date Type Department Care Team (Late st Contact Info) Description 02/13/2016 Lab Requisition [facility] Rogelio - Lab Cytogenetics [address] [place] [address] [place] [address] [place] [id number] Diffuse large b-cell lymphoma Social History Tobacco [...] st Contact Info) Description 05/21/2025 11:00 AM CUTTING SUPERVISOR Office Visit [facility] - Urology [address] [place] [address] Lisette Le T, COUGAR HUNTER-BATTALION CHIEF [address] [facility] DEPT OF UROLOGICAL [place] [address] 06/06/2025 9:00 AM CUTTING SUPERVISOR Office Visit [facility] - Orthopedic Surgery [address] [place] [address] Se Zaldivar MD [address] [place] [address] documented as of this encounter Procedures Procedure Name Priority Date/Time Associated Diagnosis Comments CYTOGENETICS CANCER PANEL Routine 02/13/2016 1:15 PM CDT Diffuse large b-cell lymphoma documented in this encounter Results * CYTOGENETICS CANCER PANEL (02/13/2016 1:15 PM CDT) Indication for Study DLBCL LYMPHOMA FISH panel requested by physician 6 12:53 PM CDT [facility] Results Cytogenetics Failure of lymph node harvest. 6 12:53 PM CDT [facility] Interpretation No chromosome analysis was performed due to lymph node harvest failure. This is, very likely, due to a non-proliferative specimen. FISH of lymphoma panel could not be performed because of lack of cells. 6 12:53 PM T [facility] at 1253 CDT Historical Cytogenomic Report [id number] on 01/29/16: Results Analysis and count of [...] developed, and its performance characteristics determined by [facility] Molecular Cytogenetics Laboratory as required by CLIA [...] findings. . 6 12:53 PM CDT [facility] Client Information [facility] - [id number] [facility] Lab Numbers: [id number] CHROTIS 6 12:53 PM CDT [facility] Other TUMOR TISSUE SPECIMEN / Unknown 02/13/2016 1:15 PM CDT 02/13/2016 4:49 PM CDT Charles Ruiz MD LAB - PATHOLOGY/CYTOLOGY ORDERA BLES Final Result Performing Organization Address City/State/[facility] Co de Phone Number [facility] [address] [place] [address] documented in this encounter Visit Diagnoses Diagnosis Diffuse large B-cell lymphoma (HCC) Other malignant lymphomas, unspecified site, extranodal and solid organ sites documented in this encounter Additional Health Concerns Infection Onset Date Last Indicated Resolved Time COVID-19 Under Investigation 12/08/2020 12/08/2020 12/08/2020 8:45 PM CDT documented as of this encounter Care Teams Online Merchandising Specialist Relationship Specialty Start Date End Date Nomi Maldonado MD [address] [place] [address] PCP - General 09/16/15 11/20/20 Adarsh Rachel MD [address] [place] [address] PCP - General Family Medicine 11/21/20 11/21/20 Nomi Maldonado MD [address] [place] [address] PCP - General 11/22/20 12/12/20 Adarsh Rachel MD [address] [place] [address] PCP - General 12/13/20 12/26/20 Nomi Maldonado MD [address] [place] [address] PCP - General 12/27/20 01/28/21 Adarsh Rachel MD [address] [place] [address] PCP - General Family Medicine 01/29/21 07/20/22 Nomi Maldonado MD [address] [place] [place] [address] PCP - General 07/21/22 12/12/24 Adarsh Rachel MD [address] [place] [address] PCP - General Family Medicine 12/13/24 documented as of this encounter
--- OUTSIDE RECORDS SUMMARY | 2025-04-22 09:15 | XMS_ITS | Encounter Summary ---
Author Organization [facility] Address [address] [facility] [place] [address] Care Team Providers Care Car Bracer Name Role Phone Nomi Maldonado MD Primary Care Provider [phone] Adarsh Rachel MD Primary Care Provider [phone] Nomi Maldonado MD Primary Care Provider [phone] Adarsh Rachel MD Primary Care Provider [phone] Nomi Maldonado MD Primary Care Provider [phone] Adarsh Rachel MD Primary Care Provider [phone] Nomi Maldonado MD Primary Care Provider [phone] Adarsh Rachel MD Primary Care Provider [phone] Encounter Details Date Type Department Care Team (Late st Contact Info) Description 01/29/2016 Lab Requisition [facility] - Lab Cytogenetics [address] [place], [place] [id number] [place] [address] [place] [address] Multiple myeloma not having achieved remission [...] st Contact Info) Description 05/21/2025 11:00 AM SPACE OFFICER Office Visit [facility] - Urology [address] [place] [address] Lisette Le T, TEMPERING MACHINE OPERATOR-CASE LINER [address] [facility] DEPT [place] [address] 06/06/2025 9:00 AM SPACE OFFICER Office Visit [facility] - Orthopedic Surgery [address] [place] [address] Se Zaldivar MD [address] [place] [address] documented as of this encounter Procedures Procedure Name Priority Date/Time Associated Diagnosis Comments CYTOGENETICS CANCER PANEL Routine 01/29/2016 12:00 PM CDT Multiple myeloma not having achieved remission documented in this encounter Results * CYTOGENETICS CANCER PANEL (01/29/2016 12:00 PM CDT) Indication for Study Large Cell Lymphoma LYMPHOMA FISH panel requested by physician 6 8:08 AM T [facility] Results Cytogenetics Analysis [...] x2[200],(IGH,BCL2)x2 [200] Normal 6 8:08 AM CDT [facility] Interpretation 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 This study is suboptimal because the number of dividing cells is less than 20. This was caused by a low count of WBC. FISH of DH lymphoma panel was negative. 6 8:08 AM CDT [facility] CYTOGENOMIC [facility] at 0808 CDT Disclaimer *This test was developed, and its performance characteristics determined by [facility] Molecular Cytogenetics Laboratory as required [...] with cytogenetic findings. 6 8:08 AM CDT [facility] Client Information [facility] - [id number] [facility] Lab Numbers: [id number] 8:08 AM CDT [facility] CYTO[facility]OM[facility] Other BONE MARROW SPECIMEN / Unknown 01/29/2016 12:00 PM CDT 01/29/2016 12:52 PM CDT us Charles Ruiz MD LAB - PATHOLOGY/CYTOLOGY ORDERA BLES Final Result [facility] CYTO[facility] [address] [place] [address] documented in this encounter Visit Diagnoses Diagnosis Multiple myeloma not having achieved remission (HCC) Multiple myeloma, without mention of having achieved remission documented in this encounter Additional Health Concerns Infection Onset Date Last Indicated Resolved Time COVID-19 Under Investigation 12/08/2020 12/08/2020 12/08/2020 8:45 PM CDT documented as of this encounter Care Teams Car Bracer Relationship Specialty Start Date End Date Nomi Maldonado MD [address] [place] [address] PCP - General 09/16/15 11/20/20 Adarsh Rachel MD [address] [place] [address] PCP - General Family Medicine 11/21/20 11/21/20 Nomi Maldonado MD [address] [place] [address] PCP - General 11/22/20 12/12/20 Adarsh Rachel MD [address] [place] [address] PCP - General 12/13/20 12/26/20 Nomi Maldonado MD [address] [place] [address] PCP - General 12/27/20 01/28/21 Adarsh Rachel MD [address] [place] [address] PCP - General Family Medicine 01/29/21 07/20/22 Nomi Maldonado MD [address] [id number] PCP - General 07/21/22 12/12/24 Adarsh Rachel MD [address] [place] [id number] PCP - General Family Medicine 12/13/24 documented as of this encounter
--- OUTSIDE RECORDS SUMMARY | 2025-04-22 09:15 | XMS_ITS | Clinical Summary ---
Author Organization [facility] [employer] Address [address] [place] [address] Care Team Providers Care Printing Press Machinist Name Role Phone Adasrh Rachel MD Primary Care Provider [phone] Source Comments [facility] [employer],non-owned Affiliates and Associated Physician Practices is amultiple site organization consisting of ambulatory clinics and hospital sitesin [place], [place], [place] and [place]. This disclosure is being madepursuant to the Care Everywhere program and may not contain all information available regarding this patient. Last updated 18.[facility] [employer] Allergies Active Allergy Reactions Criticality Noted Date [...] lymphoma 02/19/2016 Atherosclerotic heart diseas e of [place] coronary artery without angina pectoris 01/27/2016 Low [...] 37.2 C (98.9 F) 06/02/2023 2:07 PM BELTING AND WEBBING INSPECTOR Respiratory Rate 18 12/13/2024 8:44 AM CDT Oxygen Saturation 99% 06/02/2023 2:07 PM BELTING AND WEBBING INSPECTOR Inhaled Oxygen Concentration 100% 10/19/2017 1 2:55 PM CDT Weight 64 kg (141 lb) 06/02/2023 2:07 PM BELTING AND WEBBING INSPECTOR Height 157.5 cm (5' 2) 06/02/2023 2:07 PM BELTING AND WEBBING INSPECTOR Body Mass Index 25.79 06/02/2023 2:07 PM BELTING AND WEBBING INSPECTOR Plan of Treatment Upcoming Encounters Date Type Department Care Team (Late st Contact Info) Description 05/21/2025 11:00 AM BELTING AND WEBBING INSPECTOR Office Visit [facility] - [facility]rology [address] [facility] [address] [place] [address] Lisette Le, MOLD MAKING PLASTICS SHEETS SUPERVISOR-PELLET POST INSPECTOR [address] [facility] DEPT OF [place] [address] 06/06/2025 9:00 AM BELTING AND WEBBING INSPECTOR [facility] - [facility] Surgery [address] [place] [phone] Se Zaldivar MD [address] [place] [address] Health Maintenance Due Date Last Done Comments [...] this topic Medical Devices Implanted Type Area Vendor Analyst Device Identifier Shelf Expiration Date Model / Serial / Lot Stent Uret 6fr 24cm Pgtl Crv Tpr Tip Implanted:Qty: 1 on 10/18/2017 by Romelia Manzano DO at [facility] Left: Ureter [employer] 07/05/2020 [id number] / / [id number] Percuflex Ureteral Stent Implanted:Qty: 1 on 10/19/2017 by Romelia Manzano DO at [facility] [id number] / / Head Fem +0mm Ofst Ctpr 28mm Hip Cocr Implanted:Qty: 1 on 12/10/2020 by Se Zaldivar MD at [facility] Left: Hip [employer] 08/23/2025 [id number] / / [id number] Description:apart of total Cmnt Bone Smpx Ptbr Fd Radopq Preblend Implanted:Qty: 2 on 12/10/2020 by Se Zaldivar MD at [facility] Left: Hip [employer] [id number] DISCONTINUED / / [id number] Fito Omnifit Ronald Plus 127 Degree Cemented Hip Stem Implanted:Qty: 1 on 12/10/2020 by Se Zaldivar MD at [facility] Left: Hip [employer] 09/04/2025 [id number] / / [id number] Head Biplr 44mm 28mm Uhr Unv Hip Cocr Implanted:Qty: 1 on 12/10/2020 by Se Zaldivar MD at [facility] Left: Hip [employer] 05/14/2025 [id number] / / [id number] Description:apart of total Rstrc Bone Cmnt 24mm Med Unv Hip Strl Implanted:Qty: 1 on 12/10/2020 by Se Zaldivar MD at [facility] Left: Hip [employer] 07/26/2025 [id number] / / [id number] Procedures Procedure Name Priority Date/Time Associated Diagnosis Comments HEPATITIS C RNA QUANTITATIVE STAT 01/22/2016 12:01 PM CDT HIV-1 HIV-2 ANTIGEN/ANTIBODY Routine 01/22/2016 12:01 PM CDT from Last 3 Months or Most Recently Relevant to Health Maintenance Results * HIV-1 HIV-2 ANTIGEN/ANTIBODY (01/22/2016 12:01 PM CDT) Pathologist [facility] HIV Antigen/Antibod y 1 & 2 Non-reacti ve Non-react myrna [facility] Comment: Neither HIV-1 p24 Antigen nor HIV-1/HIV-2 Antibodies are detected. Blood specimen (specimen) BLOOD SPECIMEN / Unknown 01/22/2016 12:01 PM CDT 01/22/2016 12:23 PM CDT us Charles Ruiz MD LAB - HEMATOLOGY ORDERABLES Fin al Result [facility] [address] [phone] * HEPATITIS C RNA QUANTITATIVE PCR (01/22/2016 12:01 PM CDT) Pathologist [facility] Hepatitis C Virus RNA PCR Accession No: [id number] Specimen: Serum Reference: [id number] Test: Hepatitis C RT-PCR (Quantitative) RESULT Not Detected Reference Range Not Detected INTERPRETATION The quantitative Hepatitis C viral RNA RT-PCR determination was performed on a serum sample and is reported in IU/ml. Hepatitis C viral RNA was not detected. COMMENT The Hepatitis C viral (HCV) RNA analysis utilized a serum sample, real-time reverse automotive drivability technician PCR, and is reported as Not Detected, [...] the isolation of HCV RNA with reverse automotive drivability technician of genomic HCV RNA followed by real-time PCR in the presence of an unrelated RNA internal control. The internal control ensures that RNA is isolated, and that no general significant inhibitors of the RT-PCR process are present. This analysis was performed using an [place] FDA approved test methodology ([employer] RealTime HCV). Test performed at [facility], [address] [place] [address] This case has been personally reviewed and interpreted by the attending (teaching) pathologist. Final Diagnosis performed by Oneal Tolbert PHD. Electronically signed 01/24/2016 [facility] ([facility]) Blood specimen (specimen) BLOOD SPECIMEN / Unknown 01/22/2016 12:01 PM CDT 01/22/2016 12:23 PM CDT us Charles Ruiz MD LAB - CHEMISTRY ORDERABLES Christel arnett Result [facility] (ROM) from Last 3 Months or Most Recently Relevant to Health Maintenance Insurance [employer] MEDICARE ADV HMO & PPO * Guarantor: NINFA RODRIGUEZ Account Type Relation to Patient Date of Phone Billing Address Personal/Family [address] * Guarantor: NINFA RODRIGUEZ Account Type Relation to Patient Date of Phone Billing Address Personal/Family [address] * Guarantor: NINFA RODRIGUEZ Account Type Relation to Patient Date of Phone Billing Address Personal/Family [address] Advance Directives * Full Code (Latest [...] 6:02 AM 10/18/2017 12:59 PM Care Teams Printing Press Machinist Relationship Specialty Start Date End Date Adarsh Rachel MD [address] [address] PCP - General Family Medicine 12/13/24
--- OUTSIDE RECORDS SUMMARY | 2025-04-22 09:15 | XMS_ITS | Clinical Summary ---
Author Organization [facility] [address] Address [address] [place] [address] Care Team Providers Care Men'S Designer Name Role Phone Adarsh Rachel MD Primary [...] on file Legal Sex Female 4:02 AM FLYING SQUAD WORKER Gender Identity Not on file Sexual Orientation [...] 2017 Well Visit 65+ 2025 Insurance MEDICARE [facility] [place] [address] [place] [address] MEDICARE [address]MO [address] MEDICARE HMO Care Teams Men'S Designer Relationship Specialty Start Date End Date Adarsh Rachel MD [address] [place] [address] PCP - General Family Medicine 11/09/23
--- OUTSIDE RECORDS SUMMARY | 2025-04-22 09:15 | XMS_ITS | Encounter Summary ---
Author Organization [facility] Address [address] [place] [address] Care Team Providers Care Customer Success Intern Name Role Phone Adarsh Rachel MD Primary Care Provider Encounter Details Date Type Department Care Team (Late Contact Info) Description 04/18/2025 Orders Only [facility] Oncology and Hematology [address] [place] [address] Spencer Lynch MD [facility] [employer] [address] [place] [address] Social History Tobacco Use Types Packs/Day [...] st Contact Info) Description 04/30/2025 2:30 PM REAL ESTATE TRANSACTION MANAGER Office Visit [facility] Oncology and Hematology [facility] [address] [place] [address] Spencer Lynch MD [facility] [employer] [address] [place] [address] documented as of this encounter Procedures [...] on filedocumented in this encounter Care Teams Customer Success Intern Relationship Specialty Start Date End Date Adarsh Rachel MD [address] [place] [address] PCP - General Family Practice 03/13/19 documented as of this encounter
--- OUTSIDE RECORDS SUMMARY | 2025-04-22 09:15 | XMS_ITS ---
Author Organization [facility] Address [address] [place] [address] Care Team Providers Care Assembler Finger Buffs Name Role Phone Adarsh Rachel MD Primary Care Provider Active Problems Problem Noted Date Diagnosed Date Left leg swelling 12/14/2020 History of left hip hemiarthroplasty 12/14/2020 Pathologic fracture of femor al neck, left, initial encounter 12/06/2020 Nephrolithiasis 10/18/2017 Zoster without complications 03/11/2016 Diffuse large B-cell lymphoma 02/19/2016 Atherosclerotic heart diseas e of [place] coronary artery without angina pectoris 01/27/2016 Low [...]
[2025-04-22 09:18] LABS: INR 1.1; Partial Thromboplastin Time 24.1 Seconds (22.3-36.8); Prothrombin Time 13.9 Seconds (11.1-14.7)
[2025-04-22 09:24] LABS: Alanine Aminotransferase 14 U/L (6-35); Albumin Level 4.4 g/dL (3.5-5.1); Alkaline Phosphatase 57 U/L (38-126); Anion Gap 9 mmol/L (4-12); Aspartate Amino Transferase 23 U/L (14-36); Bilirubin,Total 0.7 mg/dL (0.2-1.3); Blood Urea Nitrogen 17 mg/dL (7-17); Calcium 9.2 mg/dL (8.4-10.2); Carbon Dioxide 26 mmol/L (22-30); Chloride 103 mmol/L (98-107); Estimated CRCL calculation 46 ml/min; Estimated Glomerular Filt Rate > 60; Glucose 140 mg/dL (65-110); Sodium 138 mmol/L (137-145); Total Protein 7.3 g/dL (6.3-8.2)
[2025-04-22 10:11] LABS: Potassium 3.6 mmol/L (3.4-5.0)
--- NOTE | 2025-04-22 11:01 | ED.SOB ---
HPI - SOB/Dyspnea General Chief Complaint: Shortness of Breath/Dyspnea Stated Complaint: R flank pain, denies urinary s/sx. hx kidney stone Time Seen by Provider: 04/22/25 08:31 History of Present Illness HPI Narrative: Patient is a 65-year-old female who presents ER with pain in her right shoulder and chest area. Recently diagnosed with 10 cm mass left lower lung. She is going to get a PET-CT soon. No fevers. No productive cough. She does have night sweats. Has history of breast cancer and sees Dr. Lynch. No hemoptysis. No exertional dyspnea. She does have some increased anxiety due to the recent imaging abnormality. She was told she may have lymphoma. Related Data Home Medications ?Medication ?Instructions ?Recorded ?Confirmed ?Last Taken ?Type atorvastatin 10 mg tablet 10 mg PO HS 05/31/21 12/26/24 06/12/24 History aspirin 81 mg tablet,delayed 81 mg PO QAM 06/24/21 12/26/24 06/12/24 History release alprazolam 0.25 mg tablet 0.25 mg PO DAILY 11/12/22 12/26/24 06/12/24 History magnesium oxide 500 mg PO DAILY 11/19/23 12/26/24 06/12/24 History anastrozole 1 mg tablet 1 mg PO DAILY 12/29/23 12/26/24 06/12/24 History tamoxifen 10 mg tablet 10 mg PO DAILY 02/18/25 02/18/25 Unknown History Allergies Allergy/AdvReac Type Severity Reaction Status Date / Time Sulfa (Sulfonamide Allergy Severe Anaphylaxis Verified 04/22/25 08:43 Antibiotics) Review of Systems Review of Systems: All systems reviewed & are unremarkable except as noted in HPI and below Constitutional: Constitutional: Reports no additional constitutional complaints ENT: Reports system reviewed and no additional complaints, except as documented Cardiovascular: Cardiovascular: Reports no additional cardiovascular complaints Respiratory: Respiratory: Reports no additional respiratory complaints REPLACED BY [facility] Past Medical History Medical History Colon cancer screening Atrial myxoma Obesity Dyslipidemia Stress fracture of neck of left femur History of non-Hodgkin's lymphoma Hypertension Heart disease BMI 35.0-35.9,adult Seizure Cancer Depression Anxiety Arthritis CAD (coronary artery disease) Surgical History Surgical History History of coronary artery stent placement Family History Family History Mother Cerebrovascular accident Father Family history of heart disease in male family member before age 55 Other Asthma Depression Diabetes mellitus Family history of alcoholism Family history of arthritis Family history of thyroid disease Hypertension Social History Social History Smoking packs per day: 0.5 Smoking cigarettes per day: 10.0 Years smoked: 43 Smoking pack-years: 21.50 Smoking status: Former smoker Tobacco type: cigarettes Second hand tobacco smoke exposure: No Smoking end date: 11/18/14 Additional smoking assessment comments: STATES SMOKING <PK/DAY/40YRS-QUIT 2014 Alcohol intake: never Substance use: current Substance use type: marijuana Other substance usage details: Medical marijuana a couple hits a day for anxiety and pain. Do You Feel Safe in your Home?: Yes Lack of Transportation: No Lack of Food: Never True Current Housing: I Have Housing Concerned About Future Housing: No Difficulty Paying Gas/Electric Bills: No Difficulty Paying for Meds: No Currently Unemployed: No Education: High School Diploma/GED Difficulty w/ Childcare or Family Care: No Living arrangements: with family Additional living arrangements comments: LIVES AND TAKES CARE OF HER MOM - YOLETTE Gender identity (if verbalized by the patient): Male Spiritual care concerns: No Exam Narrative: GENERAL: Well-appearing, well-nourished, and in no acute distress. HEAD: Normocephalic, atraumatic. ENT: Mucous membranes moist. CHEST: Clear to auscultation. No respiratory distress. HEART: Regular rate and rhythm. Normal peripheral pulses. ABDOMEN: Soft, nontender, nondistended. EXTREMITIES: Normal range of motion. No edema. SKIN: Warm, dry, no rash. NEURO: Alert and oriented x3. PSYCH: Normal mood and affect. Course Course Emergency Course: Patient resting comfortably. Discussed imaging and lab results. I will place patient on oral antibiotic in case this is pneumonia the her labs are reassuring. No hypoxia. Vital Signs Vital signs: Vital Signs Temperature 97.9 F 04/22/25 08:36 Pulse Rate 66 04/22/25 08:36 Respiratory Rate 13 04/22/25 08:36 Blood Pressure 163/77 H 04/22/25 08:36 Pulse Oximetry 100 04/22/25 08:36 Oxygen Delivery Room Air 04/22/25 08:36 Temperature 97.9 F 04/22/25 08:36 Pulse Rate 74 04/22/25 09:05 Respiratory Rate 17 04/22/25 08:46 Blood Pressure 163/90 H 04/22/25 09:05 Pulse Oximetry 98 04/22/25 09:01 Oxygen Delivery Room Air 04/22/25 09:01 MDM - SOB/Dyspnea Differential Diagnosis Differential diagnosis: Likely congestive heart failure, community acquired pneumonia and pulmonary embolism Lab Data Attestation: I reviewed the patient's lab results. 04/22/25 08:56 04/22/25 08:56 Labs: Lab Results 04/22/25 Range/Units 08:56 WBC 6.2 (4.5-10.0) K/mm3 RBC 4.15 L (4.2-5.4) M/mm3 Hgb 12.7 (12.0-15.0) g/dL Hct 39.1 (37.0-47.0) % MCV 94.2 (80-100) fl MCH 30.6 (26-34) pg MCHC 32.5 (32-36) g/dl RDW 13.7 (11.5-14.5) % Plt Count 192 (150-375) k/mm3 MPV 11.2 H (7.4-10.4) fl Immature Gran % (Auto) 0.3 (0-0.5) % Neut % (Auto) 68.2 (45.5-73.1) % Lymph % (Auto) 25.1 (18.3-44.2) % [place] % (Auto) 3.7 (2.6-8.5) % Eos % (Auto) 1.9 (0-4.4) % Baso % (Auto) 0.8 (0.2-1.2) % Lymph # (Auto) 1.56 (0.9-3.2) K/mm3 [place] # (Auto) 0.2 (0.1-0.6) K/mm3 Eos # (Auto) 0.1 (0-0.3) K/mm3 Baso # (Auto) 0.1 (0.0-0.1) K/mm3 Abs Immat Gran (auto) 0.02 (0.00-0.031) K/mm3 Absolute Neuts (auto) 4.2 (1.3-6.7) K/mm3 Absolute Nucleated RBC 0.000 (0.0-0.012) K/mm3 Nucleated RBC % 0.0 (0.0-0.2) % PT 13.9 (11.1-14.7) Seconds INR 1.1 APTT 24.1 (22.3-36.8) Seconds Sodium 138 (137-145) mmol/L Potassium 3.6 (3.4-5.0) mmol/L Chloride 103 (98-107) mmol/L Carbon Dioxide 26 (22-30) mmol/L Anion Gap 9 (4-12) mmol/L BUN 17 (7-17) mg/dL Creatinine 0.84 (0.7-1.0) mg/dL Estim Creat Clear Calc 46 ml/min Estimated GFR > 60 (59 - ) Glucose 140 H (65-110) mg/dL Calcium 9.2 (8.4-10.2) mg/dL Total Bilirubin 0.7 (0.2-1.3) mg/dL AST 23 (14-36) U/L ALT 14 (6-35) U/L Alkaline Phosphatase 57 (38-126) U/L Total Protein 7.3 (6.3-8.2) g/dL Albumin 4.4 (3.5-5.1) g/dL Imaging Data Attestation: I personally reviewed and interpreted this imaging study as follows: Radiologist's impression: ITS Impressions Chest X-Ray 04/22/25 09:35 IMPRESSION: 1. Left lower lobe airspace disease. 2. Less severe pneumonia was present same location in July 2022. Given chronicity, recommend short interval follow-up x-rays and/or CT chest to exclude underlying lesion. Chest CTA 04/22/25 10:05 IMPRESSION: 1. No PE. 2. Large left lower lobe pneumonia, consider aspiration. 3. Recommend imaging surveillance to resolution to exclude underlying lesion. Discharge Plan Discharge Clinical Impression: Lung mass, Pneumonia Patient Disposition: Home Condition: Stable Instructions: Antibiotic Form, Community Acquired Pneumonia (ED) Additional Instructions: Please return to the emergency department if you develop severe and persistent chest pain, difficulty breathing, dizziness, leg swelling or if you are coughing up blood as these can be signs of a medical emergency. Please call your doctor for a follow up appointment to determine the need for further testing. Patient Language: Latvian Prescriptions: New doxycycline hyclate 100 mg tablet 100 mg PO BID Qty: 10 0RF amoxicillin-pot clavulanate 875-125 mg tablet 1 tablet PO Q12H Qty: 10 0RF No Action tamoxifen 10 mg tablet 10 mg PO DAILY cephalexin 500 mg capsule 500 mg PO BID 7 Days Qty: 14 0RF ondansetron 4 mg tablet,disintegrating 4 mg PO TID PRN (Reason: nausea and vomiting) Qty: 15 0RF tamsulosin [Flomax] 0.4 mg capsule 0.4 mg PO DAILY 7 Days Qty: 7 0RF amoxicillin 500 mg tablet 1,000 mg PO Q8H 7 Days Qty: 42 0RF alprazolam 0.25 mg tablet 0.25 mg PO DAILY Rx Instructions: Takes at hs. anastrozole 1 mg tablet 1 mg PO DAILY aspirin 81 mg Tablet,Delayed Release (Dr/Ec) 81 mg PO QAM magnesium oxide 500 mg magnesium Tablet 500 mg PO DAILY atorvastatin 10 mg tablet 10 mg PO HS Rx Instructions: Takes in am. carvedilol 6.25 mg tablet See Rx Instructions .ROUTE .COMPLEX Qty: 60 5RF Dose Instruction: TAKE 1 TABLET BY MOUTH EVERY 12 HOURS WITH FOOD Rx Instructions: TAKE 1 TABLET BY MOUTH EVERY 12 HOURS WITH FOOD Follow-up/Referrals: Adarsh Rachel MD [Primary Care Provider, Family Practice] - 1 Week
[2025-04-22 11:11] VITALS: BP 142/64; PULSE 68; RESP 18; O2SAT 100
== END 2025-04-22 11:11 | disposition home or self-care (01) ==
PROVIDERS: Emergency Provider Emergency Medicine; PCP Family Medicine
DX: J18.9 Pneumonia, unspecified organism (principal); R91.8 Other nonspecific abnormal finding of lung field; I10 Essential (primary) hypertension; I25.10 Atherosclerotic heart disease of native coronary artery without angina pectoris; E78.5 Hyperlipidemia, unspecified; M19.90 Unspecified osteoarthritis, unspecified site; F32.A Depression, unspecified; F41.9 Anxiety disorder, unspecified; Z95.5 Presence of coronary angioplasty implant and graft; Z85.3 Personal history of malignant neoplasm of breast; Z79.82 Long term (current) use of aspirin; Z79.899 Other long term (current) drug therapy
CPT/HCPCS: 36415; 71046; 71275; 80053; 85025; 85610; 85730; 93005; 99284; Q9967

== ENCOUNTER 2025-05-01 11:49 | Outpatient (CLI) | payer MEDICARE, SELFPAY ==
--- NOTE | ~2025-05-01 | PE_ITS ---
EXAMINATION: PET skull to mid thigh DATE: 05/01/2025 14:26 INDICATION: Mass of lower lobe of left lung. TECHNIQUE: Blood glucose level was 65 mg/dL. 10.724 mCi of 18-fluorodeoxyglucose (18-FDG) was administered i.v. Low dose computed tomography (CT) images were acquired from the base of the brain to the proximal thighs for attenuation correction and anatomic localization. Automated exposure control was employed. Dose-length product (DLP) was 654 mGy-cm. Positron emission tomography (PET) images were acquired in the same distribution. COMPARISON: Chest CT 04/22/2025, 07/27/2017 FINDINGS: Head/neck: There are no pathologically enlarged lymph nodes. Chest: There are airspace and groundglass opacities in left lung lower lobe with increased activity, consistent with pneumonia. No pleural effusion. The heart size is normal. There are coronary artery calcifications. No pericardial effusion. Abdomen/pelvis/proximal thighs: The liver and spleen are normal. There are changes of cholecystectomy. The pancreas and adrenal glands are normal. There is cortical thinning of the kidneys. There are stones in right kidney measuring up to 7 mm. There are stones in left kidney measuring up to 11 mm. There are no dilated loops of bowel. The appendix is normal. There are no pathologically enlarged lymph nodes. There is no free intraperitoneal fluid. There is a left hip arthroplasty. Left ilium demonstrates a mixed lytic and sclerotic pattern with cortical and trabecular thickening without increased activity. IMPRESSION: 1. Left lower lobe pneumonia, stable from 04/22/2025. 2. Mixed lytic and sclerotic pattern in left ilium without increased activity, stable from 07/27/2017, consistent with treated lymphoma. Reviewed, dictated and finalized at location E. RIOR DESIGN PROJECT MANAGER
--- OUTSIDE RECORDS SUMMARY | 2025-05-01 14:01 | XMS_ITS ---
Author Organization [facility] Address [address] [place] [address] Care Team Providers Care Hardness Tester Name Role Phone Adarsh Rachel MD Primary Care Provider Active Problems Problem Noted Date Diagnosed Date Left leg swelling 12/14/2020 History of left hip hemiarthroplasty 12/14/2020 Pathologic fracture of femor al neck, left, initial encounter 12/06/2020 Nephrolithiasis 10/18/2017 Zoster without complications 03/11/2016 Diffuse large B-cell lymphoma 02/19/2016 Atherosclerotic heart diseas e of [place] coronary artery without angina pectoris 01/27/2016 Low [...]
--- OUTSIDE RECORDS SUMMARY | 2025-05-01 14:01 | XMS_ITS | Clinical Summary ---
Author Organization [facility] Faiza reyes Randi Address [address] [place] [address] Care Team Providers Care Imager Name Role Phone Adarsh Rachel MD Primary [...] Description 04/19/2025 2:45 PM CDT Office Visit [facility] - [place] [address] [place] [address] Spencer Lynch MD Mass of lower lobe of left lung (Primary Dx) 04/18/2025 Orders Only [facility] [address] [place] [address] Spencre Lynch MD 04/18/2025 External Device Data STL ABSTRACTION Provider, Abstract 04/17/2025 External Device Data STL ABSTRACTION Provider, Abstract 2025 External Device Data STL ABSTRACTION Provider, Abstract 02/14/2025 Telephone [facility] - [place] [address] [place] [address] Azul Lares RN Medication Problem (Patient called [...] Care Team (Late st Contact Info) Description 05/04/2025 2:00 PM 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 Telephone Check Up [facility] - [place] [address] [place] [address] Spencer Lynch MD [address] [place] [address] Health Maintenance Due Date Last [...] Colonography Q 5 years 2005 Medicare [place]age [place]) Prev entative Visit/Annual Wellness Visit 06/28/2024 INFLUENZA [...] Most Recently Relevant to Health Maintenance Insurance [facility] Address: [address] [address] Care Teams Imager Relationship Specialty Start Date End Date Adarsh Rachel MD [address] [place], [place] [id number] PCP - General Family Practice 03/13/19
--- OUTSIDE RECORDS SUMMARY | 2025-05-01 14:01 | XMS_ITS | Encounter Summary ---
Author Organization [facility] Address [address] [place] [address] Care Team Providers Care Nursing Home Director Name Role Phone Nomi Maldonado MD Primary Care Provider [phone] Adarsh Rachel MD Primary Care Provider [phone] Nomi Maldonado MD Primary Care Provider [phone] Adarsh Rachel MD Primary Care Provider [phone] Nomi Maldonado MD Primary Care Provider [phone] Adarsh Rachel MD Primary Care Provider [phone] Nomi Maldonado MD Primary Care Provider [phone] Adarsh Rachel MD Primary Care Provider [phone] Encounter Details Date Type Department Care Team (Late st Contact Info) Description 02/13/2016 Lab Requisition [facility] Rogelio - Lab Cytogenetics [address] [place] [address] Charles Ruiz MD [address] [place] [id number] Diffuse large b-cell lymphoma Social History Tobacco [...] st Contact Info) Description 05/21/2025 11:00 AM 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 DEPT OF UROLOGICAL [place] [address] 06/06/2025 9:00 AM ELECTROPLATER HELPER Office Visit [facility] - Orthopedic Surgery [address] [place] [address] Se Zaldivar MD [address] [place] [address] documented as of this encounter Procedures Procedure Name Priority Date/Time Associated Diagnosis Comments CYTOGENETICS CANCER PANEL Routine 02/13/2016 1:15 PM CDT Diffuse large b-cell lymphoma documented in this encounter Results * CYTOGENETICS CANCER PANEL (02/13/2016 1:15 PM CDT) Indication for Study DLBCL LYMPHOMA FISH panel requested by physician 6 12:53 PM CDT [facility] Results Cytogenetics Failure of lymph node harvest. 6 12:53 PM CDT [facility] Interpretation No chromosome analysis was performed due to lymph node harvest failure. This is, very likely, due to a non-proliferative specimen. FISH of lymphoma panel could not be performed because of lack of cells. 6 12:53 PM T [facility] at 1253 CDT Historical Cytogenomic Report [id number] on 01/29/16: Results Analysis and count of [...] developed, and its performance characteristics determined by [facility] as required [...] cytogenetic findings. . 6 12:53 PM CDT [facility] Client Information [facility] - [id number] [facility] Lab Numbers: [id number] CHROTIS 6 12:53 PM CDT [facility] Other TUMOR TISSUE SPECIMEN / Unknown 02/13/2016 1:15 PM CDT 02/13/2016 4:49 PM CDT Charles Ruiz MD LAB - PATHOLOGY/CYTOLOGY ORDERA BLES Final Result Performing Organization Address City/State/RUST Co de Phone Number [facility] [address] [place] [address] documented in this encounter Visit Diagnoses Diagnosis Diffuse large B-cell lymphoma (HCC) Other malignant lymphomas, unspecified site, extranodal and solid organ sites documented in this encounter Additional Health Concerns Infection Onset Date Last Indicated Resolved Time COVID-19 Under Investigation 12/08/2020 12/08/2020 12/08/2020 8:45 PM CDT documented as of this encounter Care Teams Nursing Home Director Relationship Specialty Start Date End Date Nomi Maldonado MD [address] [place] [address] PCP - General 09/16/15 11/20/20 Adarsh Rachel MD [address] [place] [address] PCP - General Family Medicine 11/21/20 11/21/20 Nomi Maldonado MD [address] [place] [address] PCP - General 11/22/20 12/12/20 Adarsh Rachel MD [address] [place] [address] PCP - General 12/13/20 12/26/20 Nomi Maldonado MD [address] [place] [address] PCP - General 12/27/20 01/28/21 Adarsh Rachel MD [address] [place] [address] PCP - General Family Medicine 01/29/21 07/20/22 Nomi Maldonado MD [address] [place] [address] PCP - General 07/21/22 12/12/24 Adarsh Rachel MD [address] [place] [address] PCP - General Family Medicine 12/13/24 documented as of this encounter
--- OUTSIDE RECORDS SUMMARY | 2025-05-01 14:01 | XMS_ITS | Clinical Summary ---
Author Organization [facility] Address [address] [place] [address] Care Team Providers Care Photo Optics Technician Name Role Phone Adarsh Rachel MD Primary Care Provider Encounters Date Type Department Care Team Description 03/21/2025 1:43 PM CDT - 03/21/2025 11:59 PM CDT Hospital Encounter [facility] [address] [place] [address] Shree Small NP Discharge Disposition: Home or Self Care (Routine Discharge) 03/21/2025 Travel from Last 3 Months Social History Tobacco Use Types Packs/Day Years Used Date Smoking Tobacco: Never Assessed Comments Unknown Sex and Gender Information Value Date Recorded Sex Assigned at Female 03/21/2025 1:39 PM CDT 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 Lung mass. COMPARISON: None this institution. Report from CTA TAVR 07/01/2021 at [facility]. Report from pelvis and left hip [...] Note Jose Miguel Benítez MD - 03/29/[address] [address] IMAGING STUDIES: CT CHEST+ABD+PEL WO CONDATE: 03/21/2025 1:55 PM HISTORY: Lung mass 65-year-old female. Lung mass. COMPARISON: None this institution. Report from CTA TAVR 07/01/2021 at [facility]. Report from pelvis and left hip [...] Benítez, 03/29/2025 2:35 PM us Shree Small WELFARE INVESTIGATOR CT Final Result from Last 3 Months Insurance [employer] MEDICARE Care Teams Photo Optics Technician Relationship Specialty Start Date End Date Adarsh Rachel MD [address] [place] [address] PCP - General FAMILY PRACTICE 03/19/25
--- OUTSIDE RECORDS SUMMARY | 2025-05-01 14:01 | XMS_ITS | Clinical Summary ---
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
--- OUTSIDE RECORDS SUMMARY | 2025-05-01 14:01 | XMS_ITS | Clinical Summary ---
Author Organization [facility] Address [address] [place] [address] Care Team Providers Care Calculation Clerk Name Role Phone Adarsh Rachel MD Primary Care Provider [phone] Source Comments [facility] [employer],non-owned Affiliates and Associated Physician Practices is amultiple site organization consisting of ambulatory clinics and hospital sitesin [place], [place], [place] and [place]. This disclosure is being madepursuant to the Care Everywhere program and may not contain all information available regarding this patient. Last updated 18.[facility] Allergies Active Allergy Reactions Criticality Noted Date [...] lymphoma 02/19/2016 Atherosclerotic heart diseas e of [place] coronary artery without angina pectoris 01/27/2016 Low [...] 37.2 C (98.9 F) 06/02/2023 2:07 PM RECREATION TEACHER Respiratory Rate 18 12/13/2024 8:44 AM CDT Oxygen Saturation 99% 06/02/2023 2:07 PM RECREATION TEACHER Inhaled Oxygen Concentration 100% 10/19/2017 1 2:55 PM CDT Weight 64 kg (141 lb) 06/02/2023 2:07 PM RECREATION TEACHER Height 157.5 cm (5' 2) 06/02/2023 2:07 PM RECREATION TEACHER Body Mass Index 25.79 06/02/2023 2:07 PM RECREATION TEACHER Plan of Treatment Upcoming Encounters Date Type Department Care Team (Late st Contact Info) Description 05/21/2025 11:00 AM RECREATION TEACHER Office Visit [facility] - Urology [address] [place] [address] Lisette Le, QUANTITATIVE EQUITY HEAD-TOURIST CAMP ATTENDANT [address] [facility] DEPT [place] [address] 06/06/2025 9:00 AM RECREATION TEACHER [facility] [address] [place] [address] Se Zaldivar MD [address] [place] [address] Health Maintenance Due Date Last Done Comments [...] this topic Medical Devices Implanted Type Area Attic Blower Device Identifier Shelf Expiration Date Model / Serial / Lot Stent Uret 6fr 24cm Pgtl Crv Tpr Tip Implanted:Qty: 1 on 10/18/2017 by Romelia Manzano DO at [facility] Left: Ureter [employer] 07/05/2020 [id number] / / [id number] Percuflex Ureteral Stent Implanted:Qty: 1 on 10/19/2017 by Romelia Manzano DO at [facility] [id number] / / Head Fem +0mm Ofst Ctpr 28mm Hip Cocr Implanted:Qty: 1 on 12/10/2020 by Se Zaldivar MD at [facility] Left: Hip [employer] 08/23/2025 [id number] / / [id number] Description:apart of total Cmnt Bone Smpx Ptbr Fd Radopq Preblend Implanted:Qty: 2 on 12/10/2020 by Se Zaldivar MD at [facility] Left: Hip [employer] [id number] DISCONTINUED / / [id number] Fito Omnifit Ronald Plus 127 Degree Cemented Hip Stem Implanted:Qty: 1 on 12/10/2020 by Se Zaldivar MD at [facility] Left: Hip [employer] 09/04/2025 [id number] / / [id number] Head Biplr 44mm 28mm Uhr Unv Hip Cocr Implanted:Qty: 1 on 12/10/2020 by Se Zaldivar MD at [facility] Left: Hip [employer] 05/14/2025 [id number] / / [id number] Description:apart of total Rstrc Bone Cmnt 24mm Med Unv Hip Strl Implanted:Qty: 1 on 12/10/2020 by Se Zaldivar MD at [facility] Left: Hip [employer] 07/26/2025 [id number] / / [id number] Procedures Procedure Name Priority Date/Time Associated Diagnosis Comments HEPATITIS C RNA QUANTITATIVE STAT 01/22/2016 12:01 PM CDT HIV-1 HIV-2 ANTIGEN/ANTIBODY Routine 01/22/2016 12:01 PM CDT from Last 3 Months or Most Recently Relevant to Health Maintenance Results * HIV-1 HIV-2 ANTIGEN/ANTIBODY (01/22/2016 12:01 PM CDT) Pathologist [facility] [place] HIV Antigen/Antibod y 1 & 2 Non-reacti ve Non-react myrna [facility] Comment: Neither HIV-1 p24 Antigen nor HIV-1/HIV-2 Antibodies are detected. Blood specimen (specimen) BLOOD SPECIMEN / Unknown 01/22/2016 12:01 PM CDT 01/22/2016 12:23 PM CDT us Charles Ruiz MD LAB - HEMATOLOGY ORDERABLES Fin al Result [facility] [address] [phone] * HEPATITIS C RNA QUANTITATIVE PCR (01/22/2016 12:01 PM CDT) Pathologist [facility] [place] Hepatitis C Virus RNA PCR Accession No: [id number] Specimen: Serum Reference: [id number] Test: Hepatitis C RT-PCR (Quantitative) RESULT Not Detected Reference Range Not Detected INTERPRETATION The quantitative Hepatitis C viral RNA RT-PCR determination was performed on a serum sample and is reported in IU/ml. Hepatitis C viral RNA was not detected. COMMENT The Hepatitis C viral (HCV) RNA analysis utilized a serum sample, real-time reverse oracle software engineer PCR, and is reported as Not Detected, [...] the isolation of HCV RNA with reverse oracle software engineer of genomic HCV RNA followed by real-time PCR in the presence of an unrelated RNA internal control. The internal control ensures that RNA is isolated, and that no general significant inhibitors of the RT-PCR process are present. This analysis was performed using an [place] FDA approved test methodology (Cardiostrong RealTime HCV). Test performed at [facility], [address] [place] [address] This case has been personally reviewed and interpreted by the attending (teaching) pathologist. Final Diagnosis performed by Oneal Tolbert PHD. Electronically signed 01/24/2016 [facility] (ROM) Blood specimen (specimen) BLOOD SPECIMEN / Unknown 01/22/2016 12:01 PM CDT 01/22/2016 12:23 PM CDT us Charles Ruiz MD LAB - CHEMISTRY ORDERABLES Christel arnett Result [facility] (ROM) from Last 3 Months or Most Recently Relevant to Health Maintenance Insurance [employer] MEDICARE ADV HMO & PPO * Guarantor: NINFA RODRIGUEZ Account Type Relation to Patient Date of Phone Billing Address Personal/Family [address] * Guarantor: NINFA RODRIGUEZ Account Type Relation to Patient Date of Phone Billing Address Personal/Family [address] * Guarantor: NINFA RODRIGUEZ Account Type Relation to Patient Date of Phone Billing Address Personal/Family [address] Advance Directives * Full Code (Latest [...] 6:02 AM 10/18/2017 12:59 PM Care Teams Calculation Clerk Relationship Specialty Start Date End Date Adarsh Rachel MD [address] [address] PCP - General Family Medicine 12/13/24
--- OUTSIDE RECORDS SUMMARY | 2025-05-01 14:01 | XMS_ITS | Encounter Summary ---
Author Organization [facility] Address [address] [facility] [place] [address] Care Team Providers Care Teacher Physically Impaired Name Role Phone Nomi Maldonado MD Primary Care Provider [phone] Adarsh Rachel MD Primary Care Provider [phone] Nomi Maldonado MD Primary Care Provider [phone] Adarsh Rachel MD Primary Care Provider [phone] Nomi Maldonado MD Primary Care Provider [phone] Adarsh Rachel MD Primary Care Provider [phone] Nomi Maldonado MD Primary Care Provider [phone] Adarsh Rachel MD Primary Care Provider [phone] Encounter Details Date Type Department Care Team (Late st Contact Info) Description 01/29/2016 Lab Requisition [facility] Rogelio - Lab Cytogenetics [address] [place], [place] [id number] [place] [address] [place] [address] Multiple myeloma not having achieved remission [...] st Contact Info) Description 05/21/2025 11:00 AM CERTIFIED ORTHOTIST Office Visit [facility] - Urology [address] [place] [address] Lisette Le T, PETROLEUM TERMINAL PLANT OPERATOR-INSTRUCTOR FLYING [address] [facility] DEPT [place] [address] 06/06/2025 9:00 AM CERTIFIED ORTHOTIST Office Visit [facility] - Orthopedic Surgery [address] [place] [address] Se Zaldivar MD [address] [place] [address] documented as of this encounter Procedures Procedure Name Priority Date/Time Associated Diagnosis Comments CYTOGENETICS CANCER PANEL Routine 01/29/2016 12:00 PM CDT Multiple myeloma not having achieved remission documented in this encounter Results * CYTOGENETICS CANCER PANEL (01/29/2016 12:00 PM CDT) Indication for Study Large Cell Lymphoma LYMPHOMA FISH panel requested by physician 6 8:08 AM T [facility] Results Cytogenetics Analysis [...] x2[200],(IGH,BCL2)x2 [200] Normal 6 8:08 AM CDT [facility] Interpretation 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 This study is suboptimal because the number of dividing cells is less than 20. This was caused by a low count of WBC. FISH of DH lymphoma panel was negative. 6 8:08 AM CDT [facility] at 0808 CDT Disclaimer *This test was developed, and its performance characteristics determined by [facility] as required by CLIA [...] with cytogenetic findings. 6 8:08 AM CDT [facility] Client Information [facility] - [id number] [facility] Lab Numbers: [id number] 8:08 AM CDT [facility] Other BONE MARROW SPECIMEN / Unknown 01/29/2016 12:00 PM CDT 01/29/2016 12:52 PM CDT us Charles Ruiz MD LAB - PATHOLOGY/CYTOLOGY ORDERA BLES Final Result [facility] [address] [place] [address] documented in this encounter Visit Diagnoses Diagnosis Multiple myeloma not having achieved remission (HCC) Multiple myeloma, without mention of having achieved remission documented in this encounter Additional Health Concerns Infection Onset Date Last Indicated Resolved Time COVID-19 Under Investigation 12/08/2020 12/08/2020 12/08/2020 8:45 PM CDT documented as of this encounter Care Teams Teacher Physically Impaired Relationship Specialty Start Date End Date Nomi Maldonado MD [address] [place] [address] PCP - General 09/16/15 11/20/20 Adarsh Rachel MD [address] [place] [address] PCP - General Family Medicine 11/21/20 11/21/20 Nomi Maldonado MD [address] [place] [address] PCP - General 11/22/20 12/12/20 Adarsh Rachel MD [address] [place] [address] PCP - General 12/13/20 12/26/20 Nomi Maldonado MD [address] [place] [address] PCP - General 12/27/20 01/28/21 Adarsh Rachel MD [address] [place] [address] PCP - General Family Medicine 01/29/21 07/20/22 Nomi Maldonado MD [address] [place] [address] PCP - General 07/21/22 12/12/24 Adarsh Rachel MD [address] [place] [address] PCP - General Family Medicine 12/13/24 documented as of this encounter
== END 2025-05-01 11:50 | disposition home or self-care (01) ==
PROVIDERS: PCP Family Medicine; Visit Provider Internal Medicine Hematology & Oncology
DX: R91.8 Other nonspecific abnormal finding of lung field (principal); J18.0 Bronchopneumonia, unspecified organism; M85.88 Other specified disorders of bone density and structure, other site
CPT/HCPCS: 78815; A9552